=== PATIENT | male | born 1980 | race Caucasian/White ===

== ENCOUNTER 2018-11-18 18:03 | Emergency (ER) | payer MEDICAID, SELFPAY ==
[2018-11-18 18:04] VITALS: BP 166/64; PULSE 96; RESP 18; TEMP 37.2; O2SAT 97; BMI 41.0
--- NOTE | 2018-11-18 18:05 | NURSING ---
NO OLD EKGS
--- NOTE | 2018-11-18 18:20 | EKG12_ITS ---
Test Reason : CP Blood Pressure : / mmHG Vent. Rate : 092 BPM Atrial Rate : 092 BPM P-R Int : 134 ms QRS Dur : 088 ms QT Int : 348 ms P-R-T Axes : 051 035 043 degrees QTc Int : 430 ms Sinus rhythm with occasional Premature ventricular complexes Nonspecific T wave abnormality Abnormal ECG Confirmed by XAVI REYES, NEMO ([id number]), assignment desk editor JARAD BOYLE ([id number]) on 11/23/2018 10:41:50 AM Referred By: LIBBY Confirmed By:STIVEN HURLEY MD
[2018-11-18 18:34] LABS: Absolute Lymphocyte Count 2.66 X10^3/ul (0.83-4.51); Absolute Neutrophil Count 8.2 X10^3/uL (2.0-7.7); Basophil# 0.02 X10^3/uL; Basophil% 0.2 % (0-1); Eosinophil# 0.11 X10^3/uL; Eosinophils% 0.9 % (0-5); Hematocrit 48.8 % (40-54); Hemoglobin 17.3 g/dl (13.0-16.5); Lymphocyte # 2.66 X10^3/ul (4.0); Lymphocyte % 22.7 % (19-41); Mean Corp Hgb Conc 35.5 g/gl (32-36); Mean Corpuscular Volume 90.4 fL (80-94); Mean Platelet Vol. 9.8 fl (6.2-12.0); Monocyte# 0.73 X10^3/uL; Monocyte% 6.2 % (0-10); Neutrophil # 8.16 X10^3/uL (2.7-7.7); Neutrophil % 69.8 % (47-70); POSITIVE COUNT NO; POSITIVE DIFFERENTIAL NO; POSITIVE MORPHOLOGY NO; Platelet Count 231 K/mm3 (150-450); RBC Distribution Width CV 12.2 % (11.6-14.6); RBC Distribution Width SD 40.2 fl (35.1-43.9); White Blood Count 11.7 K/mm3 (4.4-11.0)
[2018-11-18] MEDS: Smz/Tmp Ds Tablet 1 TABLET PO (18:39)
[2018-11-18] MEDS: Mag Hydrox/Al Hydrox/Simeth 30 ML UDC PO (18:39)
[2018-11-18] MEDS: Cephalexin 250 MG Capsule 500 MG PO (18:39)
[2018-11-18 18:58] LABS: ALB/GLOB Ratio 1.2 RATIO (0.9-2.4); AST(SGOT) 16 U/L (15-37); Alanine Aminotransfer ALT/SGPT 33 U/L (16-61); Albumin, Serum 4.1 g/dL (3.2-5.0); Alkaline Phosphatase 101 U/L (45-117); Anion Gap 4 (5-15); BUN 14 mg/dL (7-18); BUN/Creat Ratio 12.4 RATIO (10-20); Calcium,Total 9.3 mg/dL (8.5-10.1); Chloride 102 mmol/L (98-107); Creatinine, Serum 1.13 mg/dL (0.70-1.30); EST Glomerular Filtration Rate 77 mL/min (>60); Est Glom Filt Rate - Afr Amer 94 mL/min (>60); Estimated Creatinine Clearance 104.06 ml/min; Globulin 3.5 g/dL (2.2-4.2); Glucose 158 mg/dL (74-106); Lipase 268 U/L (73-393); Potassium 3.6 mmol/L (3.5-5.1); Protein, Total 7.6 g/dL (6.4-8.2); Sodium Level 135 mmol/L (136-145)
[2018-11-18] MEDS: DiphenhydrAMINE 50 MG/ML Syringe 25 MG IV (19:02)
[2018-11-18 19:04] VITALS: BP 139/87; PULSE 82; RESP 18; O2SAT 98
--- NOTE | 2018-11-18 19:48 | ED.DCSUM_ITS ---
History of Present Illness Chief Complaint: Chest Pain Informant: Patient, Significant Other Onset: Yesterday Context: Sudden Onset Timing: Continuous Quality: Burning sensation Location: Subxiphoid Current Severity: Mild Maximum Severity: Moderate Worsened by: Nothing Relieved by: Nothing Associated Symptoms: Redness warmth right popliteal fossa secondary to insect bite Narrative: Patient is a 37-year-old male who presents with indigestion/burning sensation subxiphoid area. He denies vomiting. He denies black or maroon stool. He reports compliance with his medicine for GERD. He does smoke and have history of hypertension. He has no known coronary disease. The pain is been constant since onset yesterday evening 1999. No radiation, diaphoresis or vomiting. Did report nausea. Prior similar symptoms: No Recent Illness/Hospitalization: No - Past Medical History (1) History of hypertension Status: Acute (2) History of gastroesophageal reflux (GERD) Status: Acute Past Medical History - Allergies and Home Meds Allergies/Adverse Reactions: Allergies No Known Allergies Allergy (Verified 11/18/18 18:06) Primary Care Physician: Pavan Stoddard MD [Primary Care Provider] - Prior records reviewed: Yes Lives: Spouse/ Significant Other Smoking Status: Current every day smoker Alcohol: Occasional Drugs: None Review of Systems General: Denies: Chills, Fever, Malaise, Sweats Eyes: Denies: Visual changes - bilaterally, Blurred Vision - bilaterally, Diplopia Cardiovascular: Reports: Chest pain Respiratory: Denies: Dyspnea, Cough, Dyspnea on exertion Gastrointestinal: Reports: Abdominal pain, Nausea. Denies: Vomiting, Diarrhea, Constipation, Melena, Hematochezia, -, - Genitourinary: Denies: Dysuria, Hematuria, Frequency Musculoskeletal: Denies: Myalgias, Arthralgias, Neck pain, Back pain, Extremity Pain Skin: Reports: Rash, Wounds Neurological: Denies: Headache, Parasthesia, Numbness Psych: Denies: Depression, Anxiety Hematologic: Denies: Easy bruising, Easy bleeding Allergy: Denies: Uticaria, Swelling of the mouth Physical Exam Vital Signs/Narrative: Vital Signs Temp Pulse Resp BP Pulse Ox 11/18/18 19:04 82 18 139/87 H 98 11/18/18 18:04 98.9 F 96 18 166/64 H 97 Inital Vital Signs reviewed: Yes General: Well nourished, Well developed, No Acute Distress Eyes: Perrl, EOMI. Negative for: Pale conjunctiva, Scleral icterus, - ENT: Moist mucous membranes, No rhinorrhea Neck: Supple, Nontender, No lymphadenopathy, No JVD Cardiovascular: Regular rate, Regular rhythm, No murmurs, Normal S1, Normal S2 Respiratory: No distress, CTA bilaterally, Chest nontender Abdomen: Soft, Nontender, Nondistended, Normal bowel sounds, No masses Back: Nontender, Normal Inspection Extremities: Nontender, No edema, - - There is no asymmetry, swelling, discoloration, leg vein distention, palpable cords or tenderness along the distribution of the deep venous system.. Negative for: Calf Tenderness Skin: Normal color, Rash - Puncture wound/bite with surrounding erythema, warmth and induration. There is no popliteal lymphadenopathy nor is there any lymphangitis. Neurological: Alert, Oriented x3, Cranial nerves II-XII grossly intact, Normal Strength, Normal Sensation Psychological: Normal affect, Normal Mood Diagnostic/Tx/Re-eval - Rhythm Strip Rhythm Strip: Sinus Rhythm Rate: 86 - EKG Initial EKG Interpretation: Sinus Rhythm - Ventricular rate is 92. ID interval 234 ms. Cures duration 88 ms. QT interval 348 ms. [place] is normal. Computer is reading no ossific changes, which is artifact. There is one premature ventricular beat noted. - Medical Decision Making Nursing protocol initiated since he reported chest pain.. Patient's wound consistent with cellulitis and concern for streptococcal infection since onset abruptly. He reported allergy to penicillin; however, he report no reaction to amoxicillin. He was treated with cephalexin and Bactrim. I was informed he developed hives. He was treated with Benadryl and Pepcid. His hives have reso lved. He had no other symptoms. Patient was informed that his cardiac work-up was negative. In light of 22 hours of pain with normal troponin normal EKG and heart score of 1 patient is appropriate for discharge to home. More importantly patient's history and physical consistent with GI etiology not cardiac. ED Disposition - Plan for ED Patient: Disposition: Home or Assisted Living Diagnosis: Cellulitis of right lower extremity without foot, Abdominal pain due to GERD, Urticaria, acute Instructions: Cellulitis, GERD (Adult), Hives Prescriptions: Clindamycin HCl [Cleocin] 300 mg PO Q6H #28 cap Prescription Printed Referrals: Pavan Stoddard MD [Primary Care Provider] - 2 Days for wound check
[2018-11-18 20:07] VITALS: BP 136/79; PULSE 78; RESP 17; O2SAT 97
== END 2018-11-18 20:08 | disposition home or self-care (01) ==
PROVIDERS: Emergency Provider Emergency Medicine; Family Provider Family Medicine; PCP Family Medicine
DX: L03.115 Cellulitis of right lower limb (principal); K21.9 Gastro-esophageal reflux disease without esophagitis; L50.9 Urticaria, unspecified; I49.3 Ventricular premature depolarization; F17.200 Nicotine dependence, unspecified, uncomplicated; I10 Essential (primary) hypertension
CPT/HCPCS: 80053; 83690; 85025; 93005; 99285; A4216; J3490

== ENCOUNTER 2019-01-21 11:43 | Emergency (ER) | payer MEDICAID, SELFPAY ==
[2019-01-21 11:44] VITALS: BP 162/96; PULSE 114; RESP 18; TEMP 36.4; O2SAT 96; BMI 40.1
--- NOTE | 2019-01-21 12:17 | ED.VISSUMM ---
- ER Visit Summary Date of Service: 01/21/19 Chief Complaint: Abdominal pain History of Present Illness: The patient is a 38 M who presents with upper abdominal pain that has been constant for the past 2 months. Patient states the pain in his gradually gotten worse. Patient states the pain is over the epigastric and upper abdomen. Patient was seen here 1 to 2 months ago and was diagnosed with indigestion but he thinks it is something worse than that. Patient states he has an appoint with his primary care physician later today but does not feel like he can make it until that appointment. Patient admits to some nausea and vomiting. Patient denies any hematemesis or coffee-ground emesis. Patient states he has some intermittent diarrhea that is loose. Patient denies any melena or hematochezia. Patient states today he had an episode of dizziness where he felt lightheaded and felt like he might pass out. Patient states his pain improves with taking Protonix. Patient denies any urinary complaints. Patient states his pain does radiate into his back. Physical Examination: Vital signs are stable. Patient is afebrile. Patient is in no acute distress. Oral mucosa is pink and moist. Neck is supple. Trachea is midline. There is no JVD noted. Heart was regular rate and rhythm. Lungs are clear and equal bilaterally. Abdomen is soft. Bowel sounds are normal. There is upper abdominal tenderness. There is no rebound or guarding noted. Cranial nerves II through XII are intact. There are no focal motor or sensory deficits noted. Test Results: CBC and comprehensive metabolic profile were within normal limits. Lipase was normal. Urinalysis does not show any evidence of urinary tract infection. Emergency Department Course and Treatment: Patient was given IV fluids, morphine, and Zofran. Patient felt better on reevaluation. Patient was instructed to follow-up with his primary care physician in 5 to 7 days. Patient understood and was agreeable with the plan. All questions were answered. Disposition: Discharge home Impression: Abdominal pain This note was generated with [employer] dictation software. It may contain incorrect words, spelling, and punctuation that were not noted in review of the chart prior to signing ED Disposition - Plan for ED Patient: Disposition: Home or Assisted Living Diagnosis: Abdominal pain Instructions: ABDOMINAL PAIN, Unkown Cause, (Male) Referrals: Pavan Stoddard MD [Primary Care Provider] - 5-7 Days
[2019-01-21 12:43] LABS: Absolute Lymphocyte Count 1.66 X10^3/uL (0.83-4.51); Absolute Neutrophil Count 5.7 X10^3/uL (2.0-7.7); Basophil# 0.05 X10^3/uL; Basophil% 0.6 % (0-1); Eosinophil# 0.13 X10^3/uL; Eosinophils% 1.6 % (0-5); Hematocrit 48.2 % (40-54); Hemoglobin 16.9 g/dL (13.0-16.5); Lymphocyte # 1.66 X10^3/ul (4.0); Lymphocyte % 20.6 % (19-41); Mean Corp Hgb Conc 35.1 g/dL (32-36); Mean Corpuscular Hgb 30.8 pg (27.0-32.0); Mean Platelet Vol. 9.4 fl (6.2-12.0); Monocyte# 0.52 X10^3/uL; Monocyte% 6.4 % (0-10); NRBC Flagged by Analyzer 0 % (0-5); Neutrophil # 5.68 X10^3/uL (2.7-7.7); Neutrophil % 70.4 % (47-70); Platelet Count 187 K/mm3 (150-450); RBC Distribution Width CV 11.5 % (11.6-14.6); RBC Distribution Width SD 36.8 fl (35.1-43.9); Red Blood Count 5.48 M/mm3 (4.6-6.2); White Blood Count 8.1 K/mm3 (4.4-11.0)
[2019-01-21] MEDS: 0.9% Normal Saline 1,000 ML 1000 ML IV (12:52)
[2019-01-21] MEDS: Morphine 4 MG/ML Syringe IV (12:53)
[2019-01-21] MEDS: Ondansetron 4 MG/2 ML Vial IV (12:53)
[2019-01-21 13:00] LABS: AST(SGOT) 13 U/L (15-37); Alanine Aminotransfer ALT/SGPT 36 U/L (16-61); Albumin, Serum 3.8 g/dL (3.2-5.0); Alkaline Phosphatase 105 U/L (45-117); Anion Gap 5 (5-15); BUN 9 mg/dL (7-18); Calcium,Total 9.1 mg/dL (8.5-10.1); Chloride 104 mmol/L (98-107); EST Glomerular Filtration Rate 89 mL/min (>60); Est Glom Filt Rate - Afr Amer 108 mL/min (>60); Estimated Creatinine Clearance 116.45 ml/min; Globulin 3.7 g/dL (2.2-4.2); Glucose 160 mg/dL (74-106); Lipase 223 U/L (73-393); Potassium 3.8 mmol/L (3.5-5.1); Protein, Total 7.5 g/dL (6.4-8.2); Sodium Level 137 mmol/L (136-145)
[2019-01-21 14:00] LABS: Red Blood Cells-Urine 0 SEEN /hpf (0-5)
[2019-01-21 14:04] LABS: Color, Urine Yellow (Yellow); Glucose, Dipstick 1000 mg/dl (Normal); Ketone-Dipstick 5 mg/dl (Negative); Leukocyte Esterase-Dipstick 100 /ul (Negative); Nitrite-Dipstick Negative (Negative); Occult Blood-Urine Negative /ul (Negative); Protein-Dipstick 30 mg/dl (Negative); Urine Bilirubin Dipstick Negative (Negative); Urine Clarity Sl. Cloudy (Clear); Urine Urobilinogen 1 mg/dl (Normal)
[2019-01-21 14:09] LABS: Squamous Epithelial Cells - UA 0-5 SEEN /hpf (0-5); White Blood Cells 10-25 SEEN /hpf (0-5)
[2019-01-21 14:10] LABS: Bacteria 1+ /hpf (None Seen); Mucous, Urine 1+ /hpf (<or=2+)
[2019-01-21 15:39] VITALS: BP 151/78; PULSE 81; RESP 14; O2SAT 94
[2019-01-21 16:22] VITALS: BP 136/96; PULSE 83; RESP 16; O2SAT 98
== END 2019-01-21 16:23 | disposition home or self-care (01) ==
PROVIDERS: Emergency Provider Emergency Medicine; Family Provider Family Medicine; PCP Family Medicine
DX: R10.9 Unspecified abdominal pain (principal); R42 Dizziness and giddiness; R19.7 Diarrhea, unspecified; R11.2 Nausea with vomiting, unspecified; M54.9 Dorsalgia, unspecified; I10 Essential (primary) hypertension; F17.210 Nicotine dependence, cigarettes, uncomplicated
CPT/HCPCS: 80053; 81001; 83690; 85025; 96361; 96374; 96375; 99283; J7030; A4216; J2405

== ENCOUNTER 2020-07-09 21:38 | Emergency (ER) | payer MEDICAID, SELFPAY ==
[2020-07-09 21:40] VITALS: BP 171/102; PULSE 114; RESP 18; TEMP 36.8; O2SAT 96; BMI 42.2
--- NOTE | 2020-07-09 22:06 | ED.VIS.GEN ---
History of Present Illness Chief Complaint: Abd Pain Informant: Patient Narrative: Patient states he had some intermittent cramping in his lower abdomen for a couple of days. He states he had just eaten some pizza when he went upstairs to fold close and started having sweating and nauseous and crampy abdominal pain. He states he got diaphoretic and felt like he was going to vomit. Patient states that most of the symptoms have resolved. He is not had fever, chills. No urinary complaints. He states he had 3 bowel movements today that were normal. - Past Medical History (1) History of gastroesophageal reflux (GERD) Status: Chronic (2) History of hypertension Status: Chronic Past Medical History - Allergies and Home Meds Allergies/Adverse Reactions: Allergies No Known Allergies Allergy (Verified 07/09/20 21:43) Primary Care Physician: Pavan Stoddard MD [Primary Care Provider] - Prior records reviewed: Yes Past Medical History: - - Reviewed in problem list Lives: Spouse/ Significant Other Smoking Status: Current every day smoker Alcohol: None Review of Systems General: Reports: Sweats. Denies: Chills, Fever Eyes: Denies: Visual changes - bilaterally, Diplopia ENT: Denies: Rhinorrhea, Sore throat Cardiovascular: Denies: Chest pain, Palpitations Respiratory: Denies: Dyspnea, Cough, Dyspnea on exertion Gastrointestinal: Reports: Abdominal pain, Nausea. Denies: Vomiting, Diarrhea, Constipation Genitourinary: Denies: Dysuria, Hematuria Musculoskeletal: Denies: Myalgias, Arthralgias Skin: Denies: Rash, Abscess Neurological: Denies: Headache, Weakness Psych: Denies: Depression, Anxiety Physical Exam Vital Signs/Narrative: Vital Signs Temp Pulse Resp BP Pulse Ox 07/09/20 21:40 98.2 F 114 H 18 171/102 H 96 Inital Vital Signs reviewed: Yes General: Well nourished, No Acute Distress Head: Normocephalic, Atraumatic Eyes: Perrl, EOMI. Negative for: Scleral icterus ENT: Moist mucous membranes, No rhinorrhea Cardiovascular: Regular rate, Regular rhythm Respiratory: No distress, CTA bilaterally Abdomen: Soft, Tender - Mild suprapubic tenderness. Abdomen is nonperitoneal. No right lower quadrant tenderness. Skin: Normal color, No rash Neurological: Alert, Oriented x3 Psychological: Normal affect, Normal Mood Diagnostic/Tx/Re-eval - Medical Decision Making 39-year-old male presenting with abdominal pain and nausea. He states he ate pizza prior to his symptoms. He states he also took an early dose of Metformin. His abdominal exam is benign. His vital signs are stable he is afebrile. His lab work is all within normal limits. His urinalysis is negative for infection or blood. I do not suspect a kidney stone. Results were discussed with patient and I do not believe he needs a CAT scan of his abdomen pelvis at this time. He is amenable to that. I will give him some Zofran for home. Patient stable for discharge at this time. Impression: 1. Abdominal pain ED Disposition - Plan for ED Patient: Disposition: Home or Assisted Living Instructions: Abdominal Pain Prescriptions: Ondansetron [Zofran Odt] 4 mg PO Q8H PRN PRN #20 tab PRN Reason: Nausea Prescription Printed Referrals: Pavan Stoddard MD [Primary Care Provider] -
[2020-07-09] MEDS: Ondansetron 4 MG/2 ML Vial IV (22:16)
[2020-07-09] MEDS: Morphine 4 MG/ML Syringe IV (22:16)
[2020-07-09 22:17] LABS: Absolute Lymphocyte Count 2.55 X10^3/uL (0.83-4.51); Absolute Neutrophil Count 4.4 X10^3/uL (2.0-7.7); Basophil# 0.06 X10^3/uL; Basophil% 0.8 % (0-1); Eosinophil# 0.22 X10^3/uL; Eosinophils% 2.8 % (0-5); Hematocrit 46.6 % (40-54); Hemoglobin 16.1 g/dL (13.0-16.5); Lymphocyte # 2.55 X10^3/ul (4.0); Lymphocyte % 32.5 % (19-41); Mean Corp Hgb Conc 34.5 g/dL (32-36); Mean Corpuscular Hgb 30.9 pg (27.0-32.0); Mean Corpuscular Volume 89.4 fL (80-94); Mean Platelet Vol. 9.4 fl (6.2-12.0); Monocyte# 0.59 X10^3/uL; Monocyte% 7.5 % (0-10); NRBC Flagged by Analyzer 0 % (0-5); Neutrophil # 4.41 X10^3/uL (2.7-7.7); Neutrophil % 56.1 % (47-70); Platelet Count 241 K/mm3 (150-450); RBC Distribution Width CV 11.6 % (11.6-14.6); RBC Distribution Width SD 37.5 fl (35.1-43.9); Red Blood Count 5.21 M/mm3 (4.6-6.2); White Blood Count 7.9 K/mm3 (4.4-11.0)
[2020-07-09 22:30] LABS: ALB/GLOB Ratio 1.1 RATIO (0.9-2.4); AST(SGOT) 17 U/L (15-37); Alanine Aminotransfer ALT/SGPT 55 U/L (16-61); Albumin, Serum 3.9 g/dL (3.2-5.0); Alkaline Phosphatase 99 U/L (45-117); Anion Gap 6 (5-15); BUN 10 mg/dL (7-18); Calcium,Total 9.3 mg/dL (8.5-10.1); Chloride 103 mmol/L (98-107); EST Glomerular Filtration Rate 88 mL/min (>60); Est Glom Filt Rate - Afr Amer 107 mL/min (>60); Estimated Creatinine Clearance 112.08 ml/min; Globulin 3.6 g/dL (2.2-4.2); Glucose 101 mg/dL (74-106); Lipase 234 U/L (73-393); Potassium 3.6 mmol/L (3.5-5.1); Protein, Total 7.5 g/dL (6.4-8.2); Sodium Level 137 mmol/L (136-145)
[2020-07-09 22:32] LABS: Red Blood Cells-Urine 0 SEEN /hpf (0-5); Squamous Epithelial Cells - UA 0 SEEN /hpf (0-5); White Blood Cells 0 SEEN /hpf (0-5)
[2020-07-09 22:43] LABS: Color, Urine Yellow (Yellow); Glucose, Dipstick 100 mg/dl (Normal); Ketone-Dipstick 5 mg/dl (Negative); Leukocyte Esterase-Dipstick 25 /ul (Negative); Nitrite-Dipstick Negative (Negative); Occult Blood-Urine Negative /ul (Negative); Protein-Dipstick 30 mg/dl (Negative); Specific Gravity, Urine 1.025 (1.002-1.030); Urine Bilirubin Dipstick Negative (Negative); Urine Clarity Clear (Clear); Urine Urobilinogen 1 mg/dl (Normal)
[2020-07-09 22:48] LABS: Calcium Oxalate Crystals Ur 1+ /hpf (<or=2+)
[2020-07-09 22:49] LABS: Bacteria RARE /hpf (None Seen); Mucous, Urine 1+ /hpf (<or=2+)
[2020-07-09 23:10] VITALS: BP 165/101; PULSE 94; RESP 18; O2SAT 96
== END 2020-07-09 23:10 | disposition home or self-care (01) ==
PROVIDERS: Emergency Provider Student in an Organized Health Care Education/Training Program; PCP Family Medicine
DX: R10.9 Unspecified abdominal pain (principal); I10 Essential (primary) hypertension; K21.9 Gastro-esophageal reflux disease without esophagitis; F17.200 Nicotine dependence, unspecified, uncomplicated
CPT/HCPCS: 80053; 81001; 83690; 85025; 96374; 96375; 99283; A4216; J2405

== ENCOUNTER 2024-12-03 23:47 | Emergency (ER) | payer OTHER, SELFPAY ==
[2024-12-03 23:49] VITALS: BP 197/119; PULSE 113; RESP 18; TEMP 37.4; O2SAT 97; BMI 40.6
[2024-12-04 00:07] VITALS: BP 190/104; PULSE 106; RESP 14; O2SAT 96
[2024-12-04 00:15] LABS: Hematocrit 47.7 % (40-54); Hemoglobin 17.2 g/dL (13.0-16.5); Immature Granulocytes Count 0.030 X10^3/uL (0.0-0.0); Mean Corp Hgb Conc 36.1 g/dL (32-36); Mean Corpuscular Volume 87.2 fL (80-94); Mean Platelet Vol. 9.0 fl (6.2-12.0); NRBC Flagged by Analyzer 0 % (0-5); Platelet Count 244 K/mm3 (150-450); RBC Distribution Width CV 11.8 % (11.6-14.6); RBC Distribution Width SD 37.9 fl (35.1-43.9); Red Blood Count 5.47 M/mm3 (4.6-6.2); White Blood Count 9.2 K/mm3 (4.4-11.0)
[2024-12-04 00:41] LABS: Anion Gap 14 (5-15); BUN 10 mg/dL (4-19); BUN/Creat Ratio 11.7 RATIO (10-20); Calcium,Total 9.6 mg/dL (7.6-11.0); Carbon Dioxide 23.6 mmol/L (21.0-32.0); Chloride 99 mmol/L (98-108); Estimated Creatinine Clearance 164.44 ml/min (50-250); Glucose 203 mg/dL (70-99); Potassium 4.0 mmol/L (3.3-5.1); Troponin T High Sensitivity < 6 ng/L (<=22)
[2024-12-04 02:00] VITALS: BP 178/97; PULSE 86; RESP 16; O2SAT 97
[2024-12-04 02:55] LABS: Troponin T High Sens 2 HR 7 ng/L (<=22)
[2024-12-04 04:00] VITALS: BP 149/88; PULSE 78; RESP 18; O2SAT 97
[2024-12-04 04:07] VITALS: BP 149/88; PULSE 86; RESP 18; TEMP 36.9; O2SAT 98
== END 2024-12-04 04:10 | disposition home or self-care (01) ==
PROVIDERS: Emergency Provider Emergency Medicine; PCP Nurse Practitioner Family; Visit Provider Emergency Medicine
DX: R06.02 Shortness of breath (principal); E11.65 Type 2 diabetes mellitus with hyperglycemia; F17.210 Nicotine dependence, cigarettes, uncomplicated; I10 Essential (primary) hypertension; Z79.899 Other long term (current) drug therapy; Z79.84 Long term (current) use of oral hypoglycemic drugs; K21.9 Gastro-esophageal reflux disease without esophagitis; R61 Generalized hyperhidrosis; R07.89 Other chest pain
CPT/HCPCS: 71275; 80048; 82962; 84484; 85025; 93005; 99285; Q9967; A4216

== ENCOUNTER 2024-12-27 14:49 | Emergency (ER) | payer OTHER, SELFPAY ==
[2024-12-27 14:49] VITALS: BP 177/95; PULSE 96; RESP 18; TEMP 36.6; O2SAT 98; BMI 39.8
--- NOTE | 2024-12-27 15:10 | EDS_ITS ---
HPI History of Present Illness Chief Complaint: Hypertension Informant: patient Narrative Narrative: Presents with current symptoms not feeling well started yesterday. Today nausea dry heaving. No abdominal pain no chest pains. Lightheaded symptoms. History of hypertension diabetes. Blood pressure checked at home today 177/100. He is on amlodipine 10 mg and losartan 25 mg. He has been compliant. Not checked his sugars a couple days it was in the 200s 2 days ago. No urinary symptoms. No polyuria or polydipsia. No headache no abdominal pain. [place] similar symptoms December 03 when blood pressure was 190/100 while in the ER he states blood pressure went down to 140s over 90s. There is no intervention at that time. He follow- up with his PCP pressures was 150s down to 130s when he left the office no adjustments of medications. Decreased p.o. intake. Denies cough. Prior similar symptoms: Yes PFSH PFSH Medical History Neuropathy Hypertension Diabetes Home Medications ?Medication ?Instructions ?Recorded ?Last Taken ?Type amlodipine 10 mg tablet 10 mg PO DAILY 11/18/18 Unkn own History escitalopram oxalate 20 mg tablet 20 mg PO DAILY 07/09 Unknown History glimepiride 2 mg tablet 6 mg PO DAILY 07/09/20 Unkno wn History losartan 25 mg tablet 25 mg PO DAILY 07/09/20 Unkn own History metformin 1,000 mg tablet 1,000 mg PO DAILY 07/09/20 U nknown History gabapentin 300 mg capsule 600 mg PO DAILY 12/27/24 Unk nown History ondansetron 4 mg disintegrating 4 mg PO Q8H PRN PRN Na usea #10 tabs 12/27/24 Unknown Rx tablet pantoprazole 40 mg tablet,delayed 40 mg PO DAILY 12/27 Unknown History release simvastatin 10 mg tablet 10 mg PO QHS 12/27/24 Unknow n History Allergy/AdvReac Type Severity Reaction Status Date / Time latex Allergy rash Verified 12/27/24 14:52 Social History household members: spouse Smoking Status: Light Smoker (<10/day) ROS ROS ED Constitutional Constitutional ED: Denies chills, fever(s) or sweats ENT ENT ED: Denies sore throat Cardiovascular Cardiovascular: Denies chest pain, leg edema, palpitations or racing heartbeat Respiratory/Chest Respiratory/Chest: Denies cough, dyspnea or dyspnea on exertion Gastrointestinal Gastrointestinal: Reports nausea; Denies abdominal pain, diarrhea or vomiting Genitourinary Genitourinary ED: Denies dysuria, hematuria or urinary frequency Musculoskeletal Musculoskeletal: Denies back pain, extremity pain or neck pain Integumentary Denies rash or wounds Neurologic Neurologic: Denies headache(s), paresthesias or weakness EXAM Physical Exam Const Vital Signs: 12/27/24 14:49 12/27/24 14:58 12/27/24 15:30 Temperature 98 F Temperature Source Oral Pulse Rate 96 67 Respiratory Rate 18 Respiratory Pattern Normal Blood Pressure 177/95 H 151/86 H Blood Pressure Mean 122 107 Pulse Ox 98 99 Oxygen Delivery Method Room Air Room Air 12/27/24 16:00 12/27/24 16:59 Temperature 98.4 F Temperature Source Pulse Rate 63 69 Respiratory Rate 16 Respiratory Pattern Blood Pressure 159/86 H 155/83 H Blood Pressure Mean 110 107 Pulse Ox 96 97 Oxygen Delivery Method Positive well nourished and well developed General Appearance ED: well developed and NAD HEENT HEENT Narrative: Mild dry mucosal membranes. normocephalic and atraumatic Eyes General Eye ED: Yes normal appearance of both eyes Neck full ROM Chest Wall Chest: Negative for tenderness Resp normal respiratory effort and normal air movement Resp Narrative: Negative Jimenes's McBurney's tenderness. Effort and Inspection: symmetric chest movement; Negative for respiratory distress Cardio regular rate, regular rhythm and no murmurs Peripheral Pulses: pulses 2+ throughout GI normal to inspection, nondistended, normoactive bowel sounds and non-tender Palpation: Negative for guarding or rebound tenderness present Extremity normal to inspection General Extremety ED: Negative for edema or tenderness General Extremity: Negative for edema Neuro oriented x3 and no sensory deficits noted Sensorium / Orientation: awake and alert Skin no rashes or lesions noted and no wounds MDM MDM MDM Narrative Medical decision making narrative: Interventions / MDM: Differential diagnosis: Diabetes, nausea, elevated blood pressure with history of hypertension Diagnosis considered but do not suspect: N/A My EKG interpretation: Sinus rate of 67, no ST changes. QTc 420. Imaging independently reviewed and interpreted by myself: N/A External documents reviewed: N/A Test considered but not ordered:N/A ED course: Blood pressure 177/95 in the room 173/92. Asymptomatic. Recurrence of not feeling well with nausea dry heaving. Discussed likely symptoms elevated blood pressure from his dry heaving and not feeling well. Mild dry mucosal membranes. He is nauseated. Will establish IV with fluids with antiemetics will check basic labs and EKG. 1545: EKG normal. Blood pressure 155/87 currently. 1625: Labs stable glucose 198 normal gap. Clinically is feeling better. Blood pressure 159/86. Discussed with patient blood pressure elevated due to situational event of not feeling well. No chest pains no abdominal pains no urinary symptoms. He will keep track of his blood pressure in the mornings when he wakes up then before bedtime to get more consistent numbers at home. Prescription for Zofran to his pharmacy he will follow-up with his PCP. All questions were answered. Re-evaluation: stable Disposition discussed with patient/family/significant other: Patient Case discussed with consulting clinician: N/A This note was generated with [employer] dictation software. It may contain incorrect words, spelling, and punctuation that were not noted in checking the note before signing. Lab Data Attestation: I reviewed the patient's lab results. Labs: Laboratory Results - last 24 hr 12/27/24 12/27/24 15:30 15:32 WBC 6.9 RBC 5.44 Hgb 16.8 H Hct 47.4 MCV 87.1 MCH 30.9 MCHC 35.4 RDW Std Deviation 36.7 RDW Coeff of [place] 11.6 Plt Count 222 MPV 9.1 Immature Gran % (Auto) 0.600 Neut % (Auto) 65.9 Lymph % (Auto) 25.6 [place] % (Auto) 5.6 Eos % (Auto) 1.7 Baso % (Auto) 0.6 Absolute Neuts (auto) 4.6 Absolute Lymphs (auto) 1.78 Nucleated RBC % 0 Sodium 137 Potassium 4.0 Chloride 98 Carbon Dioxide 24.8 Anion Gap 14 BUN 9 Creatinine 0.80 Estim Creat Clear Calc 171.26 Est GFR (MDRD) Non-Af 112 BUN/Creatinine Ratio 10.8 Glucose 198 H Calcium 9.5 POC Glucose 186 H Discharge Plan Triage Chief Complaint: Hypertension ED Provider: Fredy Nolen Dx/Rx/DC Orders Clinical Impression: History of hypertension, Diabetes, Nausea Instructions: ED Hypertension, Established Prescriptions: New ondansetron 4 mg tablet,disintegrating 4 mg PO Q8H PRN PRN (Reason: Nausea) Qty: 10 0RF No Action amlodipine 10 MG tablet 10 mg PO DAILY glimepiride 2 MG tablet 6 mg PO DAILY metformin 1,000 MG tablet 1,000 mg PO DAILY losartan 25 MG tablet 25 mg PO DAILY escitalopram oxalate 20 MG tablet 20 mg PO DAILY gabapentin 300 mg capsule 600 mg PO DAILY simvastatin 10 mg tablet 10 mg PO QHS pantoprazole 40 mg tablet,delayed release (DR/EC) 40 mg PO DAILY Stand Alone Forms: ED Work / School Excuse Primary Care Provider: Savanna Vivas Referrals: Savanna Vivas, RN [facility] [Primary Care Provider] - 1-2 Weeks Activity Restrictions/Additional Instructions: EKG normal. Your blood glucose in the lab 198 normal gap. Without treatment blood pressure down 159/86. As discussed likely elevated from reactive from you not feeling well having nausea. Keep a log of your blood pressure when you wake up in the morning then before bedtime. Continue your home medications. Follow- up with your primary care team. Print Language: Croatian Disposition Disposition: Home, Self Care Discharge Date/Time: 12/27/24 16:59
--- NOTE | 2024-12-27 15:10 | EKG12_ITS ---
Test Reason : HTN Blood Pressure : */* mmHG Vent. Rate : 67 BPM Atrial Rate : 67 BPM P-R Int : 146 ms QRS Dur : 86 ms QT Int : 398 ms P-R-T Axes : 39 23 32 degrees QTcB Int : 420 ms Normal sinus rhythm Normal ECG Confirmed by ADY REYES, ANNETTE ([id number]), supervising film or videotape editor MARGARITO ROJO ([id number]) on 12/28/2024 1:01:18 PM Referred By: Confirmed By: ANNETTE GARSIA MD
[2024-12-27] MEDS: 0.9% Normal Saline (1000mL) 1,000 ML 1000 ML IV (15:22)
[2024-12-27 15:30] VITALS: BP 151/86; PULSE 67; O2SAT 99
[2024-12-27 15:40] LABS: Hematocrit 47.4 % (40-54); Hemoglobin 16.8 g/dL (13.0-16.5); Immature Granulocytes Count 0.040 X10^3/uL (0.0-0.0); Mean Corp Hgb Conc 35.4 g/dL (32-36); Mean Corpuscular Volume 87.1 fL (80-94); Mean Platelet Vol. 9.1 fl (6.2-12.0); NRBC Flagged by Analyzer 0 % (0-5); Platelet Count 222 K/mm3 (150-450); RBC Distribution Width CV 11.6 % (11.6-14.6); RBC Distribution Width SD 36.7 fl (35.1-43.9); Red Blood Count 5.44 M/mm3 (4.6-6.2); White Blood Count 6.9 K/mm3 (4.4-11.0)
[2024-12-27 15:55] LABS: Anion Gap 14 (5-15); BUN 9 mg/dL (4-19); BUN/Creat Ratio 10.8 RATIO (10-20); Calcium,Total 9.5 mg/dL (7.6-11.0); Carbon Dioxide 24.8 mmol/L (21.0-32.0); Chloride 98 mmol/L (98-108); Estimated Creatinine Clearance 171.26 ml/min (50-250); Glucose 198 mg/dL (70-99); Potassium 4.0 mmol/L (3.3-5.1)
[2024-12-27 16:00] VITALS: BP 159/86; PULSE 63; O2SAT 96
[2024-12-27 16:59] VITALS: BP 155/83; PULSE 69; RESP 16; TEMP 36.9; O2SAT 97
== END 2024-12-27 16:59 | disposition home or self-care (01) ==
PROVIDERS: Emergency Provider Emergency Medicine; PCP Nurse Practitioner Family; Visit Provider Emergency Medicine
DX: I10 Essential (primary) hypertension (principal); E11.40 Type 2 diabetes mellitus with diabetic neuropathy, unspecified; F17.200 Nicotine dependence, unspecified, uncomplicated; Z79.84 Long term (current) use of oral hypoglycemic drugs; Z79.899 Other long term (current) drug therapy
CPT/HCPCS: 80048; 82962; 85025; 93005; 96361; 96374; 99283; A4216; J2405

== ENCOUNTER 2025-06-01 16:25 | Emergency (ER) | payer OTHER, SELFPAY ==
[2025-06-01 16:27] VITALS: BP 165/87; PULSE 88; RESP 16; TEMP 36.6; O2SAT 97; BMI 38.5
[2025-06-01 17:16] VITALS: BP 165/87; PULSE 82; RESP 17; TEMP 37; O2SAT 97
--- NOTE | 2025-06-01 17:35 | EDS_ITS ---
HPI History of Present Illness Chief Complaint: Wound Informant: patient Narrative Narrative: Patient is a 44-year-old male with a history of DM presenting with erythema and swelling surrounding a recent IV site. Patient is accompanied by his . - Reports erythema and swelling at the site of a recent IV placement for a scope yesterday. - Noticed pain at the wrist last night, which progressed to a sensation of hand soreness. - This morning, observed swelling and erythema over the entire R hand dorsum, prompting a visit to urgent care, where he was advised to seek further evaluation in ED. - Denies fever or feeling unwell. - Last HbA1c was 6.4%. - No known allergies to antibiotics; has tolerated amoxicillin in the past. [facility] Medical History Neuropathy Hypertension Diabetes Home Medications ?Medication ?Instructions ?Recorded ?Last Taken ?Type amlodipine 10 mg tablet 10 mg PO DAILY 11/18/18 Unkn own History escitalopram oxalate 20 mg tablet 20 mg PO DAILY 07/09 Unknown History glimepiride 2 mg tablet 6 mg PO DAILY 07/09/20 Unkno wn History losartan 25 mg tablet 25 mg PO DAILY 07/09/20 Unkn own History metformin 1,000 mg tablet 1,000 mg PO DAILY 07/09/20 U nknown History gabapentin 300 mg capsule 600 mg PO DAILY 12/27/24 Unk nown History ondansetron 4 mg disintegrating 4 mg PO Q8H PRN PRN Na usea #10 tabs 12/27/24 Unknown Rx tablet pantoprazole 40 mg tablet,delayed 40 mg PO DAILY 12/27 Unknown History release simvastatin 10 mg tablet 10 mg PO QHS 12/27/24 Unknow n History cephalexin 500 mg capsule 500 mg PO Q6 #40 CAPSULES Unknown Rx Allergy/AdvReac Type Severity Reaction Status Date / Time lisinopril Allergy Severe Other Verified 06/01/25 16:27 latex Allergy rash Verified 06/01/25 16:27 bupropion (From Wellbutrin) AdvReac Intermediate Nausea Verified 06/01/25 16:27 Social History household members: spouse Smoking Status: Light Smoker (<10/day) ROS ROS ED Constitutional Constitutional ED: Denies body ache(s), chills, fatigue, fever(s), malaise, sweats or weakness Cardiovascular Cardiovascular: Denies chest pain, lightheadedness or syncope Respiratory/Chest Respiratory/Chest: Denies cough or dyspnea Gastrointestinal Gastrointestinal: Denies abdominal pain Musculoskeletal Musculoskeletal: Reports extremity pain; Denies neck pain Integumentary Reports rash; Denies Abrasions or wounds Neurologic Neurologic: Denies paresthesias or weakness EXAM Physical Exam Const Vital Signs: 06/01/25 16:27 06/01/25 17:16 Temperature 97.8 F 98.6 F Temperature Source Temporal Oral Pulse Rate 88 82 Respiratory Rate 16 17 Blood Pressure 165/87 H 165/87 H Blood Pressure Mean 113 113 Pulse Ox 97 97 Oxygen Delivery Method Room Air Positive well nourished and well developed Constitutional Narrative: Well-appearing in no distress General Appearance ED: well developed and NAD Eyes PERRL and EOMs intact bilaterally Neck full ROM and supple Resp normal respiratory effort Cardio regular rate and regular rhythm Rate: Negative for tachycardic Back/Spine normal ROM and normal to inspection Extremity full ROM Extremity Narrative: Mild diffuse swelling, tenderness, and erythema involving the entire dorsum of the right hand, there is a small IV site in the center of this. There is no fluctuance or abscess. There are no palpable cords throughout the entire right upper extremity. Emanating from the most proximal aspect of the erythema at the wrist, there is lymphangitic streaking radiating up the forearm and into the anterior medial right upper arm. There is no epitrochlear lymphadenopathy and there is no tenderness in the axilla or axillary lymphadenopathy. The lymphangitic streaking is nontender and no palpable cords. No SQ emphysema. Full range of motion of all joints. Neuro oriented x3, no focal motor deficits and no sensory deficits noted Sensorium / Orientation: alert Psych mental status grossly normal and thought process normal Skin Skin Narrative: Right hand erythema involving the dorsum of the hand but not the fingers, surrounding IV site. See above. MDM MDM MDM Narrative Medical decision making narrative: Assessment: The patient is a 44-year-old male with PMH of type 2 diabetes mellitus presenting for acute onset of painful swelling and erythema of the right hand and forearm that developed after IV placement yesterday. Exam shows diffuse erythema and tenderness with proximal lymphangitic streaking, without focal cord or induration to suggest superficial or deep venous thrombosis. Laboratory studies reveal a WBC of 10.4 K/?L (high-normal) and lactate 1.6 mmol/L, with other values within normal limits, arguing against systemic infection or sepsis. Given the distribution of redness and presence of lymphangitis, cellulitis of the right upper limb with associated lymphangitis is the most likely diagnosis; DVT and superficial thrombophlebitis are ruled out clinically. Plan: - Administered single dose IV Zosyn in ED and single dose of cephalexin 500mg po. - Removed existing peripheral IV after antibiotic infusion. - Prescribed oral cephalexin for outpatient therapy. - Provided return precautions and discussed signs of worsening infection. - Discharged home; outpatient management appropriate given normal vitals and reassuring labs. Diagnostics: - Labs: WBC 10.4 K/?L (upper limit of normal); lactic acid 1.6 mmol/L; remainder of basic labs normal. Reevaluations: - Patient rechecked after lab results; remains well-appearing, pain improved post-treatment, vital signs stable, no significant changes with regards to erythema to suggest necrotizing fasciitis which I do not suspect is present, pt agreeable to discharge. Portions of this note were generated using voice recognition software ([employer]). I have reviewed the contents and every effort has been made to ensure accuracy; however, inadvertent errors in grammar, spelling, punctuation, or word choice may occur, that were not noted before signing the document and should not alter the intended clinical meaning. Discharge Plan Triage Chief Complaint: Wound ED Provider: Agapito Frye Dx/Rx/DC Orders Clinical Impression: Cellulitis of hand, right, Acute lymphangitis of right upper extremity, Type 2 diabetes mellitus without complications Instructions: ED Cellulitis Prescriptions: New cephalexin 500 mg capsule 500 mg PO Q6 Qty: 40 0RF No Action amlodipine 10 MG tablet 10 mg PO DAILY glimepiride 2 MG tablet 6 mg PO DAILY metformin 1,000 MG tablet 1,000 mg PO DAILY losartan 25 MG tablet 25 mg PO DAILY escitalopram oxalate 20 MG tablet 20 mg PO DAILY gabapentin 300 mg capsule 600 mg PO DAILY simvastatin 10 mg tablet 10 mg PO QHS pantoprazole 40 mg tablet,delayed release (DR/EC) 40 mg PO DAILY ondansetron 4 mg tablet,disintegrating 4 mg PO Q8H PRN PRN (Reason: Nausea) Qty: 10 0RF Primary Care Provider: Pavan Stoddard Referrals: Pavan Stoddard MD [Primary Care Provider, Family Practice] - 3-5 Days Print Language: Thai Disposition Disposition: Home, Self Care
[2025-06-01] MEDS: Piperacil/Tazobactam 3.375 GM in 0.9% Normal Saline (50mL MB+) 50 ML IV (17:49)
[2025-06-01 18:00] VITALS: BP 132/88; PULSE 81; RESP 17; TEMP 36.7; O2SAT 98
--- OUTSIDE RECORDS SUMMARY | 2025-06-01 18:04 | XMS RPT_ITS | CCD ---
Author Organization [facility] CliniSynj Care Team Providers Care Organizational Psychologist Name Role Phone Derek Stoddard MD Primary Care Provider Derek Stoddard MD Primary Care Provider Podlogar COOK LARDER.VENEER TAPING MACHINE OPERATORCandida Unavailable [place] COOK LARDER.VENEER TAPING MACHINE OPERATORDagoberto Unavailable [place] COOK LARDER.VENEER TAPING MACHINE OPERATORDagoberto Unavailable [place] COOK LARDER.VENEER TAPING MACHINE OPERATORDagoberto Unavailable Dr. Kerwin Strauss MD Emergency Provider Sangeetha UNDERGROUND REPAIRER-CDagoberto Primary Care Provider Dr. Kerwin Strauss MD Attending Provider [phone] Fredy Nolen DO Emergency Provider Munira Hester Attending Unavailable Pavan Stoddard Referring Unavailable Pavan Stoddard Primary Care Unavailable Dagoberto Quiles Primary Care Unavailable Kerwin Strauss Attending Unavailable Dagoberto Quiles Primary Care Unavailable Fredy Nolen Attending Unavailable DAGOBERTO QUILES Referring Unavailable DEREK STODDARD Primary Care Unavailab DAGOBERTO Esquivel Attending Unavailable DEREK STODDARD Primary Care Unavailab le KNDAGOBERTO LAFLEUR Referring Unavailable DEREK STODDARD Primary Care Unavailab le KNDAGOBERTO LAFLEUR Referring Unavailable DEREK STODDARD B Primary Care Unavailab le KNDAGOBERTO LAFLEUR Attending Unavailable DEREK STODDARD Primary Care Unavailab le KNDAGOBERTO LAFLEUR Referring Unavailable DEREK STODDARD Primary Care Unavailab le KNDAGOBERTO LAFLEUR Referring Unavailable DEREK STODDARD Primary Care Unavailab le DAGOBERTO QUILES Attending Unavailable DEREK STODDARD Primary Care Unavailab DAGOBERTO Esquivel Attending Unavailable DEREK STODDARD Referring DEREK Lepe Primary Care Unavailab le Allergies Allergy Classification Reported Allergen(s) Allergy Type Date of Onset Reaction(s) Facility (20 sources) buPROPion; Translations: [BUPROPION] Drug Allergy 0 GI Upset [facility] Work Phone: (20 sources) Latex; Translations: [LATEX] Drug Allergy 7 Rash [facility] Work Phone: (20 sources) Lisinopril; Translations: [LISINOPRIL] Drug Allergy 0 Cough [facility] Work Phone: (9 sources) Penicillins; Translations: [PENICILLINS] Drug Allergy 6 Unknown [facility] (20 sources) FLUoxetine; Translations: [FLUOXETINE] Drug Allergy 2 Mental Status Change [facility] Work Phone: (20 sources) Penicillins Drug Allergy 6 Unknown [facility] (16 sources) Penicillins Drug Allergy 6 Unknown [facility] (1 source) Latex Drug allergy (disorder) 5 [facility] Repository Medications Current Medications Medication Drug Class(es) Dates Sig (Normalized) Sig (Original) amLODIPine 10 mg oral tablet (20 sources) Dihydropyridine Calcium Channel Chito Start: 11-18-2018 End: 05-30-2025 take 1 tablet by mouth once daily amLODIPine (NORVASC) 10 mg tablet Indications: Essential hypertension Take 1 tablet by mouth once daily. 90 tablet 1 12/01/2024 05/30/2025 Active Comment on above: Take 1 tablet by dagoberto th once daily. Blood Pressure Kit-Extra Large kit (20 sources) Start: 02-20-2022 Blood Pressure Kit-Extra Large kit 1 Each once daily. 1 Each 02/20/2022 Active Start: 02-20-2022 Blood Pressure Kit-Extra Large kit 1 Each once daily. 1 Each 0 02/20/2022 Active Comment on above: 1 Each once daily. busPIRone hydrochloride 5 mg oral tablet (7 sources) Start: 12-10-19 take 1 tablet by mouth three times daily as needed busPIRone (BUSPAR) 5 mg tablet Indications: CARMEN (generalized anxiety disorder) Take 1 tablet by mouth three times a day as needed. 90 tablet 12/09/2024 Active cefdinir 300 mg oral capsule (3 sources) Cephalosporin Antibacterial Start: 11-05-19 End: 11-15-19 take 1 capsule by mouth twice daily cefdinir (OMNICEF) 300 mg capsule Indications: Left ear pain Take 1 capsule by mouth two times a day for 10 days. 20 capsule 0 11/05/2023 11/15/2023 Active enteric contrast (will be provided with radiology test) (1 source) Start: 01-01-20 End: 01-02-20 enteric contrast (will be provided with radiology test) For CT ABD/PEL W IVCON Routine order Administer, As Directed One Time Only, via Oral, Rectal, both Oral and Rectal, Enteric Tube, Stoma or Indwelling Catheter, Enteric Contrast as designated per enteric contrast guidelines 1 each 12/31/2024 01/01/2025 Active escitalopram 20 mg oral tablet (20 sources) Serotonin Reuptake Inhibitor Start: 07-09-19 End: 05-30-20 take 1 tablet by mouth once daily escitalopram oxalate (LEXAPRO) 20 mg tablet Indications: Depression with anxiety Take 1 tablet by mouth once daily. 90 tablet 1 12/01/2024 05/30/2025 Active Comment on above: Take 1 tablet by dagoberto th once daily. gabapentin 300 mg oral capsule (20 sources) Anti-epileptic Agent Start: 06-04-19 End: 03-01-20 take 2 capsules by mouth once daily at bedtime gabapentin (NEURONTIN) 300 mg capsule Indications: Numbness and tingling of both feet Take 2 capsules by mouth daily at bedtime for 90 days. 60 capsule 2 12/01/2024 03/01/2025 Active Start: 05-03-2024 End: 08-01-2024 take 1 capsule by mouth twice daily gabapentin (NEURONTIN) 300 mg capsule Indications: Numbness and tingling of both feet Take 1 capsule by mouth two times a day for 90 days. 60 capsule 06/04/2024 06/04/2024 Discontinued Start: 11-18-2022 End: 02-05-2024 take 1 capsule by mouth twice daily gabapentin (NEURONTIN) 300 mg capsule Indications: Numbness and tingling of both feet Take 1 capsule by mouth two times a day for 90 days. 60 capsule 11/07/2023 Active Start: 02-20-2022 End: 10-02-2022 take 1 capsule by mouth three times daily gabapentin (NEURONTIN) 300 mg capsule Indications: Numbness and tingling of both feet Take 1 capsule by mouth three times daily for 30 days. 90 capsule 0 09/02/2022 Active Comment on above: Take 1 capsule by mo ut three times daily for 30 days. Take 1 capsule by mo ut twice daily for 90 days. glimepiride 4 mg oral tablet (20 sources) Sulfonylurea Start: End: take 1 tablet by mouth once daily glimepiride (AMARYL) 2 mg tablet Take 1 tablet by mouth once daily. Take with 4 mg tablet to equal 6 mg daily. 90 tablet 1 12/01/2024 05/30/2025 Active Start: 06-18-2024 End: 12-01-2024 take 1 tablet by mouth once daily at breakfast glimepiride (AMARYL) 4 mg tablet Take 1 tablet by mouth daily with breakfast. Take with with 2 mg tablet daily to equal 6 mg daily. 90 tablet 1 12/01/2024 Active Start: 06-14-2024 End: 12-11-2024 take 2 tablets by mouth once daily at breakfast glimepride 3 mg tablet Indications: Type 2 diabetes mellitus without complication, without long-term current use of insulin (HCC) Take 2 tablets by mouth daily with breakfast. 180 tablet 1 06/14/2024 06/18/2024 Discontinued Start: 06-11-2024 End: 06-14-2024 take 1 tablet by mouth once daily at breakfast glimepiride (AMARYL) 4 mg tablet Indications: Type 2 diabetes mellitus without complication, without long-term current use of insulin (HCC) Take 1 tablet by mouth daily with breakfast. 90 tablet 1 06/11/2024 06/14/2024 Discontinued Start: 11-07-2023 End: 09-26-2024 take 2 tablets by mouth once daily at breakfast glimepiride (AMARYL) 1 mg tablet Indications: Type 2 diabetes mellitus without complication, without long-term current use of insulin (HCC) Take 2 tablets by mouth daily with breakfast. 180 tablet 1 03/30/2024 06/11/2024 Discontinued Start: 01-29-2022 End: 11-07-2023 take 3 tablets by mouth once daily at breakfast glimepiride (AMARYL) 1 mg tablet Indications: Type 2 diabetes mellitus without complication, without long-term current use of insulin (HCC) Take 3 tablets by mouth daily with breakfast. 270 tablet 1 01/02/2023 11/07/2023 Discontinued Start: 10-30-2021 End: 04-28-2022 take 1 tablet by mouth once daily at breakfast glimepiride (AMARYL) 4 mg tablet Indications: Type 2 diabetes mellitus without complication, without long-term current use of insulin (HCC) Take 1 tablet by mouth daily with breakfast. 90 tablet 1 10/30/2021 01/29/2022 Discontinued Start: 07-06-2021 End: 01-02-2022 take 0.5 tablet by mouth once daily at breakfast glimepiride (AMARYL) 4 mg tablet Indications: Type 2 diabetes mellitus without complication, without long-term current use of insulin (HCC) Take 0.5 tablets by mouth daily with breakfast. 45 tablet 1 07/06/2021 10/30/2021 Discontinued Start: 07-09-2020 take 3 tablets by mo uth once daily Glimepiride 2 MG tablet Active 6 mg PO DAILY July 09, 2020 1:00am Start: 07-09-2020 End: 01-31-2021 take 1 tablet by mouth once daily at breakfast glimepiride (AMARYL) 2 mg tablet Indications: Type 2 diabetes mellitus without complication, without long-term current use of insulin (HCC) Take 1 tablet by mouth daily with breakfast. 90 tablet 1 09/25/2020 01/31/2021 Discontinued Comment on above: Take 0.5 tablets by mouth daily with breakfast. Take 1 tablet by dagoberto daily with breakfast. Take 3 tablets by mo uth daily with breakfast. iv contrast (will be provided with radiology test) (1 source) Start: 01-01-20 End: 01-02-20 iv contrast (will be provided with radiology test) CT ABD/PEL -Inject, intravenously, once for 1 dose.No IV access, insert saline lock prior to the beginning of sedation, infusion, injection of imaging exam. Discontinue saline lock post exam. If Pt. has a central line or IVAD, may access for administration according to line specific nursing protocol. Once exam is complete flush line and de-access according to line specific nursing protocol in theCT contrast administration guidelines link. 1 each 12/31/2024 01/01/2025 Active losartan potassium 25 mg oral tablet (20 sources) Angiotensin 2 Receptor Chito Start: 07-09-19 End: 05-01-20 take 1 tablet by mouth once daily losartan (COZAAR) 25 mg tablet Indications: Essential hypertension Take 1 tablet by mouth once daily. 90 tablet 1 11/02/2024 05/01/2025 Active Comment on above: Take 1 tablet by dagoberto th once daily. meloxicam 15 mg oral tablet (1 source) Nonsteroidal Anti-inflammatory Drug Start: 07-04-19 End: 10-03-19 take 1 tablet by mouth once daily at mealtime meloxicam (MOBIC) 15 mg tablet Take 1 tablet by mouth once daily. With food. 30 tablet 2 07/04/2021 10/02/2021 Active Comment on above: Take 1 tablet by dagoberto th once daily. With food. 24 hr metFORMIN hydrochloride 500 mg extended release oral tablet (20 sources) Biguanide Start: 09-01-19 End: 04-03-20 take 2 tablets by mouth once daily at dinner metFORMIN ER (GLUCOPHAGE XR) 500 mg 24 hr tablet Indications: Type 2 diabetes mellitus without complication, without long-term current use of insulin (HCC) Take 2 tablets by mouth daily with dinner. 180 tablet 1 10/05/2024 04/03/2025 Active Start: 01-29-2022 End: 04-14-2023 take 2 tablets by mouth once daily at dinner metFORMIN ER (GLUCOPHAGE XR) 500 mg 24 hr tablet Indications: Type 2 diabetes mellitus without complication, without long-term current use of insulin (HCC) Take 2 tablets by mouth daily with dinner. 180 tablet 1 10/16/2022 04/14/2023 Active Start: 09-25-2020 End: 01-29-2022 take 2 tablets by mouth twice daily metFORMIN ER (GLUCOPHAGE XR) 500 mg 24 hr tablet Indications: Type 2 diabetes mellitus without complication, without long-term current use of insulin (HCC) Take 2 tablets by mouth twice daily. 360 tablet 1 07/04/2021 01/29/2022 Discontinued Start: 07-09-2020 take 1 tablet by dagoberto th once daily Metformin 1,000 MG tablet Active 1000 mg PO DAILY July 09, 2020 1:00am Comment on above: Take 2 tablets by mo uth twice daily. Take 2 tablets by mo uth daily with dinner. ondansetron 4 mg disintegrating oral tablet (9 sources) Serotonin-3 Receptor Antagonist Start: 021 End: take 1 tablet by mouth every eight hours as needed for nausea ondansetron orally disintegrating (ZOFRAN ODT) 4 mg disintegrating tablet Indications: Nausea , Type 2 diabetes mellitus without complication, without long-term current use of insulin ([facility]) Take 1 tablet by mouth every 8 hours as needed for nausea/vomiting. 30 tablet 2 12/31/2024 Active pantoprazole 40 mg delayed release oral tablet (20 sources) Proton Pump Inhibitor Start: 023 End: take 1 tablet by mouth once daily before breakfast pantoprazole DR (PROTONIX) 40 mg tablet Indications: Gastroesophageal reflux disease, unspecified whether esophagitis present Take 1 tablet by mouth daily before breakfast. Take on empty stomach, 1/2 hr before meal. 90 tablet 1 12/01/2024 05/30/2025 Active Start: 04-17-2022 End: 03-04-2023 take 1 tablet by mouth once daily before breakfast pantoprazole DR (PROTONIX) 40 mg tablet Take 1 tablet by mouth daily before breakfast. Take on empty stomach, 1/2 hr before meal. 90 tablet 1 09/05/2022 Active Start: 09-25-2020 End: 03-23-2022 take 1 tablet by mouth once daily before breakfast pantoprazole DR (PROTONIX) 40 mg tablet Take 1 tablet by mouth daily before breakfast. Take on empty stomach, 1/2 hr before meal. 90 tablet 1 09/24/2021 Active Start: 11-18-2018 End: 12-27-2024 take 1 tablet by mouth once daily Pantoprazole Sodium 40 MG tablet Discontinued 40 mg PO DAILY November 18, 2018 12:00am December 27, 2024 2:57pm Comment on above: Take 1 tablet by dagoberto th daily before breakfast. Take on empty stomach, 1/2 hr before meal. simvastatin 10 mg oral tablet (20 sources) HMG-CoA Reductase Inhibitor Start: 4 End: take 1 tablet by mouth once daily at bedtime simvastatin (ZOCOR) 10 mg tablet Indications: Hyperlipidemia, mixed Take 1 tablet by mouth daily at bedtime. For cholesterols. 90 tablet 1 12/01/2024 Active Completed/Discontinued Medications Medication Drug Class(es) Dates Sig (Normalized) Sig (Original) atorvastatin 20 mg oral tablet (20 sources) HMG-CoA Reductase Inhibitor Start: 09-01-2023 End: 02-28-2024 take 1 tablet by mouth once daily at bedtime for hyperlipidemia atorvastatin (LIPITOR) 20 mg tablet Take 1 tablet by mouth daily at bedtime. For cholesterol. 90 tablet 1 09/01/2023 11/07/2023 Discontinued Start: 07-04-2021 End: 04-14-2023 take 1 tablet by mouth once daily at bedtime for hyperlipidemia atorvastatin (LIPITOR) 20 mg tablet Take 1 tablet by mouth daily at bedtime. For cholesterol. 90 tablet 1 10/16/2022 04/14/2023 Active Comment on above: Take 1 tablet by dagoberto th daily at bedtime. For cholesterol. celecoxib 200 mg oral capsule (20 sources) Nonsteroidal Anti-inflammatory Drug Start: 2 End: 3 take 1 capsule by mouth once daily celecoxib (CELEBREX) 200 mg capsule Take 1 capsule by mouth once daily. 30 capsule 2 10/16/2022 11/13/2022 Discontinued (Other) Start: 10-30-2021 take 1 capsule by mo [facility] once daily celecoxib (CELEBREX) 200 mg capsule Take 1 capsule by mouth once daily. 30 capsule 2 10/30/2021 Active Comment on above: Take 1 capsule by mo ut once daily. cholecalciferol 1.25 mg oral capsule (14 sources) Vitamin D Start: 2 End: 3 take 1 capsule by mouth every week cholecalciferol, Vitamin D3, (VITAMIN D3) 1,250 mcg (50,000 unit) cap capsule Indications: Vitamin D deficiency Take 1 capsule by mouth one time a week. 12 capsule 0 07/06/2021 10/16/2022 Discontinued Start: 09-27-2020 End: 01-30-2021 take 1 capsule by mouth every week cholecalciferol, Vitamin D3, (VITAMIN D3) 1,250 mcg (50,000 unit) cap capsule Indications: Vitamin D deficiency Take 1 capsule by mouth one time a week. 12 capsule 09/27/2020 01/30/2021 Discontinued (Course of therapy completed) Comment on above: Take 1 capsule by mo [facility] one time a week. DULoxetine 30 mg delayed release oral capsule (20 sources) Serotonin and Norepinephrine Reuptake Inhibitor Start: 10-18-2022 End: 11-18-2022 DULoxetine (CYMBALTA) 30 mg capsule Indications: Depression with anxiety Take 1 capsule every other day for 3 weeks then every 3rd day for 3 weeks, then stop 20 capsule 0 10/18/2022 11/18/2022 Discontinued Start: 10-30-2021 End: 03-01-2023 take 1 capsule by mouth once daily DULoxetine (CYMBALTA) 30 mg capsule Indications: Depression with anxiety Take 1 capsule by mouth once daily. 90 capsule 0 09/02/2022 09/05/2022 Discontinued Comment on above: Take 1 capsule by [facility] once daily. Take 1 capsule every other day for 3 weeks then every 3rd day for 3 weeks, then stop erythromycin 0.005 mg/mg ophthalmic ointment (1 source) Macrolide, Macrolide Antimicrobial Start: 09-10-19 End: 01-31-20 erythromycin ophthalmic ointment Indications: Hordeolum externum of right upper eyelid Use 1 application in the right eye three times daily. 3.5 g 09/10/2019 01/30/2021 Discontinued hydrocortisone acetate 20 mg/ml / lidocaine hydrochloride 20 mg/ml rectal cream (4 sources) Antiarrhythmic, Corticosteroid, Amide Local Anesthetic Start: 09-25-19 End: 10-17-19 23 lidocaine/hydrocort isone ac (LIDOCAINE HCL-HYDROCORTISON AC) 2 %-2 % (7 gram) kit Indications: Internal hemorrhoids by RECTAL route twice daily for 7 days. 1 Kit 0 09/24/2022 10/16/2022 Discontinued Comment on above: by RECTAL route twic e daily for 7 days. naproxen 500 mg oral tablet (1 source) Nonsteroidal Anti-inflammatory Drug Start: 12-08-19 End: 07-04-19 take 1 tablet by mouth twice daily as needed naproxen (NAPROSYN) 500 mg tablet Indications: Chronic neck pain , Chronic bilateral low back pain with bilateral sciatica Take 1 tablet by mouth twice daily as needed. Take with food. 60 tablet 1 12/08/2019 07/04/2021 Discontinued semaglutide 3 mg oral tablet (20 sources) Start: 07-15-19 End: 12-10-19 take 1 tablet by mouth once daily before breakfast, then take 4 tablets by mouth once semaglutide (RYBELSUS) 3 mg tablet Indications: Type 2 diabetes mellitus with peripheral neuropathy (HCC) Take 1 tablet by mouth daily before breakfast. Take 30 minutes before the first food, beverage, or other oral medications of the day with no more than 4 ounces of plain water 30 tablet 5 08/02/2024 12/09/2024 Discontinued Start: 10-16-2022 End: 07-15-2024 take 1 tablet by mouth once daily before breakfast, then take 4 tablets by mouth once semaglutide (RYBELSUS) 7 mg tablet Indications: Type 2 diabetes mellitus with peripheral neuropathy (HCC) Take 1 tablet (7 mg) by mouth daily before breakfast. Take 30 minutes before the first food, beverage, or other oral medications of the day with no more than 4 ounces of plain water 90 tablet 1 06/08/2024 06/15/2024 Discontinued Start: 08-06-2022 End: 10-15-2022 take 1 tablet by mouth once daily before breakfast semaglutide (RYBELSUS) 3 mg tablet Indications: Type 2 diabetes mellitus without complication, without long-term current use of insulin (HCC) Take 1 tablet by mouth daily before breakfast. 30 tablet 0 09/02/2022 10/15/2022 Discontinued Comment on above: Take 1 tablet by dagoberto th daily before breakfast. Take 1 tablet (7 mg) by mouth daily before breakfast. SITagliptin 100 mg oral tablet (10 sources) Dipeptidyl Peptidase 4 Inhibitor Start: 2 End: 3 take 1 tablet by mouth once daily SITagliptin (JANUVIA) 100 mg tablet Indications: Type 2 diabetes mellitus without complication, without long-term current use of insulin (HCC) Take 1 tablet by mouth once daily. 90 tablet 1 01/29/2022 08/06/2022 Discontinued Comment on above: Take 1 tablet by dagoberto once daily. traZODone hydrochloride 50 mg oral tablet (2 sources) Serotonin Reuptake Inhibitor Start: 1 End: 5 take 1 tablet by mouth at bedtime Trazodone 50 MG tablet Discontinued 50 mg PO AT BEDTIME July 09, 2020 1:00am December 27, 2024 2:56pm Problems Active Problems Problem Classification Problem Date Documented Da te Episodic/Chronic Abdominal pain (3 sources) Left lower quadrant pain; Translations: [Left lower quadrant pain] Episodic Anxiety disorders (20 sources) Mixed anxiety and depressive disorder; Translations: [Other specified anxiety disorders] Onset: 9 Resolved: 1 02-01-2014 Chronic Coma; stupor; and brain damage (1 source) Daytime somnolence; Translations: [Somnolence] Episodic Diabetes mellitus with complications (20 sources) Type 2 diabetes mellitus; Translations: [Type 2 diabetes mellitus with diabetic polyneuropathy] Onset: 2 Chronic Diabetes mellitus without complication (20 sources) Diabetes mellitus; Translations: [Type 2 diabetes mellitus without complications] Onset: 5 08-10-2019 Chronic Disorders of lipid metabolism (7 sources) Mixed hyperlipidemia; Translations: [Mixed hyperlipidemia] Onset: 5 Chronic Esophageal disorders (20 sources) Gastroesophageal reflux disease; Translations: [Gastro-esophageal reflux disease without esophagitis] Onset: 6 01-17-2006 Chronic Essential hypertension (20 sources) Hypertensive disorder; Translations: [Essential (primary) hypertension] Onset: 5 09-23-2014 Chronic Gastrointestinal hemorrhage (1 source) Rectal hemorrhage; Translations: [Hemorrhage of anus and rectum] Episodic Headache; including migraine (20 sources) Migraine; Translations: [Migraine, unspecified, not intractable, without status migrainosus] Onset: 5 09-23-2014 Chronic Hemorrhoids (1 source) Internal hemorrhoids; Translations: [Other hemorrhoids] Episodic Immunizations and screening for infectious disease (1 source) Encounter for immunization; Translations: [Other specified vaccinations against streptococcus pneumoniae [pneumococcus]] Episodic Nonspecific chest pain (3 sources) Chest pain; Translations: [Chest pain, unspecified] 01-29-2021 Episodic Nutritional deficiencies (1 source) Vitamin D deficiency; Translations: [Vitamin D deficiency, unspecified] Chronic Other circulatory disease (2 sources) H/O: hypertension; Translations: [Personal history of other diseases of the circulatory system] 07-09-2020 Episodic Other connective tissue disease (1 source) Bilateral chronic pain of feet; Translations: [Pain in right foot] Episodic Other ear and sense organ disorders (1 source) Otalgia, left ear; Translations: [Otalgia, unspecified] 11-05-2023 Episodic Other gastrointestinal disorders (2 sources) History of gastroesophageal reflux disease; Translations: [Personal history of other diseases of the digestive system] 07-09-2020 Episodic Other lower respiratory disease (3 sources) Snoring; Translations: [Snoring] 08-05-2024 Episodic Other lower respiratory disease (1 source) Shortness of breath; Translations: [Shortness of breath] Onset: Episodic Other nervous system disorders (12 sources) Paresthesia of foot ; Translations: [Anesthesia of skin] Episodic Other nervous system disorders (1 source) Cold feet; Translations: [Unspecified disturbances of skin sensation] Episodic Other nutritional; endocrine; and metabolic disorders (20 sources) Morbid obesity; Translations: [Morbid (severe) obesity due to excess calories] Onset: 6 08-20-2017 Chronic Other nutritional; endocrine; and metabolic disorders (20 sources) Obesity caused by energy imbalance; Translations: [Morbid (severe) obesity due to excess calories] Onset: 6 08-20-2017 Chronic Other nutritional; endocrine; and metabolic disorders (3 sources) Obese class II; Translations: [Obesity, Class II, BMI 35-39.9] 06-04-2024 Chronic Other skin disorders (1 source) Multiple skin tags; Translations: [Other hypertrophic disorders of the skin] Episodic Other skin disorders (1 source) Hidradenitis suppurativa; Translations: [Hidradenitis suppurativa] 11-07-2023 Episodic Other skin disorders (1 source) Ingrowing toenail; Translations: [Ingrowing nail] 06-04-2024 Episodic Other skin disorders (2 sources) Excessive sweating; Translations: [Generalized hyperhidrosis] 12-04-2024 Episodic Other upper respiratory infections (1 source) Sore throat symptom; Translations: [Acute pharyngitis, unspecified] 01-21-2023 Episodic Residual codes; unclassified (2 sources) Obstructive sleep apnea syndrome; Translations: [Obstructive sleep apnea (adult) (pediatric)] 08-26-2024 Chronic Residual codes; unclassified (1 source) Obstructive sleep apnea (adult) (pediatric); Translations: [JOLANTA (obstructive sleep apnea)] Onset: Chronic Residual codes; unclassified (1 source) Past history of procedure; Translations: [Other specified postprocedural states] Episodic Residual codes; unclassified (2 sources) Family history of Parkinson's disease; Translations: [Family history of epilepsy and other diseases of the nervous system] 12-09-2024 Episodic Skin and subcutaneous tissue infections (2 sources) Cellulitis of leg, excluding foot; Translations: [Cellulitis of right lower limb] 11-19-2018 Episodic Substance-related disorders (20 sources) Tobacco user; Translations: [Nicotine dependence, unspecified, uncomplicated] Onset: 01-17-2006 Chronic Unclassified (1 source) Obesity, Class II, BMI 35-39.9; Translations: [Obesity, Class II, BMI 35-39.9] Onset: Past or Other Problems Problem Classification Problem Date Documented Date Episodic/Chronic Allergic reactions (20 sources) Hand eczema; Translations: [Dermatitis, unspecified] Onset: 09-19-2012 Resolved: 09-23-2014 09-23-2014 Episodic Anal and rectal conditions (20 sources) Perianal abscess; Translations: [Anal abscess] Onset: 04-22-2012 Resolved: 07-16-2012 07-16-2012 Episodic Contraceptive and procreative management (20 sources) Patient encounter status; Translations: [Encounter for other general counseling and advice on contraception] Onset: 07-10-2018 07-10-2018 Episodic Malaise and fatigue (6 sources) Fatigue; Translations: [Other fatigue] Onset: 08-17-2024 01-21-2023 Episodic Nausea and vomiting (10 sources) Nausea; Translations: [Nausea] Onset: 12-31-2024 Episodic Open wounds of extremities (20 sources) Laceration of finger of right hand; Translations: [Laceration without foreign body of unspecified finger without damage to nail, initial encounter] Onset: 10-31-2016 10-31-2016 Episodic Other circulatory disease (20 sources) Elevated blood-pressure reading without diagnosis of hypertension; Translations: [Elevated blood-pressure reading, without diagnosis of hypertension] Onset: 12-17-2005 Resolved: 07-16-2012 07-16-2012 Episodic Other congenital anomalies (20 sources) Porokeratosis; Translations: [Other specified congenital malformations of skin] Onset: 03-31-2012 Resolved: 09-23-2014 09-23-2014 Chronic Other lower respiratory disease (1 source) Snoring; Translations: [Snoring] Onset: 08-17-2024 Episodic Other nervous system disorders (20 sources) Plantar nerve lesion; Translations: [Lesion of plantar nerve, unspecified lower limb] Onset: 11-21-2011 Resolved: 07-16-2012 07-16-2012 Chronic Other nervous system disorders (1 source) Anesthesia of skin; Translations: [Numbness and tingling of both feet] Onset: 06-04-2024 Episodic Other nervous system disorders (1 source) Paresthesia of skin; Translations: [Numbness and tingling of both feet] Onset: 06-04-2024 Episodic Other screening for suspected conditions (not mental disorders or infectious disease) (20 sources) Blood chemistry abnormal; Translations: [Other specified abnormal findings of blood chemistry] Onset: 01-17-2006 Resolved: 09-23-2014 09-23-2014 Episodic Other skin disorders (20 sources) Asteatosis cutis; Translations: [Xerosis cutis] Onset: 09-19-2012 09-19-2012 Episodic Other skin disorders (20 sources) Acquired plantar keratoderma; Translations: [Acquired keratosis [keratoderma] palmaris et plantaris] Onset: 09-19-2012 Resolved: 09-23-2014 09-23-2014 Episodic Other skin disorders (1 source) Ingrowing nail; Translations: [Ingrown toenail] Onset: 06-04-2024 Episodic Residual codes; unclassified (1 source) Family history of epilepsy and other diseases of the nervous system; Translations: [Family history of Parkinson's disease] Onset: 12-09-2024 Episodic Spondylosis; intervertebral disc disorders; other back problems (20 sources) Low back pain; Translations: [Lumbago] Onset: 07-16-2012 07-16-2012 Episodic Viral infection (20 sources) Condyloma acuminatum of the anogenital region; Translations: [Anogenital (venereal) warts] Onset: 05-10-2011 Resolved: 07-16-2012 07-16-2012 Episodic Results Test Name Value Interpretation Reference Range Facility [facility] 04-12-2025 CNPN Telephone (FAMWS) MCKINLEY MCGEE ([id number]) 1980 M Date Time Provider Department 04/12/25 DEREK STODDARD [facility] During your visit today, we recorded the following information about you: Kourtney Rachel, ALEXANDER 04/12/2025 1:41 PM Signed Patient calls and states that [email or web address] had faxed over CPAP supplies order to Dagoberto Quiles's office. Patient is asking if this was received? Patient states that [email or web address] is faxing over orders again today. Please review and advise, ALEXANDER Topete Sherrie, RN 04/12/2025 2:27 PM Signed Pt updated that fax was received. Allergies As of Date: 04/12/2025 Noted Allergy Reaction LATEX 10/31/2016 2 - Rash LISINOPRIL 11/16/2019 3 - Cough PENICILLINS 12/17/2005 16 - Unknown Comments: childhood- unknown reaction -Has taken amoxil PROZAC (FLUOXETINE) 10/30/2021 1 - Mental Status Change WELLBUTRIN (BUPROPION) 05/17/2020 8 - GI Upset Date Reviewed: 01/14/2025 Reviewed by: Ariana Nesbitt, RT(R) - Fully Assessed Reason for Visit: Forms [913] Prescriptions as of 04/12/2025 - metFORMIN ER (GLUCOPHAGE XR) 500 mg 24 hr tablet Take 2 tablets by mouth daily with dinner. - gabapentin (NEURONTIN) 300 mg capsule Take 2 capsules by mouth daily at bedtime for 90 days. - ondansetron orally disintegrating (ZOFRAN ODT) 4 mg disintegrating tablet Take 1 tablet by mouth every 8 hours as needed for nausea/vomiting. - busPIRone (BUSPAR) 5 mg tablet Take 1 tablet by mouth three times a day as needed. - pantoprazole DR (PROTONIX) 40 mg tablet Take 1 tablet by mouth daily before breakfast. Take on empty stomach, 1/2 hr before meal. - escitalopram oxalate (LEXAPRO) 20 mg tablet Take 1 tablet by mouth once daily. - glimepiride (AMARYL) 2 mg tablet Take 1 tablet by mouth once daily. Take with 4 mg tablet to equal 6 mg daily. - simvastatin (ZOCOR) 10 mg tablet Take 1 tablet by mouth daily at bedtime. For cholesterols. - amLODIPine (NORVASC) 10 mg tablet Take 1 tablet by mouth once daily. - glimepiride (AMARYL) 4 mg tablet Take 1 tablet by mouth daily with breakfast. Take with with 2 mg tablet daily to equal 6 mg daily. - losartan (COZAAR) 25 mg tablet Take 1 tablet by mouth once daily. - Blood Pressure Kit-Extra Large kit 1 Each once daily. - blood sugar diagnostic (BLOOD GLUCOSE TEST) test strip Test blood sugar(s) 1 times daily. Dx: Type 2 DM - Uncontrolled E11.65 Insulin: No - Lancets lancets Test blood sugar(s) 1 times daily. 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] 11/21/2011 07/16/2012 Porokeratosis [Q82.8] 03/31/2012 09/23/2014 Perianal abscess [K61.0] 04/22/2012 07/16/2012 Lumbago [M54.50] 07/16/2012 Hand eczema [L30.9] 09/19/2012 09/23/2014 Eczematous dermatitis [L30.9] 09/19/2012 02/01/2014 Irritant contact dermatitis [L24.9] 09/19/2012 02/01/2014 Xerosis cutis [L85.3] 09/19/2012 Keratoderma of foot, acquired [L85.1] 09/19/2012 09/23/2014 Depression with anxiety [F41.8] 02/01/2014 HTN (hypertension) [I10] 09/23/2014 Migraine [G43.909] 09/23/2014 Laceration of finger of right hand [S61.219A] 10/31/2016 Screening and evaluation for vasectomy [Z30.09] 07/10/2018 Hypertension [I10] Type 2 diabetes mellitus with peripheral neurop* PTSD (post-traumatic stress disorder) [F43.10] Encounter Status:Closed by ROSSY ELY on 04/12/25 [facility] 03-31-2025 [facility] Telephone (GSTNOR) MCKINLEY MCGEE ([id number]) 1980 M Date Time Provider Department 03/31/25 LAURIE FORD During your visit today, we recorded the following information about you: Dorita Ruffin 03/31/2025 8:15 AM Signed Called patient and left message to call back to reschedule the 03/31/25 Laurie Ford appointment due to provider is sick. Allergies As of Date: 03/31/2025 Noted Allergy Reaction LATEX 10/31/2016 2 - Rash LISINOPRIL 11/16/2019 3 - Cough PENICILLINS 12/17/2005 16 - Unknown Comments: childhood- unknown reaction -Has taken amoxil PROZAC (FLUOXETINE) 10/30/2021 1 - Mental Status Change WELLBUTRIN (BUPROPION) 05/17/2020 8 - GI Upset Date Reviewed: 01/14/2025 Reviewed by: Ariana Nesbitt, RT(R) - Fully Assessed Reason for Visit: Appointment [186] Prescriptions as of 03/31/2025 - metFORMIN ER (GLUCOPHAGE XR) 500 mg 24 hr tablet Take 2 tablets by mouth daily with dinner. - gabapentin (NEURONTIN) 300 mg capsule Take 2 capsules by mouth daily at bedtime for 90 days. - ondansetron orally disintegrating (ZOFRAN ODT) 4 mg disintegrating tablet Take 1 tablet by mouth every 8 hours as needed for nausea/vomiting. - busPIRone (BUSPAR) 5 mg tablet Take 1 tablet by mouth three times a day as needed. - pantoprazole DR (PROTONIX) 40 mg tablet Take 1 tablet by mouth daily before breakfast. Take on empty stomach, 1/2 hr before meal. - escitalopram oxalate (LEXAPRO) 20 mg tablet Take 1 tablet by mouth once daily. - glimepiride (AMARYL) 2 mg tablet Take 1 tablet by mouth once daily. Take with 4 mg tablet to equal 6 mg daily. - simvastatin (ZOCOR) 10 mg tablet Take 1 tablet by mouth daily at bedtime. For cholesterols. - amLODIPine (NORVASC) 10 mg tablet Take 1 tablet by mouth once daily. - glimepiride (AMARYL) 4 mg tablet Take 1 tablet by mouth daily with breakfast. Take with with 2 mg tablet daily to equal 6 mg daily. - losartan (COZAAR) 25 mg tablet Take 1 tablet by mouth once daily. - Blood Pressure Kit-Extra Large kit 1 Each once daily. - blood sugar diagnostic (BLOOD GLUCOSE TEST) test strip Test blood sugar(s) 1 times daily. Dx: Type 2 DM - Uncontrolled E11.65 Insulin: No - Lancets lancets Test blood sugar(s) 1 times daily. 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] 11/21/2011 07/16/2012 Porokeratosis [Q82.8] 03/31/2012 09/23/2014 Perianal abscess [K61.0] 04/22/2012 07/16/2012 Lumbago [M54.50] 07/16/2012 Hand eczema [L30.9] 09/19/2012 09/23/2014 Eczematous dermatitis [L30.9] 09/19/2012 02/01/2014 Irritant contact dermatitis [L24.9] 09/19/2012 02/01/2014 Xerosis cutis [L85.3] 09/19/2012 Keratoderma of foot, acquired [L85.1] 09/19/2012 09/23/2014 Depression with anxiety [F41.8] 02/01/2014 HTN (hypertension) [I10] 09/23/2014 Migraine [G43.909] 09/23/2014 Laceration of finger of right hand [S61.219A] 10/31/2016 Screening and evaluation for vasectomy [Z30.09] 07/10/2018 Hypertension [I10] Type 2 diabetes mellitus with peripheral neurop* PTSD (post-traumatic stress disorder) [F43.10] Encounter Status:Closed by DORITA RUFFIN on 03/31/25 Normal [facility] CT ABD/PEL W IVCONon -15-[address] ABD/PEL W IVCON * * *Final Report* * * DATE OF EXAM: Jan 14 2025 3:24PM [facility] 0530 - CT ABD/PEL W IVCON / PROCEDURE REASON: Nausea * * * * Physician Interpretation * * * * EXAMINATION: CT ABDOMEN AND PELVIS WITH IV CONTRAST CLINICAL HISTORY: Nausea TECHNIQUE: CT of the abdomen and pelvis was performed using standard technique, scanning from just above the dome of the diaphragm to the symphysis pubis. MQ: CTAP_3 Contrast: IV: 100 ml of Omnipaque 350 Oral: 10 ml of Omni 240 10-25ml diluted with water CT Radiation dose: Integrated Dose-length product (DLP) for this visit = 1205 mGy*cm. CT Dose Reduction Employed: Automated exposure control(AEC) and iterative recon COMPARISON: None. RESULT: Liver: No mass. Diffuse hypoattenuation compatible with steatosis. Biliary: No bile duct dilation. Gallbladder is collapsed. Spleen: No mass. No splenomegaly. Pancreas: No mass or duct dilation. Adrenals: No mass. Kidneys: No mass, calculus or hydronephrosis. GI tract: No dilation or wall thickening. Normal appendix. Lymph nodes: No abdominal or pelvic lymphadenopathy. Mesentery/Peritoneum: No ascites or mass. Retroperitoneum: No mass. Vasculature: The celiac axis and SMA are patent. The portal vein and branches, splenic vein, SMV, and hepatic veins are patent. Mild aortoiliac atherosclerotic disease. Pelvis: No mass, ascites or fluid collection. Bones/Soft Tissues: No significant finding. Lower thorax: Unremarkable. Localizer images: No additional findings. IMPRESSION: No acute abnormality in the abdomen and pelvis. Pocket Setter Lockstitch: [email or web address] Transcribe Date/Time: Jan 14 2025 3:44P Dictated by : CHANNING CASTANON MD This examination was interpreted and the report reviewed and electronically signed by: CHANNING CASTANON MD on Jan 14 2025 3:50PM EST [id number] Normal [facility] CT Abdomen and Pelvis W cont rast Bri 01-14-2025 IMPRESSION: No acute abnormality in the abdomen and pelvis. Pocket Setter Lockstitch: [facility] Transcribe Date/Time: Jan 14 2025 3:44P Dictated by : CHANNING CASTANON MD This examination was interpreted and the report reviewed and electronically signed by: CHANNING CASTANON MD on Jan 14 2025 3:50PM EST DIVISION OF RADIOLOGY * * *Final Report* * * DATE OF EXAM: Jan 14 2025 3:24PM [facility] 0530 - CT ABD/PEL W IVCON / PROCEDURE REASON: Nausea * * * * Physician Interpretation * * * * EXAMINATION: CT ABDOMEN AND PELVIS WITH IV CONTRAST CLINICAL HISTORY: Nausea TECHNIQUE: CT of the abdomen and pelvis was performed using standard technique, scanning from just above the dome of the diaphragm to the symphysis pubis. MQ: CTAP_3 Contrast: IV: 100 ml of Omnipaque 350 Oral: 10 ml of Omni 240 10-25ml diluted with water CT Radiation dose: Integrated Dose-length product (DLP) for this visit = 1205 mGy*cm. CT Dose Reduction Employed: Automated exposure control(AEC) and iterative recon COMPARISON: None. RESULT: Liver: No mass. Diffuse hypoattenuation compatible with steatosis. Biliary: No bile duct dilation. Gallbladder is collapsed. Spleen: No mass. No splenomegaly. Pancreas: No mass or duct dilation. Adrenals: No mass. Kidneys: No mass, calculus or hydronephrosis. GI tract: No dilation or wall thickening. Normal appendix. Lymph nodes: No abdominal or pelvic lymphadenopathy. Mesentery/Peritoneum: No ascites or mass. Retroperitoneum: No mass. Vasculature: The celiac axis and SMA are patent. The portal vein and branches, splenic vein, SMV, and hepatic veins are patent. Mild aortoiliac atherosclerotic disease. Pelvis: No mass, ascites or fluid collection. Bones/Soft Tissues: No significant finding. Lower thorax: Unremarkable. Localizer images: No additional findings. DIVISION OF RADIOLOGY Provider, [facility] - 01/14/2025 * * *Final Report* * * DATE OF EXAM: Jan 14 2025 3:24PM [facility] 0530 - CT ABD/PEL W IVCON / PROCEDURE REASON: Nausea * * * * Physician Interpretation * * * * EXAMINATION: CT ABDOMEN AND PELVIS WITH IV CONTRAST CLINICAL HISTORY: Nausea TECHNIQUE: CT of the abdomen and pelvis was performed using standard technique, scanning from just above the dome of the diaphragm to the symphysis pubis. MQ: CTAP_3 Contrast: IV: 100 ml of Omnipaque 350 Oral: 10 ml of Omni 240 10-25ml diluted with water CT Radiation dose: Integrated Dose-length product (DLP) for this visit = 1205 mGy*cm. CT Dose Reduction Employed: Automated exposure control(AEC) and iterative recon COMPARISON: None. RESULT: Liver: No mass. Diffuse hypoattenuation compatible with steatosis. Biliary: No bile duct dilation. Gallbladder is collapsed. Spleen: No mass. No splenomegaly. Pancreas: No mass or duct dilation. Adrenals: No mass. Kidneys: No mass, calculus or hydronephrosis. GI tract: No dilation or wall thickening. Normal appendix. Lymph nodes: No abdominal or pelvic lymphadenopathy. Mesentery/Peritoneum: No ascites or mass. Retroperitoneum: No mass. Vasculature: The celiac axis and SMA are patent. The portal vein and branches, splenic vein, SMV, and hepatic veins are patent. Mild aortoiliac atherosclerotic disease. Pelvis: No mass, ascites or fluid collection. Bones/Soft Tissues: No significant finding. Lower thorax: Unremarkable. Localizer images: No additional findings. IMPRESSION IMPRESSION: No acute abnormality in the abdomen and pelvis. Pocket Setter Lockstitch: PSCB Transcribe Date/Time: Jan 14 2025 3:44P Dictated by : CHANNING CASTANON MD This examination was interpreted and the report reviewed and electronically signed by: CHANNING CASTANON MD on Jan 14 2025 3:50PM [facility] Radiology Study [facility] (narrative) [facility] CT Abdomen and Pelvis W cont rast IVOrdered By: Ccf Provider on 01-14-2025 [facility] CNPNon 12-31-2024 CNPN Telephone (TUNDEWS) MCKINLEY MCGEE ([id number]) 1980 M Date Time Provider Department 12/31[facility] your visit today, we recorded the following information about you: Sangita Medina 12/31/2024 2:04 PM Signed Patient calling in to schedule appt with Emilie in [place]. I put him down for their soonest appt on February 22. Patient states Lacelina was going to place a CT scan if he was not able to get in right away. Please review and advise. Sangita Medina December 31, 2024 2:04 PM Jaylyn Grossman MA 12/31/2024 3:[address] imaging placed for pt. Pt sent in [employer] message. Will notify him in [employer] message. Jaylyn Grossman MA Allergies As of Date: 12/31/2024 Noted Allergy Reaction LATEX 10/31/2016 2 - Rash LISINOPRIL 11/16/2019 3 - Cough PENICILLINS 12/17/2005 16 - Unknown Comments: childhood- unknown reaction -Has taken amoxil PROZAC (FLUOXETINE) 10/30/2021 1 - Mental Status Change WELLBUTRIN (BUPROPION) 05/17/2020 8 - GI Upset Date Reviewed: 12/09/2024 Reviewed by: Tarik Velasquez MA - Fully Assessed Reason for Visit: Orders [681] Patient Update [1234] Primary Visit Diagnosis:Nausea [R11.0] Order(s):CT ABD/PEL W IVCON [[id number]] Order #: [id number] FUTURE iv contrast (will be provided with radiology test)CT ABD/PEL -Inject, intravenously, once for 1 dose.No IV access, insert saline lock prior to the beginning of sedation, infusion, injection of imaging exam. Discontinue saline lock post exam. If Pt. has a central line or IVAD, may access for administration according to line specific nursing protocol. Once exam is complete flush line and de-access according to line specific nursing protocol in theCT contrast administration guidelines link.Disp: 1 eachRfl: 0 enteric contrast (will be provided with radiology test)For CT ABD/PEL W IVCON Routine order Administer, As Directed One Time Only, via Oral, Rectal, both Oral and Rectal, Enteric Tube, Stoma or Indwelling Catheter, Enteric Contrast as designated per enteric contrast guidelinesDisp: 1 eachRfl: 0 Prescriptions as of 12/31/2024 - ondansetron orally disintegrating (ZOFRAN ODT) 4 mg disintegrating tablet Take 1 tablet by mouth every 8 hours as needed for nausea/vomiting. - iv contrast (will be provided with radiology test) CT ABD/PEL -Inject, intravenously, once for 1 dose.No IV access, insert saline lock prior to the beginning of sedation, infusion, injection of imaging exam. Discontinue saline lock post exam. If Pt. has a central line or IVAD, may access for administration according to line specific nursing protocol. Once exam is complete flush line and de-access according to line specific nursing protocol in theCT contrast administration guidelines link. - enteric contrast (will be provided with radiology test) For CT ABD/PEL W IVCON Routine order Administer, As Directed One Time Only, via Oral, Rectal, both Oral and Rectal, Enteric Tube, Stoma or Indwelling Catheter, Enteric Contrast as designated per enteric contrast guidelines - busPIRone (BUSPAR) 5 mg tablet Take 1 tablet by mouth three times a day as needed. - pantoprazole DR (PROTONIX) 40 mg tablet Take 1 tablet by mouth daily before breakfast. Take on empty stomach, 1/2 hr before meal. - escitalopram oxalate (LEXAPRO) 20 mg tablet Take 1 tablet by mouth once daily. - glimepiride (AMARYL) 2 mg tablet Take 1 tablet by mouth once daily. Take with 4 mg tablet to equal 6 mg daily. - gabapentin (NEURONTIN) 300 mg capsule Take 2 capsules by mouth daily at bedtime for 90 days. - simvastatin (ZOCOR) 10 mg tablet Take 1 tablet by mouth daily at bedtime. For cholesterols. - amLODIPine (NORVASC) 10 mg tablet Take 1 tablet by mouth once daily. - glimepiride (AMARYL) 4 mg tablet Take 1 tablet by mouth daily with breakfast. Take with with 2 mg tablet daily to equal 6 mg daily. - losartan (COZAAR) 25 mg tablet Take 1 tablet by mouth once daily. - metFORMIN ER (GLUCOPHAGE XR) 500 mg 24 hr tablet Take 2 tablets by mouth daily with dinner. - Blood Pressure Kit-Extra Large kit 1 Each once daily. - blood sugar diagnostic (BLOOD GLUCOSE TEST) test strip Test blood sugar(s) 1 times daily. Dx: Type 2 DM - Uncontrolled E11.65 Insulin: No - Lancets lancets Test blood sugar(s) 1 times daily. 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 Normal [facility] 12 Lead EKGon 12-27-2024 12 Lead EKG [facility] [address] [place] [address] 12 Lead EKG 12/27/24 1521 MR#: [id number] Acct: [id number] Name: MCKINLEY MCGEE Rep #: [id number] : 1980 44 From: Talon Gallegos MD Attending Dr: Status: DEP ER Ordering Dr: Fredy Nolen DO Date: 12/27/24 Location: ED Sex: M C Admitted: Test Reason : HTN Blood Pressure : */* mmHG Vent. Rate : 67 BPM Atrial Rate : 67 BPM P-R Int : 146 ms QRS Dur : 86 ms QT Int : 398 ms P-R-T Axes : 39 23 32 degrees QTcB Int : 420 ms Normal sinus rhythm Normal ECG Confirmed by TALON GALLEGOS MD ([id number]), editor index INGRID ROJO ([id number]) on 12/28/2024 1:01:18 PM Referred By: Confirmed By: TALON GALLEGOS MD 12/28/24 1301 Date Talon Gallegos MD CC: UNDERGROUND REPAIRER-C Dagoberto Quiles; Dr. Fredy Nolen DO Signed Normal [facility] Absolute lymphocyte countOrd ered By: Fredy Nolen on 12-27-2024 Lymphocytes Auto (Unsp spec) [#/Vol] 1.78 10*3/uL 0.83-4.51 [facility] Absolute neutrophil countOrd ered By: Fredy Nolen on 12-27-2024 Neutrophils (Bld) [#/Vol] 4.6 10*3/uL 2.0-7.7 [facility] Anion gap in Serum or Plasma Ordered By: Fredy Nolen on 12-27-2024 Anion gap [Moles/Vol] 14 mmol/L 5-15 [facility] Automated lymphocyte count a s percentage of total leukocytesOrdered By: Fredy Nolen on 12-27-2024 Lymphocytes/100 WBC Auto (Unsp spec) 25.6 % 19-41 [facility] BUN/creatinine ratioOrdered By: Fredy Nolen on 12-27-2024 Urea nitrogen/Creatinine [Mass ratio] 10.8 mg/mg 10- [facility] Basic Metabolic Profile (BMP )on 12-27-2024 BUN/CRE 10.8 RATIO Normal - [facility] Comment on above: Performed By: #### L 100.0100, L500.2500 ####[facility] [address] [place], [address] Calcium [Mass/Vol] 9.5 mg/dL Normal 7.6-11.0 [facility] Comment on above: Performed By: #### L 100.0100, L500.2500 ####[facility] [address] [place], [address] Chloride [Moles/Vol] 98 mmol/L Normal 98-108 [facility] Comment on above: Performed By: #### L 100.0100, L500.2500 ####[facility] [address] [place], [address] CO2 [Moles/Vol] 24.8 mmol/L Normal 21.0-32.0 [facility] [facility] Comment on above: Performed By: #### L 100.0100, L500.2500 ####[facility] [address] [place], [address] Creatinine [Mass/Vol] 0.80 mg/dL Normal 0.70-1.20 [facility] Comment on above: Performed By: #### L 100.0100, L500.2500 ####[facility] [address] [place], [address] ECRCL 171.26 ml/min Normal 50-250 [facility] Comment on above: Performed By: #### L 100.0100, L500.2500 ####[facility] [address] [place], [address] GAP 14 Normal 5-15 [facility] Comment on above: Performed By: #### L 100.0100, L500.2500 ####[facility] [address] [place], [address] GFR/1.73 sq M.predicted among non-blacks MDRD (S/P/Bld) [Vol rate/Area] 112 mL/min/{1.73_m2} Normal >60 [facility] Comment on above: Result Comment: mL/m in/1.73m2 CKD-EPI Creatinine Equation (2020) Performed By: #### L 100.0100, L500.2500 ####[facility] [address] [place], [address] Glucose [Mass/Vol] 198 mg/dL High 70-99 [facility] Comment on above: Performed By: #### L 100.0100, L500.2500 ####[facility] [address] [place], [address] Potassium [Moles/Vol] 4.0 mmol/L Normal 3.3-5.1 [facility] Comment on above: Performed By: #### L 100.0100, L500.2500 ####[facility] [address] [place], [address] Sodium [Moles/Vol] 137 mmol/L Normal 133-145 [facility] Comment on above: Performed By: #### L 100.0100, L500.2500 ####[facility] [address] [place], [address] Urea nitrogen [Mass/Vol] 9 mg/dL Normal 4-19 [facility] Comment on above: Performed By: #### L 100.0100, L500.2500 ####[facility] [address] [place], [address] Basophil percentageOrdered B y: Fredy Nolen on 12-27-2024 Basophils/100 WBC (Bld) 0.6 % 0-1 [facility] Bedside Glucoseon 12-27-2024 FINGERSTICK GLU 186 mg/dL High 74-106 [facility] Comment on above: Result Comment: ENEDELIA PEDERSEN OF PATIENT CARE PER NURSING PROTOCOL Performed By: #### L 501.080 ####[facility] [address] [place], [address] CBC W/Diff, Automatedon 12-01 Absolute Lymph 1.78 X10 3/uL Normal 0.83-4.51 [facility] Comment on above: Performed By: #### L 100.0100, L500.2500 #### [facility] [address] [place], [address] Absolute Neut 4.6 X10 3/uL Normal 2.0-7.7 [facility] Comment on above: Performed By: #### L 100.0100, L500.2500 #### [facility] [address] [place], [address] Basophils/100 WBC (Bld) 0.6 % Normal 0-1 [facility] Comment on above: Performed By: #### L 100.0100, L500.2500 #### [facility] [address] [place], [address] Eosinophils/100 WBC (Bld) 1.7 % Normal 0-5 [facility] Comment on above: Performed By: #### L 100.0100, L500.2500 #### [facility] [address] [place], [address] Erythrocyte distribution width (RBC) [Ratio] 11.6 % Normal 11.6-14.6 [facility] Comment on above: Performed By: #### L 100.0100, L500.2500 #### [facility] [address] [place], [address] Hematocrit (Bld) [Volume fraction] 47.4 % Normal 40-54 [facility] Comment on above: Performed By: #### L 100.0100, L500.2500 #### [facility] [address] [place], [address] Hemoglobin (Bld) [Mass/Vol] 16.8 g/dL High 13.0-16.5 [facility] Comment on above: Performed By: #### L 100.0100, L500.2500 #### [facility] [address] [place], [address] IG% 0.600 Normal 0.0-0.9 [facility] Comment on above: Result Comment: IG% - Immature Granulocytes (promyelocytes, myelocytes and metamyelocytes) > 1% indicates that a LEFT SHIFT is Present. Performed By: #### L 100.0100, L500.2500 #### [facility] [address] [place], [address] Lymphocytes/100 WBC (Bld) 25.6 % Normal 19-41 [facility] Comment on above: Performed By: #### L 100.0100, L500.2500 #### [facility] [address] [place], [address] MCH (RBC) [Entitic mass] 30.9 pg Normal 27.0-32.0 [facility] Comment on above: Performed By: #### L 100.0100, L500.2500 #### [facility] [address] [place], [address] MCHC (RBC) [Mass/Vol] 35.4 g/dL Normal 32-36 [facility] Comment on above: Performed By: #### L 100.0100, L500.2500 #### [facility] [address] [place], [address] MCV (RBC) [Entitic vol] 87.1 fL Normal 80-94 [facility] Comment on above: Performed By: #### L 100.0100, L500.2500 #### [facility] [address] [place], [address] Monocytes/100 WBC (Bld) 5.6 % Normal 0-10 [facility] Comment on above: Performed By: #### L 100.0100, L500.2500 #### [facility] [address] [place], [address] Neutrophils/100 WBC (Bld) 65.9 % Normal 47-70 [facility] Comment on above: Performed By: #### L 100.0100, L500.2500 #### [facility] [address] [place], [address] Nucleated RBC (Bld) [#/Vol] 0 10*3/uL Normal 0-5 [facility] Comment on above: Performed By: #### L 100.0100, L500.2500 #### [facility] [address] [place], [address] Platelet mean volume (Bld) [Entitic vol] 9.1 fL Normal 6.2-12.0 [facility] Comment on above: Performed By: #### L 100.0100, L500.2500 #### [facility] [address] [place], [address] Platelets (Bld) [#/Vol] 222 10*3/uL Normal 150-450 [facility] Comment on above: Performed By: #### L 100.0100, L500.2500 #### [facility] [address] [place], [address] RBC (Bld) [#/Vol] 5.44 10*6/uL Normal 4.6-6.2 [facility] Comment on above: Performed By: #### L 100.0100, L500.2500 #### [facility] [address] [place], [address] RDW SD 36.7 fl Normal 35.1-43.9 [facility] Comment on above: Performed By: #### L 100.0100, L500.2500 #### [facility] [address] [place], [address] WBC (Bld) [#/Vol] 6.9 10*3/uL Normal 4.4-11.0 [facility] Comment on above: Performed By: #### L 100.0100, L500.2500 #### [facility] [address] [place], [address] Carbon dioxide, total [Moles /volume] in Central venous bloodOrdered By: Fredy Nolen on 12-27-2024 CO2 [Moles/Vol] 24.8 mmol/L 21.0-32.0 [facility] Chloride assayOrdered By: Jarrod Nolen on 12-27-2024 Chloride [Moles/Vol] 98 mmol/L 98-108 [facility] Emergency Department Summary on 12-27-2024 Emergency Department Summary [facility] Medical Records Department [address] [place] [address] Emergency Department Summary 12/27/24 MR#: [id number] Acct: [id number] Name: MCKINLEY MCGEE Rep #: [id number] : 1980 44 From: Fredy Kovacs PCP: FLO Vuong Status:DEP ER Location: ED HPI History of Present Illness Chief Complaint: Hypertension Informant: patient Narrative Narrative: Presents with current symptoms not feeling well started yesterday. Today nausea dry heaving. No abdominal pain no chest pains. Lightheaded symptoms. History of hypertension diabetes. Blood pressure checked at home today 177/100. He is on amlodipine 10 mg and losartan 25 mg. He has been compliant. Not checked his sugars a couple days it was in the 200s 2 days ago. No urinary symptoms. No polyuria or polydipsia. No headache no abdominal pain. [place] similar symptoms December 03 when blood pressure was 190/100 while in the ER he states blood pressure went down to 140s over 90s. There is no intervention at that time. He follow-up with his PCP pressures was 150s down to 130s when he left the office no adjustments of medications. Decreased p.o. intake. Denies cough. Prior similar symptoms: Yes PFSH PFSH Medical History Neuropathy Hypertension Diabetes Home Medications ???Medication ???Instructions ???Recorded ???Last Taken ???Type amlodipine 10 mg tablet 10 mg PO DAILY 11/18/18 Unknown Hi story escitalopram oxalate 20 mg tablet 20 mg PO DAILY 07/09/20 Unknown H istory glimepiride 2 mg tablet 6 mg PO DAILY 07/09/20 Unknown His tory losartan 25 mg tablet 25 mg PO DAILY 07/09/20 Unknown Hi story metformin 1,000 mg tablet 1,000 mg PO DAILY 07/09/20 Unknown History gabapentin 300 mg capsule 600 mg PO DAILY 12/27/24 Unknown H istory ondansetron 4 mg disintegrating 4 mg PO Q8H PRN PRN Nausea #10 tab s 12/27/24 Unknown Rx tablet pantoprazole 40 mg tablet,delayed 40 mg PO DAILY 12/27/24 Unknown H istory release simvastatin 10 mg tablet 10 mg PO QHS 12/27/24 Unknown Hist ory Allergy/AdvReac Type Severity Reaction Status Date / Time latex Allergy rash Verified 12/27/24 14:52 Social History household members: spouse Smoking Status: Light Smoker (<10/day) ROS ROS ED Constitutional Constitutional ED: Denies chills, fever(s) or sweats ENT ENT ED: Denies sore throat Cardiovascular Cardiovascular: Denies chest pain, leg edema, palpitations or racing heartbeat Respiratory/Chest Respiratory/Chest: Denies cough, dyspnea or dyspnea on exertion Gastrointestinal Gastrointestinal: Reports nausea; Denies abdominal pain, diarrhea or vomiting Genitourinary Genitourinary ED: Denies dysuria, hematuria or urinary frequency Musculoskeletal Musculoskeletal: Denies back pain, extremity pain or neck pain Integumentary Denies rash or wounds Neurologic Neurologic: Denies headache(s), paresthesias or weakness EXAM Physical Exam Const Vital Signs: 12/27/24 14:49 12/27/24 14:58 12/27/24 15:30 Temperature 98 F Temperature Source Oral Pulse Rate 96 67 Respiratory Rate 18 Respiratory Pattern Normal Blood Pressure 177/95 H 151/86 H Blood Pressure Mean 122 107 Pulse Ox 98 99 Oxygen Delivery Method Room Air Room Air 12/27/24 16:00 12/27/24 16:59 Temperature 98.4 F Temperature Source Pulse Rate 63 69 Respiratory Rate 16 Respiratory Pattern Blood Pressure 159/86 H 155/83 H Blood Pressure Mean 110 107 Pulse Ox 96 97 Oxygen Delivery Method Positive well nourished and well developed General Appearance ED: well developed and NAD HEENT HEENT Narrative: Mild dry mucosal membranes. normocephalic and atraumatic Eyes General Eye ED: Yes normal appearance of both eyes Neck full ROM Chest Wall Chest: Negative for tenderness Resp normal respiratory effort and normal air movement Resp Narrative: Negative Jimenes's McBurney's tenderness. Effort and Inspection: symmetric chest movement; Negative for respiratory distress Cardio regular rate, regular rhythm and no murmurs Peripheral Pulses: pulses 2+ throughout GI normal to inspection, nondistended, normoactive bowel sounds and non-tender Palpation: Negative for guarding or rebound tenderness present Extremity normal to inspection General Extremety ED: Negative for edema or tenderness General Extremity: Negative for edema Neuro oriented x3 and no sensory deficits noted Sensorium / Orientation: awake and alert Skin no rashes or lesions noted and no wounds MDM MDM MDM Narrative Medical decision making narrative: Interventions / MDM: Differential diagnosis: Diabetes, nausea, elevated blood pressure with history of hypert (more content not included)... Normal [facility] Eosinophil percentageOrdered By: Fredy Nolen on 12-27-2024 Eosinophils/100 WBC (Bld) 1.7 % 0-5 [facility] Erythrocyte distribution wid th ratioOrdered By: Fredy Nolen on 12-27-2024 Erythrocyte distribution width (RBC) [Ratio] 11.6 % 11.6-14.6 [facility] Erythrocyte distribution wid th standard deviationOrdered By: Fredy Nolen on 12-27-2024 Erythrocyte distribution width (RBC) [Ratio] 36.7 fl 35.1-43.9 [facility] Glomerular filtration rate ( GFR) estimation/1.73 sq m using serum, plasma, or whole bOrdered By: Fredy Nolen on 12-27-2024 GFR/1.73 sq M.predicted among non-blacks MDRD (S/P/Bld) [Vol rate/Area] 112 mL/min/{1.73_m2} >60 [facility] Comment on above: mL/min/1.73m2 CKD-EP I Creatinine Equation (2020) [facility] de[facility]dered By: Fredy Nolen on 12-27-2024 Glucose [Mass/Vol] 186 mg/dL High 74-106 [facility] Comment on above: MANAGEMENT OF PATIEN T CARE PER NURSING PROTOCOL Hematocrit Auto (Bld) [Volum e fraction]Ordered By: Fredy Nolen on 12-27-2024 Hematocrit (Bld) [Volume fraction] 47.4 % 40-54 [facility] Hemoglobin measurementOrdere d By: Fredy Nolen on 12-27-2024 Hemoglobin (Bld) [Mass/Vol] 16.8 g/dL High 13.0-16.5 [facility] Immature granulocytes/100 WB C Auto (Bld)Ordered By: Fredy Nolen on 12-27-2024 Immature granulocytes/100 WBC (Bld) 0.600 % 0.0-0.9 [facility] Comment on above: IG% - Immature Granu locytes (promyelocytes, myelocytes and metamyelocytes) > 1% indicates that a LEFT SHIFT is Present. MCV (mean corpuscular volume ) determinationOrdered By: Fredy Nolen on 12-27-2024 MCV (RBC) [Entitic vol] 87.1 fL 80-94 [facility] Mean corpuscular hemoglobin (MCH) determinationOrdered By: Fredy Nolen on 12-27-2024 MCH (RBC) [Entitic mass] 30.9 pg 27.0-32.0 [facility] Mean corpuscular hemoglobin concentration (MCHC) determinationOrdered By: Fredy Nolen on 12-27-2024 MCHC (RBC) [Mass/Vol] 35.4 g/dL 32-36 [facility] Mean platelet volume determi nationOrdered By: Fredy Nolen on 12-27-2024 Platelet mean volume (Bld) [Entitic vol] 9.1 fL 6.2-12.0 [facility] Monocyte percentageOrdered B y: Fredy Nolen on 12-27-2024 Monocytes/100 WBC (Bld) 5.6 % 0-10 [facility] Neutrophil percentageOrdered By: Fredy Nolen on 12-27-2024 Neutrophils/100 WBC (Bld) 65.9 % 47-70 [facility] Nucleated red blood cell per centageOrdered By: Fredy Nolen on 12-27-2024 Nucleated RBC/100 WBC (Bld) [Ratio] 0 % 0-5 [facility] Platelet countOrdered By: Jarrod Nolen on 12-27-2024 Platelets (Bld) [#/Vol] 222 10*3/uL 150-450 [facility] Potassium measurement (mass/ volume)Ordered By: Fredy Nolen on 12-27-2024 Potassium (Unsp spec) [Mass/Vol] 4.0 mmol/L 3.3-5.1 [facility] RBC Auto (Bld) [#/Vol]Ordere d By: Fredy Nolen on 12-27-2024 RBC (Bld) [#/Vol] 5.44 10*6/uL 4.6-6.2 [facility] Serum creatinine measurement (mass/volume)Ordered By: Fredy Nolen on 12-27-2024 Creatinine [Mass/Vol] 0.80 mg/dL 0.70-1.20 [facility] Serum glucose measurement (m ass/volume)Ordered By: Fredy Nolen on 12-27-2024 Glucose [Mass/Vol] 198 mg/dL High 70-99 [facility] Serum or plasma calcium cyndi urement (mass/volume)Ordered By: Fredy Nolen on 12-27-2024 Calcium [Mass/Vol] 9.5 mg/dL 7.6-11.0 [facility] Serum or plasma urea nitroge n measurement (mass/volume)Ordered By: Fredy Nolen on 12-27-2024 Urea nitrogen [Mass/Vol] 9 mg/dL 4-19 [facility] Sodium levelOrdered By: Fredy Nolen on 12-27-2024 Sodium [Moles/Vol] 137 mmol/L 133-145 [facility] White blood cell (WBC) count Ordered By: Fredy Nolen on 12-27-2024 WBC (Bld) [#/Vol] 6.9 10*3/uL 4.4-11.0 [facility] CBC W Auto Differential pane l (Bld)on 12-09-2024 Basophils (Bld) [#/Vol] 0.05 10*3/uL [facility] Basophils/100 WBC (Bld) 0.6 % [facility] Differential cell count method Nom (Bld) Auto [facility] Eosinophils (Bld) [#/Vol] 0.16 10*3/uL [facility] Eosinophils/100 WBC (Bld) 1.9 % [facility] Erythrocyte distribution width (RBC) [Ratio] 11.6 % 11.5 - 15.0 % [facility] Hematocrit (Bld) [Volume fraction] 47.3 % 39.0 - 51.0 % [facility] Hemoglobin (Bld) [Mass/Vol] 16.6 g/dL 13.0 - 17.0 g/dL [facility] Immature granulocytes (Bld) [#/Vol] 0.03 10*3/uL [facility] Immature granulocytes/100 WBC (Bld) 0.4 % [facility] Lymphocytes (Bld) [#/Vol] 2.4 10*3/uL [facility] Lymphocytes/100 WBC (Bld) 28.5 % [facility] MCH (RBC) [Entitic mass] 30.9 pg 26. 0 - 34.0 pg [facility] MCHC (RBC) [Mass/Vol] 35.1 g/dL 30.5 - 36.0 g/dL [facility] MCV (RBC) [Entitic vol] 87.9 fL 80.0 - 100.0 fL [facility] Monocytes (Bld) [#/Vol] 0.45 10*3/uL [facility] Monocytes/100 WBC (Bld) 5.3 % [facility] Neutrophils (Bld) [#/Vol] 5.34 10*3/uL [facility] Neutrophils/100 WBC (Bld) 63.3 % [facility] Nucleated RBC (Bld) [#/Vol] [facility] Nucleated RBC/100 WBC (Bld) [Ratio] 0 % /100 WBC [facility] Platelet mean volume (Bld) [Entitic vol] 9.5 fL 9.0 - 12.7 fL [facility] Platelets (Bld) [#/Vol] 249 10*3/uL [facility] RBC (Bld) [#/Vol] 5.38 10*6/uL 4.20 - 6.0 0 m/uL [facility] WBC (Bld) [#/Vol] 8.43 10*3/uL [facility] Basophils (Bld) [#/Vol] 0.05 10*3/uL Normal <0.11 [facility] Comment on above: Order Comment: Speci men Type: BLOOD SPECIMENOrdering Facility: [facility] Address: [address] [place] [address] Performed By: #### 5 7021-8 ####[facility] LABCLIA [id number] [place] [address] [place] Basophils/100 WBC (Bld) 0.6 % Normal C [facility] Comment on above: Order Comment: Speci men Type: BLOOD SPECIMENOrdering Facility: [facility] Address: [address] [place] [address] Performed By: #### 5 7021-8 ####[facility] LABCLIA [id number] [place] [address] [place] Differential cell count method Nom (Bld) Auto Normal [facility] Comment on above: Order Comment: Speci men Type: BLOOD SPECIMENOrdering Facility: [facility] Address: [address] [place] [address] Performed By: #### 5 7021-8 ####[facility] LABCLIA [id number] [place] [address] [place] Eosinophils (Bld) [#/Vol] 0.16 10*3/uL Normal <0.46 [facility] Comment on above: Order Comment: Speci men Type: BLOOD SPECIMENOrdering Facility: [facility] Address: [address] [place] [address] Performed By: #### 5 7021-8 ####[facility] LABCLIA [id number] [address], [place] [address] [place] Eosinophils/100 WBC (Bld) 1.9 % Normal [facility] Comment on above: Order Comment: Speci men Type: BLOOD SPECIMENOrdering Facility: [facility] Address: [address] [place] [address] Performed By: #### 5 7021-8 ####[facility] LABCLIA [id number] [address], [place] [address] [place] Erythrocyte distribution width (RBC) [Ratio] 11.6 % Normal 11.5-15.0 [facility] Comment on above: Order Comment: Speci men Type: BLOOD SPECIMENOrdering Facility: [facility] Address: [address] [place] [address] Performed By: #### 5 7021-8 ####[facility] LABCLIA [id number] [address], [place] [address] [place] Hematocrit (Bld) [Volume fraction] 47.3 % Normal 39.0-51.0 [facility] Comment on above: Order Comment: Speci men Type: BLOOD SPECIMENOrdering Facility: [facility] Address: [address] [place] [address] Performed By: #### 5 7021-8 ####[facility] LABCLIA [id number] [address], [place] [address] [place] Hemoglobin (Bld) [Mass/Vol] 16.6 g/dL Normal 13.0-17.0 [facility] Comment on above: Order Comment: Speci men Type: BLOOD SPECIMENOrdering Facility: [facility] Address: [address] [place] [address] Performed By: #### 5 7021-8 ####[facility] LABCLIA [id number] [address], [place] [address] [place] Immature granulocytes (Bld) [#/Vol] 0.03 10*3/uL Normal <0.10 [facility] Comment on above: Order Comment: Speci men Type: BLOOD SPECIMENOrdering Facility: [facility] Address: [address] [place] [address] Performed By: #### 5 7021-8 ####[facility] LABCLIA [id number] [facility] [place] [address] [place] Immature granulocytes/100 WBC (Bld) 0.4 % Normal [facility] Comment on above: Order Comment: Speci men Type: BLOOD SPECIMENOrdering Facility: [facility] Address: [address] [place] [address] Performed By: #### 5 7021-8 ####[facility] LABCLIA [id number] [place] [address] [place] Lymphocytes (Bld) [#/Vol] 2.40 10*3/uL Normal 1.00-4.00 [facility] Comment on above: Order Comment: Speci men Type: BLOOD SPECIMENOrdering Facility: [facility] Address: [address] [place] [address] Performed By: #### 5 7021-8 ####[facility] LABCLIA [id number] [place] [address] [place] Lymphocytes/100 WBC (Bld) 28.5 % Normal [facility] Comment on above: Order Comment: Speci men Type: BLOOD SPECIMENOrdering Facility: [facility] Address: [address] [place] [address] Performed By: #### 5 7021-8 ####[facility] LABIA [id number] [place] [address] [place] MCH (RBC) [Entitic mass] 30.9 pg Normal 26.0-34.0 [facility] Comment on above: Order Comment: Speci men Type: BLOOD SPECIMENOrdering Facility: [facility] Address: [address] [place] [address] Performed By: #### 5 7021-8 ####[facility] LABCLIA [id number] [place] [address] [place] MCHC (RBC) [Mass/Vol] 35.1 g/dL Normal 30.5-36.0 [facility] Comment on above: Order Comment: Speci men Type: BLOOD SPECIMENOrdering Facility: [facility] Address: [address] [place] [address] Performed By: #### 5 7021-8 ####[facility] LABIA [id number] [place] [address] [place] MCV (RBC) [Entitic vol] 87.9 fL Normal 80.0-100.[address] [facility] Comment on above: Order Comment: Speci men Type: BLOOD SPECIMENOrdering Facility: [facility] Address: [address] [place] [address] Performed By: #### 5 7021-8 ####[facility] LABIA [id number] [place] [address] [place] Monocytes (Bld) [#/Vol] 0.45 10*3/uL Normal <0.87 [facility] Comment on above: Order Comment: Speci men Type: BLOOD SPECIMENOrdering Facility: [facility] Address: [address] [place] [address] Performed By: #### 5 7021-8 ####[facility] LABCLIA [id number] [place] [address] [place] Monocytes/100 WBC (Bld) 5.3 % Normal C [facility] Comment on above: Order Comment: Speci men Type: BLOOD SPECIMENOrdering Facility: [facility] Address: [address] [place] [address] Performed By: #### 5 7021-8 ####[facility] LABCLIA [id number] [place] [address] [place] Neutrophils (Bld) [#/Vol] 5.34 10*3/uL Normal 1.45-7.50 [facility] [facility] Comment on above: Order Comment: Speci men Type: BLOOD SPECIMENOrdering Facility: [facility] Address: [address] [place] [address] Performed By: #### 5 7021-8 ####[facility] LABCLIA [id number] [place] [address] [place] Neutrophils/100 WBC (Bld) 63.3 % Normal [facility] Comment on above: Order Comment: Speci men Type: BLOOD SPECIMENOrdering Facility: [facility] Address: [address] [place] [address] Performed By: #### 5 7021-8 ####[facility] LABCLIA [id number] [place] [address] [place] Nucleated RBC (Bld) [#/Vol] 10*3/uL Normal <0.01 [facility] Comment on above: Order Comment: Speci men Type: BLOOD SPECIMENOrdering Facility: [facility] Address: [address] [place] [address] Performed By: #### 5 7021-8 ####[facility] LABCLIA [id number] [place] [address] [place] Nucleated RBC/100 WBC (Bld) [Ratio] 0.0 /100 WBC Normal [facility] Comment on above: Order Comment: Speci men Type: BLOOD SPECIMENOrdering Facility: [facility] Address: [address] [place] [address] Performed By: #### 5 7021-8 ####[facility] LABCLIA [id number] [place] [address] [place] Platelet mean volume (Bld) [Entitic vol] 9.5 fL Normal 9.0-12.7 [facility] Comment on above: Order Comment: Speci men Type: BLOOD SPECIMENOrdering Facility: [facility] Address: [address] [place] [address] Performed By: #### 5 7021-8 ####[facility] LABIA [id number] [place] [address] [place] Platelets (Bld) [#/Vol] 249 10*3/uL Normal 150-400 [facility] Comment on above: Order Comment: Speci men Type: BLOOD SPECIMENOrdering Facility: [facility] Address: [address] [place] [address] Performed By: #### 5 7021-8 ####[facility] LABIA [id number] [place] [address] [place] [facility] [place] RBC (Bld) [#/Vol] 5.38 10*6/uL Normal 4.20-6.00 [facility] Comment on above: Order Comment: Speci men Type: BLOOD SPECIMENOrdering Facility: [facility] Address: [address] [place] [address] Performed By: #### 5 7021-8 ####[facility] LABIA [id number] [address] [place] WBC (Bld) [#/Vol] 8.43 10*3/uL Normal 3.70-11.00 [facility] Comment on above: Order Comment: Speci men Type: BLOOD SPECIMENOrdering Facility: [facility] Address: [address] [place] [address] Performed By: #### 5 7021-8 ####[facility] [id number] [place] [id number] [facility] CNOVon 12-09-2024 CNOV Office Visit (FAMPWS ) MCKINLEY MCGEE ([id number]) 1980 M Date Time Provider Department 12/09/24 1:20 PM DAGOBERTO QUILES During your visit today, we recorded the following information about you: Pulse Blood pressure Weight 94/minute 134/81 139 kg Ingrid Quiroga 12/09/2024 5:20 PM Signed Chief Complaint Patient presents with: Physical HPI Mckinley Mcgee is a 43 year old male who presents here today for Above Complaints.. DM- states that he stopped taking the Rybelsus about a month ago due to GI upset. DM: Reports overall feeling well. Medication side effects: Intermittent nausea, diarrhea and GI upset. Home sugar checks: 175 and 130 yesterday, has not had anything over 200 recently. Does not routinely check BG. Hypoglycemic spells: No. Watching diet: Yes. Decreased Pop, fatty foods, and carbs. Increased fruits and veggies Unexpected weight loss: No. Polyuria, polydipsia: No. Vision Changes: No. Foot lesions or numbness or pain: Yes. Hx of neuropathy. HTN: Patient is compliant with meds Yes Monitors bp at home: Yes. Denies side effects: No. Chest pain: No. Dyspnea: No. Edema: No. Palpitations: No. Syncope: No. Headache: No. Dizziness: No. GERD: Takes Protonix daily, well controlled. Was recently in the ED for HTN and feeling flushed. Denies any CP, Shortness of Breath, or palpitations since visit. Has had increased anxiety since regarding health. Sleep apnea: Has been unable to obtain C-Pap due to Cost. They require $500+ without payment plan. Past medical history, appointments, medications, allergies reviewed. Previous Medical History PAST MEDICAL HISTORY Diagnosis Date ANXIETY STATE NOS 10/07/2008 Condyloma acuminatum 05/10/2011 DDD (degenerative disc disease), cervical Depression Diabetes mellitus (HCC) ELEV BL PRES W/O HYPERTN 12/17/2005 Erectile dysfunction Esophageal reflux 12/17/2005 HYPERGLYCEMIA 01/17/2006 Hypertension Knee MCL sprain 1990s Right knee Morbid obesity (HCC) OVERWEIGHT 12/17/2005 Perianal abscess 04/22/2012 PTSD (post-traumatic stress disorder) Snoring Tobacco use disorder 12/17/2005 Vitamin D deficiency Previous Surgical History PAST SURGICAL HISTORY Procedure Laterality Date DEBRIDEMENT OPEN WOUND 20 SQ CM/< 04/22/2012 Debridement perianal abscess PAST SURGICAL HISTORY OF 06/02/1990 Right upper arm laceration PAST SURGICAL HISTORY OF 04/10/2012 neuroma right foot TONSILLECTOMY PRIMARY/SECONDARY Tonsillectomy VASECTOMY Family History FAMILY HISTORY Problem Relation Age of Onset Heart Father Hypertension Mother Cancer Mother Patient Allergies ALLERGIES Allergen Reactions Latex Rash Lisinopril Cough Penicillins Unknown childhood- unknown reaction -Has taken amoxil Prozac [Fluoxetine] Mental Status Change Wellbutrin [Bupropi* GI Upset Current Medications Current Outpatient Medications on File Prior to Visit Medication Sig pantoprazole DR (PROTONIX) 40 mg tablet Take 1 tablet by mouth daily before breakfast. Take on empty stomach, 1/2 hr before meal. escitalopram oxalate (LEXAPRO) 20 mg tablet Take 1 tablet by mouth once daily. glimepiride (AMARYL) 2 mg tablet Take 1 tablet by mouth once daily. Take with 4 mg tablet to equal 6 mg daily. gabapentin (NEURONTIN) 300 mg capsule Take 2 capsules by mouth daily at bedtime for 90 days. simvastatin (ZOCOR) 10 mg tablet Take 1 tablet by mouth daily at bedtime. For cholesterols. amLODIPine (NORVASC) 10 mg tablet Take 1 tablet by mouth once daily. glimepiride (AMARYL) 4 mg tablet Take 1 tablet by mouth daily with breakfast. Take with with 2 mg tablet daily to equal 6 mg daily. losartan (COZAAR) 25 mg tablet Take 1 tablet by mouth once daily. metFORMIN ER (GLUCOPHAGE XR) 500 mg 24 hr tablet Take 2 tablets by mouth daily with dinner. semaglutide (RYBELSUS) 3 mg tablet Take 1 tablet by mouth daily before breakfast. Take 30 minutes before the first food, beverage, or other oral medications of the day with no more than 4 ounces of plain water Blood Pressure Kit-Extra Large kit 1 Each once daily. blood sugar diagnostic (BLOOD GLUCOSE TEST) test strip Test blood sugar(s) 1 times daily. Dx: Type 2 DM - Uncontrolled E11.65 Insulin: No Lancets lancets Test blood sugar(s) 1 times daily. Dx: Type 2 DM - Uncontrolled E11.65 Insulin: No No current facility-administered medications on file prior to visit. Social History Social History Tobacco Use Smoking status: Every Day Current packs/day: 0.50 Average packs/day: 0.5 packs/day for 6.0 years (3.0 ttl pk-yrs) Types: Cigarettes Smokeless tobacco: Former Tobacco comments: currently trying to quit - 4 or 5 cigarettes/day Substance Use Topics Alcohol use: Yes Alcohol/week: 6.0 standard drinks of alcohol Types: 6 Cans of Beer (12oz) per week Comment: occasionally (weeke (more content not included)... Normal [facility] Comprehensive metabolic 2000 panelon 12-09-2024 Albumin [Mass/Vol] 4.5 g/dL Normal 3.9-4.9 [facility] Comment on above: Order Comment: Speci men Type: BLOOD SPECIMENOrdering Facility: [facility] Address: [address] [place] [address] Performed By: #### 2 4323-8, LIPNF ####[facility] LABCLIA [id number] [place] [address] [place] ALP [Catalytic activity/Vol] 86 U/L Normal 38-113 [facility] Comment on above: Order Comment: Speci men Type: BLOOD SPECIMENOrdering Facility: [facility] Address: [address] [place] [address] Performed By: #### 2 4323-8, LIPNF ####[facility] LABCLIA [id number] [place] [address] [place] ALT [Catalytic activity/Vol] 25 U/L Normal 10-54 [facility] Comment on above: Order Comment: Speci men Type: BLOOD SPECIMENOrdering Facility: [facility] Address: [address] [place] [address] Performed By: #### 2 4323-8, LIPNF ####[facility] LABCLIA [id number] [place] [address] [place] Anion gap [Moles/Vol] 12 mmol/L Normal 8-15 [facility] Comment on above: Order Comment: Speci men Type: BLOOD SPECIMENOrdering Facility: [facility] Address: [address] [place] [address] Performed By: #### 2 4323-8, LIPNF ####[facility] LABCLIA [id number] [place] [address] [place] AST [Catalytic activity/Vol] 13 U/L Low 14-40 [facility] Comment on above: Order Comment: Speci men Type: BLOOD SPECIMENOrdering Facility: [facility] Address: [address] [place] [address] Performed By: #### 2 4323-8, LIPNF ####[facility] LABCLIA [id number] [place] [address] [place] Bilirubin [Mass/Vol] 0.3 mg/dL Normal 0.2-1.3 [facility] Comment on above: Order Comment: Speci men Type: BLOOD SPECIMENOrdering Facility: [facility] Address: [address] [place] [address] Performed By: #### 2 4323-8, LIPNF ####[facility] LABCLIA [id number] [place] [address] [place] Calcium [Mass/Vol] 9.6 mg/dL Normal 8.5-10.2 [facility] Comment on above: Order Comment: Speci men Type: BLOOD SPECIMENOrdering Facility: [facility] Address: [address] [place] [address] Performed By: #### 2 4323-8, LIPNF ####[facility] LABCLIA [id number] [place] [id number] [place] Chloride [Moles/Vol] 96 mmol/L Low 98-107 [facility] Comment on above: Order Comment: Speci men Type: BLOOD SPECIMENOrdering Facility: [facility] Address: [address] [place] [address] Performed By: #### 2 4323-8, LIPNF ####[facility] LABCLIA [id number] [place] [address] [place] CO2 [Moles/Vol] 27 mmol/L Normal 22-30 [facility] Comment on above: Order Comment: Speci men Type: BLOOD SPECIMENOrdering Facility: [facility] Address: [address] [place] [address] Performed By: #### 2 4323-8, LIPNF ####[facility] [id number] [place] [address] [place] Creatinine [Mass/Vol] 0.74 mg/dL Normal 0.73-1.22 [facility] Comment on above: Order Comment: Speci men Type: BLOOD SPECIMENOrdering Facility: [facility] Address: [address] [place] [address] Performed By: #### 2 4323-8, LIPNF ####[facility] [id number] [place] [address] [place] Creatinine and Glomerular filtration rate.predicted panel (S/P/Bld) 115 mL/min/1.73m??? Normal >=60 [facility] Comment on above: Order Comment: Speci men Type: BLOOD SPECIMENOrdering Facility: [facility] Address: [address] [place] [address] Result Comment: Ema mated Glomerular Filtration Rate (eGFR) is calculated using the 2020 CKD-EPI creatinine equation. This equation utilizes serum creatinine, sex, and age as parameters. The creatinine assay has traceable calibration to isotope dilution-mass spectrometry. Refer to KDIGO guidelines for clinical interpretation. In patients with unstable renal function, e.g. those with acute kidney injury, the eGFR may not accurately reflect actual GFR. Performed By: #### 2 4323-8, LIPNF ####[facility] LABIA [id number] [place] [id number] [place] Glucose [Mass/Vol] 160 mg/dL High 74-99 [facility] Comment on above: Order Comment: Speci men Type: BLOOD SPECIMENOrdering Facility: [facility] Address: [address] [place] [address] Result Comment: The [place] Diabetes Association (ADA) provides guidance for cutoff values for fasting glucose and random glucose. The ADA defines fasting as no caloric intake for at least 8 hours. Fasting plasma glucose results between 100 to 125 mg/dL indicate increased risk for diabetes (prediabetes). Fasting plasma glucose results greater than or equal to 126 mg/dL meet the criteria for diagnosis of diabetes. In the absence of unequivocal hyperglycemia, results should be confirmed by repeat testing. In a patient with classic symptoms of hyperglycemia or hyperglycemic crisis, random plasma glucose results greater than or equal to 200 mg/dL meet the criteria for diagnosis of diabetes. Reference: Standards of Medical Care in Diabetes 2016, [place] Diabetes Association. Diabetes Care. 2016.39(Suppl 1). Performed By: #### 2 4323-8, LIPNF ####[facility] LABCLIA [id number] [place] [address] [place] Potassium [Moles/Vol] 4.6 mmol/L Normal 3.7-5.1 [facility] Comment on above: Order Comment: Speci men Type: BLOOD SPECIMENOrdering Facility: [facility] Address: [address] [place] [address] Performed By: #### 2 4323-8, LIPNF ####[facility] LABCLIA [id number] [place] [id number] [place] Protein [Mass/Vol] 7.4 g/dL Normal 6.3-8.0 [facility] Comment on above: Order Comment: Speci men Type: BLOOD SPECIMENOrdering Facility: [facility] Address: [address] [place] [address] Performed By: #### 2 4323-8, LIPNF ####[facility] LABCLIA [id number] [place] [id number] [place] Sodium [Moles/Vol] 135 mmol/L Low 136-144 [facility] Comment on above: Order Comment: Speci men Type: BLOOD SPECIMENOrdering Facility: [facility] Address: [address] [place] [address] Performed By: #### 2 4323-8, LIPNF ####[facility] LABCLIA [id number] [place] [address] [place] Urea nitrogen [Mass/Vol] 9 mg/dL Normal 9-24 [facility] Comment on above: Order Comment: Gauravi men Type: BLOOD SPECIMENOrdering Facility: [facility] Address: [address] [place] [address] Performed By: #### 2 4323-8, LIPNF ####[facility] LABCLIA [id number] [place] [address] [place] HbA1c (Bld)on 12-09-2024 Average glucose Estimated from glycated hemoglobin (Bld) [Mass/Vol] 148 mg/dL Normal [facility] Comment on above: Order Comment: Inder men Type: BLOOD SPECIMENOrdering Facility: [facility] Address: [address] [place] [address] Result Comment: eAG: (Estimated average glucose) is a calculated value from HgbA1c and is new accounts banking representative of the average blood glucose level in the last 2-3 month period. Performed By: #### 5 5454-3 ####[facility] LABCLIA [id number] [place] [address] [place] HbA1c (Bld) [Mass fraction] 6.8 % High 4.3-5.6 [facility] Comment on above: Order Comment: Inder men Type: BLOOD SPECIMENOrdering Facility: [facility] Address: [address] [place] [address] Result Comment: [place] Diabetes Association guidelines indicate that patients with HgbA1c in the range 5.7-6.4% are at increased risk for development of diabetes, and intervention by lifestyle modification may be beneficial. HgbA1c greater or equal to 6.5% is considered diagnostic of diabetes. Performed By: #### 5 5454-3 ####[facility] LABCLIA [id number] [address] [place] [address] [facility] LIPID PANEL, NONFASTINGon Cholesterol [Mass/Vol] 165 mg/dL Normal <200 [facility] Comment on above: Order Comment: Speci men Type: BLOOD SPECIMENOrdering Facility: [facility] Address: [address] [place] [address] Result Comment: <200 mg/dL, Desirable 200-239 mg/dL, Borderline high >239 mg/dL, High Performed By: #### 2 4323-8, LIPNF ####[facility] LABCLIA [id number] [address], [address] STATES OF [facility] HDL CHOLESTEROL, NF 28 mg/dL Low >39 [facility] Comment on above: Order Comment: Speci men Type: BLOOD SPECIMENOrdering Facility: [facility] Address: [address] [place] [address] Result Comment: 40-5 9 mg/dL, Acceptable >59 mg/dL, High: Negative risk factor for coronary heart disease <40 mg/dL, Low: Positive risk factor for coronary heart disease Performed By: #### 2 4323-8, LIPNF ####[facility] LABCLIA [id number] [address], [address] LDL CHOLESTEROL CALCULATED, NF 86 mg/dL Normal <100 [facility] Comment on above: Order Comment: Speci men Type: BLOOD SPECIMENOrdering Facility: [facility] Address: [address] [place] [address] Result Comment: <100 mg/dL, Optimal 100-129 mg/dL, Near optimal/above optimal 130-159 mg/dL, Borderline high 160-189 mg/dL, High >189 mg/dL, Very high Secondary prevention optimal LDL Cholesterol levels are recommended to be <70 mg/dL LDL cholesterol is calculated using the White-NIH equation. Performed By: #### 2 4323-8, LIPNF ####[facility] LABCLIA [id number] [address], [facility] [place] LDL/HDL RATIO, NF 3.07 mg/dL High <2.54 [facility] Comment on above: Order Comment: Speci men Type: BLOOD SPECIMENOrdering Facility: [facility] Address: [address] [place] [address] Result Comment: Christa shipley: 1. National Cholesterol Education Program ATP III Guideline At-A-Glance Quick Desk Reference: National Heart, Lung, and Blood Nerinx. National Institutes of Health. 2001: NIH Publication No. 01-3305. 2. An International Atherosclerosis Society position paper: global recommendations for the management of dyslipidemia: executive summary, Atherosclerosis. 2014: 232(2):410-413. Performed By: #### 2 4323-8, LIPNF ####[facility] LABCLIA [id number] [address] [place] NON HDL CHOL, NF 137 mg/dL High <130 [facility] Comment on above: Order Comment: Gauravi men Type: BLOOD SPECIMENOrdering Facility: [facility] Address: [address] [place] [address] Result Comment: <130 mg/dL, Optimal 130-159 mg/dL, Near optimal/above optimal 160-189 mg/dL, Borderline high 190-219 mg/dL, High >219 mg/dL, Very high Secondary prevention optimal non HDL Cholesterol levels are recommended to be <100 mg/dL Performed By: #### 2 4323-8, LIPNF ####[facility] LABCLIA [id number] [place] [address] [place] T CHOL/HDL RATIO NF 5.89 mg/dL High <5.10 [facility] Comment on above: Order Comment: Speci men Type: BLOOD SPECIMENOrdering Facility: [facility] Address: [address] [place] [address] Performed By: #### 2 4323-8, LIPNF ####[facility] LABCLIA [id number] [place] [id number] [place] TRIGLYCERIDES, NF 306 mg/dL High <150 [facility] Comment on above: Order Comment: Speci men Type: BLOOD SPECIMENOrdering Facility: [facility] Address: [address] [place] [address] Result Comment: <150 mg/dL, Normal 150-199 mg/dL, Borderline high 200-499 mg/dL, High >499 mg/dL, Very high Performed By: #### 2 4323-8, LIPNF ####[facility] LABCLIA [id number] [place] [address] [place] VLDL CHOLESTEROL, NF 49 mg/dL High <30 [facility] Comment on above: Order Comment: Speci men Type: BLOOD SPECIMENOrdering Facility: [facility] Address: [address] [place] [address] Performed By: #### 2 4323-8, LIPNF ####[facility] LABCLIA [id number] [place] [address] [place] Basic Metabolic Profile (BMP )on 12-04-2024 BUN/CRE 11.7 RATIO Normal 10-20 [facility] Comment on above: Performed By: #### L 500.2500, L100.0100, L501.4021 #### [facility] [address] [place], [address] Calcium [Mass/Vol] 9.6 mg/dL Normal 7.6-11.0 [facility] Comment on above: Performed By: #### L 500.2500, L100.0100, L501.4021 #### [facility] [address] [place], [address] Chloride [Moles/Vol] 99 mmol/L Normal 98-108 [facility] Comment on above: Performed By: #### L 500.2500, L100.0100, L501.4021 #### [facility] [address] [place], [address] CO2 [Moles/Vol] 23.6 mmol/L Normal 21.0-32.0 [facility] Comment on above: Performed By: #### L 500.2500, L100.0100, L501.4021 #### [facility] [address] [place] [place], [address] Creatinine [Mass/Vol] 0.85 mg/dL Normal 0.70-1.20 [facility] Comment on above: Performed By: #### L 500.2500, L100.0100, L501.4021 #### [facility] [address] [place], [address] ECRCL 164.44 ml/min Normal 50-250 [facility] Comment on above: Performed By: #### L 500.2500, L100.0100, L501.4021 #### [facility] [address] [place], [address] GAP 14 Normal 5-15 [facility] Comment on above: Performed By: #### L 500.2500, L100.0100, L501.4021 #### [facility] [address] [place], [address] GFR/1.73 sq M.predicted among non-blacks MDRD (S/P/Bld) [Vol rate/Area] 110 mL/min/{1.73_m2} Normal >60 [facility] Comment on above: Result Comment: mL/m in/1.73m2 CKD-EPI Creatinine Equation (2020) Performed By: #### L 500.2500, L100.0100, L501.4021 #### [facility] [address] [place], [address] Glucose [Mass/Vol] 203 mg/dL High 70-99 [facility] Comment on above: Performed By: #### L 500.2500, L100.0100, L501.4021 #### [facility] [address] [place] [place], [address] Potassium [Moles/Vol] 4.0 mmol/L Normal 3.3-5.1 [facility] Comment on above: Performed By: #### L 500.2500, L100.0100, L501.4021 #### [facility] [address] [place], [address] Sodium [Moles/Vol] 137 mmol/L Normal 133-145 [facility] Comment on above: Performed By: #### L 500.2500, L100.0100, L501.4021 #### [facility] [address] [place], [address] Urea nitrogen [Mass/Vol] 10 mg/dL Normal 4-19 [facility] Comment on above: Performed By: #### L 500.2500, L100.0100, L501.4021 #### [facility] [address] [place], [address] Bedside Glucoseon 12-04-2024 FINGERSTICK GLU 205 mg/dL High 74-106 [facility] Comment on above: Result Comment: ENEDELIA PEDERSEN OF PATIENT CARE PER NURSING PROTOCOL Performed By: #### L 501.080 #### [facility] [address] [place], [address] CBC W/Diff, Automatedon 07-0 Absolute Lymph 2.92 X10 3/uL Normal 0.83-4.51 [facility] Comment on above: Performed By: #### L 500.2500, L100.0100, L501.4021 #### [facility] [address] [place], [address] Absolute Neut 5.5 X10 3/uL Normal 2.0-7.7 [facility] Comment on above: Performed By: #### L 500.2500, L100.0100, L501.4021 #### [facility] [address] [place], [address] Basophils/100 WBC (Bld) 0.5 % Normal 0-1 [facility] Comment on above: Performed By: #### L 500.2500, L100.0100, L501.4021 #### [facility] [address] [place], [address] Eosinophils/100 WBC (Bld) 2.4 % Normal 0-5 [facility] Comment on above: Performed By: #### L 500.2500, L100.0100, L501.4021 #### [facility] [address] [place], [address] Erythrocyte distribution width (RBC) [Ratio] 11.8 % Normal 11.6-14.6 [facility] Comment on above: Performed By: #### L 500.2500, L100.0100, L501.4021 #### [facility] [address] [place], [address] Hematocrit (Bld) [Volume fraction] 47.7 % Normal 40-54 [facility] Comment on above: Performed By: #### L 500.2500, L100.0100, L501.4021 #### [facility] [address] [place], [address] Hemoglobin (Bld) [Mass/Vol] 17.2 g/dL High 13.0-16.5 [facility] Comment on above: Performed By: #### L 500.2500, L100.0100, L501.4021 #### [facility] [address] [place], [address] IG% 0.300 Normal 0.0-0.9 [facility] Comment on above: Result Comment: IG% - Immature Granulocytes (promyelocytes, myelocytes and metamyelocytes) > 1% indicates that a LEFT SHIFT is Present. Performed By: #### L 500.2500, L100.0100, L501.4021 #### [facility] [address] [place], [address] Lymphocytes/100 WBC (Bld) 31.8 % Normal 19-41 [facility] Comment on above: Performed By: #### L 500.2500, L100.0100, L501.4021 #### [facility] [address] [place], [address] MCH (RBC) [Entitic mass] 31.4 pg Normal 27.0-32.0 [facility] Comment on above: Performed By: #### L 500.2500, L100.0100, L501.4021 #### [facility] [address] [place], [address] MCHC (RBC) [Mass/Vol] 36.1 g/dL High 32-36 [facility] Comment on above: Performed By: #### L 500.2500, L100.0100, L501.4021 #### [facility] [address] [place], [address] MCV (RBC) [Entitic vol] 87.2 fL Normal 80-94 [facility] Comment on above: Performed By: #### L 500.2500, L100.0100, L501.4021 #### [facility] [address] [place], [address] Monocytes/100 WBC (Bld) 5.0 % Normal 0-10 [facility] Comment on above: Performed By: #### L 500.2500, L100.0100, L501.4021 #### [facility] [address] [place], [address] Neutrophils/100 WBC (Bld) 60.0 % Normal 47-70 [facility] Comment on above: Performed By: #### L 500.2500, L100.0100, L501.4021 #### [facility] [address] [place], [address] Nucleated RBC (Bld) [#/Vol] 0 10*3/uL Normal 0-5 [facility] Comment on above: Performed By: #### L 500.2500, L100.0100, L501.4021 #### [facility] [address] [place], [address] Platelet mean volume (Bld) [Entitic vol] 9.0 fL Normal 6.2-12.0 [facility] Comment on above: Performed By: #### L 500.2500, L100.0100, L501.4021 #### [facility] [address] [place], [address] Platelets (Bld) [#/Vol] 244 10*3/uL Normal 150-450 [facility] Comment on above: Performed By: #### L 500.2500, L100.0100, L501.4021 #### [facility] [address] [place], [address] RBC (Bld) [#/Vol] 5.47 10*6/uL Normal 4.6-6.2 [facility] Comment on above: Performed By: #### L 500.2500, L100.0100, L501.4021 #### [facility] [address] [place], [address] RDW SD 37.9 fl Normal 35.1-43.9 [facility] Comment on above: Performed By: #### L 500.2500, L100.0100, L501.4021 #### [facility] [address] [place], [address] WBC (Bld) [#/Vol] 9.2 10*3/uL Normal 4.4-11.0 [facility] Comment on above: Performed By: #### L 500.2500, L100.0100, L501.4021 #### [facility] [address] 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 One or more dose reduction techniques were used (e.g., Automated exposure control, adjustment of the mA and/or kV according to patient size, use of iterative reconstruction technique). RADIATION DOSE SUMMARY: CTDlvol: 32 mGy DLP: 984 mGycm COMPARISON: No FINDINGS: Unremarkable base of neck and axilla. Thoracic spine degeneration. Normal esophagus. Normal heart size. No aortic dissection. No central pulmonary embolism. Limited peripheral pulmonary arterial assessment for technical reasons. No acute chest wall findings. Diffuse hepatic steatosis. No acute upper abdominal findings. Central airways are patent. Mild bronchial wall thickening. Bilateral scattered areas of tree-in-bud densities consistent with bronchiolitis. No consolidation, effusion, or pneumothorax. CT/CTA Chest W/WO Contrast IMPRESSION: Bilateral bronchiolitis. No embolism, dissection, or pneumonia. Reading Location: [place] [address] CC: UNDERGROUND REPAIRER-C Dagoberto Quiles; Dr. 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 Onset/Context/Timing Onset: Today Context: Sudden Onset Timing: Intermittent Quality: Flushed, bearhug sensation and diaphoresis Current Severity: Mild Maximum Severity: Severe Worsened by: Nothing Relieved by: nothing Associated Symptoms Associated Symptoms: No other symptoms Narrative Narrative: Patient is a 43-year-old male with type 2 diabetes, hypertension, diabetic neuropathy last A1c was 7. He presents because he became diaphoretic and felt a tight bearhug like sensation with discomfort near the left posterior lower ribs. He had 2 episodes of diaphoresis per . He may have been slightly short of breath. He has had a couple other episodes the past week. He denies history of PE or DVT. He has no risk factors for either. He denies leg pain, swelling or discoloration. He denies abdominal pain, nausea, vomiting or diarrhea. He states he feels full and does not eat much and he states that he feels the food is not moving through. He denies history of gastroparesis. He denies any change in the color, consistency or caliber of his stool. He denies urologic symptoms. He has no history of renal or ureteral calculus. Patient's blood pressure is elevated. He states he normally takes his evening blood pressure meds at 1:00 in the morning. His evening medicine is amlodipine. He takes losartan in the day. He has been compliant with his medication. Prior similar symptoms: No Recent Illness/Hospitalizati on: No [facility] Medical History Neuropathy Hypertension Diabetes Home Medications ???Medication ???Instructions ???Recorded ???Last Taken ???Type Pantoprazole Sodium 40 mg PO DAILY 11/18/18 Unknown Hi story amlodipine 10 mg tablet 10 mg PO DAILY 11/18/18 Unknown Hi story escitalopram oxalate 20 mg tablet 20 mg PO DAILY 07/09/20 Unknown H istory glimepiride 2 mg tablet 2 mg PO DAILY 07/09/20 Unknown His tory losartan 25 mg tablet 25 mg PO DAILY 07/09/20 Unknown Hi story metformin 1,000 mg tablet 1,000 mg PO DAILY 07/09/20 Unknown History ondansetron 4 mg disintegrating 4 mg PO Q8H PRN PRN Nausea #20 tab s 07/09/20 Unknown Rx tablet trazodone 50 mg tablet 50 mg PO QHS 07/09/20 Unknown Hist ory Allergy/AdvReac Type Severity Reaction Status Date / Time latex Allergy rash Verified 12/03/24 23:48 Social History (Updated 12/04/24 @ 02:[address] Kerwin Strauss MD) household members: spouse Smoking Status: Current every day smoker tobacco type: cigarettes ROS ROS ED Constitutional Constitutional ED: Reports sweats; Denies chills, fever(s), subjective or weight loss Eyes Eyes: Denies blurry vision, change in vision or diplopia ENT ENT ED: Denies ear pain, rhinorrhea or sore throat Cardiovascular Cardiovascular: Denies chest pain, orthopnea, palpitations, paroxysmal nocturnal dyspnea or racing heartbeat Respiratory/Chest Respiratory/Chest: Reports dyspnea; Denies cough, dyspnea on exertion, orthopnea or paroxysmal nocturnal dyspnea Gastrointestinal Gastrointestinal: Denies abdominal pain, constipation, diarrhea, melena, nausea or vomiting Genitourinary Genitourinary ED: Denies dysuria or hematuria Musculoskeletal Musculoskeletal: Reports back pain; Denies arthralgias, myalgias or neck pain Integumentary Denies rash Neurologic Neurologic: Denies headache(s) or paresthesias Endocrine Endocrinology: Denies cold intolerance or heat intolerance Hematologic/Lymphatic Hematologic/Lymphatic : Reports systems reviewed and no addt'l complaints, except as documented EXAM Physical Exam Const Vital Signs: 12/03/24 23:49 12/03/24 23:51 12/04/24 00:07 Temperature 99.3 F H Temperature Source Oral Pulse Rate 113 H 106 H Respiratory Rate 18 14 Respiratory Effort Normal Respiratory Pattern Normal Blood Pressure 197/119 H 190/104 H Blood Pressure Mean 145 132 Pulse Ox 97 96 Oxygen Delivery Method Room Air Room Air 12/04/24 02:00 Temperature Temperature Source Pulse Rate 86 Respiratory Rate 16 Respiratory Effort Respiratory Pattern Blood Pressure 178/97 H Blood Pressure Mean 124 Pulse Ox 97 Oxygen Delivery Method Room Air Positive well nourished and well developed Constitutional Narrative: BMI is 40.6. Blood pressure is elevate (more content not included)... Normal [facility] L499.0042on 12-04-2024 Trop T High Sen 7 ng/L Normal <=22 [facility] Comment on above: Performed By: #### L 499.0042 #### [facility] [address] [place], [address] L499.0043on 12-04-2024 Trop T High Sen Normal <=22 [facility] Comment on above: Result Comment: TRUNG ENT DISCHARGED Performed By: #### L 499.0043 #### [facility] [address] [place], [address] L501.4021on 12-04-2024 Trop T High Sen < 6 Normal <=22 [facility] Comment on above: Performed By: #### L 500.2500, L100.0100, L501.4021 #### [facility] [address] [place], [address] Troponin T.cardiac [Mass/vol ume] in Serum or Plasma by High sensitivity methodOrdered By: Kerwin Strauss on 12-04-2024 Troponin T.cardiac High sensitivity method [Mass/Vol] 7 ng/L <22 [facility] 12 Lead EKGon 12-03-2024 12 Lead EKG [facility] [address] [place] [address] 12 Lead EKG 12/04/24 0001 MR#: [id number] Acct: [id number] Name: MCKINLEY MCGEE Rep #: [id number] : 1980 43 From: Talon Gallegos MD Attending Dr: Status: DEP ER Ordering Dr: Kerwin Strauss MD Date: 12/03/24 Location: ED Sex: M C Admitted: Test Reason : DYSRHYTHMIA Blood Pressure : */* mmHG Vent. Rate : 103 BPM Atrial Rate : 103 BPM P-R Int : 142 ms QRS Dur : 86 ms QT Int : 334 ms P-R-T Axes : 48 21 26 degrees QTcB Int : 437 ms Sinus tachycardia Nonspecific T wave abnormality Abnormal ECG Confirmed by ADY REYES, TALON ([id number]), editor index INGRID ROJO ([id number]) on 12/06/2024 10:35:02 AM Referred By: NATALEE Confirmed By: TALON GALLEGOS MD 12/06/24 1035 Date Talon Gallegos MD CC: UNDERGROUND REPAIRER-C Dagoberto Quiles; Dr. Kerwin Strauss MD Signed Normal [facility] Absolute lymphocyte countOrd ered By: Kerwin Strauss on 12-03-2024 Lymphocytes Auto (Unsp spec) [#/Vol] 2.92 10*3/uL 0.83-4.51 [facility] Absolute neutrophil countOrd ered By: Kerwin Strauss on 12-03-2024 Neutrophils (Bld) [#/Vol] 5.5 10*3/uL 2.0-7.7 [facility] Anion gap in Serum or Plasma Ordered By: Kerwin Strauss on 12-03-2024 Anion gap [Moles/Vol] 14 mmol/L 5-15 [facility] Automated lymphocyte count a s percentage of total leukocytesOrdered By: Kerwin Strauss on 12-03-2024 Lymphocytes/100 WBC Auto (Unsp spec) 31.8 % 19-41 [facility] BUN/creatinine ratioOrdered By: Kerwin Strauss on 12-03-2024 Urea nitrogen/Creatinine [Mass ratio] 11.7 mg/mg 10-20 [facility] Basophil percentageOrdered B y: Kerwin Strauss on 12-03-2024 Basophils/100 WBC (Bld) 0.5 % 0-1 [facility] Carbon dioxide, total [Moles /volume] in Central venous bloodOrdered By: Kerwin Strauss on 12-03-2024 CO2 [Moles/Vol] 23.6 mmol/L 21.0-32.0 [facility] Chloride assayOrdered By: Yinka Strauss on 12-03-2024 Chloride [Moles/Vol] 99 mmol/L 98-108 [facility] Eosinophil percentageOrdered By: Kerwin Strauss on 12-03-2024 Eosinophils/100 WBC (Bld) 2.4 % 0-5 [facility] Erythrocyte distribution wid th ratioOrdered By: Kerwinanahi Strauss on 12-03-2024 Erythrocyte distribution width (RBC) [Ratio] 11.8 % 11.6-14.6 [facility] Erythrocyte distribution wid th standard deviationOrdered By: Kerwinanahi Strauss on 12-03-2024 Erythrocyte distribution width (RBC) [Ratio] 37.9 fl 35.1-43.9 [facility] Glomerular filtration rate ( GFR) estimation/1.73 sq m using serum, plasma, or whole bOrdered By: Kerwinanahi Strauss on 12-03-2024 GFR/1.73 sq M.predicted among non-blacks MDRD (S/P/Bld) [Vol rate/Area] 110 mL/min/{1.73_m2} >60 [facility] Comment on above: mL/min/1.73m2 CKD-EP I Creatinine Equation (2020) [facility] deOrdered By: Kerwin Strauss on 12-03-2024 Glucose [Mass/Vol] 205 mg/dL High 74-106 [facility] Comment on above: MANAGEMENT OF PATIEN T CARE PER NURSING PROTOCOL Hematocrit Auto (Bld) [Volum e fraction]Ordered By: Kerwin Strauss on 12-03-2024 Hematocrit (Bld) [Volume fraction] 47.7 % 40-54 [facility] Hemoglobin measurementOrdere d By: Kerwin Strauss on 12-03-2024 Hemoglobin (Bld) [Mass/Vol] 17.2 g/dL High 13.0-16.5 [facility] Immature granulocytes/100 WB C Auto (Bld)Ordered By: Kerwinanahi Strauss on 12-03-2024 Immature granulocytes/100 WBC (Bld) 0.300 % 0.0-0.9 [facility] Comment on above: IG% - Immature Granu locytes (promyelocytes, myelocytes and metamyelocytes) > 1% indicates that a LEFT SHIFT is Present. MCV (mean corpuscular volume ) determinationOrdered By: Kerwin Strauss on 12-03-2024 MCV (RBC) [Entitic vol] 87.2 fL 80-94 [facility] Mean corpuscular hemoglobin (MCH) determinationOrdered By: Kerwinanahi Strauss 12-03-2024 MCH (RBC) [Entitic mass] 31.4 pg 27.0-32.0 [facility] Mean corpuscular hemoglobin concentration (MCHC) determinationOrdered By: Kerwin Strauss on 12-03-2024 MCHC (RBC) [Mass/Vol] 36.1 g/dL High 32-36 [facility] Mean platelet volume determi nationOrdered By: Kerwin Strauss on 12-03-2024 Platelet mean volume (Bld) [Entitic vol] 9.0 fL 6.2-12.0 [facility] Monocyte percentageOrdered B y: Kerwin Strauss on 12-03-2024 Monocytes/100 WBC (Bld) 5.0 % 0-10 [facility] Neutrophil percentageOrdered By: Kerwinanahi Strauss on 12-03-2024 Neutrophils/100 WBC (Bld) 60.0 % 47-70 [facility] Nucleated red blood cell per centageOrdered By: Kerwin Strauss on 12-03-2024 Nucleated RBC/100 WBC (Bld) [Ratio] 0 % 0-5 [facility] Platelet countOrdered By: Yinka Strauss on 12-03-2024 Platelets (Bld) [#/Vol] 244 10*3/uL 150-450 [facility] Potassium measurement (mass/ volume)Ordered By: Kerwin Strauss on 12-03-2024 Potassium (Unsp spec) [Mass/Vol] 4.0 mmol/L 3.3-5.1 [facility] RBC Auto (Bld) [#/Vol]Ordere d By: Kerwin Strauss on 12-03-2024 RBC (Bld) [#/Vol] 5.47 10*6/uL 4.6-6.2 [facility] Serum creatinine measurement (mass/volume)Ordered By: Kerwin Strauss on 12-03-2024 Creatinine [Mass/Vol] 0.85 mg/dL 0.70-1.20 [facility] Serum glucose measurement (m ass/volume)Ordered By: Kerwin Strauss on 12-03-2024 Glucose [Mass/Vol] 203 mg/dL High 70-99 [facility] Serum or plasma calcium cyndi urement (mass/volume)Ordered By: Kerwin Strauss on 12-03-2024 Calcium [Mass/Vol] 9.6 mg/dL 7.6-11.0 [facility] Serum or plasma urea nitroge n measurement (mass/volume)Ordered By: Kerwin Strauss on 12-03-2024 Urea nitrogen [Mass/Vol] 10 mg/dL 4-19 [facility] Sodium levelOrdered By: Kerwin Strauss on 12-03-2024 Sodium [Moles/Vol] 137 mmol/L 133-145 [facility] Troponin T.cardiac [Mass/vol ume] in Serum or Plasma by High sensitivity methodOrdered By: Kerwin Strauss on 12-03-2024 Troponin T.cardiac High sensitivity method [Mass/Vol] < 6 ng/L <22 [facility] White blood cell (WBC) count Ordered By: Kerwin Strauss on 12-03-2024 WBC (Bld) [#/Vol] 9.2 10*3/uL 4.4-11.0 [facility] ([id number]) 1980 M Date Time Provider Department 09/20/24 DEREK STODDARD [facility] During your visit today, we recorded the following information about you: Yuly Vallejo RN 09/20/2024 12:10 PM Signed Ninos[facility]- [facility] Sleep lab looking for office visits notes prior to the home sleep study done 08/18/24. Advised ov prior to 08/18/24 was 06/04/24. Advised Ninoska, patient has appt with provider on 09/21/24 to discuss sleep apnea with patient. Ninoska asking provider to document signs and symptoms to support home sleep test that was done. Please fax those ov notes to attn: Ninoska [facility] sleep lab, at fax # [phone]. Ninoska reports since patient has [employer], patient qualifies for auto pap. Please phone Ninoska with any questions: [phone] option 1. aDgoberto Quiles APRN.CHAY 09/21/2024 3:14 PM Signed OV complete. Please fax to [facility]. Tarik Velasquez MA 09/21/2024 4:15 PM Signed Faxed to below Tarik Velasquez MA Allergies As of Date: 09/20/2024 Noted Allergy Reaction LATEX 10/31/2016 2 - Rash LISINOPRIL 11/16/2019 3 - Cough PENICILLINS 12/17/2005 16 - Unknown Comments: childhood- unknown reaction -Has taken amoxil PROZAC (FLUOXETINE) 10/30/2021 1 - Mental Status Change WELLBUTRIN (BUPROPION) 05/17/2020 8 - GI Upset Date Reviewed: 06/04/2024 Reviewed by: Tarik Velasquez MA - Fully Assessed Reason for Visit: Office visit notes for [facility] sleep lab [Other] Prescriptions as of 09/21/2024 - semaglutide (RYBELSUS) 3 mg tablet Take 1 tablet by mouth daily before breakfast. Take 30 minutes before the first food, beverage, or other oral medications of the day with no more than 4 ounces of plain water - glimepiride (AMARYL) 2 mg tablet Take 1 tablet by mouth once daily. Take with 4 mg tablet to equal 6 mg daily. - glimepiride (AMARYL) 4 mg tablet Take 1 tablet by mouth daily with breakfast. Take with with 2 mg tablet daily to equal 6 mg daily. - gabapentin (NEURONTIN) 300 mg capsule Take 2 capsules by mouth daily at bedtime for 90 days. - simvastatin (ZOCOR) 10 mg tablet Take 1 tablet by mouth daily at bedtime. For cholesterols. - metFORMIN ER (GLUCOPHAGE XR) 500 mg 24 hr tablet Take 2 tablets by mouth daily with dinner. - amLODIPine (NORVASC) 10 mg tablet Take 1 tablet by mouth once daily. - escitalopram oxalate (LEXAPRO) 20 mg tablet Take 1 tablet by mouth once daily. - losartan (COZAAR) 25 mg tablet Take 1 tablet by mouth once daily. - pantoprazole DR (PROTONIX) 40 mg tablet Take 1 tablet by mouth daily before breakfast. Take on empty stomach, 1/2 hr before meal. - Blood Pressure Kit-Extra Large kit 1 Each once daily. - blood sugar diagnostic (BLOOD GLUCOSE TEST) test strip Test blood sugar(s) 1 times daily. Dx: Type 2 DM - Uncontrolled E11.65 Insulin: No - Lancets lancets Test blood sugar(s) 1 times daily. 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] 11/21/2011 07/16/2012 Porokeratosis [Q82.8] 03/31/2012 09/23/2014 Perianal abscess [K61.0] 04/22/2012 07/16/2012 Lumbago [M54.50] 07/16/2012 Hand eczema [L30.9] 09/19/2012 09/23/2014 Eczematous dermatitis [L30.9] 09/19/2012 02/01/2014 Irritant contact dermatitis [L24.9] 09/19/2012 02/01/2014 Xerosis cutis [L85.3] 09/19/2012 Keratoderma of foot, acquired [L85.1] 09/19/2012 09/23/2014 Depression with anxiety [F41.8] 02/01/2014 HTN (hypertension) [I10] 09/23/2014 Migraine [G43.909] 09/23/2014 Laceration of finger of right hand [S61.219A] 10/31/2016 Screening and evaluation for vasectomy [Z30.09] 07/10/2018 Hypertension [I10] Type 2 diabetes mellitus with peripheral neurop* PTSD (post-traumatic stress disorder) [F43.10] Encounter Status:Closed by WORKMAN TARIK OROZCO on 09/21/24 [facility] 09-17-2024 CNPN Telephone (KYLE) MCKINLEY MCGEE ([id number]) 1980 M Date Time Provider Department 09/17/24 DAGOBERTO QUILES During your visit today, we recorded the following information about you: Farzana Bae RN 09/17/2024 12:10 PM Signed patient is calling in stating that [facility] sleep lab is needing the referral and prior auth for his sleep study titration sent to them so patient can get the titration study completed. Please sent information. Tarik Velasquez MA 09/17/2024 2:34 PM Signed Left message for patient to return call to office. See phone encounter 09/16/24 Per phone encounter 09/16/24 pt was told he will need a face to face or virtual visit so office notes and titration order can be faxed to [facility]. It appears pt scheduled on 09/30/24, if pt would like seen sooner there are several openings that can be offered. DION Mullen Stephanie, RN 09/17/2024 2:46 PM Signed Patient calls back and schedules virtual visit with provider on 09/21/2024. Kourtney Rachel RN Allergies As of Date: 09/17/2024 Noted Allergy Reaction LATEX 10/31/2016 2 - Rash LISINOPRIL 11/16/2019 3 - Cough PENICILLINS 12/17/2005 16 - Unknown Comments: childhood- unknown reaction -Has taken amoxil PROZAC (FLUOXETINE) 10/30/2021 1 - Mental Status Change WELLBUTRIN (BUPROPION) 05/17/2020 8 - GI Upset Date Reviewed: 06/04/2024 Reviewed by: Tarik Velasquez MA - Fully Assessed Reason for Visit: Referral Request [124] Prescriptions as of 09/17/2024 - semaglutide (RYBELSUS) 3 mg tablet Take 1 tablet by mouth daily before breakfast. Take 30 minutes before the first food, beverage, or other oral medications of the day with no more than 4 ounces of plain water - glimepiride (AMARYL) 2 mg tablet Take 1 tablet by mouth once daily. Take with 4 mg tablet to equal 6 mg daily. - glimepiride (AMARYL) 4 mg tablet Take 1 tablet by mouth daily with breakfast. Take with with 2 mg tablet daily to equal 6 mg daily. - gabapentin (NEURONTIN) 300 mg capsule Take 2 capsules by mouth daily at bedtime for 90 days. - simvastatin (ZOCOR) 10 mg tablet Take 1 tablet by mouth daily at bedtime. For cholesterols. - metFORMIN ER (GLUCOPHAGE XR) 500 mg 24 hr tablet Take 2 tablets by mouth daily with dinner. - amLODIPine (NORVASC) 10 mg tablet Take 1 tablet by mouth once daily. - escitalopram oxalate (LEXAPRO) 20 mg tablet Take 1 tablet by mouth once daily. - losartan (COZAAR) 25 mg tablet Take 1 tablet by mouth once daily. - pantoprazole DR (PROTONIX) 40 mg tablet Take 1 tablet by mouth daily before breakfast. Take on empty stomach, 1/2 hr before meal. - Blood Pressure Kit-Extra Large kit 1 Each once daily. - blood sugar diagnostic (BLOOD GLUCOSE TEST) test strip Test blood sugar(s) 1 times daily. Dx: Type 2 DM - Uncontrolled E11.65 Insulin: No - Lancets lancets Test blood sugar(s) 1 times daily. 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] 11/21/2011 07/16/2012 Porokeratosis [Q82.8] 03/31/2012 09/23/2014 Perianal abscess [K61.0] 04/22/2012 07/16/2012 Lumbago [M54.50] 07/16/2012 Hand eczema [L30.9] 09/19/2012 09/23/2014 Eczematous dermatitis [L30.9] 09/19/2012 02/01/2014 Irritant contact dermatitis [L24.9] 09/19/2012 02/01/2014 Xerosis cutis [L85.3] 09/19/2012 Keratoderma of foot, acquired [L85.1] 09/19/2012 09/23/2014 Depression with anxiety [F41.8] 02/01/2014 HTN (hypertension) [I10] 09/23/2014 Migraine [G43.909] 09/23/2014 Laceration of finger of right hand [S61.219A] 10/31/2016 Screening and evaluation for vasectomy [Z30.09] 07/10/2018 Hypertension [I10] Type 2 diabetes mellitus with peripheral neurop* PTSD (post-traumatic stress disorder) [F43.10] Encounter Status:Closed by KOURTNEY RACHEL [facility] MCKINLEY MCGEE ([id number]) 1980 M Date Time Provider Department 09/17/24 DEREK STODDARD [facility] During your visit today, we recorded the following information about you: Yuly Vallejo, RN 09/17/2024 8:49 AM Signed [facility] reports every time they try to run rybelsus it says PA needed. It says Max quantity is 60 tabs in 365 days. Today it says 2 tabs. Advised per 06/16/24 encounter rybelsus was approved by [facility] from 06/15/24 to 06/15/25. Esther from [facility] says she ran it several times and it says needs prior auth. Esther say insurance is [employer], ID# [id number] Sandy Bernstein LPN 09/17/2024 9:56 AM Signed Called [facility] and PA is needed for the rybelsus 3mg daily. This was previously approved for 7 mg daily. Need to know why the dose is decreasing? Normally dosing is starting out a 3mg daily the increased to 7mg daily. In review it appears 7mg daily is causing side effects of stomach issues per my chart message from 07/13/24. [facility] PA to be completed for rybelsus 3mg daily. Joanna Granados MA 09/17/2024 11:49 AM Signed Completed [facility] PA form and faxed DION Conteh Janice, LPN 09/20/2024 9:55 AM Signed Fax rec'd this was approved from 09/17/24 to 03/19/25. Pt notified via my chart. Rossy Ely RN 09/21/2024 8:27 AM Signed Sabre at [facility] calling and states pt's insurance is requesting a new Prior Auth be submitted for pt's Rybelsus due to pt was started on a starter dose and is now working backward with dosing. States new PA needed. The recent PA from 09/17 is not able to be used per Sabre. Please call her with any updates or questions: [phone]. Prior authorization requested for the following medication: Medication: Rybelsus Provider: (as ordered) Insurance Company Name: [employer] Pharmacy Name: [facility] Telephone number: [phone]. ALEXANDER Chu Janice, LPN 09/21/2024 9:08 AM Signed Called [facility] and they note they (their pharmacy benefits) will do and over ride and contact the [facility] pharmacy. The reference number for this call is [id number]. Allergies As of Date: 09/17/2024 Noted Allergy Reaction LATEX 10/31/2016 2 - Rash LISINOPRIL 11/16/2019 3 - Cough PENICILLINS 12/17/2005 16 - Unknown Comments: childhood- unknown reaction -Has taken amoxil PROZAC (FLUOXETINE) 10/30/2021 1 - Mental Status Change WELLBUTRIN (BUPROPION) 05/17/2020 8 - GI Upset Date Reviewed: 06/04/2024 Reviewed by: Tarik Velasquez MA - Fully Assessed Reason for Visit: Teresa PSICER [Other] Prescriptions as of 09/21/2024 - semaglutide (RYBELSUS) 3 mg tablet Take 1 tablet by mouth daily before breakfast. Take 30 minutes before the first food, beverage, or other oral medications of the day with no more than 4 ounces of plain water - glimepiride (AMARYL) 2 mg tablet Take 1 tablet by mouth once daily. Take with 4 mg tablet to equal 6 mg daily. - glimepiride (AMARYL) 4 mg tablet Take 1 tablet by mouth daily with breakfast. Take with with 2 mg tablet daily to equal 6 mg daily. - gabapentin (NEURONTIN) 300 mg capsule Take 2 capsules by mouth daily at bedtime for 90 days. - simvastatin (ZOCOR) 10 mg tablet Take 1 tablet by mouth daily at bedtime. For cholesterols. - metFORMIN ER (GLUCOPHAGE XR) 500 mg 24 hr tablet Take 2 tablets by mouth daily with dinner. - amLODIPine (NORVASC) 10 mg tablet Take 1 tablet by mouth once daily. - escitalopram oxalate (LEXAPRO) 20 mg tablet Take 1 tablet by mouth once daily. - losartan (COZAAR) 25 mg tablet Take 1 tablet by mouth once daily. - pantoprazole DR (PROTONIX) 40 mg tablet Take 1 tablet by mouth daily before breakfast. Take on empty stomach, 1/2 hr before meal. - Blood Pressure Kit-Extra Large kit 1 Each once daily. - blood sugar diagnostic (BLOOD GLUCOSE TEST) test strip Test blood sugar(s) 1 times daily. Dx: Type 2 DM - Uncontrolled E11.65 Insulin: No - Lancets lancets Test blood sugar(s) 1 times daily. 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 Normal [facility] 09-16-2024 [facility] MCKINLEY MCGEE ([id number]) 1980 M Date Time Provider Department 09/16/24 DAGOBERTO QUILES [facility] During your visit today, we recorded the following information about you: Ingrid Brown, RN 09/16/2024 10:31 AM Evelyn Galicia [facility] called over asking for OV notes dated prior to 08/18/24 for home sleep apnea test, stating that Pt needed the screening and why. The most recent OV notes were from 06/04/24, and I didn't see mention of the sleep apnea test. I didn't know if this visit could be addended to include this and fax over to [facility] sleep lab at fax # [phone]. Grayson states that they are supposed to do the titration, and no DME will authorize this without OV notes. aDgoberto Quiles APRN.[employer] T[employer] MACHINE OPERATOR 09/16/2024 11:26 AM Signed Please schedule patient for VV or OV to discuss HSAT so that Pap titration can be scheduled and approved. Tarik Velasquez MA 09/16/2024 2:36 PM Signed Left message for patient to return call to office DION Mullen Amanda, RN 09/16/2024 2:56 PM Signed Pt called and is notified of providers message and instructions. Pt voices understanding and states he will go on MyChart and schedule an appointment.. Ingrid Brown RN Allergies As of Date: 09/16/2024 Noted Allergy Reaction LATEX 10/31/2016 2 - Rash LISINOPRIL 11/16/2019 3 - Cough PENICILLINS 12/17/2005 16 - Unknown Comments: childhood- unknown reaction -Has taken amoxil PROZAC (FLUOXETINE) 10/30/2021 1 - Mental Status Change WELLBUTRIN (BUPROPION) 05/17/2020 8 - GI Upset Date Reviewed: 06/04/2024 Reviewed by: Tarik Velasquez MA - Fully Assessed Reason for Visit: Results [95] Prescriptions as of 09/16/2024 - semaglutide (RYBELSUS) 3 mg tablet Take 1 tablet by mouth daily before breakfast. Take 30 minutes before the first food, beverage, or other oral medications of the day with no more than 4 ounces of plain water - glimepiride (AMARYL) 2 mg tablet Take 1 tablet by mouth once daily. Take with 4 mg tablet to equal 6 mg daily. - glimepiride (AMARYL) 4 mg tablet Take 1 tablet by mouth daily with breakfast. Take with with 2 mg tablet daily to equal 6 mg daily. - gabapentin (NEURONTIN) 300 mg capsule Take 2 capsules by mouth daily at bedtime for 90 days. - simvastatin (ZOCOR) 10 mg tablet Take 1 tablet by mouth daily at bedtime. For cholesterols. - metFORMIN ER (GLUCOPHAGE XR) 500 mg 24 hr tablet Take 2 tablets by mouth daily with dinner. - amLODIPine (NORVASC) 10 mg tablet Take 1 tablet by mouth once daily. - escitalopram oxalate (LEXAPRO) 20 mg tablet Take 1 tablet by mouth once daily. - losartan (COZAAR) 25 mg tablet Take 1 tablet by mouth once daily. - pantoprazole DR (PROTONIX) 40 mg tablet Take 1 tablet by mouth daily before breakfast. Take on empty stomach, 1/2 hr before meal. - Blood Pressure Kit-Extra Large kit 1 Each once daily. - blood sugar diagnostic (BLOOD GLUCOSE TEST) test strip Test blood sugar(s) 1 times daily. Dx: Type 2 DM - Uncontrolled E11.65 Insulin: No - Lancets lancets Test blood sugar(s) 1 times daily. 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] 11/21/2011 07/16/2012 Porokeratosis [Q82.8] 03/31/2012 09/23/2014 Perianal abscess [K61.0] 04/22/2012 07/16/2012 Lumbago [M54.50] 07/16/2012 Hand eczema [L30.9] 09/19/2012 09/23/2014 Eczematous dermatitis [L30.9] 09/19/2012 02/01/2014 Irritant contact dermatitis [L24.9] 09/19/2012 02/01/2014 Xerosis cutis [L85.3] 09/19/2012 Keratoderma of foot, acquired [L85.1] 09/19/2012 09/23/2014 Depression with anxiety [F41.8] 02/01/2014 HTN (hypertension) [I10] 09/23/2014 Migraine [G43.909] 09/23/2014 Laceration of finger of right hand [S61.219A] 10/31/2016 Screening and evaluation for vasectomy [Z30.09] 07/10/2018 Hypertension [I10] Type 2 diabetes mellitus with peripheral neurop* PTSD (post-traumatic stress disorder) [F43.10] Encounter Status:Closed by INGRID BROWN on 09/16/24 Normal [facility] POLYSOMNOGRAM (PSG)/HOME SLE EP APNEA TEST (HSAT)on 08-18-2024 POLYSOMNOGRAM (PSG)/HOME SLEEP APNEA TEST (HSAT) [facility] at [address], [address], [place] [address] ; Home Sleep Apnea Test (HSAT) Study Report Name: MCKINLEY MCGEE Date of Study: 08/18/2024 [facility]#: [id number] Age: 43 (: 1980) ESS: 04/25 Neck Circ. (cm): 45.7 Height (cm): 190.50 Weight (kg): 142.0 BMI: 39.12 Referring Provider: DAGOBERTO QUILES Mailcode: N/A Sleep history: The patient is a 43 year old male with a history of snoring, witnessed apneas, waking up choking, multiple awakenings from sleep, and waking up with dry mouth/sore throat. The patient is here for assessment of obstructive sleep apnea. The patient endorses being a habitual supine and side sleeper. Pertinent medical history: Anxiety, Diabetes, Hypertension, Obesity, PTSD Medications: Norvasc, Lexapro, Gabapentin, Amaryl, Losartan, Metformin ER, Protonix, Rybelsus, Zocor Sleep procedure: PSG unattended Type III, minimum of 4 parameters (13006) Procedure: This study was performed using a Type III ambulatory PSG device and was unattended. The patient was instructed on proper use of the device by a registered sleep lab technician. The monitored parameters included heart rate, oxygen saturation, continuous airflow with thermistor and nasal pressure transducer, snoring via nasal pressure transducer, chest and abdominal effort, and body position. YUE definition: Respiratory event index (YUE), calculated as respiratory events x 60 / TRT (total recording time in minutes). Note: the apnea hypopnea index has been replaced by the respiratory event index for home sleep apnea test. Since the home sleep apnea test does not measure sleep, the YUE is most accurate index of respiratory events. The YUE is a surrogate of the AHI per the AASM Manual for Scoring of Sleep and Associated Events version 3. Apnea definition: The peak signal excursions drop by >90% of pre-event baseline using an oronasal thermal sensor (diagnostic study), PAP device flow (titration study) or an alternative apnea sensor (diagnostic study). The duration of the >90% drop in signal excursion is >=10 seconds. Hypopnea definition: The peak signal excursions drop by >= 30% of pre-event baseline using nasal pressure (diagnostic study), PAP device flow (titration study) or an alternative hypopnea sensor (diagnostic study). The duration of the >= 30% drop in signal excursion is >=10 seconds. There is a greater than or equal to 3% oxygen desaturation from pre-event baseline. RESPIRATORY DATA: The study started at 23:18:13 and ended at 06:28:53 and the total recording time was 430 minutes. By convention, sleep is assumed for the whole recording. Snoring was noted. There was a total of 507 respiratory events. Of these events, the total number of apneas was 270 (256 obstructive, 12 mixed, and 2 central (0.4%)) and 237 hypopneas. The central apnea index (DAVID) was 0.3. The respiratory event index (YUE) was 70.7 events per hour of study time. The mean oxygen saturation during the study was 93.0%, with a minimum oxygen saturation of 80.0%. The patient spent 64.1 minutes at oxygen saturation measured less than 90% (16.3% of recording time) and 45.7 minutes at oxygen saturation measured at or less than 88% (10.6% of recording time). Time YUE/AHI Supine 338.5 min 68.8 Off-Supine 92.0 min 77.6 Total 430.5 min 70.7 ECG DATA: The average heart rate was 73 bpm with a range of 59 bpm to 120 bpm. ICSD DIAGNOSIS: Obstructive Sleep Apnea Syndrome [G47.33] Tachycardia IMPRESSION/RECOMMENDA TIONS: 1. This study confirms a diagnosis of severe obstructive sleep apnea with O2 desaturations to 80%. 2. The results of this study may represent an underestimation of the degree of obstructive sleep apnea, especially hypopneas, because of the known limitations of HSAT, such as inability to record arousals because EEG is not recorded. 3. Untreated sleep apnea is associated with a variety of consequences including but not limited to hypertension, heart disease, stroke, obesity and daytime sleepiness that can affect normal daytime functioning. 4. PAP therapy is the usual first line therapy. Other treatment options for JOLANTA may include weight loss, positional therapy, oral appliance, upper airway surgery, upper airway stimulation, treatment of allergies and avoidance of alcohol and sedating medications (such as opioids, benzodiazepines, and muscle relaxers) that can cause respiratory depression. I recommend an in lab PAP titration INTERPRETING PHYSICIAN: MG Erinn DO, LEONIE BARRYM I attest that I have performed epoch by epoch review of the entire raw data and find this study to be technically adequate. Report Digitally Signed By: Namrata Plasencia (08/25/2024 1:29:15 PM) [facility]CKINLEY [facility] ([id number]) 1980 M Date Time Provider Department 06/16/24 DEREK STODDARD [facility] During your visit today, we recorded the following information about you: Sandy Bernstein LPN 06/16/2024 3:07 PM Signed PA approval rec'd from [facility] for [facility]. Approved from 06/15/24 to 06/15/25. This info was sent to the pharmacy and pt notified via my chart. Allergies As of Date: 06/16/2024 Noted Allergy Reaction LATEX 10/31/2016 2 - Rash LISINOPRIL 11/16/2019 3 - Cough PENICILLINS 12/17/2005 16 - Unknown Comments: childhood- unknown reaction -Has taken amoxil PROZAC (FLUOXETINE) 10/30/2021 1 - Mental Status Change WELLBUTRIN (BUPROPION) 05/17/2020 8 - GI Upset Date Reviewed: 06/04/2024 Reviewed by: Tarik Velasquez MA - Fully Assessed Reason for Visit: Insurance Authorization [[id number]] Prescriptions as of 06/16/2024 - semaglutide (RYBELSUS) 7 mg tablet Take 1 tablet (7 mg) by mouth daily before breakfast. Take 30 minutes before the first food, beverage, or other oral medications of the day with no more than 4 ounces of plain water - glimepride 3 mg tablet Take 2 tablets by mouth daily with breakfast. - gabapentin (NEURONTIN) 300 mg capsule Take 2 capsules by mouth daily at bedtime for 90 days. - simvastatin (ZOCOR) 10 mg tablet Take 1 tablet by mouth daily at bedtime. For cholesterols. - metFORMIN ER (GLUCOPHAGE XR) 500 mg 24 hr tablet Take 2 tablets by mouth daily with dinner. - amLODIPine (NORVASC) 10 mg tablet Take 1 tablet by mouth once daily. - escitalopram oxalate (LEXAPRO) 20 mg tablet Take 1 tablet by mouth once daily. - losartan (COZAAR) 25 mg tablet Take 1 tablet by mouth once daily. - pantoprazole DR (PROTONIX) 40 mg tablet Take 1 tablet by mouth daily before breakfast. Take on empty stomach, 1/2 hr before meal. - Blood Pressure Kit-Extra Large kit 1 Each once daily. - blood sugar diagnostic (BLOOD GLUCOSE TEST) test strip Test blood sugar(s) 1 times daily. Dx: Type 2 DM - Uncontrolled E11.65 Insulin: No - Lancets lancets Test blood sugar(s) 1 times daily. Dx: Type 2 DM - Uncontrolled E11.65 Insulin: No Problem List As Of Date 06/16/2024 Noted Resolved ESOPHAGEAL REFLUX [K21.9] 12/17/2005 TOBACCO USE DISORDER [F17.200] 12/17/2005 Elevated blood pressure reading without diagnos*12/17/2005 07/16/2012 Morbid (severe) obesity due to excess calories *12/17/2005 HYPERGLYCEMIA [R79.89] 01/17/2006 09/23/2014 Anxiety state, unspecified [F41.1] 10/07/2008 05/10/2011 Condyloma acuminatum [A63.0] 05/10/2011 07/16/2012 Lesion of plantar nerve [G57.60] 11/21/2011 07/16/2012 Porokeratosis [Q82.8] 03/31/2012 09/23/2014 Perianal abscess [K61.0] 04/22/2012 07/16/2012 Lumbago [M54.50] 07/16/2012 Hand eczema [L30.9] 09/19/2012 09/23/2014 Eczematous dermatitis [L30.9] 09/19/2012 02/01/2014 Irritant contact dermatitis [L24.9] 09/19/2012 02/01/2014 Xerosis cutis [L85.3] 09/19/2012 Keratoderma of foot, acquired [L85.1] 09/19/2012 09/23/2014 Depression with anxiety [F41.8] 02/01/2014 HTN (hypertension) [I10] 09/23/2014 Migraine [G43.909] 09/23/2014 Laceration of finger of right hand [S61.219A] 10/31/2016 Screening and evaluation for vasectomy [Z30.09] 07/10/2018 Hypertension [I10] Type 2 diabetes mellitus with peripheral neurop* PTSD (post-traumatic stress disorder) [F43.10] Encounter Status:Closed by SANDY BERNSTEIN on 06/16/24 [facility] 06-15-2024 [facility] MCKINLEY MCGEE ([id number]) 1980 M Date Time Provider Department 06/15[facility] your visit today, we recorded the following information about you: Dagoberto Quiles APRN.[facility] 06/15/2024 1:55 PM Signed Called and left VM for patient. Please let patient know that [facility] does not have rybelsus 7mg available and I have sent a rx to [facility]. I spoke to the pharmacist at [facility] and she is going to try to order it in. Ingrid Brown RN 06/15/2024 3:37 PM Signed Called and left a voicemail for the Patient to call back and ask for a nurse to receive the providers message. ALEXANDER Fatima Beth, GLO 06/15/2024 4:05 PM Signed Patient returned call and went over notes below and he wants rx to go back to [facility] pharmacy, since a PA was being done on it. He said they have it in stock usually. Reset rx to file to [facility]. Allergies As of Date: 06/15/2024 Noted Allergy Reaction LATEX 10/31/2016 2 - Rash LISINOPRIL 11/16/2019 3 - Cough PENICILLINS 12/17/2005 16 - Unknown Comments: childhood- unknown reaction -Has taken amoxil PROZAC (FLUOXETINE) 10/30/2021 1 - Mental Status Change WELLBUTRIN (BUPROPION) 05/17/2020 8 - GI Upset Date Reviewed: 06/04/2024 Reviewed by: Tarik Velasquez MA - Fully Assessed Reason for Visit: Results [95] Visit Diagnosis:Type 2 diabetes mellitus with peripheral neuropathy (HCC) [E11.42] Order(s):semaglutide (RYBELSUS) 7 mg tabletTake 1 tablet (7 mg) by mouth daily before breakfast. Take 30 minutes before the first food, beverage, or other oral medications of the day with no more than 4 ounces of plain waterDisp: 90 tabletRfl: 1 Prescriptions as of 06/15/2024 - semaglutide (RYBELSUS) 7 mg tablet Take 1 tablet (7 mg) by mouth daily before breakfast. Take 30 minutes before the first food, beverage, or other oral medications of the day with no more than 4 ounces of plain water - glimepride 3 mg tablet Take 2 tablets by mouth daily with breakfast. - gabapentin (NEURONTIN) 300 mg capsule Take 2 capsules by mouth daily at bedtime for 90 days. - simvastatin (ZOCOR) 10 mg tablet Take 1 tablet by mouth daily at bedtime. For cholesterols. - metFORMIN ER (GLUCOPHAGE XR) 500 mg 24 hr tablet Take 2 tablets by mouth daily with dinner. - amLODIPine (NORVASC) 10 mg tablet Take 1 tablet by mouth once daily. - escitalopram oxalate (LEXAPRO) 20 mg tablet Take 1 tablet by mouth once daily. - losartan (COZAAR) 25 mg tablet Take 1 tablet by mouth once daily. - pantoprazole DR (PROTONIX) 40 mg tablet Take 1 tablet by mouth daily before breakfast. Take on empty stomach, 1/2 hr before meal. - Blood Pressure Kit-Extra Large kit 1 Each once daily. - blood sugar diagnostic (BLOOD GLUCOSE TEST) test strip Test blood sugar(s) 1 times daily. Dx: Type 2 DM - Uncontrolled E11.65 Insulin: No - Lancets lancets Test blood sugar(s) 1 times daily. Dx: Type 2 DM - Uncontrolled E11.65 Insulin: No Problem List As Of Date 06/15/2024 Noted Resolved ESOPHAGEAL REFLUX [K21.9] 12/17/2005 TOBACCO USE DISORDER [F17.200] 12/17/2005 Elevated blood pressure reading without diagnos*12/17/2005 07/16/2012 Morbid (severe) obesity due to excess calories *12/17/2005 HYPERGLYCEMIA [R79.89] 01/17/2006 09/23/2014 Anxiety state, unspecified [F41.1] 10/07/2008 05/10/2011 Condyloma acuminatum [A63.0] 05/10/2011 07/16/2012 Lesion of plantar nerve [G57.60] 11/21/2011 07/16/2012 Porokeratosis [Q82.8] 03/31/2012 09/23/2014 Perianal abscess [K61.0] 04/22/2012 07/16/2012 Lumbago [M54.50] 07/16/2012 Hand eczema [L30.9] 09/19/2012 09/23/2014 Eczematous dermatitis [L30.9] 09/19/2012 02/01/2014 Irritant contact dermatitis [L24.9] 09/19/2012 02/01/2014 Xerosis cutis [L85.3] 09/19/2012 Keratoderma of foot, acquired [L85.1] 09/19/2012 09/23/2014 Depression with anxiety [F41.8] 02/01/2014 HTN (hypertension) [I10] 09/23/2014 Migraine [G43.909] 09/23/2014 Laceration of finger of right hand [S61.219A] 10/31/2016 Screening and evaluation for vasectomy [Z30.09] 07/10/2018 Hypertension [I10] Type 2 diabetes mellitus with peripheral neurop* PTSD (post-traumatic stress disorder) [F43.10] Prescriptions ordered this encounter Disp Refills Start End RYBELSUS 7 MG TABLET 90 t* 1 06/15/2024 Route: ORAL Sig: Take 1 tablet (7 mg) by mouth daily before breakfast. Take 30 minutes before the first food, beverage, or other oral medications of the day with no more than 4 ounces of plain water Medications Discontinued During This Encounter Prescriptions - semaglutide (RYBELSUS) 7 mg tablet (Discontinued) Take 1 tablet (7 mg) by mouth daily before breakfast. Take 30 minutes before the first food, beverage, or other oral medications of the day with no more than 4 ounces of plain water Encounter Status:Closed by JUSTIN QUILES (more content not included)... Normal [facility] 06-11-2024 [facility] Telephone (FAMPWS) MCKINLEY MCGEE ([id number]) 1980 M Date Time Provider Department 06/11/24 [facility] During your visit today, we recorded the following information about you: Derek Stoddard MD 06/11/2024 11:21 AM Signed Diabetes remains uncontrolled with A1c of 7.7. patient not on rybelsus at last OV, but doesn't say why. Recommend increasing his glimepiride to 4 mg daily from 2 mg daily. Check sugars fasting and before bed and call in 2-3 weeks with updated readings. Recommend OV in 3 months. Cholesterol high still. Patient was not taking statin at last OV, but does not say why. Was he having side effects on simvastatin? Hemoglobin mildly elevated which may be related to smoking. Other labs unremarkable. Tianna Lyman LPN 06/11/2024 11:30 AM Signed Message left for patient to return call and request to speak with a nurse to review provider's message with patient. GLO Astudillo Sherrie, RN 06/14/2024 11:33 AM Signed Patient returned call and given provider's message below. Pt states he has been taking glimepiride 4 mg for some time now. Asking if Dr. Stoddard wants him to increase further? Patient reports he has recently began taking simvastatin. States he wasn't able to take it prior because of not having insurance. Please call patient with reply. ALEXANDER Chu Christopher B, MD 06/14/2024 11:40 AM Signed Strange since he is ordered 1 mg tabs and chart shows he should be taking 2 tablets daily with breakfast. If he has been taking 4 mg, I would increase him to 6 mg daily. Please let me know if he has had low sugars <70 recently. Check sugars fasting and before bed with goal <130 fasting and <150 before bed. Recommend he follow up with me in 3 months. I will try not to give him a hard time about the [place]. Ingrid Brown, ALEXANDER 06/14/2024 3:05 PM Signed Called and left a voicemail for the Patient to call back and ask for a nurse to receive the providers message. ALEXANDER Fatima Julia, LPN 06/22/2024 3:37 PM Signed LEFT MESSAGE FOR PATIENT TO CALL OFFICE. Farzana Conti LPN 07/06/2024 9:01 AM Signed Letter sent to patient. Marguerite Contreras RN 07/15/2024 11:04 AM Signed Pt returned the call and notified of the msg from 06/11/24 where he said he was taking 4 mg of Rybelsus. Pt states he isn't sure why he said that as he was only taking 2 mg. But pt has been taking the 6 mg of Glimiperide for almost 2 weeks and is doing well on it. Allergies As of Date: 06/11/2024 Noted Allergy Reaction LATEX 10/31/2016 2 - Rash LISINOPRIL 11/16/2019 3 - Cough PENICILLINS 12/17/2005 16 - Unknown Comments: childhood- unknown reaction -Has taken amoxil PROZAC (FLUOXETINE) 10/30/2021 1 - Mental Status Change WELLBUTRIN (BUPROPION) 05/17/2020 8 - GI Upset Date Reviewed: 06/04/2024 Reviewed by: Tarik Velasquez MA - Fully Assessed Reason for Visit: Results [95] Visit Diagnosis:Type 2 diabetes mellitus without complication, without long-term current use of insulin (HCC) [E11.9] Prescriptions as of 07/15/2024 - semaglutide (RYBELSUS) 3 mg tablet Take 1 tablet by mouth daily before breakfast. Take 30 minutes before the first food, beverage, or other oral medications of the day with no more than 4 ounces of plain water - glimepiride (AMARYL) 2 mg tablet Take 1 tablet by mouth once daily. Take with 4 mg tablet to equal 6 mg daily. - glimepiride (AMARYL) 4 mg tablet Take 1 tablet by mouth daily with breakfast. Take with with 2 mg tablet daily to equal 6 mg daily. - gabapentin (NEURONTIN) 300 mg capsule Take 2 capsules by mouth daily at bedtime for 90 days. - simvastatin (ZOCOR) 10 mg tablet Take 1 tablet by mouth daily at bedtime. For cholesterols. - metFORMIN ER (GLUCOPHAGE XR) 500 mg 24 hr tablet Take 2 tablets by mouth daily with dinner. - amLODIPine (NORVASC) 10 mg tablet Take 1 tablet by mouth once daily. - escitalopram oxalate (LEXAPRO) 20 mg tablet Take 1 tablet by mouth once daily. - losartan (COZAAR) 25 mg tablet Take 1 tablet by mouth once daily. - pantoprazole DR (PROTONIX) 40 mg tablet Take 1 tablet by mouth daily before breakfast. Take on empty stomach, 1/2 hr before meal. - Blood Pressure Kit-Extra Large kit 1 Each once daily. - blood sugar diagnostic (BLOOD GLUCOSE TEST) test strip Test blood sugar(s) 1 times daily. Dx: Type 2 DM - Uncontrolled E11.65 Insulin: No - Lancets lancets Test blood sugar(s) 1 times daily. Dx: Type 2 DM - Uncontrolled E11.65 Insulin: No Problem List As Of Date 06/11/2024 Noted Resolved ESOPHAGEAL REFLUX [K21.9] 12/17/2005 TOBACCO USE DISORDER [F17.200] 12/17/2005 Elevated blood pressure reading without diagnos*12/17/2005 07/16/2012 Morbid (severe) obesity due to excess calories *12/17/2005 HYPERGLYCEMIA [R79.89] 01/17/2006 09/23/2014 Anxiety state, uns (more content not included)... Normal [facility] CNPNon 06-08-2024 [facility] Telephone (FAMPWS) MCKINLEY MCGEE ([id number]) 1980 M Date Time Provider Department 06/08/24 DEREK STODDARD During your visit today, we recorded the following information about you: Kay Armendariz RN 06/08/2024 10:40 AM Signed Patient calls to report that Rybelsus is not available through [facility] but he could get it from [facility]. He also request gabapentin to be sent to [facility] per usual. Pended as requested. ALEXANDER Fagan Christopher B, MD 06/08/2024 1:39 PM Signed Rx sent as requested. PDMP website checked and validated. All prescriptions have been APPROPRIATELY filled. No suspicious activity was identified. 06/08/2024 by Derek Stoddard MD Looks like he is scheduled with Dagoberto for his physical in November. I have not seen him since 2022. Would recommend scheduling physical with me instead since it has been so long. Farzana Conti LPN 06/08/2024 4:49 PM Signed Telephone call placed to patient. Message left to call office back for providers message. GLO Brewer Stephanie, ALEXANDER 06/08/2024 4:59 PM Signed Patient called and notified of below. Patient requiring a prior authorization on medication. Patient states that he will schedule via my chart. PRIOR AUTHORIZATION Medication for Prior Authorization: semaglutide (Rybelsus) Insurance Company: [employer] Patient insurance ID number: [id number] ALEXANDER Topete Elizabeth, MA 06/09/2024 9:47 AM Signed Form completed and faxed with office note/A1C DION Conteh Elizabeth, MA 06/15/2024 3:47 PM Signed PA approved: Authorized from June 15, 2024 to June 15, 2025 Information received electronically from payer Left message on patient vm Joanna Granados MA Allergies As of Date: 06/08/2024 Noted Allergy Reaction LATEX 10/31/2016 2 - Rash LISINOPRIL 11/16/2019 3 - Cough PENICILLINS 12/17/2005 16 - Unknown Comments: childhood- unknown reaction -Has taken amoxil PROZAC (FLUOXETINE) 10/30/2021 1 - Mental Status Change WELLBUTRIN (BUPROPION) 05/17/2020 8 - GI Upset Date Reviewed: 06/04/2024 Reviewed by: Tarik Velasquez MA - Fully Assessed Reason for Visit: Medication Problem [65] Visit Diagnoses:Numbness and tingling of both feet [R20.0, R20.2] Type 2 diabetes mellitus with peripheral neuropathy (HCC) [E11.42] Order(s):gabapentin (NEURONTIN) 300 mg capsuleTake 2 capsules by mouth daily at bedtime for 90 days.Disp: 60 capsuleRfl: 2 Prescriptions as of 06/15/2024 - semaglutide (RYBELSUS) 7 mg tablet Take 1 tablet (7 mg) by mouth daily before breakfast. Take 30 minutes before the first food, beverage, or other oral medications of the day with no more than 4 ounces of plain water - glimepride 3 mg tablet Take 2 tablets by mouth daily with breakfast. - gabapentin (NEURONTIN) 300 mg capsule Take 2 capsules by mouth daily at bedtime for 90 days. - simvastatin (ZOCOR) 10 mg tablet Take 1 tablet by mouth daily at bedtime. For cholesterols. - metFORMIN ER (GLUCOPHAGE XR) 500 mg 24 hr tablet Take 2 tablets by mouth daily with dinner. - amLODIPine (NORVASC) 10 mg tablet Take 1 tablet by mouth once daily. - escitalopram oxalate (LEXAPRO) 20 mg tablet Take 1 tablet by mouth once daily. - losartan (COZAAR) 25 mg tablet Take 1 tablet by mouth once daily. - pantoprazole DR (PROTONIX) 40 mg tablet Take 1 tablet by mouth daily before breakfast. Take on empty stomach, 1/2 hr before meal. - Blood Pressure Kit-Extra Large kit 1 Each once daily. - blood sugar diagnostic (BLOOD GLUCOSE TEST) test strip Test blood sugar(s) 1 times daily. Dx: Type 2 DM - Uncontrolled E11.65 Insulin: No - Lancets lancets Test blood sugar(s) 1 times daily. Dx: Type 2 DM - Uncontrolled E11.65 Insulin: No Problem List As Of Date 06/08/2024 Noted Resolved ESOPHAGEAL REFLUX [K21.9] 12/17/2005 TOBACCO USE DISORDER [F17.200] 12/17/2005 Elevated blood pressure reading without diagnos*12/17/2005 07/16/2012 Morbid (severe) obesity due to excess calories *12/17/2005 HYPERGLYCEMIA [R79.89] 01/17/2006 09/23/2014 Anxiety state, unspecified [F41.1] 10/07/2008 05/10/2011 Condyloma acuminatum [A63.0] 05/10/2011 07/16/2012 Lesion of plantar nerve [G57.60] 11/21/2011 07/16/2012 Porokeratosis [Q82.8] 03/31/2012 09/23/2014 Perianal abscess [K61.0] 04/22/2012 07/16/2012 Lumbago [M54.50] 07/16/2012 Hand eczema [L30.9] 09/19/2012 09/23/2014 Eczematous dermatitis [L30.9] 09/19/2012 02/01/2014 Irritant contact dermatitis [L24.9] 09/19/2012 02/01/2014 Xerosis cutis [L85.3] 09/19/2012 Keratoderma of foot, acquired [L85.1] 09/19/2012 09/23/2014 Depression with anxiety [F41.8] 02/01/2014 HTN (hypertension) [I10] 09/23/2014 Migraine [G43.909] 09/23/2014 Laceration of finger of right hand [S61.219A] 10/31/2016 Screening and evaluation for vasect (more content not included)... Normal [facility] ALBUMIN/CREATININE RATIO, UR INEon 06-04-2024 Albumin DL <= 20 mg/L (U) [Mass/Vol] 15.5 mg/L Normal [facility] Comment on above: Order Comment: Speci men Type: URINE SPECIMENOrdering Facility: [facility] Address: [address] [place] [address] Performed By: #### U ACR ####[facility] LABCLIA [id number] [place] [address] [place] Albumin/Creatinine (U) [Mass ratio] 16 mg/g Normal <30 [facility] Comment on above: Order Comment: Speci men Type: URINE SPECIMENOrdering Facility: [facility] Address: [address] [place] [address] Result Comment: Adul t Male and Female Nephrotic Criteria: <30 mg/g is considered normal to mildly increased 30-300 mg/g is considered moderately increased >300 mg/g is considered severely increased KDIGO. (2013). KDIGO 2012 Clinical Practice Guideline for the Evaluation and Management of Chronic Kidney Disease. Official Journal of the International Society of Nephrology, 3(1), 1-150. Performed By: #### U ACR ####[facility] LABCLIA [id number] [place] [address] [place] Creatinine (U) [Mass/Vol] 97.6 mg/dL Normal 20.0-300.0 [facility] Comment on above: Order Comment: Speci men Type: URINE SPECIMENOrdering Facility: [facility] Address: [address] [place] [address] Performed By: #### U ACR ####[facility] LABCLIA [id number] [place] [id number] [place] CBC W Auto Differential pane l (Bld)on 06-04-2024 Basophils (Bld) [#/Vol] 0.07 10*3/uL Normal <0.11 [facility] Comment on above: Order Comment: Speci men Type: BLOOD SPECIMENOrdering Facility: [facility] Address: [address] [place] [address] Performed By: #### 5 7021-8 ####[facility] LABCLIA [id number] [place] [address] [place] Basophils/100 WBC (Bld) 0.8 % Normal [facility] Comment on above: Order Comment: Speci men Type: BLOOD SPECIMENOrdering Facility: [facility] Address: [address] [place] [address] Performed By: #### 5 7021-8 ####[facility] LABCLIA [id number] [place] [address] [place] Differential cell count method Nom (Bld) Auto Normal [facility] Comment on above: Order Comment: Speci men Type: BLOOD SPECIMENOrdering Facility: [facility] Address: [address] [place] [address] Performed By: #### 5 7021-8 ####[facility] LABCLIA [id number] [place] [address] [place] Eosinophils (Bld) [#/Vol] 0.23 10*3/uL Normal <0.46 [facility] Comment on above: Order Comment: Speci men Type: BLOOD SPECIMENOrdering Facility: [facility] Address: [address] [place] [address] Performed By: #### 5 7021-8 ####[facility] LABCLIA [id number] [place] [address] [place] Eosinophils/100 WBC (Bld) 2.6 % Normal [facility] Comment on above: Order Comment: Speci men Type: BLOOD SPECIMENOrdering Facility: [facility] Address: [address] [place] [address] Performed By: #### 5 7021-8 ####[facility] LABCLIA [id number] [place] [address] [place] Erythrocyte distribution width (RBC) [Ratio] 11.8 % Normal 11.5-15.0 [facility] Comment on above: Order Comment: Speci men Type: BLOOD SPECIMENOrdering Facility: [facility] Address: [address] [place] [address] Performed By: #### 5 7021-8 ####[facility] LABIA [id number] [place] [address] [place] Hematocrit (Bld) [Volume fraction] 49.8 % Normal 39.0-51.0 [facility] Comment on above: Order Comment: Speci men Type: BLOOD SPECIMENOrdering Facility: [facility] Address: [address] [place] [address] Performed By: #### 5 7021-8 ####[facility] LABIA [id number] [place] [address] [place] Hemoglobin (Bld) [Mass/Vol] 17.5 g/dL High 13.0-17.0 [facility] Comment on above: Order Comment: Speci men Type: BLOOD SPECIMENOrdering Facility: [facility] Address: [address] [place] [address] Performed By: #### 5 7021-8 ####[facility] LABIA [id number] [place] [address] [place] Immature granulocytes (Bld) [#/Vol] 0.04 10*3/uL Normal <0.10 [facility] Comment on above: Order Comment: Speci men Type: BLOOD SPECIMENOrdering Facility: [facility] Address: [address] [place] [address] Performed By: #### 5 7021-8 ####[facility] LABCLIA [id number] [place] [address] [place] Immature granulocytes/100 WBC (Bld) 0.4 % Normal [facility] Comment on above: Order Comment: Speci men Type: BLOOD SPECIMENOrdering Facility: [facility] Address: [address] [place] [address] Performed By: #### 5 7021-8 ####[facility] LABCLIA [id number] [place] [address] [place] Lymphocytes (Bld) [#/Vol] 2.42 10*3/uL Normal 1.00-4.00 [facility] Comment on above: Order Comment: Speci men Type: BLOOD SPECIMENOrdering Facility: [facility] Address: [address] [place] [address] Performed By: #### 5 7021-8 ####[facility] LABCLIA [id number] [place] [address] [place] Lymphocytes/100 WBC (Bld) 27.1 % Normal [facility] Comment on above: Order Comment: Speci men Type: BLOOD SPECIMENOrdering Facility: [facility] Address: [address] [place] [address] Performed By: #### 5 7021-8 ####[facility] LABCLIA [id number] [place] [address] [place] MCH (RBC) [Entitic mass] 31.6 pg Normal 26.0-34.0 [facility] Comment on above: Order Comment: Speci men Type: BLOOD SPECIMENOrdering Facility: [facility] Address: [address] [place] [address] Performed By: #### 5 7021-8 ####[facility] LABCLIA [id number] [place] [address] [place] MCHC (RBC) [Mass/Vol] 35.1 g/dL Normal 30.5-36.0 [facility] Comment on above: Order Comment: Speci men Type: BLOOD SPECIMENOrdering Facility: [facility] Address: [address] [place] [address] Performed By: #### 5 7021-8 ####[facility] LABCLIA [id number] [place] [address] [place] MCV (RBC) [Entitic vol] 89.9 fL Normal 80.0-100.[address] [facility] Comment on above: Order Comment: Speci men Type: BLOOD SPECIMENOrdering Facility: [facility] Address: [address] [place] [address] Performed By: #### 5 7021-8 ####[facility] LABCLIA [id number] [place] [address] [place] Monocytes (Bld) [#/Vol] 0.55 10*3/uL Normal <0.87 [facility] Comment on above: Order Comment: Speci men Type: BLOOD SPECIMENOrdering Facility: [facility] Address: [address] [place] [address] Performed By: #### 5 7021-8 ####[facility] LABIA [id number] [place] [address] [place] Monocytes/100 WBC (Bld) 6.2 % Normal C [facility] Comment on above: Order Comment: Speci men Type: BLOOD SPECIMENOrdering Facility: [facility] Address: [address] [place] [address] Performed By: #### 5 7021-8 ####[facility] LABCLIA [id number] [place] [address] [place] Neutrophils (Bld) [#/Vol] 5.63 10*3/uL Normal 1.45-7.50 [facility] Comment on above: Order Comment: Speci men Type: BLOOD SPECIMENOrdering Facility: [facility] Address: [address] [place] [address] Performed By: #### 5 7021-8 ####[facility] LABCLIA [id number] [place] [address] [place] Neutrophils/100 WBC (Bld) 62.9 % Normal [facility] Comment on above: Order Comment: Speci men Type: BLOOD SPECIMENOrdering Facility: [facility] Address: [address] [place] [address] Performed By: #### 5 7021-8 ####[facility] LABIA [id number] [place] [address] [place] Nucleated RBC (Bld) [#/Vol] 10*3/uL Normal <0.01 [facility] Comment on above: Order Comment: Speci men Type: BLOOD SPECIMENOrdering Facility: [facility] Address: [address] [place] [address] Performed By: #### 5 7021-8 ####[facility] LABIA [id number] [place] [address] [place] Nucleated RBC/100 WBC (Bld) [Ratio] 0.0 /100 WBC Normal [facility] Comment on above: Order Comment: Speci men Type: BLOOD SPECIMENOrdering Facility: [facility] Address: [address] [place] [address] Performed By: #### 5 7021-8 ####[facility] LABIA [id number] [place] [address] [place] Platelet mean volume (Bld) [Entitic vol] 9.7 fL Normal 9.0-12.7 [facility] Comment on above: Order Comment: Speci men Type: BLOOD SPECIMENOrdering Facility: [facility] Address: [address] [place] [address] Performed By: #### 5 7021-8 ####[facility] LABIA [id number] [place] [address] [place] Platelets (Bld) [#/Vol] 259 10*3/uL Normal 150-400 [facility] Comment on above: Order Comment: Speci men Type: BLOOD SPECIMENOrdering Facility: [facility] Address: [address] [place] [address] Performed By: #### 5 7021-8 ####[facility] LABCLIA [id number] [place] [id number] [place] RBC (Bld) [#/Vol] 5.54 10*6/uL Normal 4.20-6.00 [facility] Comment on above: Order Comment: Speci men Type: BLOOD SPECIMENOrdering Facility: [facility] Address: [address] [place] [address] Performed By: #### 5 7021-8 ####[facility] LABCLIA [id number] [place] [id number] [place] WBC (Bld) [#/Vol] 8.94 10*3/uL Normal 3.70-11.00 [facility] Comment on above: Order Comment: Speci men Type: BLOOD SPECIMENOrdering Facility: [facility] Address: [address] [place] [address] Performed By: #### 5 7021-8 ####[facility] LABCLIA [id number] [address] [place] CNOVon 06-04-2024 CNOV Office Visit (ADOLPH ) MCKINLEY MCGEE ([id number]) 1980 M Date Time Provider Department 06/04/24 1:00 PM DAGOBERTO QUILES During your visit today, we recorded the following information about you: Pulse Blood pressure Weight 96/minute 139/87 142 kg Dagoberto Quiles, 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 Patient presents for follow up. Patient was supposed to follow up in the fall but patient lost his insurance and was not able to come in until after the first of the year. Patient has not been taking rybelsus and simvastatin Past medical history, appointments, medications, allergies reviewed. Previous Medical History PAST MEDICAL HISTORY Diagnosis Date ANXIETY STATE NOS 10/07/2008 Condyloma acuminatum 05/10/2011 DDD (degenerative disc disease), cervical Depression Diabetes mellitus (HCC) ELEV BL PRES W/O HYPERTN 12/17/2005 Erectile dysfunction Esophageal reflux 12/17/2005 HYPERGLYCEMIA 01/17/2006 Hypertension Knee MCL sprain 1990s Right knee Morbid obesity (HCC) OVERWEIGHT 12/17/2005 Perianal abscess 04/22/2012 PTSD (post-traumatic stress disorder) Snoring Tobacco use disorder 12/17/2005 Vitamin D deficiency Previous Surgical History PAST SURGICAL HISTORY Procedure Laterality Date DEBRIDEMENT OPEN WOUND 20 SQ CM/< 04/22/2012 Debridement perianal abscess PAST SURGICAL HISTORY OF 06/02/1990 Right upper arm laceration PAST SURGICAL HISTORY OF 04/10/2012 neuroma right foot TONSILLECTOMY PRIMARY/SECONDARY Tonsillectomy VASECTOMY Family History FAMILY HISTORY Problem Relation Age of Onset Heart Father Hypertension Mother Cancer Mother Patient Allergies ALLERGIES Allergen Reactions Latex Rash Lisinopril Cough Penicillins Unknown childhood- unknown reaction -Has taken amoxil Prozac [Fluoxetine] Mental Status Change Wellbutrin [Bupropi* GI Upset Current Medications Current Outpatient Medications on File Prior to Visit Medication Sig gabapentin (NEURONTIN) 300 mg capsule Take 1 capsule by mouth two times a day for 90 days. metFORMIN ER (GLUCOPHAGE XR) 500 mg 24 hr tablet Take 2 tablets by mouth daily with dinner. amLODIPine (NORVASC) 10 mg tablet Take 1 tablet by mouth once daily. escitalopram oxalate (LEXAPRO) 20 mg tablet Take 1 tablet by mouth once daily. glimepiride (AMARYL) 1 mg tablet Take 2 tablets by mouth daily with breakfast. losartan (COZAAR) 25 mg tablet Take 1 tablet by mouth once daily. pantoprazole DR (PROTONIX) 40 mg tablet Take 1 tablet by mouth daily before breakfast. Take on empty stomach, 1/2 hr before meal. simvastatin (ZOCOR) 10 mg tablet Take 1 tablet by mouth daily at bedtime. For cholesterols. semaglutide (RYBELSUS) 7 mg tablet Take 1 tablet (7 mg) by mouth daily before breakfast. Blood Pressure Kit-Extra Large kit 1 Each once daily. blood sugar diagnostic (BLOOD GLUCOSE TEST) test strip Test blood sugar(s) 1 times daily. Dx: Type 2 DM - Uncontrolled E11.65 Insulin: No Lancets lancets Test blood sugar(s) 1 times daily. Dx: Type 2 DM - Uncontrolled E11.65 Insulin: No No current facility-administered medications on file prior to visit. Social History Social History Tobacco Use Smoking status: Every Day Current packs/day: 0.50 Average packs/day: 0.5 packs/day for 6.0 years (3.0 ttl pk-yrs) Types: Cigarettes Smokeless tobacco: Former Tobacco comments: currently trying to quit - 4 or 5 cigarettes/day Substance Use Topics Alcohol use: Yes Alcohol/week: 6.0 standard drinks of alcohol Types: 6 Cans of Beer (12oz) per week Comment: occasionally (weekends) Drug use: Yes Types: Marijuana Comment: socially - special occasions Review of Symptoms REVIEW OF SYSTEMS SEE HPI EXAM: BP 139/87 Pulse 96 Wt (!) 142 kg (313 lb) BMI (P) 39.12 kg/m? General Appearance: Well appearing, alert, in no acute distress, well-hydrated, well nourished. Lungs: Lungs clear to auscultation. No wheezing, rhonchi, rales.. Heart: RRR without murmur, gallop, or rubs. No ectopy. Peripheral Pulses: Normal. Health Maintenance List Hepatitis B Vaccine(1 of 3 - 19+ 3-dose series) Never done BP Controlled (<130/80) due on 12/18/2018 Urine Albumin:Creatinine Ratio due on 09/25/2021 Dilated Retinal Exam due on 09/13/2023 Diabetic Foot Exam due on 10/17/2023 Influenza Vaccine(1) due on 02/01/2024 Covid-19 Vaccine(2 - 2023- season) due on 02/01/2024 HbA1C due on 05/08/2024 LDL Cholesterol due on 11/06/2024 Annual PCP Team Chronic Disease Visit due on 11/06/2024 DTaP,Tdap,Td Vaccine(2 - Td or Tdap) due on 08/09/2029 Hepatitis C Screening Completed Pneumococcal Vaccine Completed HPV Vaccine Aged Out HIV Screening Discontinued Data reviewed Last 5 Encounter (more content not included)... Normal [facility] metabolic 2000 panelon 06-04-2024 Albumin [Mass/Vol] 4.9 g/dL Normal 3.9-4.9 [facility] Comment on above: Order Comment: Speci men Type: BLOOD SPECIMENOrdering Facility: [facility] Address: [address] [place] [address] Performed By: #### L IPNF, 24732-4 ####[facility] LABCLIA [id number] [place] [address] [place] ALP [Catalytic activity/Vol] 97 U/L Normal 38-113 [facility] Comment on above: Order Comment: Speci men Type: BLOOD SPECIMENOrdering Facility: [facility] Address: [address] [place] [address] Performed By: #### L IPNF, 96193-0 ####[facility] LABCLIA [id number] [place] [address] [place] ALT [Catalytic activity/Vol] 19 U/L Normal 10-54 [facility] Comment on above: Order Comment: Speci men Type: BLOOD SPECIMENOrdering Facility: [facility] Address: [address] [place] [address] Performed By: #### L IPNF, 10160-9 ####[facility] LABCLIA [id number] [place] [address] [place] Anion gap [Moles/Vol] 14 mmol/L Normal 8-15 [facility] Comment on above: Order Comment: Speci men Type: BLOOD SPECIMENOrdering Facility: [facility] Address: [address] [place] [address] Performed By: #### L IPNF, 99501-0 ####[facility] LABCLIA [id number] [place] [address] [place] AST [Catalytic activity/Vol] 15 U/L Normal 14-40 [facility] Comment on above: Order Comment: Speci men Type: BLOOD SPECIMENOrdering Facility: [facility] Address: [address] [place] [address] Performed By: #### L IPNF, 38782-2 ####[facility] LABCLIA [id number] [place] [address] [place] Bilirubin [Mass/Vol] 0.3 mg/dL Normal 0.2-1.3 [facility] Comment on above: Order Comment: Speci men Type: BLOOD SPECIMENOrdering Facility: [facility] Address: [address] [place] [address] Performed By: #### L IPNF, 29626-3 ####[facility] LABCLIA [id number] [place] [address] [place] Calcium [Mass/Vol] 10.1 mg/dL Normal 8.5-10.2 [facility] Comment on above: Order Comment: Speci men Type: BLOOD SPECIMENOrdering Facility: [facility] Address: [address] [place] [address] Performed By: #### L IPNF, 71543-1 ####[facility] LABCLIA [id number] [place] [address] [place] Chloride [Moles/Vol] 95 mmol/L Low 98-107 [facility] Comment on above: Order Comment: Speci men Type: BLOOD SPECIMENOrdering Facility: [facility] Address: [address] [place] [address] Performed By: #### L IPNF, 12456-9 ####[facility] LABCLIA [id number] [place] [address] [place] CO2 [Moles/Vol] 26 mmol/L Normal 22-30 [facility] Comment on above: Order Comment: Speci men Type: BLOOD SPECIMENOrdering Facility: [facility] Address: [address] [place] [address] Performed By: #### L IPNF, 54033-2 ####[facility] LABCLIA [id number] [place] [address] [place] Creatinine [Mass/Vol] 0.68 mg/dL Low 0.73-1.22 [facility] Comment on above: Order Comment: Inder tenorio Type: BLOOD SPECIMENOrdering Facility: [facility] Address: [address] [place] [address] Performed By: #### L POLO, 32984-2 ####[facility] LABIA [id number] [place] [address] [place] Creatinine and Glomerular filtration rate.predicted panel (S/P/Bld) 118 mL/min/1.73m??? Normal >=60 [facility] Comment on above: Order Comment: Inder tenorio Type: BLOOD SPECIMENOrdering Facility: [facility] Address: [address] [place] [address] Result Comment: Ema mated Glomerular Filtration Rate (eGFR) is calculated using the 2020 CKD-EPI creatinine equation. This equation utilizes serum creatinine, sex, and age as parameters. The creatinine assay has traceable calibration to isotope dilution-mass spectrometry. Refer to KDIGO guidelines for clinical interpretation. In patients with unstable renal function, e.g. those with acute kidney injury, the eGFR may not accurately reflect actual GFR. Performed By: #### L POLO, 07923-8 ####[facility] LABIA [id number] [place] [address] [place] Glucose [Mass/Vol] 223 mg/dL High 74-99 [facility] Comment on above: Order Comment: Inder tenorio Type: BLOOD SPECIMENOrdering Facility: [facility] Address: [address] [place] [address] Result Comment: The [place] Diabetes Association (ADA) provides guidance for cutoff values for fasting glucose and random glucose. The ADA defines fasting as no caloric intake for at least 8 hours. Fasting plasma glucose results between 100 to 125 mg/dL indicate increased risk for diabetes (prediabetes). Fasting plasma glucose results greater than or equal to 126 mg/dL meet the criteria for diagnosis of diabetes. In the absence of unequivocal hyperglycemia, results should be confirmed by repeat testing. In a patient with classic symptoms of hyperglycemia or hyperglycemic crisis, random plasma glucose results greater than or equal to 200 mg/dL meet the criteria for diagnosis of diabetes. Reference: Standards of Medical Care in Diabetes 2016, [place] Diabetes Association. Diabetes Care. 2016.39(Suppl 1). Performed By: #### L IPNF, 65967-0 ####[facility] LABCLIA [id number] [place] [address] [place] Potassium [Moles/Vol] 4.3 mmol/L Normal 3.7-5.1 [facility] Comment on above: Order Comment: Speci men Type: BLOOD SPECIMENOrdering Facility: [facility] Address: [address] [place] [address] Performed By: #### L IPNF, 36953-0 ####[facility] LABCLIA [id number] [place] [address] [place] Protein [Mass/Vol] 7.8 g/dL Normal 6.3-8.0 [facility] Comment on above: Order Comment: Speci men Type: BLOOD SPECIMENOrdering Facility: [facility] Address: [address] [place] [address] Performed By: #### L IPNF, 67187-9 ####[facility] LABCLIA [id number] [place] [address] [place] Sodium [Moles/Vol] 135 mmol/L Low 136-144 [facility] Comment on above: Order Comment: Speci men Type: BLOOD SPECIMENOrdering Facility: [facility] Address: [address] [place] [address] Performed By: #### L IPNF, 50930-2 ####[facility] LABCLIA [id number] [place] [address] [place] Urea nitrogen [Mass/Vol] 8 mg/dL Low 9-24 [facility] Comment on above: Order Comment: Speci men Type: BLOOD SPECIMENOrdering Facility: [facility] Address: [address] [place] [address] Performed By: #### L IPNF, 61186-9 ####[facility] LABIA [id number] [place] [address] [place] [facility] [place] HbA1c (Bld)on 06-04-2024 Average glucose Estimated from glycated hemoglobin (Bld) [Mass/Vol] 174 mg/dL Normal [facility] Comment on above: Order Comment: Inder tenorio Type: BLOOD SPECIMENOrdering Facility: [facility] Address: [address] [place] [address] Result Comment: eAG: (Estimated average glucose) is a calculated value from HgbA1c and is new accounts banking representative of the average blood glucose level in the last 2-3 month period. Performed By: #### 5 5454-3 ####[facility] [id number] [address] STATES OF [facility] HbA1c (Bld) [Mass fraction] 7.7 % High 4.3-5.6 [facility] Comment on above: Order Comment: Inder tenorio Type: BLOOD SPECIMENOrdering Facility: [facility] Address: [address] [place] [address] Result Comment: [place] Diabetes Association guidelines indicate that patients with HgbA1c in the range 5.7-6.4% are at increased risk for development of diabetes, and intervention by lifestyle modification may be beneficial. HgbA1c greater or equal to 6.5% is considered diagnostic of diabetes. Performed By: #### 5 5454-3 ####[facility] LABIA [id number] [place] [address] [place] LIPID PANEL, NONFASTINGon Cholesterol [Mass/Vol] 229 mg/dL High <[address] [facility] Comment on above: Order Comment: Inder tenorio Type: BLOOD SPECIMENOrdering Facility: [facility] Address: [address] [place] [address] Result Comment: <200 mg/dL, Desirable 200-239 mg/dL, Borderline high >239 mg/dL, High Performed By: #### L IPNF, 98316-6 ####[facility] LABCLIA [id number] [address] [place] HDL CHOLESTEROL, NF 28 mg/dL Low >39 [facility] Comment on above: Order Comment: Inder coby Type: BLOOD SPECIMENOrdering Facility: [facility] Address: [address] [place] [address] Result Comment: 40-5 9 mg/dL, Acceptable >59 mg/dL, High: Negative risk factor for coronary heart disease <40 mg/dL, Low: Positive risk factor for coronary heart disease Performed By: #### L IPNF, ####[facility] LABCLIA [id number] [address] LDL CHOLESTEROL, NF 127 mg/dL High <100 [facility] Comment on above: Order Comment: Inder tenorio Type: BLOOD SPECIMENOrdering Facility: [facility] Address: [address] [place] [address] Result Comment: <100 mg/dL, Optimal 100-129 mg/dL, Near optimal/above optimal 130-159 mg/dL, Borderline high 160-189 mg/dL, High >189 mg/dL, Very high Secondary prevention optimal LDL Cholesterol levels are recommended to be < 70 mg/dL Performed By: #### L IPNF, 53842-3 ####[facility] LABCLIA [id number] [address] [place] LDL/HDL RATIO, NF 4.54 mg/dL High <2.54 [facility] Comment on above: Order Comment: Gauravradha tenorio Type: BLOOD SPECIMENOrdering Facility: [facility] Address: [address] [place] [address] Result Comment: Christa shipley: 1. National Cholesterol Education Program ATP III Guideline At-A-Glance Quick Desk Reference: National Heart, Lung, and Blood Nerinx. National Institutes of Health. 2001: NIH Publication No. 01-3305. 2. An International Atherosclerosis Society position paper: global recommendations for the management of dyslipidemia: executive summary, Atherosclerosis. 2014: 232(2):410-413. Performed By: #### L IPNF, ####[facility] LABCLIA [id number] [place] [address] [place] NON HDL CHOL, NF 201 mg/dL High <130 [facility] Comment on above: Order Comment: Inder tenorio Type: BLOOD SPECIMENOrdering Facility: [facility] Address: [address] [place] [address] Result Comment: <130 mg/dL, Optimal 130-159 mg/dL, Near optimal/above optimal 160-189 mg/dL, Borderline high 190-219 mg/dL, High >219 mg/dL, Very high Secondary prevention optimal non HDL Cholesterol levels are recommended to be <100 mg/dL Performed By: #### L IPNF, ####[facility] LABCLIA [id number] [address] [place] T CHOL/HDL RATIO NF 8.18 mg/dL High <5.10 [facility] Comment on above: Order Comment: Inder tenorio Type: BLOOD SPECIMENOrdering Facility: [facility] Address: [address] [place] [address] Performed By: #### L IPNF, ####[facility] LABCLIA [id number] [place] [address] [place] TRIGLYCERIDES, NF 369 mg/dL High <150 [facility] Comment on above: Order Comment: Inder tenorio Type: BLOOD SPECIMENOrdering Facility: [facility] Address: [address] [place] [address] Result Comment: <150 mg/dL, Normal 150-199 mg/dL, Borderline high 200-499 mg/dL, High >499 mg/dL, Very high Performed By: #### L IPNF, ####[facility] LABCLIA [id number] [place] [address] [place] VLDL CHOLESTEROL, NF 74 mg/dL High <30 [facility] Comment on above: Order Comment: Speci men Type: BLOOD SPECIMENOrdering Facility: [facility] Address: [address] [place] [id number] Performed By: #### L IP, 24952-6 ####[facility] LABCLIA [id number] [id number] [address] [id number] [facility] Office Visit Reporton 2023 Office Visit Report [facility] [address] 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 [place] Allergies No Known Allergies Allergy (Verified 07/09/20 21:43) Office Procedures [facility] Billing Sheet Testing Pre-Employment Drug Screen: Yes 05/29/24858 Date Munira Banegaser Signature: Date (if applicable) CC: Normal [facility] CBC W Auto Differential pane l (Bld)on 11-07-2023 Basophils (Bld) [#/Vol] 0.06 10*3/uL [facility] Basophils/100 WBC (Bld) 0.7 % [facility] Differential cell count method Nom (Bld) Auto [facility] Eosinophils (Bld) [#/Vol] 0.22 10*3/uL [facility] Eosinophils/100 WBC (Bld) 2.4 % [facility] Erythrocyte distribution width (RBC) [Ratio] 12.1 % 11.5 - 15.0 % [facility] Hematocrit (Bld) [Volume fraction] 51.0 % 39.0 - 51.0 % [facility] Hemoglobin (Bld) [Mass/Vol] 17.4 g/dL High 13.0 - 17.0 g/dL [facility] Immature granulocytes (Bld) [#/Vol] [facility] Immature granulocytes/100 WBC (Bld) 0.2 % [facility] Interpretation and review of laboratory results Abnormal [facility] Lymphocytes (Bld) [#/Vol] 2.87 10*3/uL [facility] Lymphocytes/100 WBC (Bld) 31.6 % [facility] MCH (RBC) [Entitic mass] 30.5 pg 26. 0 - 34.0 pg [facility] MCHC (RBC) [Mass/Vol] 34.1 g/dL 30.5 - 36.0 g/dL [facility] MCV (RBC) [Entitic vol] 89.3 fL 80.0 - 100.0 fL [facility] Monocytes (Bld) [#/Vol] 0.55 10*3/uL [facility] Monocytes/100 WBC (Bld) 6.1 % [facility] Neutrophils (Bld) [#/Vol] 5.36 10*3/uL [facility] Neutrophils/100 WBC (Bld) 59.0 % [facility] Nucleated RBC (Bld) [#/Vol] [facility] Nucleated RBC/100 WBC (Bld) [Ratio] 0.0 % /100 WBC [facility] Platelet mean volume (Bld) [Entitic vol] 9.6 fL 9.0 - 12.7 fL [facility] Platelets (Bld) [#/Vol] 273 10*3/uL [facility] RBC (Bld) [#/Vol] 5.71 10*6/uL 4.20 - 6.0 0 m/uL [facility] WBC (Bld) [#/Vol] 9.08 10*3/uL [facility] Comprehensive metabolic 2000 panelon 11-07-2023 Albumin [Mass/Vol] 4.6 g/dL 3.9 - 4.9 g/dL [facility] ALP [Catalytic activity/Vol] 96 U/L 38 - 113 U/L [facility] ALT [Catalytic activity/Vol] 27 U/L 10 - 54 U/L [facility] Anion gap [Moles/Vol] 13 mmol/L 8 - 15 mmol/L [facility] AST [Catalytic activity/Vol] 17 U/L 14 - 40 U/L [facility] Bilirubin [Mass/Vol] 0.3 mg/dL 0.2 - 1 .3 mg/dL [facility] Calcium [Mass/Vol] 9.5 mg/dL 8.5 - 10. 2 mg/dL [facility] Chloride [Moles/Vol] 98 mmol/L 98 - 10 7 mmol/L [facility] CO2 [Moles/Vol] 27 mmol/L 22 - 30 mmol/L [facility] Creatinine [Mass/Vol] 0.74 mg/dL 0.73 - 1.22 mg/dL [facility] GFR/1.73 sq M.predicted among non-blacks MDRD (S/P/Bld) [Vol rate/Area] 116 mL/min/{1.73_m2} - PINF [facility] Comment on above: Estimated Glomerular Filtration Rate (eGFR) is calculated using the 2020 CKD-EPI creatinine equation. This equation utilizes serum creatinine, sex, and age as parameters. The creatinine assay has traceable calibration to isotope dilution-mass spectrometry. Refer to KDIGO guidelines for clinical interpretation. In patients with unstable renal function, e.g. those with acute kidney injury, the eGFR may not accurately reflect actual GFR. Glucose [Mass/Vol] 159 mg/dL High 74 - 99 mg/dL [facility] Comment on above: The [place] Diabete s Association (ADA) provides guidance for cutoff values for fasting glucose and random glucose. The ADA defines fasting as no caloric intake for at least 8 hours. Fasting plasma glucose results between 100 to 125 mg/dL indicate increased risk for diabetes (prediabetes). Fasting plasma glucose results greater than or equal to 126 mg/dL meet the criteria for diagnosis of diabetes. In the absence of unequivocal hyperglycemia, results should be confirmed by repeat testing. In a patient with classic symptoms of hyperglycemia or hyperglycemic crisis, random plasma glucose results greater than or equal to 200 mg/dL meet the criteria for diagnosis of diabetes. Reference: Standards of Medical Care in Diabetes 2016, [place] Diabetes Association. Diabetes Care. 2016.39(Suppl 1). Potassium [Moles/Vol] 4.5 mmol/L 3.7 - 5.1 mmol/L [facility] Protein [Mass/Vol] 6.8 g/dL 6.3 - 8.0 g/dL [facility] Sodium [Moles/Vol] 138 mmol/L 136 - 144 mmol/L [facility] Urea nitrogen [Mass/Vol] 8 mg/dL Low 9 - 24 mg/d L [facility] HbA1c (Bld)on 11-07-2023 Average glucose Estimated from glycated hemoglobin (Bld) [Mass/Vol] 174 mg/dL [facility] Comment on above: eAG: (Estimated aver age glucose) is a calculated value from HgbA1c and is new accounts banking representative of the average blood glucose level in the last 2-3 month period. HbA1c (Bld) [Mass fraction] 7.7 % High 4.3 - 5.6 % [facility] Comment on above: [place] Diabetes As sociation guidelines indicate that patients with HgbA1c in the range 5.7-6.4% are at increased risk for development of diabetes, and intervention by lifestyle modification may be beneficial. HgbA1c greater or equal to 6.5% is considered diagnostic of diabetes. Interpretation and review of laboratory results Abnormal [facility] LIPID PANEL, NONFASTINGon Cholesterol [Mass/Vol] 232 mg/dL High NINF - 200 mg/dL [facility] Comment on above: <200 mg/dL, Desirabl e 200-239 mg/dL, Borderline high >239 mg/dL, High HDL Cholesterol, Nonfasting 34 mg/dL Low 39 - PINF mg/dL [facility] Comment on above: 40-59 mg/dL, Accepta ble >59 mg/dL, High: Negative risk factor for coronary heart disease <40 mg/dL, Low: Positive risk factor for coronary heart disease LDL Cholesterol, Nonfasting 160 mg/dL High NINF - 100 mg/dL [facility] Comment on above: <100 mg/dL, Optimal 100-129 mg/dL, Near optimal/above optimal 130-159 mg/dL, Borderline high 160-189 mg/dL, High >189 mg/dL, Very high Secondary prevention optimal LDL Cholesterol levels are recommended to be < 70 mg/dL LDL/HDL Ratio, Nonfasting 4.71 mg/dL High NINF - 2.54 mg/dL [facility] Comment on above: Reference: 1. National Cholesterol Education Program ATP III Guideline At-A-Glance Quick Desk Reference: National Heart, Lung, and Blood Nerinx. National Institutes of Health. 2001: NIH Publication No. 01-3305. 2. An International Atherosclerosis Society position paper: global recommendations for the management of dyslipidemia: executive summary, Atherosclerosis. 2014: 232(2):410-413. Non HDL Cholesterol, Nonfasting 198 mg/dL High NINF - 130 mg/dL [facility] Comment on above: <130 mg/dL, Optimal 130-159 mg/dL, Near optimal/above optimal 160-189 mg/dL, Borderline high 190-219 mg/dL, High >219 mg/dL, Very high Secondary prevention optimal non HDL Cholesterol levels are recommended to be <100 mg/dL Total Chol/HDL Ratio, Nonfasting 6.82 mg/dL High NINF - 5.10 mg/dL [facility] Triglycerides, Nonfasting 191 mg/dL High NINF - 150 mg/dL [facility] Comment on above: <150 mg/dL, Normal 150-199 mg/dL, Borderline high 200-499 mg/dL, High >499 mg/dL, Very high VLDL Cholesterol, Nonfasting 38 mg/dL High NINF - 30 mg/dL [facility] No Panel Informationon 11-06 Interpretation and review of laboratory results Abnormal [facility] COVID NAAT, ROUTINEon 2022 SARS-CoV-2 (COVID-19) RNA JEFFRY+probe Ql (Resp) Not detected See comment Nuzhat rendon [facility] CBC W Auto Differential pane l (Bld)on 01-21-2023 Basophils (Bld) [#/Vol] 0.07 10*3/uL <0.11 k/uL [facility] Basophils/100 WBC (Bld) 0.7 % [facility] Differential cell count method Nom (Bld) Auto [facility] Eosinophils (Bld) [#/Vol] 0.20 10*3/uL <0.46 k/uL [facility] Eosinophils/100 WBC (Bld) 2.1 % [facility] Erythrocyte distribution width (RBC) [Ratio] 11.8 % 11.5 - 15.0 % [facility] Hematocrit (Bld) [Volume fraction] 46.8 % 39.0 - 51.0 % [facility] Hemoglobin (Bld) [Mass/Vol] 16.7 g/dL 13.0 - 17.0 g/dL [facility] Immature granulocytes (Bld) [#/Vol] <0.10 k/uL [facility] Immature granulocytes/100 WBC (Bld) 0.2 % [facility] Lymphocytes (Bld) [#/Vol] 2.65 10*3/uL 1.00 - 4.00 k/uL [facility] Lymphocytes/100 WBC (Bld) 27.2 % [facility] MCH (RBC) [Entitic mass] 31.9 pg 26. 0 - 34.0 pg [facility] MCHC (RBC) [Mass/Vol] 35.7 g/dL 30.5 - 36.0 g/dL [facility] MCV (RBC) [Entitic vol] 89.3 fL 80.0 - 100.0 fL [facility] Monocytes (Bld) [#/Vol] 0.57 10*3/uL <0.87 k/uL [facility] Monocytes/100 WBC (Bld) 5.8 % [facility] Neutrophils (Bld) [#/Vol] 6.24 10*3/uL 1.45 - 7.50 k/uL [facility] Neutrophils/100 WBC (Bld) 64.0 % [facility] Nucleated RBC (Bld) [#/Vol] <0.01 k/uL [facility] Nucleated RBC/100 WBC (Bld) [Ratio] 0.0 /100 WBC [facility] Platelet mean volume (Bld) [Entitic vol] 9.7 fL 9.0 - 12.7 fL [facility] Platelets (Bld) [#/Vol] 277 10*3/uL 150 - 400 k/uL [facility] RBC (Bld) [#/Vol] 5.24 10*6/uL 4.20 - 6.0 0 m/uL [facility] WBC (Bld) [#/Vol] 9.75 10*3/uL 3.70 - 11. 00 k/uL [facility] MONOTEST, INFECTIOUS MONOon 01-21-2023 Heterophile Ab LA Ql (S) Negative Negative [facility] ROUTINE FLU A/B + RSVon 01-01 FLUAV RNA JEFFRY+probe Ql (Unsp spec) Not detected Not Detected [facility] FLUBV RNA JEFFRY+probe Ql (Unsp spec) Not detected Not Detected [facility] RSV A RNA JEFFRY+probe Ql (Unsp spec) Not detected Not Detected [facility] STREP A MOLECULAR (POC)on Procedural Control Valid [facility] Strep A (POCT) Negative Negative [facility] ESR Westergren method (Bld) [Velocity]on 11-14-2022 ESR (Bld) [Velocity] 12 mm/h 0 - 15 mm/hr Cl [facility] CBC W Auto Differential pane l (Bld)on 11-13-2022 Basophils (Bld) [#/Vol] 0.08 10*3/uL <0.11 k/uL [facility] Basophils/100 WBC (Bld) 0.7 % [facility] Differential cell count method Nom (Bld) Auto [facility] Eosinophils (Bld) [#/Vol] 0.28 10*3/uL <0.46 k/uL [facility] Eosinophils/100 WBC (Bld) 2.6 % [facility] Erythrocyte distribution width (RBC) [Ratio] 11.8 % 11.5 - 15.0 % [facility] Hematocrit (Bld) [Volume fraction] 45.3 % 39.0 - 51.0 % [facility] Hemoglobin (Bld) [Mass/Vol] 16.5 g/dL 13.0 - 17.0 g/dL [facility] Immature granulocytes (Bld) [#/Vol] 0.04 10*3/uL <0.10 k/uL [facility] Immature granulocytes/100 WBC (Bld) 0.4 % [facility] Lymphocytes (Bld) [#/Vol] 3.50 10*3/uL 1.00 - 4.00 k/uL [facility] Lymphocytes/100 WBC (Bld) 32.1 % [facility] MCH (RBC) [Entitic mass] 32.2 pg 26. 0 - 34.0 pg [facility] MCHC (RBC) [Mass/Vol] 36.4 g/dL High 30.5 - 36.0 g/dL [facility] MCV (RBC) [Entitic vol] 88.3 fL 80.0 - 100.0 fL [facility] Monocytes (Bld) [#/Vol] 0.63 10*3/uL <0.87 k/uL [facility] Monocytes/100 WBC (Bld) 5.8 % [facility] Neutrophils (Bld) [#/Vol] 6.37 10*3/uL 1.45 - 7.50 k/uL [facility] Neutrophils/100 WBC (Bld) 58.4 % [facility] Nucleated RBC (Bld) [#/Vol] <0.01 k/uL [facility] Nucleated RBC/100 WBC (Bld) [Ratio] 0.0 /100 WBC [facility] Platelet mean volume (Bld) [Entitic vol] 9.8 fL 9.0 - 12.7 fL [facility] Platelets (Bld) [#/Vol] 259 10*3/uL 150 - 400 k/uL [facility] RBC (Bld) [#/Vol] 5.13 10*6/uL 4.20 - 6.0 0 m/uL [facility] WBC (Bld) [#/Vol] 10.90 10*3/uL 3.70 - 11 .00 k/uL [facility] UA DIP, URINE (POC)on 2022 BILIRUBIN UA (POCT) Negative Negative [facility] CLARITY UA (POCT) Clear [facility] COLOR UA (POCT) Yellow [facility] GLUCOSE UA (POCT) 250 mg/dL Abnormal Negative mg/dL [facility] HEMOGLOBIN/BLOOD UA (POCT) Negative Negative [facility] KETONE UA (POCT) Negative Negative mg/dL [facility] LEUKOCYTES UA (POCT) Negative Negative [facility] NITRITE UA (POCT) Negative Negative [facility] PH UA (POCT) 6.0 4.5 - 8.0 [facility] Protein Ql (U) Negative Negative mg/dL [facility] SPECIFIC GRAVITY UA (POCT) >=1.030 1.005 - 1.030 [facility] UROBILINOGEN UA (POCT) 0.2 E.U./dL Jillian l E.U./dL [facility] CBC W Auto Differential pane l (Bld)on 08-06-2022 Basophils (Bld) [#/Vol] 0.06 10*3/uL <0.11 k/uL [facility] Basophils/100 WBC (Bld) 0.6 % [facility] Differential cell count method Nom (Bld) Auto [facility] Eosinophils (Bld) [#/Vol] 0.31 10*3/uL <0.46 k/uL [facility] Eosinophils/100 WBC (Bld) 3.2 % [facility] Erythrocyte distribution width (RBC) [Ratio] 12.4 % 11.5 - 15.0 % [facility] Hematocrit (Bld) [Volume fraction] 48.5 % 39.0 - 51.0 % [facility] Hemoglobin (Bld) [Mass/Vol] 16.5 g/dL 13.0 - 17.0 g/dL [facility] Immature granulocytes (Bld) [#/Vol] 0.03 10*3/uL <0.10 k/uL [facility] Immature granulocytes/100 WBC (Bld) 0.3 % [facility] Lymphocytes (Bld) [#/Vol] 2.75 10*3/uL 1.00 - 4.00 k/uL [facility] Lymphocytes/100 WBC (Bld) 28.5 % [facility] MCH (RBC) [Entitic mass] 30.7 pg 26. 0 - 34.0 pg [facility] MCHC (RBC) [Mass/Vol] 34.0 g/dL 30.5 - 36.0 g/dL [facility] MCV (RBC) [Entitic vol] 90.1 fL 80.0 - 100.0 fL [facility] Monocytes (Bld) [#/Vol] 0.57 10*3/uL <0.87 k/uL [facility] Monocytes/100 WBC (Bld) 5.9 % [facility] Neutrophils (Bld) [#/Vol] 5.92 10*3/uL 1.45 - 7.50 k/uL [facility] Neutrophils/100 WBC (Bld) 61.5 % [facility] Nucleated RBC (Bld) [#/Vol] <0.01 k/uL [facility] Nucleated RBC/100 WBC (Bld) [Ratio] 0.0 /100 WBC [facility] Platelet mean volume (Bld) [Entitic vol] 9.8 fL 9.0 - 12.7 fL [facility] Platelets (Bld) [#/Vol] 265 10*3/uL 150 - 400 k/uL [facility] RBC (Bld) [#/Vol] 5.38 10*6/uL 4.20 - 6.0 0 m/uL [facility] WBC (Bld) [#/Vol] 9.64 10*3/uL 3.70 - 11. 00 k/uL [facility] HEMOGLOBIN A1C (POC)on 10-30 HbA1c (Bld) [Mass fraction] 8.0 % Abnormal 4.2 - 5.6 % [facility] XR Chest PA and Lateralon IMPRESSION: No acute radiographic abnormality. Pocket Setter Lockstitch: [id number] Transcribe Date/Time: Jan 29 2021 5:02P Dictated by : MARIAN HORTON MD This examination was interpreted and the report reviewed and electronically signed by: MARIAN HORTON MD on Jan 29 2021 5:02PM [facility] DIVISION OF RADIOLOGY * * *Final Report* * * DATE OF EXAM: Jan 29 2021 4:57PM WOX [id number] - XR CHEST 2V FRONTAL/LAT / PROCEDURE REASON: Chest pain, unspecified type * * * * Physician Interpretation * * * * EXAMINATION: CHEST RADIOGRAPH (2 VIEW FRONTAL & LATERAL) CLINICAL HISTORY: Chest pain, unspecified type MQ: XC2_6 EXAM DATE/TIME: 01/29/2021 4:57 PM COMPARISON: No relevant prior studies available. RESULT: Lines, tubes, and devices: None. Lungs and pleura: No consolidation. No lung mass. No pleural effusion. No pneumothorax. Cardiomediastinal silhouette: Normal cardiomediastinal silhouette. Bones and soft tissues: Degenerative changes throughout the spine DIVISION OF RADIOLOGY Provider, [facility] - 01/29/2021 * * *Final Report* * * DATE OF EXAM: Jan 29 2021 4:57PM WOX 5291 - XR CHEST 2V FRONTAL/LAT / PROCEDURE REASON: Chest pain, unspecified type * * * * Physician Interpretation * * * * EXAMINATION: CHEST RADIOGRAPH (2 VIEW FRONTAL & LATERAL) CLINICAL HISTORY: Chest pain, unspecified type MQ: XC2_6 EXAM DATE/TIME: 01/29/2021 4:57 PM COMPARISON: No relevant prior studies available. RESULT: Lines, tubes, and devices: None. Lungs and pleura: No consolidation. No lung mass. No pleural effusion. No pneumothorax. Cardiomediastinal silhouette: Normal cardiomediastinal silhouette. Bones and soft tissues: Degenerative changes throughout the spine IMPRESSION IMPRESSION: No acute radiographic abnormality. Pocket Setter Lockstitch: PSCB Transcribe Date/Time: Jan 29 2021 5:02P Dictated by : MARIAN HORTON MD This examination was interpreted and the report reviewed and electronically signed by: MARIAN HORTON MD on Jan 29 2021 5:02PM EST [facility] Radiology Study observation (narrative) Nuzhat rendon [facility] XR Chest PA and LateralOrder ed By: [facility] Provider on 01-29-2021 [facility] CNOVon 12-10-2018 CNOV Office Visit (AKURFL ) MCKINLEY MCGEE ([id number]) 1980 M Date Time Provider Department 12/10/18 8:00 AM NAMRATA CASTRO JR AKURFL During your visit today, we recorded the following information about you: Namrata Castro Jr, MD 12/10/2018 2:43 PM Signed Let pt know that vas specimen is negative Referring Provider: DEREK STODDARD) [[id number]] Allergies As of Date: 12/10/2018 Noted Allergy Reaction LATEX 10/31/2016 2 - Rash PENICILLINS 12/17/2005 16 - Unknown Comments: childhood- unknown reaction -Has taken amoxil Date Reviewed: 09/18/2018 Reviewed by: Yamila Robertson - Fully Assessed Reason for Visit: Vasectomy-1 [118] Cmt: semen analysis Primary Visit Diagnosis:Encounter for sterilization [Z30.2] Order(s):SEMEN ANALYSIS B/O [0143472] Order #: [id number] Prescriptions as of 12/10/2018 Sig: METFORMIN 500 MG TABLET Take 1 tablet by mouth twice * CHOLECALCIFEROL (VITAMIN D3) * Take 1 capsule by mouth once * SERTRALINE 100 MG TABLET Take 1 tablet by mouth once d* PANTOPRAZOLE 40 MG TABLET,DEL* Take 1 tablet by mouth daily * AMLODIPINE 10 MG TABLET Take 1 tablet by mouth once d* Problem List As Of Date 12/10/2018 Noted Resolved ESOPHAGEAL REFLUX [K21.9] INVALID FOR* TOBACCO USE DISORDER [F17.200] INVALID FOR* Elevated blood pressure reading without diagnos*INVALID FOR*07/16/2012 Morbid (severe) obesity due to excess calories *INVALID FOR* HYPERGLYCEMIA [R79.89] INVALID FOR*09/23/2014 Anxiety state, unspecified [F41.1] INVALID FOR*05/10/2011 Condyloma acuminatum [A63.0] INVALID FOR*07/16/2012 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 Screening and evaluation for vasectomy [Z30.09] INVALID FOR* Hypertension [I10] Encounter Status:Closed by NAMRATA CASTRO MD on 12/10/18 Normal [facility] PROGRESSon 12-10-2018 PROGRESS HNO ID: [id number] Author: Namrata Castro Jr. Service: ? Author Type: Physician Type: Progress Notes Filed: 12/10/2018 2:43 PM Note Text: Let pt know that vas specimen is negative Normal [facility] CNOVon 08-20-2018 CNOV Office Visit (AKURFL ) MCKINLEY MCGEE ([id number]) 1980 M Date Time Provider Department 08/20/18 3:00 PM NAMRATA CASTRO JR During your visit today, we recorded the following information about you: Weight Height 143.8 kg 1.88 m Namrata Castro Jr, MD 08/20/2018 3:54 PM Signed VASECTOMY PROCEDURE NOTE: Mckinley Mcgee is a 37 year old male who presents with sterilization for vasectomy Pt ID verified with patient: Yes Fire risk assessment done Procedure verified with patient: Yes Procedure confirmed with physician and end user support specialist: Yes Sign In History and Physical Exam reviewed and is unchanged. . Informed Consent Discussed: Yes. Risks, benefits, alternatives and personnel discussed with patient who consents to proceed. Sign in Communication: Completed Time Out: Team Confirms the Correct Patient, Correct Procedure; Vasectomy, Correct Site and Site Marking, Correct Position (if applicable). Fire Safety Check List Reviewed: Yes Affirmation of Time Out: Yes Sign Out: Sign Out Discussion: Completed Physician: Namrata Castro Jr, MD Pre procedure dx: sterilization Post procedure dx: sterilization The benefits, risks, alternatives of the vasectomy procedure and personnel were discussed with the patient. The verbal consent was obtained and the patient agrees to proceed. Procedure: The patient was placed on the procedure table in the supine position and prepped and draped in the usual sterile fashion. 1% lidocaine was used to anesthetize both sides of the scrotum. No scalpel instrument was used to make small incisions. Vas deferens brought out of wound on either side with vas clamp. Section of each vas cut out. Electrocautery use to burn each cut end. Suture used to tie each cut end. Tissue interposition suture placed. Hemostasis achieved. Vas end placed back in the scrotum. Cleanly dressed. Patient was given standard post-procedure instructions. Assessment Sterilization Plan Specimen drop off 3 months Namrata Castro Jr, MD Referring Provider: MARK SANCHEZ) [[id number]] Allergies As of Date: 08/20/2018 Noted Allergy Reaction LATEX 10/31/2016 2 - Rash PENICILLINS 12/17/2005 16 - Unknown Comments: childhood- unknown reaction -Has taken amoxil Date Reviewed: 08/20/2018 Reviewed by: Namrata Castro Jr. - Fully Assessed Reason for Visit: Vasectomy-1 [118] Primary Visit Diagnosis:Encounter for sterilization [Z30.2] Order(s):SURGICAL PATHOLOGY [[id number]] Order #: [id number] Prescriptions as of 08/20/2018 Sig: SERTRALINE 100 MG TABLET Take 1 tablet by mouth once d* AMLODIPINE 5 MG TABLET Take 1 tablet by mouth once d* PANTOPRAZOLE 40 MG TABLET,DEL* Take 1 tablet by mouth daily * Problem List As Of Date 08/20/2018 Noted Resolved ESOPHAGEAL REFLUX [K21.9] INVALID FOR* TOBACCO USE DISORDER [F17.200] INVALID FOR* Elevated blood pressure reading without diagnos*INVALID FOR*07/16/2012 Morbid (severe) obesity due to excess calories *INVALID FOR* HYPERGLYCEMIA [R79.89] INVALID FOR*09/23/2014 Anxiety state, unspecified [F41.1] INVALID FOR*05/10/2011 Condyloma acuminatum [A63.0] INVALID FOR*07/16/2012 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 Screening and evaluation for vasectomy [Z30.09] INVALID FOR* Disposition: Return in about 3 months (around 11/20/2018). Follow-up and Disposition History Recorded Encounter Status:Closed by NAMRATA CASTRO MD on 08/20/18 [facility] Surgical Tissue Examon 08-20 Surgical Tissue Exam Test performed at [place] [address] NAME: MCKINLEY MCGEE REQUESTING: NAMRATA CASTRO JR, M.D. FINAL DIAGNOSIS: A) VAS DEFERENS, LEFT, VASECTOMY - SEGMENT OF VAS DEFERENS WITH COMPLETE TRANSECTION OF LUMEN. B) VAS DEFERENS, RIGHT, VASECTOMY - SEGMENT OF VAS DEFERENS WITH COMPLETE TRANSECTION OF LUMEN. OPERATIVE PROCEDURE: Sterilization CLINICAL INFORMATION: Sterilization GROSS DESCRIPTION: A) Left vas Received in formalin labeled left vas deferens is a cylindrical white soft segment of tissue measuring 1.1 x 0.4 x 0.3 cm. Pin-point lumens are present. The specimen is sectioned and totally submitted in formalin in one cassette. B) Right vas Received in formalin labeled right vas deferens is a cylindrical white soft segment of tissue measuring 0.8 x 0.3 x 0.3 cm. Pin-point lumens are present. The specimen is sectioned and totally submitted in formalin in one cassette. KVB:nasim NDIAYE M.D.,PATHOLOGIST (Electronic signature on file) Signed out: 08/24/2018 13:25 PRINTED: 08/24/2018 Page 1 of 1 Normal [facility] Comment on above: Performed By: #### S URG #### [place] [address] Vital Signs Date Time Vital Sign Value Performing Clinician Faci lity 12-27-2024 16:59-0400 Body temperature 98.4 [degF] Dr. Kerwin Strauss MD Work Phone: [facility] 12-27-2024 16:59-0400 Diastolic blood pressure 83 mm[Hg] Dr. Kerwin Strauss MD Work Phone: [facility] 12-27-2024 16:59-0400 Heart rate 69 /min Dr. Kerwin Strauss MD Work Phone: [facility] 12-27-2024 16:59-0400 Respiratory rate 16 /min Dr. Kerwin Strauss MD Work Phone: [phone])[phone] [place] [address] 12-27-2024 16:59-0400 SaO2% (BldA) [Mass fraction] 97 % Dr. Kerwin Strauss MD Work Phone: [phone])[phone] [place] [address] 12-27-2024 16:59-0400 Systolic blood pressure 155 mm[Hg] Dr. Kerwin Strauss MD Work Phone: [phone])[phone] [place] [address] 12-27-2024 14:49-0400 Body height 185.[address] Kerwin Strauss MD Work Phone: 0(841)[phone] [place] [address] 12-27-2024 14:49-0400 Body mass index (BMI) [Ratio] 39.8 kg/m2 Dr. Kerwin Strauss MD Work Phone: 5(698)072-770404 [place] [address] 12-27-2024 14:49-0400 Body weight 137.[address] Kerwin Strauss MD Work Phone: 7(011)[phone] [place] [address] 12-09-2024 13:22-0400 Diastolic blood pressure 81 mm[Hg] Dagoberto Quiles APRN.VENEER TAPING MACHINE OPERATOR Work Phone: [facility] 12-09-2024 13:22-0400 Systolic blood pressure 134 mm[Hg] Dagoberto Quiles APRN.VENEER TAPING MACHINE OPERATOR Work Phone: [facility] 12-09-2024 13:14-0400 Body mass index (BMI) [Ratio] 39.34 kg/m2 Dagoberto Quiles APRN.VENEER TAPING MACHINE OPERATOR Work Phone: [facility] 12-09-2024 13:14-0400 Body weight 139 kg Dagoberto Quiles APRN.VENEER TAPING MACHINE OPERATOR Work Phone: [facility] 12-09-2024 13:14-0400 Heart rate 94 /min Dagoberto Quiles APRN.VENEER TAPING MACHINE OPERATOR Work Phone: [facility] 12-04-2024 04:07-0400 Body temperature 98.4 [degF] Dr. Kerwin Strauss MD Work Phone: [facility] 12-04-2024 04:07-0400 Diastolic blood pressure 88 mm[Hg] Dr. Kerwin Strauss MD Work Phone: [facility] 12-04-2024 04:07-0400 Heart rate 86 /min Dr. Kerwin Strauss MD Work Phone: [facility] 12-04-2024 04:07-0400 Respiratory rate 18 /min Dr. eKrwin Strauss MD Work Phone: [facility] 12-04-2024 04:07-0400 SaO2% (BldA) [Mass fraction] 98 % Dr. Kerwin Strauss MD Work Phone: [phone])[phone] [place] [address] 12-04-2024 04:07-0400 Systolic blood pressure 149 mm[Hg] Dr. Kerwin Strauss MD Work Phone: 1(647)[phone] [place] [address] 12-03-2024 23:49-0400 Body height 185.[address] Kerwin Strauss MD Work Phone: 7([phone])[phone] [address] 12-03-2024 23:49-0400 Body mass index (BMI) [Ratio] 40.6 kg/m2 Dr. Kerwin Strauss MD Work Phone: [facility] 12-03-2024 23:49-0400 Body weight 139.[address] Kerwin Strauss MD Work Phone: [facility] 06-04-2024 13:10-0500 Diastolic blood pressure 87 mm[Hg] Dagoberto Quiles APRN.VENEER TAPING MACHINE OPERATOR Work Phone: [facility] 06-04-2024 13:10-0500 Systolic blood pressure 139 mm[Hg] Dagoberto Quiles APRN.VENEER TAPING MACHINE OPERATOR Work Phone: [facility] 06-04-2024 12:54-0500 Body mass index (BMI) [Ratio] 40.19 kg/m2 Dagoberto Quiles APRN.VENEER TAPING MACHINE OPERATOR Work Phone: [facility] 06-04-2024 12:54-0500 Body weight 141.98 kg Dagoberto Quiles APRN.VENEER TAPING MACHINE OPERATOR Work Phone: [facility] 06-04-2024 12:54-0500 Heart rate 96 /min Dagoberto Quiles COOK LARDER.VENEER TAPING MACHINE OPERATOR Work Phone: [facility] 11-07-2023 13:46-0400 Body mass index (BMI) [Ratio] 39.29 kg/m2 Dagoberto Quiles COOK LARDER.VENEER TAPING MACHINE OPERATOR Work Phone: [facility] 11-07-2023 13:46-0400 Body weight 138.8 kg Dagoberto Quiles COOK LARDER.VENEER TAPING MACHINE OPERATOR Work Phone: [facility] 11-07-2023 13:46-0400 Diastolic blood pressure 87 mm[Hg] Dagoberto Quiles COOK LARDER.VENEER TAPING MACHINE OPERATOR Work Phone: [facility] 11-07-2023 13:46-0400 Heart rate 82 /min Dagoberto Quiles COOK LARDER.VENEER TAPING MACHINE OPERATOR Work Phone: [facility] 11-07-2023 13:46-0400 Respiratory rate 14 /min Dagoberto Quiles COOK LARDER.VENEER TAPING MACHINE OPERATOR Work Phone: [facility] 11-07-2023 13:46-0400 Systolic blood pressure 146 mm[Hg] Dagoberto Quiles COOK LARDER.VENEER TAPING MACHINE OPERATOR Work Phone: [facility] 11-05-2023 12:16-0400 Body mass index (BMI) [Ratio] 39.11 kg/m2 Candida Hartmanlogar COOK LARDER.VENEER TAPING MACHINE OPERATOR Work Phone: [facility] 11-05-2023 12:16-0400 Body weight 138.17 kg Candida Hartmanlogar COOK LARDER.VENEER TAPING MACHINE OPERATOR Work Phone: [facility] 11-05-2023 12:16-0400 Diastolic blood pressure 84 mm[Hg] Candida Podlogar COOK LARDER.VENEER TAPING MACHINE OPERATOR Work Phone: [facility] 11-05-2023 12:16-0400 Heart rate 86 /min Candida Podlogar COOK LARDER.VENEER TAPING MACHINE OPERATOR Work Phone: [facility] 11-05-2023 12:16-0400 Respiratory rate 18 /min Candida Hartmanlogar COOK LARDER.VENEER TAPING MACHINE OPERATOR Work Phone: [facility] 11-05-2023 12:16-0400 SaO2% (BldA) [Mass fraction] 97 % Candida Britton COOK LARDER.VENEER TAPING MACHINE OPERATOR Work Phone: [facility] 11-05-2023 12:16-0400 Systolic blood pressure 122 mm[Hg] Candida Britton APRN.VENEER TAPING MACHINE OPERATOR Work Phone: [facility] 01-21-2023 14:15-0400 Body temperature 99.1 [degF] Dagoberto Quiles COOK LARDER.VENEER TAPING MACHINE OPERATOR Work Phone: [facility] 01-21-2023 14:15-0400 Body weight 139.71 kg Dagoberto Quiles COOK LARDER.VENEER TAPING MACHINE OPERATOR Work Phone: [facility] 01-21-2023 14:15-0400 Diastolic blood pressure 86 mm[Hg] Dagoberto Quiles COOK LARDER.VENEER TAPING MACHINE OPERATOR Work Phone: [facility] 01-21-2023 14:15-0400 Heart rate 78 /min Dagoberto Quiles COOK LARDER.VENEER TAPING MACHINE OPERATOR Work Phone: [facility] 01-21-2023 14:15-0400 Respiratory rate 18 /min Dagoberto Quiles COOK LARDER.VENEER TAPING MACHINE OPERATOR Work Phone: [facility] 01-21-2023 14:15-0400 Systolic blood pressure 138 mm[Hg] Dagoberto Quiles COOK LARDER.VENEER TAPING MACHINE OPERATOR Work Phone: [facility] 11-13-2022 15:18-0400 Body height 188 cm Derek Stoddard MD Work Phone: [facility] 11-13-2022 15:18-0400 Body weight 139.25 kg Derek Stoddard MD Work Phone: [facility] 11-13-2022 15:18-0400 Diastolic blood pressure 76 mm[Hg] Derek Stoddard MD Work Phone: [facility] 11-13-2022 15:18-0400 Heart rate 80 /min Derek Stoddard MD Work Phone: [facility] [facility] 11-13-2022 15:18-0400 Respiratory rate 16 /min Derek Stoddard MD Work Phone: [facility] 11-13-2022 15:18-0400 Systolic blood pressure 140 mm[Hg] Derek Stoddard MD Work Phone: [facility] 09-24-2022 13:05-0400 Body weight 139.89 kg Candida Podlogar COOK LARDER.VENEER TAPING MACHINE OPERATOR Work Phone: [facility] 09-24-2022 13:05-0400 Diastolic blood pressure 86 mm[Hg] Candida Podlogar COOK LARDER.VENEER TAPING MACHINE OPERATOR Work Phone: [facility] 09-24-2022 13:05-0400 Heart rate 88 /min Candida Podlogar COOK LARDER.VENEER TAPING MACHINE OPERATOR Work Phone: [facility] 09-24-2022 13:05-0400 Respiratory rate 18 /min Candida Podlogar COOK LARDER.VENEER TAPING MACHINE OPERATOR Work Phone: [facility] 09-24-2022 13:05-0400 SaO2% (BldA) [Mass fraction] 98 % Candida Podlogar COOK LARDER.VENEER TAPING MACHINE OPERATOR Work Phone: [facility] 09-24-2022 13:05-0400 Systolic blood pressure 132 mm[Hg] Candida Podlogar COOK LARDER.VENEER TAPING MACHINE OPERATOR Work Phone: [facility] 08-06-2022 14:38-0500 Body weight 143.79 kg Dagoberto Quiles COOK LARDER.VENEER TAPING MACHINE OPERATOR Work Phone: [facility] 08-06-2022 14:38-0500 Diastolic blood pressure 82 mm[Hg] Dagoberto Quiles COOK LARDER.VENEER TAPING MACHINE OPERATOR Work Phone: [facility] 08-06-2022 14:38-0500 Heart rate 103 /min Dagoberto Quiles COOK LARDER.VENEER TAPING MACHINE OPERATOR Work Phone: [facility] 08-06-2022 14:38-0500 Respiratory rate 18 /min Dagoberto Quiles COOK LARDER.VENEER TAPING MACHINE OPERATOR Work Phone: [facility] 08-06-2022 14:38-0500 Systolic blood pressure 140 mm[Hg] Dagoberto Quiles COOK LARDER.VENEER TAPING MACHINE OPERATOR Work Phone: [facility] 02-20-2022 16:45-0400 Body weight 146.42 kg Sharla José Miguel COOK LARDER.VENEER TAPING MACHINE OPERATOR Work Phone: [facility] 02-20-2022 16:45-0400 Diastolic blood pressure 96 mm[Hg] Sharla José Miguel COOK LARDER.VENEER TAPING MACHINE OPERATOR Work Phone: [facility] 02-20-2022 16:45-0400 Heart rate 89 /min Sharla José Miguel COOK LARDER.VENEER TAPING MACHINE OPERATOR Work Phone: [facility] 02-20-2022 16:45-0400 Respiratory rate 16 /min Sharla José Miguel COOK LARDER.VENEER TAPING MACHINE OPERATOR Work Phone: [facility] 02-20-2022 16:45-0400 SaO2% (BldA) [Mass fraction] 98 % Sharla José Miguel COOK LARDER.VENEER TAPING MACHINE OPERATOR Work Phone: [facility] 02-20-2022 16:45-0400 Systolic blood pressure 168 mm[Hg] Sharla José Miguel COOK LARDER.VENEER TAPING MACHINE OPERATOR Work Phone: [facility] 01-29-2022 20:10-0400 Diastolic blood pressure 84 mm[Hg] Derek Stoddard MD Work Phone: [facility] 01-29-2022 20:10-0400 Systolic blood pressure 144 mm[Hg] Derek Stoddard MD Work Phone: [facility] 01-29-2022 19:34-0400 Body weight 146.88 kg Derek Stoddard MD Work Phone: [facility] 01-29-2022 19:34-0400 Heart rate 104 /min Derek Stoddard MD Work Phone: [facility] 01-29-2022 19:34-0400 Respiratory rate 18 /min Derek Stoddard MD Work Phone: [facility] 01-29-2022 19:34-0400 SaO2% (BldA) [Mass fraction] 96 % Derek Stoddard MD Work Phone: [facility] 10-30-2021 17:45-0400 Body weight 147.78 kg Derek Stoddard MD Work Phone: [facility] 10-30-2021 17:45-0400 Diastolic blood pressure 76 mm[Hg] Derek Stoddard MD Work Phone: [facility] 10-30-2021 17:45-0400 Heart rate 86 /min Derek Stoddard MD Work Phone: [facility] 10-30-2021 17:45-0400 Respiratory rate 18 /min Derek Stoddard MD Work Phone: [facility] 10-30-2021 17:45-0400 SaO2% (BldA) [Mass fraction] 96 % Derek Stoddard MD Work Phone: [facility] 10-30-2021 17:45-0400 Systolic blood pressure 136 mm[Hg] Derek Stoddard MD Work Phone: [facility] Encounters Encounter Date Encounter Type Care Provider Facility Start: 01-17-2025 End: 01-17-2025 Follow-up encounter Dagoberto Quiles APRN.VENEER TAPING MACHINE OPERATOR Work Phone: [facility] [place] Comment on above: Results Start: 01-14-2025 ambulatory DAGOBERTO Riley y:[facility] Start: 01-14-2025 End: 01-14-2025 Subsequent hospital visit by physician [facility] (I-Stat) Work Phone: Cat Scan Comment on above: Nausea [R11.0] Start: 12-31-2024 End: 12-31-2024 Telephone encounter Dagoberto Quiles APRN.CNP Work Phone: [facility] [place] Comment on above: Orders; Patient Upda te Start: 12-31-2024 End: 12-31-2024 Telemedicine consultation with patient Dagoberto Quiles APRN.CNP Work Phone: [facility] [place] Start: 12-31-2024 End: 12-31-2024 ambulatory Dagoberto Quiles APRN.VENEER TAPING MACHINE OPERATOR Work Phone: [facility] [place] Comment on above: Nausea (Primary Dx); Type 2 diabetes mellitus without complication, without long-term current use of insulin (HCC) Start: 12-27-2024 End: 12-27-2024 Emergency department patient visit Dr. Kerwin Strauss MD Work Phone: -Emergency Department Work Phone: Start: 12-10-2024 End: 12-13-2024 Follow-up encounter Dagoberto Quiles APRN.VENEER TAPING MACHINE OPERATOR Work Phone: [facility] [place] Start: 12-09-2024 End: 12-09-2024 ambulatory DAGOBERTO QUILES Facility:[facility] Start: 12-09-2024 End: 12-09-2024 Patient encounter procedure Dagoberto Quiles APRN.VENEER TAPING MACHINE OPERATOR Work Phone: [facility] [place] Comment on above: Type 2 diabetes shukri itus with peripheral neuropathy (HCC) (Primary Dx); Essential hypertension; Hyperlipidemia, mixed; Gastroesophageal reflux disease, unspecified whether esophagitis present; Obesity, Class II, BMI 35-39.9; CARMEN (generalized anxiety disorder); Family history of Parkinson's disease Start: 12-09-2024 End: 12-09-2024 ambulatory DAGOBERTO QUILES Facility:[facility] Start: 12-03-2024 End: 12-04-2024 Emergency department patient visit Dr. Kerwin Strauss MD Work Phone: -Emergency Department Work Phone: Start: 12-01-2024 End: 12-01-2024 Refill Derek Stoddard MD Work Phone: [facility] [place] Comment on above: Refill Request Start: 11-30-2024 End: 12-01-2024 Refill Derek Stoddard MD Work Phone: [facility] [place] Comment on above: Refill Request Start: 11-02-2024 End: 11-02-2024 Refill Derek Stoddard MD Work Phone: [facility] [place] Comment on above: Refill Request Start: 10-05-2024 End: 10-05-2024 Refill Derek Stoddard MD Work Phone: [facility] Comment on above: Refill Request Start: 09-21-2024 End: 09-21-2024 Telemedicine consultation with patient Dagoberto Quiles APRN.VENEER TAPING MACHINE OPERATOR Work Phone: [facility] Start: 09-21-2024 End: 09-21-2024 ambulatory Dagoberto Quiles APRN.VENEER TAPING MACHINE OPERATOR Work Phone: [facility] [place] Comment on above: JOLANTA (obstructive sle ep apnea) (Primary Dx); Fatigue, unspecified type; Snoring; Obesity, Class II, BMI 35-39.9 Start: 09-20-2024 End: 09-21-2024 Telephone encounter Derek Stoddard MD Work Phone: [facility] [place] Comment on above: Office visit notes f or [facility] sleep lab Start: 09-17-2024 End: 09-20-2024 Telephone encounter Dagoberto Quiles APRN.VENEER TAPING MACHINE OPERATOR Work Phone: [facility] [place] Comment on above: Referral Request Teresa SPICER Start: 09-16-2024 End: 09-16-2024 Telephone encounter Dagoberto Quiles APRN.VENEER TAPING MACHINE OPERATOR Work Phone: [facility] [place] Comment on above: Results Start: 08-26-2024 End: 08-26-2024 Follow-up encounter Dagoberto Quiles APRN.VENEER TAPING MACHINE OPERATOR Work Phone: [facility] Start: 08-17-2024 End: 08-18-2024 ambulatory DAGOBERTO QUILES Facility:[facility] Start: 08-12-2024 End: 08-20-2024 [facility] Work Phone: Neurology Comment on above: HSAT Check In (Adult ) Start: 08-10-2024 End: 08-11-2024 [facility] Main Work Phone: Neurology Start: 08-05-2024 End: 08-05-2024 ambulatory Dagoberto Quiles APRN.VENEER TAPING MACHINE OPERATOR Work Phone: [facility] Comment on above: At home sleep study Start: 07-29-2024 End: 08-02-2024 ambulatory Dagoberto Quiles APRN.VENEER TAPING MACHINE OPERATOR Work Phone: [facility] [place] Comment on above: Medication rybelsus Start: 07-13-2024 End: 07-15-2024 ambulatory Dagoberto Quiles APRN.VENEER TAPING MACHINE OPERATOR Work Phone: [facility] [place] Comment on above: Rybelsus Start: 06-17-2024 End: 07-01-2024 Refill Derek Stoddard MD Work Phone: [facility] [place] Comment on above: Refill Request Start: 06-16-2024 End: 06-16-2024 Telephone encounter Derek Stoddard MD Work Phone: [facility] [place] Comment on above: Insurance Authorizat ion Start: 06-15-2024 End: 06-15-2024 Orders Only Dagoberto Quiles APRN.VENEER TAPING MACHINE OPERATOR Work Phone: [facility] [place] Comment on above: Type 2 diabetes shukri itus with peripheral neuropathy (HCC) Results Start: 06-11-2024 End: 07-15-2024 Telephone encounter Derek Stoddard MD Work Phone: [facility] [place] Comment on above: Results Start: 06-08-2024 End: 06-09-2024 ambulatory Dagoberto Quiles APRN.VENEER TAPING MACHINE OPERATOR Work Phone: [facility] [place] Comment on above: Prior approval for y medicine rybelsus Start: 06-08-2024 End: 06-15-2024 Telephone encounter Derek Stoddard MD Work Phone: [facility] [place] Comment on above: Medication Problem Start: 06-04-2024 End: 06-04-2024 Patient encounter procedure Dagoberto Quiles APRN.VENEER TAPING MACHINE OPERATOR Work Phone: [facility] [place] Comment on above: Essential hypertensi on (Primary Dx); Type 2 diabetes mellitus with peripheral neuropathy (HCC); Hyperlipidemia, mixed; Gastroesophageal reflux disease, unspecified whether esophagitis present; Type 2 diabetes mellitus without complication, without long-term current use of insulin (HCC); Numbness and tingling of both feet; Ingrown toenail; Obesity, Class II, BMI 35-39.9 Start: 06-04-2024 End: 06-04-2024 ambulatory DAGOBERTO QUILES Facility:[facility] Start: 05-15-2024 End: 05-15-2024 ambulatory [facility] Facility:[facility] Start: 04-30-2024 End: 05-03-2024 Refill Dagoberto Quiles COOK LARDER.VENEER TAPING MACHINE OPERATOR Work Phone: [facility] [place] Comment on above: Refill Request Start: 03-30-2024 End: 03-30-2024 Refill Candida Britton COOK LARDER.VENEER TAPING MACHINE OPERATOR Work Phone: [facility] [place] Comment on above: Refill Request Start: 11-10-2023 Telephone encounter Dagoberto hines APRN.VENEER TAPING MACHINE OPERATOR Work Phone: [facility] Comment on above: Results Start: 11-07-2023 End: 11-07-2023 Patient encounter procedure Dagoberto Quiles APRN.VENEER TAPING MACHINE OPERATOR Work Phone: [facility] Comment on above: Depression with anxi ety (Primary Dx); Essential hypertension; Numbness and tingling of both feet; Type 2 diabetes mellitus without complication, without long-term current use of insulin (HCC); Gastroesophageal reflux disease, unspecified whether esophagitis present; Hyperlipidemia, mixed; Hidradenitis suppurativa; Nausea Start: 11-05-2023 End: 11-05-2023 Patient encounter procedure Candida Britton APRN.VENEER TAPING MACHINE OPERATOR Work Phone: [facility] Comment on above: Left ear pain (Prima ry Dx) Start: 08-30-2023 Refill Derek Stoddard MD Work Phone: [facility] [place] Comment on above: Refill Request Start: 03-19-2023 Refill Dagoberto lovelace COOK LARDER.VENEER TAPING MACHINE OPERATOR Work Phone: [facility] [place] Comment on above: Refill Request Start: 03-12-2023 Telephone encounter Pavan Stoddard MD Work Phone: [facility] Comment on above: Insurance Authorizat ion (Rybelsus ) Start: 02-04-2023 Refill Candida Britton APRN.VENEER TAPING MACHINE OPERATOR Work Phone: [facility] Comment on above: Refill Request Start: 01-23-2023 Telephone encounter Dagoberto hines APRN.VENEER TAPING MACHINE OPERATOR Work Phone: [facility] [place] Comment on above: Results Start: 01-21-2023 End: 01-21-2023 Patient encounter procedure Dagoberto Quiles COOK LARDER.VENEER TAPING MACHINE OPERATOR Work Phone: [facility] [place] Comment on above: Fatigue, unspecified type (Primary Dx); Malaise; Sore throat; Type 2 diabetes mellitus with peripheral neuropathy (HCC) Start: 01-01-2023 Refill Dagoberto lovelace APRN.VENEER TAPING MACHINE OPERATOR Work Phone: [facility] Comment on above: Refill Request Start: 11-18-2022 ambulatory Derek Stoddard MD Work Phone: [facility] Comment on above: Rybelsus Start: 11-17-2022 Refill Derek Stoddard MD Work Phone: [facility] Comment on above: Refill Request Start: 11-15-2022 Telephone encounter Pavan Stoddard MD Work Phone: [facility] [place] Comment on above: Results Start: 11-13-2022 End: 11-13-2022 Patient encounter procedure Derek Stoddard MD Work Phone: [facility] [place] Comment on above: Skin tags, multiple acquired (Primary Dx); S/P cryotherapy of skin lesion; Nausea; LLQ pain Start: 10-14-2022 Refill Dagoberto lovelace APRN.VENEER TAPING MACHINE OPERATOR Work Phone: [facility] Comment on above: Refill Request Start: 09-30-2022 ambulatory Candida Hartmanloggloria RANDOLPH.VENEER TAPING MACHINE OPERATOR Work Phone: [facility] Comment on above: Medication Start: 09-25-2022 Telephone encounter Pavan Stoddard MD Work Phone: [facility] Comment on above: Insurance Authorizat ion (Lidocaine-hydrocortisone ) Start: 09-24-2022 ambulatory Derek Stoddard MD Work Phone: [facility] [place] Comment on above: Rectal Problem Start: 09-24-2022 End: 09-24-2022 Patient encounter procedure Candida Britton COOK LARDER.VENEER TAPING MACHINE OPERATOR Work Phone: [facility] [place] Comment on above: Internal hemorrhoids (Primary Dx); Rectal bleeding Start: 09-04-2022 Orders Only Dagoberto lovelace COOK LARDER.VENEER TAPING MACHINE OPERATOR Work Phone: [facility] [place] Start: 09-04-2022 Refill Candida Podloggloria COOK LARDER.VENEER TAPING MACHINE OPERATOR Work Phone: [facility] Comment on above: Refill Request Medication refill Start: 09-01-2022 Refill Dagoberto lovelace COOK LARDER.VENEER TAPING MACHINE OPERATOR Work Phone: [facility] Comment on above: Refill Request Start: 08-08-2022 Telephone encounter Dagoberto hines APRN.VENEER TAPING MACHINE OPERATOR Work Phone: [facility] Comment on above: Results Start: 08-07-2022 Telephone encounter Pavan Stoddard MD Work Phone: [facility] [place] Comment on above: Insurance Authorizat ion (Rybelsus) Start: 08-06-2022 End: 08-06-2022 Patient encounter procedure Dagoberto Quiles COOK LARDER.VENEER TAPING MACHINE OPERATOR Work Phone: [facility] Comment on above: Hyperlipidemia, mixe d (Primary Dx); Type 2 diabetes mellitus without complication, without long-term current use of insulin (HCC); Medication management; Numbness and tingling of both feet Start: 04-16-2022 Refill Derek Stoddard MD Work Phone: [facility] [place] Comment on above: Refill Request Start: 03-22-2022 ambulatory Cameron nelson Work Phone: Podiatry Comment on above: Neuropathy feet Start: 03-18-2022 Refill Sharla lopez COOK LARDER.VENEER TAPING MACHINE OPERATOR Work Phone: [facility] Comment on above: Refill Request Start: 02-20-2022 End: 02-20-2022 Patient encounter procedure Sharla Valdez JACKIE Work Phone: [facility] Comment on above: Numbness and tinglin g of both feet (Primary Dx); Chronic pain of both feet; Type 2 diabetes mellitus with peripheral neuropathy (HCC); Cold feet; Essential hypertension Start: 01-29-2022 End: 01-29-2022 Patient encounter procedure Derek Stoddard MD Work Phone: [facility] Comment on above: Type 2 diabetes shukri itus without complication, without long- term current use of insulin (HCC) (Primary Dx); Essential hypertension; Depression with anxiety; Need for pneumococcal vaccine Start: 10-30-2021 End: 10-30-2021 Patient encounter procedure Derek Stoddard MD Work Phone: [facility] Comment on above: Type 2 diabetes shukri itus without complication, without long- term current use of insulin (HCC) (Primary Dx); Depression with anxiety; PTSD (post-traumatic stress disorder); Essential hypertension; Chronic neck pain; Vitamin D deficiency Start: 10-30-2021 ambulatory Cameron Jean omar Work Phone: Podiatry Comment on above: Ingrown toenail mary britt Start: 07-30-2021 Telephone encounter Pavan Stoddard MD Work Phone: [facility] Comment on above: sleep study order ne eds changed Start: 01-29-2021 End: 01-29-2021 Subsequent hospital visit by physician Alfonso [facility] [place] Work Phone: Radiology Comment on above: Chest pain, unspecif ied type [R07.9] Procedures Date Procedure Procedure Detail Performing Clinician Start: 01-14-2025 Ct abdomen & pelvis w/contrast material Dagoberto Quiles APRN.CNP Work Phone: Start: 12-27-[address] Kerwin Strauss MD Work Phone: Start: 12-04-2024 CT angiography of ch est with contrast Dr. Kerwin Strauss MD Work Phone: Start: 12-03-[address] Kerwin Strauss MD Work Phone: Start: 01-21-2023 STREP A MOLECULAR (POC) Dagoberto Quiles COOK LARDER.VENEER TAPING MACHINE OPERATOR Work Phone: Start: 01-21-2023 COVID & INFLUENZA A/ B & RSV NAAT, ROUTINE Dagoberto Quiles COOK LARDER.VENEER TAPING MACHINE OPERATOR Work Phone: Start: 01-21-2023 Iadna respiratry pro be & rev trnscr 3-5 targets Dagoberto Quiles COOK LARDER.VENEER TAPING MACHINE OPERATOR Work Phone: Start: 01-21-2023 Sars-cov-2 detection by dna/rna Dagoberto Quiles COOK LARDER.VENEER TAPING MACHINE OPERATOR Work Phone: Start: 11-13-2022 Urnls dip stick/tabl et rgnt auto w/o microscopy Derek Stoddard MD Work Phone: Start: 10-30-2021 Hemoglobin A1c/Hemoglobin.total in Blood Derek Stoddard MD Work Phone: Start: 01-29-2021 Radiologic exam ches t 2 views Derek Stoddard MD Work Phone: Plan of Treatment Date Care Activity Detail Author Start: 08-09-2029 Urine microalbumin profile [facility] Start: 12-31-2025 Annual PCP Team Chronic Disease Visit Annual PCP Team Chronic Disease Visit [facility] Start: 12-09-2025 Annual PCP Team Chronic Disease Visit Annual PCP Team Chronic Disease Visit [facility] Start: 12-09-2025 Diabetic foot examination Diabetic Foot Exam [facility] Start: 12-09-2025 Hepatitis B surface antibody level LDL Cholesterol [facility] Start: 09-21-2025 Annual PCP Team Chronic Disease Visit Annual PCP Team Chronic Disease Visit [facility] Start: 06-14-2025 End: 06-14-2025 Patient encounter procedure 06/14/2025 2:20 PM EST Office Visit [facility] [place] [address] Derek Stoddard MD [address] [place] [address] 6 month follow up [facility] [place] Comment on above: 6 month follow up Start: 06-11-2025 Hemoglobin A1c measurement HbA1C [facility] Start: 06-04-2025 Annual PCP Team Chronic Disease Visit Annual PCP Team Chronic Disease Visit [facility] Start: 06-04-2025 Covid-19 Vaccine () Covid-19 Vaccine () [facility] Comment on above: Postponed from 02/01/2024 (Declined at t his time) Start: 06-04-2025 Hepatitis B screening Urine Albumin:Creatinine Ratio [facility] Start: 06-04-2025 Hepatitis B surface antibody level LDL Cholesterol [facility] Start: 02-22-2025 End: 02-22-2025 Patient encounter procedure 02/22/2025 2:15 PM EDT Office Visit [facility] [address] [place] [id number] Kasandra Craig APRN.VENEER TAPING MACHINE OPERATOR [address] [place] [address] Nausea [R11.0] [facility] Comment on above: Nausea [R11.0] Start: 01-31-2025 Influenza vaccination [facility] Start: 01-14-2025 End: 01-14-2025 Patient encounter procedure Cat Scan Comment on above: CT ABD/PEL WO IVC Start: 12-27-2024 [facility] Start: 12-09-2024 End: 03-10-2025 Comprehensive metabolic 2000 panel - Serum or Plasma [facility] Comment on above: Expected: 12/09/2024, Expires: Start: 12-09-2024 End: 03-10-2025 Hemoglobin A1c in Blood [facility] Work Phone: Comment on above: Expected: 12/09/2024, Expires: Start: 12-09-2024 End: 03-10-2025 LIPID PANEL, NONFASTING [facility] Comment on above: Expected: 12/09/2024, Expires: Start: 12-09-2024 End: 12-09-2024 Patient encounter procedure 12/09/2024 1:20 PM EDT Office Visit Family [facility] [address] [place] [address] Dagoberto Quiles APRN.VENEER TAPING MACHINE OPERATOR [address] [place], [place] [id number] physical [facility] Comment on above: physical Start: 12-04-2024 [facility] Start: 12-03-2024 [facility] Start: 12-02-2024 Hemoglobin A1c measurement HbA1C [facility] Start: 11-29-2024 Influenza [facility] Comment on above: Postponed from 02/01/2024 (Declined at t his time) Start: 11-06-2024 Annual PCP Team Chronic Disease Visit Annual PCP Team Chronic Disease Visit [facility] Start: 11-06-2024 Hepatitis B surface antibody level LDL Cholesterol [facility] Start: 11-04-2024 Annual PCP Team Chronic Disease Visit Annual PCP Team Chronic Disease Visit [facility] Start: 09-30-2024 End: 09-30-2024 Patient encounter procedure 09/30/2024 2:20 PM EDT Office Visit [facility] [address] [place] [id number] Dagoberto Quiles APRN.VENEER TAPING MACHINE OPERATOR [address] [place], [place] [address] Sleep apnea [facility] Comment on above: Sleep apnea Start: 09-23-2024 End: 09-23-2024 Patient encounter procedure 09/23/2024 2:00 PM EDT Office Visit Podiatry [address] [place], [place] [id number] Cameron Brooks [address] [place], [place] [id number] Ingrown toenail [L60.0] would like to discuss removal in [place] Podiatry Comment on above: Ingrown toenail [L60.0] would like to di scuss removal in [place] Start: 09-21-2024 End: 09-21-2024 ambulatory 09/21/2024 2:40 PM EDT [facility] [address] [place], [place] [address] Dagoberto Quiles APRN.VENEER TAPING MACHINE OPERATOR [address] [place] [address] sleep apnea [facility] Comment on above: sleep apnea Start: 08-31-2024 End: 08-31-2024 Patient encounter procedure Podiatry Comment on above: Ingrown toenail [L60.0] would like to di scuss removal in [place] Start: 08-18-2024 End: 08-18-2024 Patient encounter procedure 08/18/2024 2:00 PM EDT Office Visit Neurology [address] [place] [address] To see how bad my snoring is. Neurology Comment on above: To see how bad my snoring is. Start: 08-05-2024 End: 08-05-2024 Patient encounter procedure Podiatry Comment on above: Ingrown toenail [L60.0] Ingrown toenail [L60 .0] would like to discuss removal in OR Start: 07-15-2024 End: 07-15-2024 Patient encounter procedure 07/15/2024 3:15 PM EST Office Visit Podiatry [address] [place] [address] Cameron Brooks [address] [address] Ingrown toenail [L60.0] Podiatry Comment on above: Ingrown toenail [L60.0] Start: 06-28-2024 End: 06-28-2024 Patient encounter procedure 06/28/2024 3:30 PM EST Office Visit Podiatry [address] [place], [place] [address] Cameron Brooks [address] [address] Ingrown toenail [L60.0] Podiatry Comment on above: Ingrown toenail [L60.0] Start: 06-04-2024 End: 09-03-2024 CBC W Auto Differential panel - Blood [facility] Work Phone: Comment on above: Expected: 06/04/2024, Expires: Start: 06-04-2024 End: 09-03-2024 Comprehensive metabolic 2000 panel - Serum or Plasma [facility] Comment on above: Expected: 06/04/2024, Expires: Start: 06-04-2024 End: 09-03-2024 Hemoglobin A1c in Blood [facility] Comment on above: Expected: 06/04/2024, Expires: Start: 06-04-2024 End: 09-03-2024 LIPID PANEL, NONFASTING [facility] Comment on above: Expected: 06/04/2024, Expires: Start: 06-04-2024 End: 09-03-2024 Microalbumin/Creatini ne [Mass Ratio] in Urine [facility] Comment on above: Expected: 06/04/2024, Expires: Start: 06-04-2024 End: 06-04-2024 Patient encounter procedure 06/04/2024 1:00 PM EST Office Visit [address] [address] Dagoberto Quiles APRN.[facility] [address] [place], [place] [id number] 3 month follow up [facility] Comment on above: 3 month follow up Start: 05-08-2024 Hemoglobin A1c measurement HbA1C [facility] Start: 05-07-2024 End: 05-07-2024 Patient encounter procedure 05/07/2024 3:00 PM EST Office Visit [facility] [address] [place] [phone] Dagoberto Quiles APRN.[employer] [address] [place], [place] [id number] 3 month follow up [facility] Comment on above: 3 month follow up Start: 03-12-2024 End: 03-12-2024 Patient encounter procedure 03/12/2024 12:40 PM EDT Office Visit [facility] [address] [facility], [place] [phone] Dagoberto Quiles APRN.[employer] [address] [place], [place] [address] 3 month follow up [facility] Comment on above: 3 month follow up Start: 03-10-2024 Annual PCP Team Chronic Disease Visit Annual PCP Team Chronic Disease Visit [facility] Start: 02-19-2024 End: 02-19-2024 Patient encounter procedure 02/19/2024 5:20 PM EDT Office Visit Family [facility] [address] [place] [address] Dagoberto Quiles APRN.[employer] [address] [place], [place] [id number] 3 month follow up Family [facility] Comment on above: 3 month follow up Start: 02-01-2024 Covid-19 Vaccine ( season) Covid-19 Vaccine ( season) [facility] Start: 02-01-2024 Influenza vaccination [facility] Start: 01-22-2024 ANNUAL PCP TEAM CHRONIC DISEASE VISIT ANNUAL PCP TEAM CHRONIC DISEASE VISIT [facility] Start: 11-14-2023 ANNUAL PCP TEAM CHRONIC DISEASE VISIT ANNUAL PCP TEAM CHRONIC DISEASE VISIT [facility] Start: 11-07-2023 End: 11-07-2023 Patient encounter procedure 11/07/2023 2:00 PM EDT Office Visit [facility] [address] [facility], [place] [address] Dagoberto Quiles, COOK LARDER.[employer] [address] [place], [place] [phone] Diabetic Check [facility] Comment on above: Diabetic Check Start: 10-17-2023 3 comp foot exam completed DIABETIC FOOT EXAM [facility] Start: 10-17-2023 ANNUAL PCP TEAM CHRONIC DISEASE VISIT ANNUAL PCP TEAM CHRONIC DISEASE VISIT [facility] Start: 10-17-2023 Diabetic foot examination Diabetic Foot Exam [facility] Start: 10-17-2023 HEPATITIS B (1 of 3 - 3-dose series) HEPATITIS B (1 of 3 - 3-dose series) [facility] Comment on above: Postponed from 1980 (Declined at t his time) Start: 10-17-2023 Hepatitis B Vaccine (1 of 3 - 19+ 3-dose series) Hepatitis B Vaccine (1 of 3 - 19+ 3-dose series) [facility] Comment on above: Postponed from 12/27/1999 (Declined at t his time) Start: 10-17-2023 Hepatitis B Vaccine (1 of 3 - 3-dose series) Hepatitis B Vaccine (1 of 3 - 3-dose series) [facility] Comment on above: Postponed from 1980 (Declined at t his time) Start: 09-25-2023 ANNUAL PCP TEAM CHRONIC DISEASE VISIT ANNUAL PCP TEAM CHRONIC DISEASE VISIT [facility] Start: 09-13-2023 Glaucoma screening Dilated Retinal Exam [facility] Start: 09-13-2023 Hepatitis C antibody, confirmatory test DILATED RETINAL EXAM [facility] Start: 08-07-2023 ANNUAL PCP TEAM CHRONIC DISEASE VISIT ANNUAL PCP TEAM CHRONIC DISEASE VISIT [facility] Start: 08-07-2023 Hepatitis B surface antibody level LDL CHOLESTEROL [facility] Start: 05-15-2023 Hemoglobin A1c measurement HbA1C [facility] Start: 05-15-2023 Hemoglobin A1c/Hemoglobin.total in Blood HBA1C [facility] Start: 02-20-2023 ANNUAL PCP TEAM CHRONIC DISEASE VISIT ANNUAL PCP TEAM CHRONIC DISEASE VISIT [facility] Start: 02-06-2023 Hemoglobin A1c/Hemoglobin.total in Blood HBA1C [facility] Start: 01-31-2023 Covid-19 Vaccine ( season) Covid-19 Vaccine ( season) [facility] Start: 01-31-2023 Influenza vaccination [facility] Start: 01-29-2023 ANNUAL PCP TEAM CHRONIC DISEASE VISIT ANNUAL PCP TEAM CHRONIC DISEASE VISIT [facility] Start: 01-21-2023 End: 03-23-2023 Borrelia burgdorferi IgG and IgM panel - Serum [facility] Work Phone: Comment on above: Expected: 01/21/2023, Expires: 3 Start: 01-21-2023 End: 03-23-2023 Comprehensive metabolic 2000 panel - Serum or Plasma [facility] Work Phone: Comment on above: Expected: 01/21/2023, Expires: 3 Start: 11-13-2022 End: 01-13-2023 C reactive protein [Mass/volume] in Serum or Plasma [facility] Work Phone: Comment on above: Expected: 11/13/2022, Expires: 3 Start: 10-30-2022 3 comp foot exam completed DIABETIC FOOT EXAM [facility] Start: 10-30-2022 ANNUAL PCP TEAM CHRONIC DISEASE VISIT ANNUAL PCP TEAM CHRONIC DISEASE VISIT [facility] Start: 08-06-2022 End: 10-06-2022 Comprehensive metabolic 2000 panel - Serum or Plasma [facility] Work Phone: Comment on above: Expected: 08/06/2022, Expires: 3 Start: 08-06-2022 End: 10-06-2022 Hemoglobin A1c in Blood [facility] Work Phone: Comment on above: Expected: 08/06/2022, Expires: 3 Start: 08-06-2022 End: 10-06-2022 LIPID PANEL, NONFASTING [facility] Work Phone: Comment on above: Expected: 08/06/2022, Expires: 3 Start: 07-04-2022 3 comp foot exam completed DIABETIC FOOT EXAM [facility] Start: 07-04-2022 ANNUAL PCP TEAM CHRONIC DISEASE VISIT ANNUAL PCP TEAM CHRONIC DISEASE VISIT [facility] Start: 01-31-2022 Influenza vaccination INFLUENZA (#1) [facility] Start: 01-30-2022 Hemoglobin A1c/Hemoglobin.total in Blood HBA1C [facility] Start: 01-29-2022 End: 03-31-2022 ALBUMIN/CREAT RATIO RND UR ALBUMIN/CREAT RATIO RND UR Lab Routine Type 2 diabetes mellitus without complication, without long-term current use of insulin (HCC) Expected: 01/29/2022, Expires: 03/31/2022 [facility] Work Phone: Comment on above: Expected: 01/29/2022, Expires: 2 Start: 01-29-2022 End: 03-31-2022 CBC panel - Blood by Automated count CBC Lab Routine Type 2 diabetes mellitus without complication, without long-term current use of insulin (HCC) Expected: 01/29/2022, Expires: 03/31/2022 [facility] Work Phone: Comment on above: Expected: 01/29/2022, Expires: 2 Start: 01-29-2022 End: 03-31-2022 Comprehensive metabolic 2000 panel - Serum or Plasma COMP METABOLIC PANEL Lab Routine Type 2 diabetes mellitus without complication, without long-term current use of insulin (HCC) Expected: 01/29/2022, Expires: 03/31/2022 [facility] Work Phone: Comment on above: Expected: 01/29/2022, Expires: 2 Start: 01-29-2022 End: 03-31-2022 Hemoglobin A1c in Blood HGB A1C Lab Routine Type 2 diabetes mellitus without complication, without long-term current use of insulin (HCC) Expected: 01/29/2022, Expires: 03/31/2022 [facility] Work Phone: Comment on above: Expected: 01/29/2022, Expires: 2 Start: 01-29-2022 Hepatitis B surface antibody level LDL CHOLESTEROL [facility] Start: 01-29-2022 End: 03-31-2022 LIPID PANEL, NONFASTING LIPID PANEL, NONFASTING Lab Routine Type 2 diabetes mellitus without complication, without long-term current use of insulin (HCC) Expected: 01/29/2022, Expires: 03/31/2022 [facility] Work Phone: Comment on above: Expected: 01/29/2022, Expires: 2 Start: 01-01-2022 Hemoglobin A1c/Hemoglobin.total in Blood HBA1C [facility] Start: 10-30-2021 End: 12-30-2021 ALBUMIN/CREAT RATIO RND UR ALBUMIN/CREAT RATIO RND UR Lab Routine Type 2 diabetes mellitus without complication, without long-term current use of insulin (HCC) Expected: 10/30/2021, Expires: 12/30/2021 [facility] Work Phone: Comment on above: Expected: 10/30/2021, Expires: 2 Start: 10-30-2021 End: 12-30-2021 VITAMIN D 25 HYDROXY VITAMIN D 25 HYDROXY Lab Routine Vitamin D deficiency Expected: 10/30/2021, Expires: 12/30/2021 [facility] Work Phone: Comment on above: Expected: 10/30/2021, Expires: 2 Start: 09-25-2021 Hepatitis B screening URINE ALBUMIN:CREATININE RATIO [facility] Start: 03-30-2021 COVID-19 VACCINE (2 - Booster for Yolanda series) COVID-19 VACCINE (2 - Booster for Yolanda series) [facility] Start: 08-09-2020 PNEUMOCOCCAL (2 - PCV) PNEUMOCOCCAL (2 - PCV) [facility] Start: 12-18-2018 BP CONTROLLED (<130/80) BP CONTROLLED (<130/80) [facility] Start: 12-27-2007 HPV Vaccine (1 - 3-dose SCDM series) HPV Vaccine (1 - 3-dose SCDM series) [facility] Start: 12-27-1999 HEPATITIS B (1 of 3 - Risk 3-dose series) HEPATITIS B (1 of 3 - Risk 3-dose series) [facility] Start: 12-27-1999 Hepatitis B Vaccine (1 of 3 - 19+ 3-dose series) Hepatitis B Vaccine (1 of 3 - 19+ 3-dose series) [facility] Start: 1990 Hepatitis C antibody, confirmatory test DILATED RETINAL EXAM [facility] Start: 1980 HEPATITIS B (1 of 3 - 3-dose series) HEPATITIS B (1 of 3 - 3-dose series) [facility] End: 01-30-2026 CT Abdomen and Pelvis W contrast IV CT ABD/PEL W IVCON Radiology STAT Nausea 1 Occurrences starting 12/31/2024 until 01/30/2026 [facility] Work Phone: Comment on above: 1 Occurrences starting 12/31/2024 until 01/30/2026 End: 01-22-2024 EMG(NEURO/NI) EMG(NEURO/NI) EMG Routine Type 2 diabetes mellitus with peripheral neuropathy (HCC) 1 Occurrences starting 01/21/2023 until 01/22/2024 [facility] Work Phone: Comment on above: 1 Occurrences starting 01/21/2023 until 01/22/2024 HB A1C B/O HB A1C B/O Lab R outine Type 2 diabetes mellitus without complication, without long-term current use of insulin (HCC) Ordered: 10/30/2021 [facility] Work Phone: Comment on above: Ordered: 10/30/2021 End: 08-05-2025 HOME SLEEP APNEA TEST (HSAT) HOME SLEEP APNEA TEST (HSAT) Procedures Routine Fatigue, unspecified type Snoring 1 Occurrences starting 08/05/2024 until 08/05/2025 [facility] Work Phone: Comment on above: 1 Occurrences starting 08/05/2024 until 08/05/2025 End: 09-25-2025 PAP TITRATION PSG (CPAP, BIPAP, ASV) PAP TITRATION PSG (CPAP, BIPAP, ASV) Procedures Routine JOLANTA (obstructive sleep apnea) 1 Occurrences starting 08/26/2024 until 09/25/2025 [facility] Work Phone: Comment on above: 1 Occurrences starting 08/26/2024 until 09/25/2025 Patient Education [facility] Work Phone: End: 07-30-2022 Polysomnogram POLYSOMNOGRAM (PSG) Procedures Routine Daytime somnolence 1 Occurrences starting 07/30/2021 until 07/30/2022 [facility] Work Phone: Comment on above: 1 Occurrences starting 07/30/2021 until 07/30/2022 End: 02-20-2023 PVR LEG [facility]GEL[facility] V[facility] Lab Routine Numbness and tingling of both feet Chronic pain of both feet Type 2 diabetes mellitus with peripheral neuropathy (HCC) Cold feet 1 Occurrences starting 02/20/2022 until 02/20/2023 [facility] Work Phone: Comment on above: 1 Occurrences starting 02/20/2022 until 02/20/2023 End: 08-07-2023 PVR LEG ANGELA [facility] V[facility] Lab Routine Type 2 diabetes mellitus without complication, without long-term current use of insulin (HCC) 1 Occurrences starting 08/06/2022 until 08/07/2023 [facility] Work Phone: Comment on above: 1 Occurrences starting 08/06/2022 until 08/07/2023 Removal skn tags replenishment specialist fibrq tags any area upw/15 REMOVAL OF SKIN TAGS 1-15 Procedures Routine Skin tags, multiple acquired S/P cryotherapy of skin lesion Ordered: 11/13/2022 [facility] Work Phone: Comment on above: Ordered: 11/13/2022 Troponin T.cardiac [Mass/volume] in Serum or Plasma by High sensitivity method [facility] Immunizations Immunization Date Immunization Notes Care Provider Marge [facility] 03-19-2023 influenza virus vaccine, unspecified formulation [facility] Work Phone: [facility] 01-29-2022 pneumococcal Conjuga te, unspecified formulation Derek Stoddard MD Work Phone: [facility] Work Phone: 01-29-2022 pneumococcal (PCV20) vaccine, 20 valent (PREVNAR 20) Derek Stoddard MD Work Phone: [facility] 07-04-2021 influenza, injectabl e, quadrivalent, contains preservative Derek Stoddard MD Work Phone: [facility] 07-04-2021 influenza virus vaccine, unspecified formulation Derek Stoddard MD Work Phone: [facility] 02-02-2021 COVID-19 vaccine (YOLANDA) Derek Stoddard MD Work Phone: [facility] 02-16-2020 influenza, injectabl e, quadrivalent, contains preservative Derek Stoddard MD Work Phone: [facility] 08-10-2019 pneumococcal polysaccharide vaccine, 23 valent Derek Stoddard MD Work Phone: [facility] 08-10-2019 tetanus toxoid, redu jeison diphtheria toxoid, and acellular pertussis vaccine, adsorbed Derek Stoddard MD Work Phone: [facility] 05-27-2019 influenza, injectabl e, quadrivalent, contains preservative Derek Stoddard MD Work Phone: [facility] 02-19-2018 influenza, injectabl e, quadrivalent, contains preservative Derek Stoddard MD Work Phone: [facility] 02-25-2012 influenza virus vaccine, unspecified formulation Derek Stoddard MD Work Phone: [facility] 05-10-2011 influenza virus vaccine, unspecified formulation Derek Stoddard MD Work Phone: [facility] Work Phone: 03-21-2009 influenza virus vaccine, unspecified formulation Derek Stoddard MD Work Phone: [facility] Work Phone: 11-08-2005 tetanus and diphther ia toxoids, not adsorbed, for adult use Derek Stoddard MD Work Phone: [facility] Work Phone: Payers Date Payer Category Payer Unknown [id number] 2024 Self-pay 2023 Private Health Insurance [id number] 2022 Unknown [id number] 2018 Medicaid [employer] [id number] 2018-Present [phone] [address] [place] [address] Medicaid [id number] 2018 Medicaid [id number] Unknown [id number] Unknown [id number] Unknown [id number] Unknown [id number] Unknown [id number] Social History Date Type Detail Facility Start: 01-29-2022 End: 12-04-2024 Tobacco smoking status MTIS Smokes tobacco daily [facility] Work Phone: History of tobacco use Cigarette Smoker [facility] Work Phone: Start: 07-04-2021 End: 11-05-2023 Alcohol intake Current drinker of alcohol (finding) [facility] Start: 07-04-2021 End: 11-07-2023 Alcohol intake [facility] Start: 02-14-2020 End: 01-29-2022 History SDOH Alcohol Frequency 3 [facility] Start: 02-14-2020 End: 01-29-2022 History SDOH Social Connections Phone 5 [facility] Start: 02-14-2020 End: 01-29-2022 History SDOH Social Connections Get Together 2 [facility] Start: 02-14-2020 End: 01-29-2022 History SDOH Social Connections Adventism 1 [facility] Start: 02-14-2020 History SDOH Social Connections Living 8 [facility] Start: 02-14-2020 History SDOH Physical Activity MPS 4 [facility] Start: 02-14-2020 Education 21 [facility] Start: 07-13-2020 End: 01-29-2022 Tobacco Comment currently trying to quit - 4 or 5 cigarettes/day [facility] Start: 1980 Sex Assigned At Male [facility] Start: 06-11-2021 End: 02-20-2022 Exposure to SARS-CoV-2 (event) Not sure [facility] Start: 07-13-2020 End: 01-29-2022 Tobacco use and exposure Former smokeless tobacco user [facility] Start: 01-29-2022 History SDOH Social Connections Get Together 98 [facility] Start: 01-29-2022 End: 11-07-2023 Social connection and isolation panel [facility] Start: 05-03-2012 How often do you get together with friends or relatives? Patient refused [facility] Do you belong to any clubs or organizations such as tenriism groups, unions, fraternal or athletic groups, or school groups? No [facility] Are you now , , , , never or living with a partner? [facility] How hard is it for y ou to pay for the very basics like food, housing, medical care, and heating Very hard [facility] Do you feel stress - tense, restless, nervous, or anxious, or unable to sleep at night because your mind is troubled all the time - these days [OSQ] Very much [facility] (I/We) worried dav er (my/our) food would run out before (I/we) got money to buy more. DK or Refused [facility] In the past 12 month s, was there a time when you were not able to pay the mortgage or rent on time? Yes [facility] Start: 02-22-2021 Gender identity Identifies as male gender (finding) [facility] Start: 02-22-2021 Sexual orientation Heterosexual (finding) [facility] Are you now , , , , never or living with a partner? Living with partner [facility] How often to you hav e a drink containing alcohol? 2-4 times a month [facility] How many standard dr inks containing alcohol do you have on a typical day? 5 or 6 [facility] How often do you hav e 6 or more drinks on 1 occasion? Monthly [facility] Do you feel stress - tense, restless, nervous, or anxious, or unable to sleep at night because your mind is troubled all the time - these days [OSQ] To some extent [facility] (I/We) worried wheyogesh er (my/our) food would run out before (I/we) got money to buy more. Never true [facility] How often do you hav e 6 or more drinks on 1 occasion? Less than monthly [facility] Do you feel stress - tense, restless, nervous, or anxious, or unable to sleep at night because your mind is troubled all the time - these days [OSQ] Rather much [facility] The food that (I/we) bought just didn't last, and (I/we) didn't have money to get more. Sometimes true [facility] Start: 11-18-2018 Alcohol Alcohol [facility] Start: 07-09-2020 Lives Lives [facility] Start: 07-09-2020 Tobacco Use Tobacco Use [facility] Start: 12-27-2024 Tobacco smoking status NHIS Current Light tobacco smoker [facility] Medical Equipment Procedure Code Equipment Code Equipment Origin al Text Equipment Identifier Dates Test blood sugar (s) 1 times daily. Dx: Type 2 DM - Uncontrolled E11.65 Insulin: No [id number], [id number] Start: 08-13-2019 Comment on above: Test blood sugar(s) 1 times daily. Dx: Type 2 DM - Uncontrolled E11.65 Insulin: No Functional Status Date Assessment Result Facility 09-18-2024 Total score [AUDIT-C] 5 09/19/19 25 4:09 PM EDT User, Luis [facility] 09-18-2024 Within the last year , have you been humiliated or emotionally abused in other ways by your partner or ex-partner? No 09/18/2024 4:09 PM EDT User, [email or web address] No [facility] 09-18-2024 Within the last year , have you been afraid of your partner or ex-partner? No 09/18/2024 4:09 PM EDT User, [email or web address] 09-18-2024 Within the last year , have you been raped or forced to have any kind of sexual activity by your partner or ex-partner? No 09/18/2024 4:09 PM EDT [email or web address] Within the last year , have you been kicked, hit, slapped, or otherwise physically hurt by your partner or ex-partner? No 09/18/2024 4:09 PM EDT User, [email or web address] No [facility] 09-18-2024 How often to you hav e a drink containing alcohol? 2-4 times a month 09/18/2024 4:09 PM EDT User, [email or web address] 2-4 times a month [facility] 09-18-[address] inks containing alcohol do you have on a typical day? 5 or 6 09/18/2024 4:09 PM EDT User, [email or web address] 5 or 6 [facility] 09-18-2024 How often do you hav e 6 or more drinks on 1 occasion? Less than monthly 09/18/2024 4:09 PM EDT User, [email or web address] Less than monthly [facility] 09-23-2014 Are you deaf, or do you have serious difficulty hearing No 09/23/2014 9:40 AM EDT Yoon Parker LPN No [facility] 09-23-2014 Are you blind, or do you have serious difficulty seeing, even when wearing glasses No 09/23/2014 9:40 AM [email or web address] Yoon Parker LPN No [facility] 09-23-2014 Do you have serious difficulty walking or climbing stairs No 09/23/2014 9:40 AM EDT Yoon Parker LPN No [facility] 09-23-2014 Do you have difficul ty dressing or bathing No 09/23/2014 9:40 AM Yoon Ovalle LPN No [facility] 09-23-2014 Because of a physica l, mental, or emotional condition, do you have difficulty doing errands alone such as visiting a physician's office or shopping No 09/23/2014 9:40 AM Yoon Ovalle LPN No [facility] Mental Status Date Assessment Result Facility 12-03-2024 Cognitive function Level Of Cons ciousness Awake;Alert;Appropriate;Fol lows Commands [facility] Work Phone: 09-23-2014 Because of a physica l, mental, or emotional condition, do you have serious difficulty concentrating, remembering, or making decisions No 09/23/2014 9:40 AM EDT Yoon Parker LPN No [facility] Clinical Notes 09-19-2012 to 01-17-2025 Telephone Encounter - Jaylyn Grossman MA - 01/17/2025 11:18 AM EDTTelephone Encounter - Jaylyn Grossman MA - 01/17/2025 11:18 AM EDTTelephone Encounter - Tarik Velasquez MA - 01/17/2025 10:47 AM EDT Note Date & Type Note Facility 01-17-2025 Telephone encounter Note [facility] [place] message with results viewed by pt on 01/17/25 at 10:50 am. Jaylyn Grossman MA [facility] 01-17-2025 Miscellaneous Notes Mychart message with results viewed by pt on 01/17/25 at 10:50 am. Jaylyn Grossman MA Pt active on [employer]- message sent. Will leave encounter open until pt views Tarik Velasquez MA Please let patient know his CT is negative. documented in this encounter [facility] 01-17-2025 Telephone encounter Note Pt active on [employer]- message sent. Will leave encounter open until pt views Tarik Velasquez MA [facility] 01-17-2025 Telephone encounter Note Please let patient know his CT is negative. [facility] 01-14-2025 History of Presen t illness Narrative Radiology Service Progress Note DATE OF SERVICE: January 14, 2025 TIME: 3:58 PM PATIENT IDENTITY VERIFICATION COMPLETED USING TWO (2) STANDARD IDENTIFIERS: Name and Date of confirmed by patient verbally. FALL SCREENING: Has the patient had 2 falls in the last year or 1 fall with injury or currently using an Ambulatory Assistive Device (Walker, Cane, Wheelchair, Crutches, etc.)? No PATIENT GENDER DATA: Assigned male at PATIENT RELEVANT IMPLANT DATA REVIEWED: Yes PATIENT PRESENTS WITH AN IMPLANTABLE OR ATTACHED HAND PRINTED CIRCUIT BOARD ASSEMBLER: No ALLERGIES: Reviewed and unchanged CONTRAST ALLERGY: NO. EXAM: CT -CONTRAST INDUCED NEPHROPATHY RISK FACTORS: Not applicable CREATININE: Creatinine Date Value Ref Range Status 12/09/2024 0.74 0.73 - 1.22 mg/dL Final 06/04/2024 0.68 (L) 0.73 - 1.22 mg/dL Final 11/07/2023 0.74 0.73 - 1.22 mg/dL Final Estimated Glomerular Filtration Rate Date Value Ref Range Status 12/09/2024 115 >=60 mL/min/1.73m Final Comment: Estimated Glomerular Filtration Rate (eGFR) is calculated using the 2020 CKD-EPI creatinine equation. This equation utilizes serum creatinine, sex, and age as parameters. The creatinine assay has traceable calibration to isotope dilution-mass spectrometry. Refer to KDIGO guidelines for clinical interpretation. In patients with unstable renal function, e.g. those with acute kidney injury, the eGFR may not accurately reflect actual GFR. eGFR- Date Value Ref Range Status 07/04/2021 >60 Final P.O.C.T. RESULTS: POC done: Yes, See Lab Tab January 14, 2025 TREATMENT: N/A PERIPHERAL IV DATA: Ambulatory: A peripheral IV was started in the Left antecubital site with a Angio cath: 22 gauge. RADIOLOGY DEPARTMENT: CT; Exam(s) Completed: Abdomen/Pelvis SIGNATURE: RT Roderick(R) PATIENT NAME: Mckinley Mcgee DATE: January 14, 2025 TIME: 3:58 PM documented in this encounter [facility] 01-14-2025 Note HNO ID: [id number] Author: ARIANA NESBITT RT(R) Service: ? Author Type: Marketing Senior Recruiter Type: Progress Notes Filed: 01/14/2025 15:58 Note Text: Radiology Service Progress Note DATE OF SERVICE: January 14, 2025 TIME: 3:58 PM PATIENT IDENTITY VERIFICATION COMPLETED USING TWO (2) STANDARD IDENTIFIERS: Name and Date of confirmed by patient verbally. FALL SCREENING: Has the patient had 2 falls in the last year or 1 fall with injury or currently using an Ambulatory Assistive Device (Walker, Cane, Wheelchair, Crutches, etc.)? No PATIENT GENDER DATA: Assigned male at PATIENT RELEVANT IMPLANT DATA REVIEWED: Yes PATIENT PRESENTS WITH AN IMPLANTABLE OR ATTACHED HAND PRINTED CIRCUIT BOARD ASSEMBLER: No ALLERGIES: Reviewed and unchanged CONTRAST ALLERGY: NO. EXAM: CT -CONTRAST INDUCED NEPHROPATHY RISK FACTORS: Not applicable CREATININE: Creatinine Date Value Ref Range Status 12/09/2024 0.74 0.73 - 1.22 mg/dL Final 06/04/2024 0.68 (L) 0.73 - 1.22 mg/dL Final 11/07/2023 0.74 0.73 - 1.22 mg/dL Final Estimated Glomerular Filtration Rate Date Value Ref Range Status 12/09/2024 115 >=60 mL/min/1.73m? Final Comment: Estimated Glomerular Filtration Rate (eGFR) is calculated using the 2020 CKD-EPI creatinine equation. This equation utilizes serum creatinine, sex, and age as parameters. The creatinine assay has traceable calibration to isotope dilution-mass spectrometry. Refer to KDIGO guidelines for clinical interpretation. In patients with unstable renal function, e.g. those with acute kidney injury, the eGFR may not accurately reflect actual GFR. eGFR- Date Value Ref Range Status 07/04/2021 >60 Final P.O.C.T. RESULTS: POC done: Yes, See Lab Tab January 14, 2025 TREATMENT: N/A PERIPHERAL IV DATA: Ambulatory: A peripheral IV was started in the Left antecubital site with a Angio cath: 22 gauge. RADIOLOGY DEPARTMENT: CT; Exam(s) Completed: Abdomen/Pelvis SIGNATURE: ЕЛЕНА Vaughn) PATIENT NAME: Mckinley Mcgee DATE: January 14, 2025 TIME: 3:58 PM [facility] 12-31-[address] imaging placed for pt. Pt sent in mychart message. Will notify him in mychart message. Jaylyn Grossman MA [facility] 12-31-[address] imaging placed for pt. Pt sent in mychart message. Will notify him in mychart message. Jaylyn Grossman MA Patient calling in to schedule appt with Gastro in [place]. I put him down for their soonest appt on February 22. Patient states Sangeetha was going to place a CT scan if he was not able to get in right away. Please review and advise. Sangita Medina December 31, 2024 2:04 PM documented in this encounter [facility] 12-31-2024 Telephone encounter Note Patient calling in to schedule appt with Gastro in [place]. I put him down for their soonest appt on February 22. Patient states Sangeetha was going to place a CT scan if he was not able to get in right away. Please review and advise. Sangita Medina December 31, 2024 2:04 PM [facility] 12-31-2024 Note HNO ID: [id number] Author: DAGOBERTO QUILES APRN.VENEER TAPING MACHINE OPERATOR Service: ? Author Type: Nurse Practitioner Type: Progress Notes Filed: 12/31/2024 13:57 Note Text: I have communicated my name and active licensure. The patient's identity and physical location were verified at the time of this visit. Either the patient or their legal new accounts banking representative has been informed of the risks and benefits of -- and alternatives to -- treatment through a remote evaluation and consents to proceed with the evaluation remotely. Yaz Mcgee is a 44 year old male. Patient presents to discuss recent ER visit. Patient reports he initially went due to feeling awful with daily nausea, abdominal pain. Patient is diabetic and concerned he may have gastroparesis. Objective There were no vitals taken for this visit. GENERAL: alert and appropriate, in no distress, well-hydrated, well nourished, and happy, smiling, interactive ASSESSMENT/PLAN: 1. Nausea - ICD9: 787.02, ICD10: R11.0 (primary diagnosis - ONDANSETRON 4 MG DISINTEGRATING TABLET - CONSULT TO GASTROENTEROLOGY 2. Type 2 diabetes mellitus without complication, without long-term current use of insulin (HCC) - ICD9: 250.00, ICD10: E11.9 - Controlled - Continue current medications - Counseled on healthy diet and regular exercise - Discussed need for and benefit of weight loss. No weight on file for this encounter. - ONDANSETRON 4 MG DISINTEGRATING TABLET - CONSULT TO GASTROENTEROLOGY Dagoberto Quiles APRN.VENEER TAPING MACHINE OPERATOR Visit was conducted via [employer] Patient Location: Patient Home or Place of Residence [facility] 12-31-2024 History of Presen t illness Narrative I have communicated my name and active licensure. The patient's identity and physical location were verified at the time of this visit. Either the patient or their legal new accounts banking representative has been informed of the risks and benefits of -- and alternatives to -- treatment through a remote evaluation and consents to proceed with the evaluation remotely. Yaz Mcgee is a 44 year old male. Patient presents to discuss recent ER visit. Patient reports he initially went due to feeling awful with daily nausea, abdominal pain. Patient is diabetic and concerned he may have gastroparesis. Objective There were no vitals taken for this visit. GENERAL: alert and appropriate, in no distress, well-hydrated, well nourished, and happy, smiling, interactive ASSESSMENT/PLAN: 1. Nausea - ICD9: 787.02, ICD10: R11.0 (primary diagnosis - ONDANSETRON 4 MG DISINTEGRATING TABLET - CONSULT TO GASTROENTEROLOGY 2. Type 2 diabetes mellitus without complication, without long-term current use of insulin (HCC) - ICD9: 250.00, ICD10: E11.9 - Controlled - Continue current medications - Counseled on healthy diet and regular exercise - Discussed need for and benefit of weight loss. No weight on file for this encounter. - ONDANSETRON 4 MG DISINTEGRATING TABLET - CONSULT TO GASTROENTEROLOGY Dagoberto Quiles APRN.VENEER TAPING MACHINE OPERATOR Visit was conducted via [employer] Patient Location: Patient Home or Place of Residence documented in this encounter [facility] 12-27-2024 Hospital Discharg e instructions Additional Instructions EKG normal. Your blood glucose in the lab 198 normal gap. Without treatment blood pressure down 159/86. As discussed likely elevated from reactive from you not feeling well having nausea. Keep a log of your blood pressure when you wake up in the morning then before bedtime. Continue your home medications. Follow-up with your primary care team. [facility] Work Phone: 12-13-2024 Telephone encounter Note Pt active on [employer]- message sent. Will leave encounter open until pt reads message Tarik Velasquez MA [facility] 12-13-2024 Miscellaneous Notes Pt active on [employer]- message sent. Will leave encounter open until pt reads message Tarik Velasquez MA Please let patient know his labs show improving hgba1c down to 6.8 from 7.7. Also his cholesterol has improved significantly. His triglycerides are still elevated however they are improved as well. Patient should continue current medications and lifestyle modifications. documented in this encounter [facility] 12-10-2024 Telephone encounter Note Please let patient know his labs show improving hgba1c down to 6.8 from 7.7. Also his cholesterol has improved significantly. His triglycerides are still elevated however they are improved as well. Patient should continue current medications and lifestyle modifications. [facility] 12-09-2024 Note HNO ID: [id number] Author: ?, ?, ? Service: ? Author Type: ? Type: Progress Notes Filed: 12/09/2024 17:20 Note Text: Chief Complaint Patient presents with: Physical HPI Mckinley Mcgee is a 43 year old male who presents here today for Above Complaints.. DM- states that he stopped taking the Rybelsus about a month ago due to GI upset. DM: Reports overall feeling well. Medication side effects: Intermittent nausea, diarrhea and GI upset. Home sugar checks: 175 and 130 yesterday, has not had anything over 200 recently. Does not routinely check BG. Hypoglycemic spells: No. Watching diet: Yes. Decreased Pop, fatty foods, and carbs. Increased fruits and veggies Unexpected weight loss: No. Polyuria, polydipsia: No. Vision Changes: No. Foot lesions or numbness or pain: Yes. Hx of neuropathy. HTN: Patient is compliant with meds Yes Monitors bp at home: Yes. Denies side effects: No. Chest pain: No. Dyspnea: No. Edema: No. Palpitations: No. Syncope: No. Headache: No. Dizziness: No. GERD: Takes Protonix daily, well controlled. Was recently in the ED for HTN and feeling flushed. Denies any CP, Shortness of Breath, or palpitations since visit. Has had increased anxiety since regarding health. Sleep apnea: Has been unable to obtain C-Pap due to Cost. They require $500+ without payment plan. Past medical history, appointments, medications, allergies reviewed. Previous Medical History PAST MEDICAL HISTORY Diagnosis Date ANXIETY STATE NOS 10/07/2008 Condyloma acuminatum 05/10/2011 DDD (degenerative disc disease), cervical Depression Diabetes mellitus (HCC) ELEV BL PRES W/O HYPERTN 12/17/2005 Erectile dysfunction Esophageal reflux 12/17/2005 HYPERGLYCEMIA 01/17/2006 Hypertension Knee MCL sprain 1990s Right knee Morbid obesity (HCC) OVERWEIGHT 12/17/2005 Perianal abscess 04/22/2012 PTSD (post-traumatic stress disorder) Snoring Tobacco use disorder 12/17/2005 Vitamin D deficiency Previous Surgical History PAST SURGICAL HISTORY Procedure Laterality Date DEBRIDEMENT OPEN WOUND 20 SQ CM/< 04/22/2012 Debridement perianal abscess PAST SURGICAL HISTORY OF 06/02/1990 Right upper arm laceration PAST SURGICAL HISTORY OF 04/10/2012 neuroma right foot TONSILLECTOMY PRIMARY/SECONDARY Tonsillectomy VASECTOMY Family History FAMILY HISTORY Problem Relation Age of Onset Heart Father Hypertension Mother Cancer Mother Patient Allergies ALLERGIES Allergen Reactions Latex Rash Lisinopril Cough Penicillins Unknown childhood- unknown reaction -Has taken amoxil Prozac [Fluoxetine] Mental Status Change Wellbutrin [Bupropi* GI Upset Current Medications Current Outpatient Medications on File Prior to Visit Medication Sig pantoprazole DR (PROTONIX) 40 mg tablet Take 1 tablet by mouth daily before breakfast. Take on empty stomach, 1/2 hr before meal. escitalopram oxalate (LEXAPRO) 20 mg tablet Take 1 tablet by mouth once daily. glimepiride (AMARYL) 2 mg tablet Take 1 tablet by mouth once daily. Take with 4 mg tablet to equal 6 mg daily. gabapentin (NEURONTIN) 300 mg capsule Take 2 capsules by mouth daily at bedtime for 90 days. simvastatin (ZOCOR) 10 mg tablet Take 1 tablet by mouth daily at bedtime. For cholesterols. amLODIPine (NORVASC) 10 mg tablet Take 1 tablet by mouth once daily. glimepiride (AMARYL) 4 mg tablet Take 1 tablet by mouth daily with breakfast. Take with with 2 mg tablet daily to equal 6 mg daily. losartan (COZAAR) 25 mg tablet Take 1 tablet by mouth once daily. metFORMIN ER (GLUCOPHAGE XR) 500 mg 24 hr tablet Take 2 tablets by mouth daily with dinner. semaglutide (RYBELSUS) 3 mg tablet Take 1 tablet by mouth daily before breakfast. Take 30 minutes before the first food, beverage, or other oral medications of the day with no more than 4 ounces of plain water Blood Pressure Kit-Extra Large kit 1 Each once daily. blood sugar diagnostic (BLOOD GLUCOSE TEST) test strip Test blood sugar(s) 1 times daily. Dx: Type 2 DM - Uncontrolled E11.65 Insulin: No Lancets lancets Test blood sugar(s) 1 times daily. Dx: Type 2 DM - Uncontrolled E11.65 Insulin: No No current facility-administered medications on file prior to visit. Social History Social History Tobacco Use Smoking status: Every Day Current packs/day: 0.50 Average packs/day: 0.5 packs/day for 6.0 years (3.0 ttl pk-yrs) Types: Cigarettes Smokeless tobacco: Former Tobacco comments: currently trying to quit - 4 or 5 cigarettes/day Substance Use Topics Alcohol use: Yes Alcohol/week: 6.0 standard drinks of alcohol Types: 6 Cans of Beer (12oz) per week Comment: occasionally (weekends) Drug use: Yes Types: Marijuana Comment: socially - special occasions Review of Symptoms REVIEW OF SYSTEMS SEE HPI EXAM: BP 134/81 Pulse 94 Wt (!) 139 kg (306 lb 7 oz) BMI (P) 38.30 kg/m? General Appearance: Well appearing, alert, in n (more content not included)... [facility] 12-09-2024 History of Presen t illness Narrative Images from the original note were not included. Chief Complaint Patient presents with: Physical HPI Mckinley Mcgee is a 43 year old male who presents here today for Above Complaints.. DM- states that he stopped taking the Rybelsus about a month ago due to GI upset. DM: Reports overall feeling well. Medication side effects: Intermittent nausea, diarrhea and GI upset. Home sugar checks: 175 and 130 yesterday, has not had anything over 200 recently. Does not routinely check BG. Hypoglycemic spells: No. Watching diet: Yes. Decreased Pop, fatty foods, and carbs. Increased fruits and veggies Unexpected weight loss: No. Polyuria, polydipsia: No. Vision Changes: No. Foot lesions or numbness or pain: Yes. Hx of neuropathy. HTN: Patient is compliant with meds Yes Monitors bp at home: Yes. Denies side effects: No. Chest pain: No. Dyspnea: No. Edema: No. Palpitations: No. Syncope: No. Headache: No. Dizziness: No. GERD: Takes Protonix daily, well controlled. Was recently in the ED for HTN and feeling flushed. Denies any CP, Shortness of Breath, or palpitations since visit. Has had increased anxiety since regarding health. Sleep apnea: Has been unable to obtain C-Pap due to Cost. They require $500+ without payment plan. Past medical history, appointments, medications, allergies reviewed. Previous Medical History PAST MEDICAL HISTORY Diagnosis Date ANXIETY STATE NOS 10/07/2008 Condyloma acuminatum 05/10/2011 DDD (degenerative disc disease), cervical Depression Diabetes mellitus (HCC) ELEV BL PRES W/O HYPERTN 12/17/2005 Erectile dysfunction Esophageal reflux 12/17/2005 HYPERGLYCEMIA 01/17/2006 Hypertension Knee MCL sprain 1990s Right knee Morbid obesity (HCC) OVERWEIGHT 12/17/2005 Perianal abscess 04/22/2012 PTSD (post-traumatic stress disorder) Snoring Tobacco use disorder 12/17/2005 Vitamin D deficiency Previous Surgical History PAST SURGICAL HISTORY Procedure Laterality Date DEBRIDEMENT OPEN WOUND 20 SQ CM/< 04/22/2012 Debridement perianal abscess PAST SURGICAL HISTORY OF 06/02/1990 Right upper arm laceration PAST SURGICAL HISTORY OF 04/10/2012 neuroma right foot TONSILLECTOMY PRIMARY/SECONDARY <AGE 12 Tonsillectomy VASECTOMY Family History FAMILY HISTORY Problem Relation Age of Onset Heart Father Hypertension Mother Cancer Mother Patient Allergies ALLERGIES Allergen Reactions Latex Rash Lisinopril Cough Penicillins Unknown childhood- unknown reaction -Has taken amoxil Prozac [Fluoxetine] Mental Status Change Wellbutrin [Bupropi* GI Upset Current Medications Current Outpatient Medications on File Prior to Visit Medication Sig pantoprazole DR (PROTONIX) 40 mg tablet Take 1 tablet by mouth daily before breakfast. Take on empty stomach, 1/2 hr before meal. escitalopram oxalate (LEXAPRO) 20 mg tablet Take 1 tablet by mouth once daily. glimepiride (AMARYL) 2 mg tablet Take 1 tablet by mouth once daily. Take with 4 mg tablet to equal 6 mg daily. gabapentin (NEURONTIN) 300 mg capsule Take 2 capsules by mouth daily at bedtime for 90 days. simvastatin (ZOCOR) 10 mg tablet Take 1 tablet by mouth daily at bedtime. For cholesterols. amLODIPine (NORVASC) 10 mg tablet Take 1 tablet by mouth once daily. glimepiride (AMARYL) 4 mg tablet Take 1 tablet by mouth daily with breakfast. Take with with 2 mg tablet daily to equal 6 mg daily. losartan (COZAAR) 25 mg tablet Take 1 tablet by mouth once daily. metFORMIN ER (GLUCOPHAGE XR) 500 mg 24 hr tablet Take 2 tablets by mouth daily with dinner. semaglutide (RYBELSUS) 3 mg tablet Take 1 tablet by mouth daily before breakfast. Take 30 minutes before the first food, beverage, or other oral medications of the day with no more than 4 ounces of plain water Blood Pressure Kit-Extra Large kit 1 Each once daily. blood sugar diagnostic (BLOOD GLUCOSE TEST) test strip Test blood sugar(s) 1 times daily. Dx: Type 2 DM - Uncontrolled E11.65 Insulin: No Lancets lancets Test blood sugar(s) 1 times daily. Dx: Type 2 DM - Uncontrolled E11.65 Insulin: No No current facility-administered medications on file prior to visit. Social History Social History Tobacco Use Smoking status: Every Day Current packs/day: 0.50 Average packs/day: 0.5 packs/day for 6.0 years (3.0 ttl pk-yrs) Types: Cigarettes Smokeless tobacco: Former Tobacco comments: currently trying to quit - 4 or 5 cigarettes/day Substance Use Topics Alcohol use: Yes Alcohol/week: 6.0 standard drinks of alcohol Types: 6 Cans of Beer (12oz) per week Comment: occasionally (weekends) Drug use: Yes Types: Marijuana Comment: socially - special occasions Review of Symptoms REVIEW OF SYSTEMS SEE HPI EXAM: BP 134/81 Pulse 94 Wt (!) 139 kg (306 lb 7 oz) BMI (P) 38.30 kg/m General Appearance: Well appearing, alert, in no acute distress, well-hydrated, well nourished.. Neck: Supple, no adenopathy; thyroid symmetric, normal size, no bruits. Lungs: Lungs clear to auscultation. No wheezing, rhonchi, rales.. Heart: RRR without murmur, gallop, or rubs. No ectopy. Abdomen: Normal abdominal exam, Abdomen soft, non-tender. Bowel sounds normal. No masses, organomegaly. Diabetic Foot Exam: Feet: Shoes and socks removed, no deformities, ulcers, calluses, and normal distal pulses Skin: warm, dry, no callouses or ulcer, and normal hair growth Vascular Pulses: Normal SEMMES-DENT[facility] MONOFILAMENT TESTING Left Foot Right Foot Dorsal Surface Intact Dorsal Surface Intact Plantar Surface Intact Plantar Surface Diminished 1/3 sites Health Maintenance List Hepatitis B Vaccine(1 of 3 - 19+ 3-dose series) Never done Dilated Retinal Exam due on 09/13/2023 Diabetic Foot Exam due on 10/17/2023 HbA1C due on 12/02/2024 Covid-19 Vaccine(2 - season) due on 06/04/2025 Influenza Vaccine(1) due on 01/31/2025 Urine Albumin:Creatinine Ratio due on 06/04/2025 LDL Cholesterol due on 06/04/2025 Annual PCP Team Chronic Disease Visit due on 09/21/2025 DTaP,Tdap,Td Vaccine(2 - Td or Tdap) due on 08/09/2029 Hepatitis C Screening Completed Pneumococcal Vaccine Completed HIV Screening Discontinued Data reviewed Last 5 Encounter BP Readings: Date: BP: 12/09/2024 134/81 06/04/2024 139/87 11/07/2023 146/87 11/05/2023 122/84 01/21/2023 138/86 CARMEN-7 09/18/2024 12/09/2024 CARMEN-7 All Questions Feeling nervous, anxious, or on edge Several days More than half the days Not being able to stop or control worrying Several days More than half the days Worrying too much about different things Several days More than half the days Trouble relaxing Several days Nearly Everyday Being so restless that it is hard to sit still Several days More than half the days Becoming easily annoyed or irritable Not at all Several days Feeling afraid, as if something awful might happen Not at all Nearly Everyday CARMEN-7 Score 5 15 PHQ-9 More data may exist 12/18/2017 02/14/2020 01/29/2022 09/18/2024 12/09/2024 PHQ-9 Scores Little interest or pleasure in doing things: Not at all Several days Several days Several days Several days Feeling down, depressed, or hopeless: Not at all Not at all Several days Several days Not at all Trouble falling or staying asleep, or sleeping too much - Several days Nearly every day More than half the days More than half the days Feeling tired or having little energy - Several days More than half the days More than half the days More than half the days Poor appetite or overeating - Not at all More than half the days More than half the days Several days Feeling bad about yourself - or that you are a failure or have let yourself or your family down - Several days Several days Not at all Not at all Trouble concentrating on things, such as reading the newspaper or watching television - Not at all Several days Not at all Several days Moving or speaking so slowly that other people could have noticed. Or the opposite - being so fidgety or restless that you have been moving around a lot more than usual - Not at all Not at all Several days Several days Thoughts that you would be better off , or of hurting yourself in some way - Not at all Not at all Not at all Not at all PHQ-9 Score - 4 11 9 8 ASSESSMENT/PLAN: 1. Type 2 diabetes mellitus with peripheral neuropathy (HCC) - ICD9: 250.60, 357.2, ICD10: E11.42 (primary diagnosis) - Control undetermined, due for labs - Continue current medications - Counseled on healthy diet and regular exercise - Discussed need for and benefit of weight loss. BMI 39.34 kg/(m^2) - HEMOGLOBIN A1C - COMPREHENSIVE METABOLIC PANEL 2. Essential hypertension - ICD9: 401.9, ICD10: I10 - Controlled - Continue current medications - Recommend home blood pressure monitoring, to bring results to next visit - Encouraged sodium restriction, DASH or Mediterranean diet - Recommend regular aerobic exercise - Discussed need for and benefit of weight loss. BMI 39.34 kg/(m^2) - COMPLETE BLOOD COUNT AND DIFFERENTIAL 3. Hyperlipidemia, mixed - ICD9: 272.2, ICD10: E78.2 - Control undetermined, due for labs - Continue current medications - Counseled on healthy diet and regular exercise - Discussed need for and benefit of weight loss. BMI 39.34 kg/(m^2) - LIPID PANEL, NONFASTING 4. Gastroesophageal reflux disease, unspecified whether esophagitis present - ICD9: 530.81, ICD10: K21.9 - Continue treatment with Pantoprazole - COMPLETE BLOOD COUNT AND DIFFERENTIAL 5. Obesity, Class II, BMI 35-39.9 - ICD9: 278.00, ICD10: E66.812 Weight decreasing 6. CARMEN (generalized anxiety disorder) - ICD9: 300.02, ICD10: F41.1 - BUSPIRONE 5 MG TABLET Dagoberto Quiles APRN.VENEER TAPING MACHINE OPERATOR documented in this encounter [facility] 12-04-2024 Discharge summary [facility] 12-04-2024 Radiology Diagnostic study note [facility] Imaging Services [address] [place], [place] [address] CTA Chest W/WO Contrast MR#: [id number] Acct: [id number] Name: MCKINLEY MCGEE Rep #: [id number] : 1980 M 43 From: Mariya Nolen MD PCP: CORWIN VuongC Status: REG ER Study:CTA Chest W/WO Contrast Date of Exam: 12/04/24 Exam# [id number] Ordering Dr: Yinka Strauss MD PROCEDURE: CTA CHEST W/WO CONTRAST 12/04/2024 REASON FOR EXAM: EVALUATE FOR AORTIC DISSECTION TECHNIQUE: CTA CHEST W/WO CONTRAST Multiplanar Sagittal and Coronal images were obtained. One or more dose reduction techniques were used (e.g., Automated exposure control, adjustment of the mA and/or kV according to patient size, use of iterative reconstruction technique). RADIATION DOSE SUMMARY: CTDlvol: 32 mGy DLP: 984 mGycm COMPARISON: No FINDINGS: Unremarkable base of neck and axilla. Thoracic spine degeneration. Normal esophagus. Normal heart size. No aortic dissection. No central pulmonary embolism. Limited peripheral pulmonary arterial assessmentfor technical reasons. No acute chest wall findings. Diffuse hepatic steatosis. No acute upper abdominal findings. Central airways are patent. Mild bronchial wall thickening. Bilateral scattered areas of tree-in-bud densities consistent with bronchiolitis. No consolidation, effusion, or pneumothorax. CT/CTA Chest W/WO Contrast IMPRESSION: Bilateral bronchiolitis. No embolism, dissection, or pneumonia. Reading Location: [place] [address] CC: UNDERGROUND REPAIRER-C Dagoberto Quiles; Dr. Kerwin Strauss MD ~ Pocket Setter Lockstitch: Signed [facility] 12-01-2024 Telephone encounter Note The patient has been identified by name and date of : Yes Caregiver verified no other encounters exist for this prescription request: Yes Caregiver confirmed with patient/requestor that no other refills are due, in the near future, with this provider at this time: Yes The last office visit in the department: 06/04/2024 Does the patient have a future office visit with this provider/department: 12/09/2024 Requested Prescriptions Pending Prescriptions Disp Refills glimepiride (AMARYL) 4 mg tablet 90 tablet 1 Sig: Take 1 tablet by mouth daily with breakfast. Take with with 2 mg tablet daily to equal 6 mg daily. Kay Armendariz RN December 01, 2024 10:17 AM [facility] 12-01-2024 Miscellaneous Notes The patient has been identified by name and date of : Yes Caregiver verified no other encounters exist for this prescription request: Yes Caregiver confirmed with patient/requestor that no other refills are due, in the near future, with this provider at this time: Yes The last office visit in the department: 06/04/2024 Does the patient have a future office visit with this provider/department: 12/09/2024 Requested Prescriptions Pending Prescriptions Disp Refills glimepiride (AMARYL) 4 mg tablet 90 tablet 1 Sig: Take 1 tablet by mouth daily with breakfast. Take with with 2 mg tablet daily to equal 6 mg daily. Kay Armendariz RN December 01, 2024 10:17 AM documented in this encounter [facility] 11-30-2024 Telephone encounter Note The patient has been identified by name and date of : Yes Caregiver verified no other encounters exist for this prescription request: Yes Caregiver confirmed with patient/requestor that no other refills are due, in the near future, with this provider at this time: Yes The last office visit in the department: 06/04/2024 Does the patient have a future office visit with this provider/department: Yes 12/09/2024 Requested Prescriptions Pending Prescriptions Disp Refills pantoprazole DR (PROTONIX) 40 mg tablet 90 tablet 1 Sig: Take 1 tablet by mouth daily before breakfast. Take on empty stomach, 1/2 hr before meal. escitalopram oxalate (LEXAPRO) 20 mg tablet 90 tablet 1 Sig: Take 1 tablet by mouth once daily. glimepiride (AMARYL) 2 mg tablet 90 tablet 1 Sig: Take 1 tablet by mouth once daily. Take with 4 mg tablet to equal 6 mg daily. gabapentin (NEURONTIN) 300 mg capsule 60 capsule 2 Sig: Take 2 capsules by mouth daily at bedtime for 90 days. simvastatin (ZOCOR) 10 mg tablet 90 tablet 1 Sig: Take 1 tablet by mouth daily at bedtime. For cholesterols. amLODIPine (NORVASC) 10 mg tablet 90 tablet 1 Sig: Take 1 tablet by mouth once daily. Rossy Ely RN [facility] 11-30-2024 Miscellaneous Notes The patient has been identified by name and date of : Yes Caregiver verified no other encounters exist for this prescription request: Yes Caregiver confirmed with patient/requestor that no other refills are due, in the near future, with this provider at this time: Yes The last office visit in the department: 06/04/2024 Does the patient have a future office visit with this provider/department: Yes 12/09/2024 Requested Prescriptions Pending Prescriptions Disp Refills pantoprazole DR (PROTONIX) 40 mg tablet 90 tablet 1 Sig: Take 1 tablet by mouth daily before breakfast. Take on empty stomach, 1/2 hr before meal. escitalopram oxalate (LEXAPRO) 20 mg tablet 90 tablet 1 Sig: Take 1 tablet by mouth once daily. glimepiride (AMARYL) 2 mg tablet 90 tablet 1 Sig: Take 1 tablet by mouth once daily. Take with 4 mg tablet to equal 6 mg daily. gabapentin (NEURONTIN) 300 mg capsule 60 capsule 2 Sig: Take 2 capsules by mouth daily at bedtime for 90 days. simvastatin (ZOCOR) 10 mg tablet 90 tablet 1 Sig: Take 1 tablet by mouth daily at bedtime. For cholesterols. amLODIPine (NORVASC) 10 mg tablet 90 tablet 1 Sig: Take 1 tablet by mouth once daily. Rossy Ely RN documented in this encounter [facility] 11-02-2024 Telephone encounter Note Prescription Refill Information The patient has been identified by name and date of : Yes Caregiver verified no other encounters exist for this prescription request: Yes Caregiver confirmed with patient/requestor that no other refills are due, in the near future, with this provider at this time: Yes The last office visit in the department: 06-04-24 Does the patient have a future office visit with this provider/department: Yes Requested Prescriptions Pending Prescriptions Disp Refills losartan (COZAAR) 25 mg tablet 90 tablet 1 Sig: Take 1 tablet by mouth once daily. Ama Pan November 02, 2024 9:13 AM [facility] 11-02-2024 Miscellaneous Notes Prescription Refill Information The patient has been identified by name and date of : Yes Caregiver verified no other encounters exist for this prescription request: Yes Caregiver confirmed with patient/requestor that no other refills are due, in the near future, with this provider at this time: Yes The last office visit in the department: 06-04-24 Does the patient have a future office visit with this provider/department: Yes Requested Prescriptions Pending Prescriptions Disp Refills losartan (COZAAR) 25 mg tablet 90 tablet 1 Sig: Take 1 tablet by mouth once daily. Ama Chua [facility] November 02, 2024 9:13 AM documented in this encounter [facility] 10-05-2024 Telephone encounter Note PDMP website checked and validated. All prescriptions have been APPROPRIATELY filled. No suspicious activity was identified. 10/05/2024 by Candida Britton APRN.CNP [facility] 10-05-2024 Miscellaneous Notes PDMP website checked and validated. All prescriptions have been APPROPRIATELY filled. No suspicious activity was identified. 10/05/2024 by Candida Britton APRN.CNP Next appt 12/09. Prescription Refill Information The patient has been identified by name and date of : Yes Caregiver verified no other encounters exist for this prescription request: Yes Caregiver confirmed with patient/requestor that no other refills are due, in the near future, with this provider at this time: Yes The last office visit in the department: 06-04-24 Does the patient have a future office visit with this provider/department: Yes Requested Prescriptions Pending Prescriptions Disp Refills gabapentin (NEURONTIN) 300 mg capsule 60 capsule 2 Sig: Take 2 capsules by mouth daily at bedtime for 90 days. metFORMIN ER (GLUCOPHAGE XR) 500 mg 24 hr tablet 180 tablet 1 Sig: Take 2 tablets by mouth daily with dinner. Ama Pan October 05, 2024 9:07 AM documented in this encounter [facility] 10-05-2024 Telephone encounter Note Next appt 12/09. [facility] 10-05-2024 Telephone encounter Note Prescription Refill Information The patient has been identified by name and date of : Yes Caregiver verified no other encounters exist for this prescription request: Yes Caregiver confirmed with patient/requestor that no other refills are due, in the near future, with this provider at this time: Yes The last office visit in the department: 06-04-24 Does the patient have a future office visit with this provider/department: Yes Requested Prescriptions Pending Prescriptions Disp Refills gabapentin (NEURONTIN) 300 mg capsule 60 capsule 2 Sig: Take 2 capsules by mouth daily at bedtime for 90 days. metFORMIN ER (GLUCOPHAGE XR) 500 mg 24 hr tablet 180 tablet 1 Sig: Take 2 tablets by mouth daily with dinner. Ama Pan October 05, 2024 9:07 AM [facility] 09-21-2024 Telephone encounter Note Faxed to below Tarik Velasquez MA [facility] 09-21-2024 Miscellaneous Notes Faxed to below Tarik Velasquez MA OV complete. Please fax to [facility]. Ninoska- [facility] Sleep lab looking for office visits notes prior to the home sleep study done 08/18/24. Advised ov prior to 08/18/24 was 06/04/24. Advised Ninoska, patient has appt with provider on 09/21/24 to discuss sleep apnea with patient. Ninoska asking provider to document signs and symptoms to support home sleep test that was done. Please fax those ov notes to attn: Ninoska, [facility] sleep lab, at fax # [phone]. Ninoska reports since patient has [employer], patient qualifies for auto pap. Please phone Ninoska with any questions: [phone] option 1. documented in this encounter [facility] 09-21-2024 Telephone encounter Note OV complete. Please fax to [facility]. [facility] 09-21-2024 Note HNO ID: [id number] Author: DAGOBERTO QUILES APRN.CNP Service: ? Author Type: Nurse Practitioner Type: Progress Notes Filed: 09/21/2024 14:49 Note Text: VIRTUAL VISIT PROGRESS NOTE This is a virtual visit using [employer] Zoom Video Visit. It required patient-provider interaction for the medical decision making as documented below. I have communicated my name and active licensure. The patient's identity and physical location were verified at the time of this visit. Either the patient or their legal new accounts banking representative has been informed of the risks and benefits of -- and alternatives to -- treatment through a remote evaluation and consents to proceed with the evaluation remotely. Mckinley Mcgee is a 43 year old male seen for follow up for HSAT. Patient completed HSAT due to concerns for JOLANTA including snoring, daytime fatigue and obesity. HSAT results showed severe sleep apnea with periods of hypoxia. PAP study was recommended due to severity of symptoms. Patient reports continued snoring, daytime fatigue. Patient is on rybelsus and reports 7-8 pound weight loss. IMPRESSION/RECOMMENDATIONS: 1. This study confirms a diagnosis of severe obstructive sleep apnea with O2 desaturations to 80%. 2. The results of this study may represent an underestimation of the degree of obstructive sleep apnea, especially hypopneas, because of the known limitations of HSAT, such as inability to record arousals because EEG is not recorded. 3. Untreated sleep apnea is associated with a variety of consequences including but not limited to hypertension, heart disease, stroke, obesity and daytime sleepiness that can affect normal daytime functioning. 4. PAP therapy is the usual first line therapy. Other treatment options for JOLANTA may include weight loss, positional therapy, oral appliance, upper airway surgery, upper airway stimulation, treatment of allergies and avoidance of alcohol and sedating medications (such as opioids, benzodiazepines, and muscle relaxers) that can cause respiratory depression. I recommend an in lab PAP titration HISTORY REVIEWED (electronic chart updated): PAST MEDICAL HISTORY Diagnosis Date ANXIETY STATE NOS 10/07/2008 Condyloma acuminatum 05/10/2011 DDD (degenerative disc disease), cervical Depression Diabetes mellitus (HCC) ELEV BL PRES W/O HYPERTN 12/17/2005 Erectile dysfunction Esophageal reflux 12/17/2005 HYPERGLYCEMIA 01/17/2006 Hypertension Knee MCL sprain 1990s Right knee Morbid obesity (HCC) OVERWEIGHT 12/17/2005 Perianal abscess 04/22/2012 PTSD (post-traumatic stress disorder) Snoring Tobacco use disorder 12/17/2005 Vitamin D deficiency PAST SURGICAL HISTORY Procedure Laterality Date DEBRIDEMENT OPEN WOUND 20 SQ CM/< 04/22/2012 Debridement perianal abscess PAST SURGICAL HISTORY OF 06/02/1990 Right upper arm laceration PAST SURGICAL HISTORY OF 04/10/2012 neuroma right foot TONSILLECTOMY PRIMARY/SECONDARY Tonsillectomy VASECTOMY FAMILY HISTORY Problem Relation Age of Onset Heart Father Hypertension Mother Cancer Mother Social History Tobacco Use Smoking status: Every Day Current packs/day: 0.50 Average packs/day: 0.5 packs/day for 6.0 years (3.0 ttl pk-yrs) Types: Cigarettes Smokeless tobacco: Former Tobacco comments: currently trying to quit - 4 or 5 cigarettes/day Substance Use Topics Alcohol use: Yes Alcohol/week: 6.0 standard drinks of alcohol Types: 6 Cans of Beer (12oz) per week Comment: occasionally (weekends) Drug use: Yes Types: Marijuana Comment: socially - special occasions Current Outpatient Medications Medication Sig semaglutide (RYBELSUS) 3 mg tablet Take 1 tablet by mouth daily before breakfast. Take 30 minutes before the first food, beverage, or other oral medications of the day with no more than 4 ounces of plain water glimepiride (AMARYL) 2 mg tablet Take 1 tablet by mouth once daily. Take with 4 mg tablet to equal 6 mg daily. glimepiride (AMARYL) 4 mg tablet Take 1 tablet by mouth daily with breakfast. Take with with 2 mg tablet daily to equal 6 mg daily. gabapentin (NEURONTIN) 300 mg capsule Take 2 capsules by mouth daily at bedtime for 90 days. simvastatin (ZOCOR) 10 mg tablet Take 1 tablet by mouth daily at bedtime. For cholesterols. metFORMIN ER (GLUCOPHAGE XR) 500 mg 24 hr tablet Take 2 tablets by mouth daily with dinner. amLODIPine (NORVASC) 10 mg tablet Take 1 tablet by mouth once daily. escitalopram oxalate (LEXAPRO) 20 mg tablet Take 1 tablet by mouth once daily. losartan (COZAAR) 25 mg tablet Take 1 tablet by mouth once daily. pantoprazole DR (PROTONIX) 40 mg tablet Take 1 tablet by mouth daily before breakfast. Take on empty stomach, 1/2 hr before meal. Blood Pressure Kit-Extra Large kit 1 Each once daily. blood sugar diagnostic (BLOOD GLUCOSE TEST) test strip Test blood sugar(s) 1 times daily. Dx: Type 2 DM - Uncontrolled E11.65 Insulin: No Lancets lanc (more content not included)... [facility] 09-21-2024 History of Present illness Narrative VIRTUAL VISIT PROGRESS NOTE This is a virtual visit using [employer] Zoom Video Visit. It required patient-provider interaction for the medical decision making as documented below. I have communicated my name and active licensure. The patient's identity and physical location were verified at the time of this visit. Either the patient or their legal new accounts banking representative has been informed of the risks and benefits of -- and alternatives to -- treatment through a remote evaluation and consents to proceed with the evaluation remotely. Mckinley Mcgee is a 43 year old male seen for follow up for HSAT. Patient completed HSAT due to concerns for JOLANTA including snoring, daytime fatigue and obesity. HSAT results showed severe sleep apnea with periods of hypoxia. PAP study was recommended due to severity of symptoms. Patient reports continued snoring, daytime fatigue. Patient is on rybelsus and reports 7-8 pound weight loss. IMPRESSION/RECOMMENDATIONS: 1. This study confirms a diagnosis of severe obstructive sleep apnea with O2 desaturations to 80%. 2. The results of this study may represent an underestimation of the degree of obstructive sleep apnea, especially hypopneas, because of the known limitations of HSAT, such as inability to record arousals because EEG is not recorded. 3. Untreated sleep apnea is associated with a variety of consequences including but not limited to hypertension, heart disease, stroke, obesity and daytime sleepiness that can affect normal daytime functioning. 4. PAP therapy is the usual first line therapy. Other treatment options for JOLANTA may include weight loss, positional therapy, oral appliance, upper airway surgery, upper airway stimulation, treatment of allergies and avoidance of alcohol and sedating medications (such as opioids, benzodiazepines, and muscle relaxers) that can cause respiratory depression. I recommend an in lab PAP titration HISTORY REVIEWED (electronic chart updated): PAST MEDICAL HISTORY Diagnosis Date ANXIETY STATE NOS 10/07/2008 Condyloma acuminatum 05/10/2011 DDD (degenerative disc disease), cervical Depression Diabetes mellitus (HCC) ELEV BL PRES W/O HYPERTN 12/17/2005 Erectile dysfunction Esophageal reflux 12/17/2005 HYPERGLYCEMIA 01/17/2006 Hypertension Knee MCL sprain 1990s Right knee Morbid obesity (HCC) OVERWEIGHT 12/17/2005 Perianal abscess 04/22/2012 PTSD (post-traumatic stress disorder) Snoring Tobacco use disorder 12/17/2005 Vitamin D deficiency PAST SURGICAL HISTORY Procedure Laterality Date DEBRIDEMENT OPEN WOUND 20 SQ CM/< 04/22/2012 Debridement perianal abscess PAST SURGICAL HISTORY OF 06/02/1990 Right upper arm laceration PAST SURGICAL HISTORY OF 04/10/2012 neuroma right foot TONSILLECTOMY PRIMARY/SECONDARY <AGE 12 Tonsillectomy VASECTOMY FAMILY HISTORY Problem Relation Age of Onset Heart Father Hypertension Mother Cancer Mother Social History Tobacco Use Smoking status: Every Day Current packs/day: 0.50 Average packs/day: 0.5 packs/day for 6.0 years (3.0 ttl pk-yrs) Types: Cigarettes Smokeless tobacco: Former Tobacco comments: currently trying to quit - 4 or 5 cigarettes/day Substance Use Topics Alcohol use: Yes Alcohol/week: 6.0 standard drinks of alcohol Types: 6 Cans of Beer (12oz) per week Comment: occasionally (weekends) Drug use: Yes Types: Marijuana Comment: socially - special occasions Current Outpatient Medications Medication Sig semaglutide (RYBELSUS) 3 mg tablet Take 1 tablet by mouth daily before breakfast. Take 30 minutes before the first food, beverage, or other oral medications of the day with no more than 4 ounces of plain water glimepiride (AMARYL) 2 mg tablet Take 1 tablet by mouth once daily. Take with 4 mg tablet to equal 6 mg daily. glimepiride (AMARYL) 4 mg tablet Take 1 tablet by mouth daily with breakfast. Take with with 2 mg tablet daily to equal 6 mg daily. gabapentin (NEURONTIN) 300 mg capsule Take 2 capsules by mouth daily at bedtime for 90 days. simvastatin (ZOCOR) 10 mg tablet Take 1 tablet by mouth daily at bedtime. For cholesterols. metFORMIN ER (GLUCOPHAGE XR) 500 mg 24 hr tablet Take 2 tablets by mouth daily with dinner. amLODIPine (NORVASC) 10 mg tablet Take 1 tablet by mouth once daily. escitalopram oxalate (LEXAPRO) 20 mg tablet Take 1 tablet by mouth once daily. losartan (COZAAR) 25 mg tablet Take 1 tablet by mouth once daily. pantoprazole DR (PROTONIX) 40 mg tablet Take 1 tablet by mouth daily before breakfast. Take on empty stomach, 1/2 hr before meal. Blood Pressure Kit-Extra Large kit 1 Each once daily. blood sugar diagnostic (BLOOD GLUCOSE TEST) test strip Test blood sugar(s) 1 times daily. Dx: Type 2 DM - Uncontrolled E11.65 Insulin: No Lancets lancets Test blood sugar(s) 1 times daily. Dx: Type 2 DM - Uncontrolled E11.65 Insulin: No No current facility-administered medications for this visit. ALLERGIES Allergen Reactions Latex Rash Lisinopril Cough Penicillins Unknown childhood- unknown reaction -Has taken amoxil Prozac [Fluoxetine] Mental Status Change Wellbutrin [Bupropi* GI Upset REVIEW OF SYSTEMS: SEE HPI PHYSICAL EXAMINATION: VIDEO EXAM: (if completed, performed via video enabled technology) GENERAL: alert and appropriate, in no distress, well-hydrated, well nourished, happy, smiling, interactive, and overweight RESPIRATORY: breathing non-labored CHEST: equal chest rise with normal respiratory effort and no chest wall deformity or tenderness to palpation ASSESSMENT/PLAN: 1. JOLANTA (obstructive sleep apnea) - ICD9: 327.23, ICD10: G47.33 (primary diagnosis) 2. Fatigue, unspecified type - ICD9: 780.79, ICD10: R53.83 3. Snoring - ICD9: 786.09, ICD10: R06.83 4. Obesity, Class II, BMI 35-39.9 - ICD9: 278.00, ICD10: E66.812 HSAT completed and PAP titration recommended. Patient to schedule PAP study with [facility]. I spent a total of 22 minutes on the date of the service which included preparing to see the patient, [id number] patient care, completing clinical documentation, obtaining and/or reviewing separately obtained history, performing a medically appropriate examination, counseling and educating the patient/family/caregiver, ordering medications, tests, or procedures, and communicating results to the patient/family/caregiver Dagoberto Quiles APRN.VENEER TAPING MACHINE OPERATOR documented in this encounter [facility] 09-20-2024 Telephone encounter Note N[place]ka- [facility] Sleep lab looking for office visits notes prior to the home sleep study done 08/18/24. Advised ov prior to 08/18/24 was 06/04/24. Advised Ninoska, patient has appt with provider on 09/21/24 to discuss sleep apnea with patient. Ninoska asking provider to document signs and symptoms to support home sleep test that was done. Please fax those ov notes to attn: N[place]ka, [facility] sleep lab, at fax # [phone]. Ninoska reports since patient has [employer], patient qualifies for auto pap. Please phone Ninoska with any questions: [phone] option 1. [facility] 09-20-2024 Telephone encounter Note Fax rec'd this was approved from 09/17/24 to 03/19/25. Pt notified via my chart. [facility] 09-20-2024 Miscellaneous Notes Fax rec'd this was approved from 09/17/24 to 03/19/25. Pt notified via my chart. Completed [employer] PA form and faxed Joanna Granados MA Called [employer] and PA is needed for the rybelsus 3mg daily. This was previously approved for 7 mg daily. Need to know why the dose is decreasing? Normally dosing is starting out a 3mg daily the increased to 7mg daily. In review it appears 7mg daily is causing side effects of stomach issues per my chart message from 07/13/24. [employer] is faxing PA to be completed for rybelsus 3mg daily. [facility] reports every time they try to run rybelsus it says PA needed. It says Max quantity is 60 tabs in 365 days. Today it says 2 tabs. Advised per 06/16/24 encounter teresa was approved by [facility] from 06/15/24 to 06/15/25. Esther from [facility] says she ran it several times and it says needs prior auth. Esther say insurance is [employer], ID# [id number] documented in this encounter [facility] 09-17-2024 Telephone encounter Note Patient calls back and schedules virtual visit with provider on 09/21/2024. Kourtney Rachel RN [facility] 09-17-2024 Miscellaneous Notes Patient calls back and schedules virtual visit with provider on 09/21/2024. Kourtney Rachel RN Left message for patient to return call to office. See phone encounter 09/16/24 Per phone encounter 09/16/24 pt was told he will need a face to face or virtual visit so office notes and titration order can be faxed to [facility]. It appears pt scheduled on 09/30/24, if pt would like seen sooner there are several openings that can be offered. Tarik Velasquez MA patient is calling in stating that [facility] sleep lab is needing the referral and prior auth for his sleep study titration sent to them so patient can get the titration study completed. Please sent information. documented in this encounter [facility] 09-17-2024 Telephone encounter Note Left message for patient to return call to office. See phone encounter 09/16/24 Per phone encounter 09/16/24 pt was told he will need a face to face or virtual visit so office notes and titration order can be faxed to [facility]. It appears pt scheduled on 09/30/24, if pt would like seen sooner there are several openings that can be offered. Tarik Velasquez MA [facility] 09-17-2024 Telephone encounter Note patient is calling in stating that [facility] sleep lab is needing the referral and prior auth for his sleep study titration sent to them so patient can get the titration study completed. Please sent information. [facility] 09-17-2024 Telephone encounter Note Completed [employer] PA form and faxed Joanna Granados MA [facility] 09-17-2024 Telephone encounter Note Called [employer] and PA is needed for the rybelsus 3mg daily. This was previously approved for 7 mg daily. Need to know why the dose is decreasing? Normally dosing is starting out a 3mg daily the increased to 7mg daily. In review it appears 7mg daily is causing side effects of stomach issues per my chart message from 07/13/24. [employer] is faxing PA to be completed for rybelsus 3mg daily. [facility] 09-17-2024 Telephone encounter Note [facility] reports every time they try to run rybelsus it says PA needed. It says Max quantity is 60 tabs in 365 days. Today it says 2 tabs. Advised per 06/16/24 encounter rybelsus was approved by [facility] from 06/15/24 to 06/15/25. Esther from [facility] says she ran it several times and it says needs prior auth. Esther say insurance is [employer], ID# [id number] [facility] 09-16-2024 Telephone encounter Note Pt called and is notified of providers message and instructions. Pt voices understanding and states he will go on MyChart and schedule an appointment.. Ingrid Brown RN [facility] 09-16-2024 Miscellaneous Notes Pt called and is notified of providers message and instructions. Pt voices understanding and states he will go on MyChart and schedule an appointment.. Ingrid Brown RN Left message for patient to return call to office Tarik Velasquez MA Please schedule patient for VV or OV to discuss HSAT so that Pap titration can be scheduled and approved. Grayson [facility] Sleep Lab called over asking for OV notes dated prior to 08/18/24 for home sleep apnea test, stating that Pt needed the screening and why. The most recent OV notes were from 06/04/24, and I didn't see mention of the sleep apnea test. I didn't know if this visit could be addended to include this and fax over to [facility] sleep lab at fax # [phone]. Grayson states that they are supposed to do the titration, and no DME will authorize this without OV notes. documented in this encounter [facility] 09-16-2024 Telephone encounter Note Left message for patient to return call to office Tarik Velasquez MA [facility] 09-16-2024 Telephone encounter Note Please schedule patient for VV or OV to discuss HSAT so that Pap titration can be scheduled and approved. [facility] 09-16-2024 Telephone encounter Note Grayson [facility] Sleep Lab called over asking for OV notes dated prior to 08/18/24 for home sleep apnea test, stating that Pt needed the screening and why. The most recent OV notes were from 06/04/24, and I didn't see mention of the sleep apnea test. I didn't know if this visit could be addended to include this and fax over to [facility] sleep lab at fax # [phone]. Grayson states that they are supposed to do the titration, and no DME will authorize this without OV notes. [facility] 08-26-2024 Telephone encounter Note Patient calls back and is requesting order to be faxed to [facility] sleep lab. Testing results, order, and face sheet faxed to [facility] sleep lab as requested. Kourtney Rachel RN [facility] 08-26-2024 Miscellaneous Notes Patient calls back and is requesting order to be faxed to [facility] sleep lab. Testing results, order, and face sheet faxed to [facility] sleep lab as requested. Kourtney Rachel RN Spoke with patient and he declined to schedule due to his work schedule. And then stated he wanted to check with insurance I advised we could run the estimate and provide him with that information and he still declined to schedule. documented in this encounter [facility] 08-26-2024 Telephone encounter Note Spoke with patient and he declined to schedule due to his work schedule. And then stated he wanted to check with insurance I advised we could run the estimate and provide him with that information and he still declined to schedule. [facility] 08-20-2024 Note HNO ID: [id number] Author: ?, ?, ? Service: ? Author Type: ? Type: Progress Notes Filed: 08/20/2024 09:57 Note Text: Sleep Study Check-In Documentation Date: August 20, 2024 Name: Mckinley Mcgee Comments: HST was returned in working order with all sleep questionnaires Zurdo Warner [facility] 08-20-2024 History of Present illness Narrative Sleep Study Check-In Documentation Date: August 20, 2024 Name: Mckinley Mcgee Comments: HST was returned in working order with all sleep questionnaires Zurdo Warner Nomad# [id number] , date shipped out 08/17/24 Tracking mailout: [id number] Tracking return: [id number] SENT VIA FED EX August 12, 2024 Standing PSG Orders signed in the last 90 days None Future PSG Orders signed in the last 90 days Ordered Auth. provider HOME SLEEP APNEA TEST (HSAT) [[id number]] 08/05/24 Dagoberto Quiles APRN.VENEER TAPING MACHINE OPERATOR Assoc. diagnoses: Fatigue, unspecified type [R53.83], Snoring [R06.83] Q: Indications: A: Obstructive sleep apnea Q: STOP-BANG conditions - Select All That Apply: A: GENDER = male A2: BMI > 35 kg/m2 A3: high blood PRESSURE Q: Current use of supplemental oxygen during sleep period?: A: No All Prior Sleep Studies (past 365 days) 08/05/2024 13:37 Sleep Studies HOME SLEEP APNEA TEST (HSAT) HOME SLEEP APNEA TEST (HSAT) Order Status: Ordered, Future Expires: 08/05/25 BMI Readings from Last 2 Encounters: 06/04/24 : (P) 39.12 kg/m 11/07/23 : (P) 38.25 kg/m PAST MEDICAL HISTORY Diagnosis Date ANXIETY STATE NOS 10/07/2008 Condyloma acuminatum 05/10/2011 DDD (degenerative disc disease), cervical Depression Diabetes mellitus (HCC) ELEV BL PRES W/O HYPERTN 12/17/2005 Erectile dysfunction Esophageal reflux 12/17/2005 HYPERGLYCEMIA 01/17/2006 Hypertension Knee MCL sprain 1990s Right knee Morbid obesity (HCC) OVERWEIGHT 12/17/2005 Perianal abscess 04/22/2012 PTSD (post-traumatic stress disorder) Snoring Tobacco use disorder 12/17/2005 Vitamin D deficiency The medical record was reviewed to determine if the proposed sleep study conforms to the AASM Practice Parameters for the Indications for Polysomnography and Related Procedures, or if the sleep study is indicated for other reasons. Indications for study: JOLANTA suspected without comorbid medical or sleep disorders Sleep study to be performed: Home Sleep Apnea Test (HSAT) Special instructions: None-follow laboratory protocol Mireya Mcgee Sleep Medicine Staff Note: I have read the above protocol, edited as needed, and agree to the plan. Faiza Stover DO 10:49 AM, 08/12/2024 August 12, 2024 An order has been received for Home Sleep Apnea Test (HSAT) from Dagoberto Parra , agusto Cox. [facility] Staff. Visit prep complete. Comments :No The sleep study is scheduled for 08/18/2024. Insurance: Payor: [employer] / Plan: [employer] PPO / Product Type: PPO / Payer/Plan Subscr Sex Relation Sub. Ins. ID Effective Group Num 1. [employer] - AU* GEOVANNA MCGEE 10/19/1986 Female Spouse [id number]* 06/02/24 [id number] [address] Cherelle Pope documented in this encounter [facility] 08-17-2024 Note HNO ID: [id number] Author: ?, ?, ? Service: ? Author Type: ? Type: Progress Notes Filed: 08/20/2024 09:57 Note Text: Nomad# [id number] , date shipped out 08/17/24 Tracking mailout: [id number] Tracking return: [id number] SENT VIA FED EX [facility] 08-12-2024 Note HNO ID: [id number] Author: FAIZA OWUSU, DO Service: ? Author Type: ? Type: Progress Notes Filed: 08/20/2024 09:57 Note Text: August 12, 2024 Standing PSG Orders signed in the last 90 days None Future PSG Orders signed in the last 90 days Ordered Auth. provider HOME SLEEP APNEA TEST (HSAT) [[id number]] 08/05/24 Dagoberto Quiles, COOK LARDER.VENEER TAPING MACHINE OPERATOR Assoc. diagnoses: Fatigue, unspecified type [R53.83], Snoring [R06.83] Q: Indications: A: Obstructive sleep apnea Q: STOP-BANG conditions - Select All That Apply: A: GENDER = male A2: BMI > 35 kg/m2 A3: high blood PRESSURE Q: Current use of supplemental oxygen during sleep period?: A: No All Prior Sleep Studies (past 365 days) 08/05/2024 13:37 Sleep Studies HOME SLEEP APNEA TEST (HSAT) HOME SLEEP APNEA TEST (HSAT) Order Status: Ordered, Future Expires: 08/05/25 BMI Readings from Last 2 Encounters: 06/04/24 : (P) 39.12 kg/m? 11/07/23 : (P) 38.25 kg/m? PAST MEDICAL HISTORY Diagnosis Date ANXIETY STATE NOS 10/07/2008 Condyloma acuminatum 05/10/2011 DDD (degenerative disc disease), cervical Depression Diabetes mellitus (HCC) ELEV BL PRES W/O HYPERTN 12/17/2005 Erectile dysfunction Esophageal reflux 12/17/2005 HYPERGLYCEMIA 01/17/2006 Hypertension Knee MCL sprain 1990s Right knee Morbid obesity (HCC) OVERWEIGHT 12/17/2005 Perianal abscess 04/22/2012 PTSD (post-traumatic stress disorder) Snoring Tobacco use disorder 12/17/2005 Vitamin D deficiency The medical record was reviewed to determine if the proposed sleep study conforms to the AASM Practice Parameters for the Indications for Polysomnography and Related Procedures, or if the sleep study is indicated for other reasons. Indications for study: JOLANTA suspected without comorbid medical or sleep disorders Sleep study to be performed: Home Sleep Apnea Test (HSAT) Special instructions: None-follow laboratory protocol Mireya Ramirez Tech Sleep Medicine Staff Note: I have read the above protocol, edited as needed, and agree to the plan. Faiza Stover DO 10:49 AM, 08/12/2024 [facility] 08-12-2024 Note HNO ID: [id number] Author: ?, ?, ? Service: ? Author Type: ? Type: Progress Notes Filed: 08/20/2024 09:57 Note Text: August 12, 2024 An order has been received for Home Sleep Apnea Test (HSAT) from Dagoberto Parra a B. [facility] Staff. Visit prep complete. Comments :No The sleep study is scheduled for 08/18/2024. Insurance: Payor: [employer] / Plan: [employer] PPO / Product Type: PPO / Payer/Plan Subscr Sex Relation Sub. Ins. ID Effective Group Num 1. [employer] - AU* GEOVANNA MCGEE 10/19/1986 Female Spouse [id number]* 06/02/24 [id number] Cherelle [facility] 08-11-2024 Note HNO ID: [id number] Author: JENNIFER MURPHY DO Service: ? Author Type: Physician Type: Progress Notes Filed: 08/11/2024 10:18 Note Text: August 11, 2024 Standing PSG Orders signed in the last 90 days None Future PSG Orders signed in the last 90 days Ordered Auth. provider HOME SLEEP APNEA TEST (HSAT) [[id number]] 08/05/24 Dagoberto Quiles APRN.VENEER TAPING MACHINE OPERATOR Assoc. diagnoses: Fatigue, unspecified type [R53.83], Snoring [R06.83] Q: Indications: A: Obstructive sleep apnea Q: STOP-BANG conditions - Select All That Apply: A: GENDER = male A2: BMI > 35 kg/m2 A3: high blood PRESSURE Q: Current use of supplemental oxygen during sleep period?: A: No All Prior Sleep Studies (past 365 days) 08/05/2024 13:37 Sleep Studies HOME SLEEP APNEA TEST (HSAT) HOME SLEEP APNEA TEST (HSAT) Order Status: Ordered, Future Expires: 08/05/25 BMI Readings from Last 2 Encounters: 06/04/24 : (P) 39.12 kg/m? 11/07/23 : (P) 38.25 kg/m? PAST MEDICAL HISTORY Diagnosis Date ANXIETY STATE NOS 10/07/2008 Condyloma acuminatum 05/10/2011 DDD (degenerative disc disease), cervical Depression Diabetes mellitus (HCC) ELEV BL PRES W/O HYPERTN 12/17/2005 Erectile dysfunction Esophageal reflux 12/17/2005 HYPERGLYCEMIA 01/17/2006 Hypertension Knee MCL sprain 1990s Right knee Morbid obesity (HCC) OVERWEIGHT 12/17/2005 Perianal abscess 04/22/2012 PTSD (post-traumatic stress disorder) Snoring Tobacco use disorder 12/17/2005 Vitamin D deficiency The medical record was reviewed to determine if the proposed sleep study conforms to the AASM Practice Parameters for the Indications for Polysomnography and Related Procedures, or if the sleep study is indicated for other reasons. Indications for study: JOLANTA suspected without comorbid medical or sleep disorders Sleep study to be performed: Home Sleep Apnea Test (HSAT) Special instructions: None-follow laboratory protocol Mireya Ashley Mcgee Sleep Medicine Staff Note: I have read the above protocol, edited as needed, and agree to the plan. Jennifer Frederick DO, JD 10:17 AM, 08/11/2024 [facility] 08-11-2024 History of Present illness Narrative August 11, 2024 Standing PSG Orders signed in the last 90 days None Future PSG Orders signed in the last 90 days Ordered Auth. provider HOME SLEEP APNEA TEST (HSAT) [[id number]] 08/05/24 Dagoberto Quiles APRN.VENEER TAPING MACHINE OPERATOR Assoc. diagnoses: Fatigue, unspecified type [R53.83], Snoring [R06.83] Q: Indications: A: Obstructive sleep apnea Q: STOP-BANG conditions - Select All That Apply: A: GENDER = male A2: BMI > 35 kg/m2 A3: high blood PRESSURE Q: Current use of supplemental oxygen during sleep period?: A: No All Prior Sleep Studies (past 365 days) 08/05/2024 13:37 Sleep Studies HOME SLEEP APNEA TEST (HSAT) HOME SLEEP APNEA TEST (HSAT) Order Status: Ordered, Future Expires: 08/05/25 BMI Readings from Last 2 Encounters: 06/04/24 : (P) 39.12 kg/m 11/07/23 : (P) 38.25 kg/m PAST MEDICAL HISTORY Diagnosis Date ANXIETY STATE NOS 10/07/2008 Condyloma acuminatum 05/10/2011 DDD (degenerative disc disease), cervical Depression Diabetes mellitus (HCC) ELEV BL PRES W/O HYPERTN 12/17/2005 Erectile dysfunction Esophageal reflux 12/17/2005 HYPERGLYCEMIA 01/17/2006 Hypertension Knee MCL sprain 1990s Right knee Morbid obesity (HCC) OVERWEIGHT 12/17/2005 Perianal abscess 04/22/2012 PTSD (post-traumatic stress disorder) Snoring Tobacco use disorder 12/17/2005 Vitamin D deficiency The medical record was reviewed to determine if the proposed sleep study conforms to the AASM Practice Parameters for the Indications for Polysomnography and Related Procedures, or if the sleep study is indicated for other reasons. Indications for study: JOLANTA suspected without comorbid medical or sleep disorders Sleep study to be performed: Home Sleep Apnea Test (HSAT) Special instructions: None-follow laboratory protocol Mireya Ramirez Tech Sleep Medicine Staff Note: I have read the above protocol, edited as needed, and agree to the plan. Jennifer Frederick DO, SHEREE 10:17 AM, 08/11/2024 August 10, 2024 An order has been received for Home Sleep Apnea Test (HSAT) from Dagoberto Parra a B. [facility] Staff. Visit prep complete. Comments :No The sleep study is scheduled for 08/18. Insurance: Payor: [employer] / Plan: [employer] PPO / Product Type: PPO / Payer/Plan Subscr Sex Relation Sub. Ins. ID Effective Group Num 1. [employer] - AU* GEOVANNA MCGEE 10/19/1986 Female Spouse [id number]* 06/02/24 [id number] Juan C Jimenez documented in this encounter [facility] 08-10-2024 Note HNO ID: [id number] Author: ?, ?, ? Service: ? Author Type: ? Type: Progress Notes Filed: 08/11/2024 10:18 Note Text: August 10, 2024 An order has been received for Home Sleep Apnea Test (HSAT) from Dagoberto Parra , agusto Cox. [facility] Staff. Visit prep complete. Comments :No The sleep study is scheduled for 08/18. Insurance: Payor: [employer] / Plan: [employer] PPO / Product Type: PPO / Payer/Plan Subscr Sex Relation Sub. Ins. ID Effective Group Num 1. [employer] - AU* GEOVANNA MCGEE 10/19/1986 Female Spouse [id number]* 06/02/24 [id number] Juan C Jimenez [facility] 08-05-2024 Telephone encounter Note Please see patients message requesting sleep study. Thank you. MEHUL Gasca [facility] 08-05-2024 Miscellaneous Notes Please see patients message requesting sleep study. Thank you. MEHUL Gasca documented in this encounter [facility] 07-31-2024 Telephone encounter Note This was sent to [employer], Could you send to [facility] please. Farzana Conti LPN [facility] 07-31-2024 Miscellaneous Notes This was sent to [employer], Could you send to [facility] please. Farzana Conti LPN documented in this encounter [facility] 07-15-2024 Telephone encounter Note Pt returned the call and notified of the msg from 06/11/24 where he said he was taking 4 mg of Rybelsus. Pt states he isn't sure why he said that as he was only taking 2 mg. But pt has been taking the 6 mg of Glimiperide for almost 2 weeks and is doing well on it. [facility] 07-15-2024 Miscellaneous Notes Pt returned the call and notified of the msg from 06/11/24 where he said he was taking 4 mg of Rybelsus. Pt states he isn't sure why he said that as he was only taking 2 mg. But pt has been taking the 6 mg of Glimiperide for almost 2 weeks and is doing well on it. Letter sent to patient. LEFT MESSAGE FOR PATIENT TO CALL OFFICE. Called and left a voicemail for the Patient to call back and ask for a nurse to receive the providers message. Ingrid Brown RN Strange since he is ordered 1 mg tabs and chart shows he should be taking 2 tablets daily with breakfast. If he has been taking 4 mg, I would increase him to 6 mg daily. Please let me know if he has had low sugars <70 recently. Check sugars fasting and before bed with goal <130 fasting and <150 before bed. Recommend he follow up with me in 3 months. I will try not to give him a hard time about the [place]. Patient returned call and given provider's message below. Pt states he has been taking glimepiride 4 mg for some time now. Asking if Dr. Stoddard wants him to increase further? Patient reports he has recently began taking simvastatin. States he wasn't able to take it prior because of not having insurance. Please call patient with reply. Rossy Ely RN Message left for patient to return call and request to speak with a nurse to review provider's message with patient. Tianna Lyman LPN Diabetes remains uncontrolled with A1c of 7.7. patient not on rybelsus at last OV, but doesn't say why. Recommend increasing his glimepiride to 4 mg daily from 2 mg daily. Check sugars fasting and before bed and call in 2-3 weeks with updated readings. Recommend OV in 3 months. Cholesterol high still. Patient was not taking statin at last OV, but does not say why. Was he having side effects on simvastatin? Hemoglobin mildly elevated which may be related to smoking. Other labs unremarkable. documented in this encounter [facility] 07-15-2024 Telephone encounter Note Pt had called in and will call [facility] and have them transfer the Rybelsus to them. He is going to do the pre-packaging and move all his scripts to [facility] pharmacy. [facility] 07-15-2024 Miscellaneous Notes Pt had called in and will call [facility] and have them transfer the Rybelsus to them. He is going to do the pre-packaging and move all his scripts to [facility] pharmacy. documented in this encounter [facility] 07-06-2024 Telephone encounter Note Letter sent to patient. [facility] 07-01-2024 Telephone encounter Note Letter mailed to pt to contact us regarding his questions and dosage of Glimiperide. Will await contact from pt. [facility] 07-01-2024 Miscellaneous Notes Letter mailed to pt to contact us regarding his questions and dosage of Glimiperide. Will await contact from pt. Left a message for pt to call the office and ask to speak to a nurse. Juliet Chua LPN Called and left a voicemail for the patient to call back and ask for a nurse to receive the providers message. Attempted to call as well but unable to leave msg on her phone as her voicemail is full. Call placed to patient with no answer. Voicemail left for patient to return call and ask to speak to a triage nurse to receive provider message. Kay Armendariz RN Phone note fro 06/14/2024 says to increase to 6 mg since patient reported he had been on 4 mg for some time and his A1c had increased. Is he restarting the Rybelsus? Candida Britton APRN.CHAY Spoke with pt and he was notified prescriptions were sent to the pharmacy. Pt had a question: Pt reports he was on Glimepiride 2 mg for a long time and then was bumped up to 6 mg. Would like to know why. Conrad advise pt. Juliet Chua LPN Call placed to patient with no answer. Voicemail left for patient to return call and ask to speak to a triage nurse to receive provider message. Kay Armendariz RN Please let patient know 3 mg tablets were not available so his prescription will be for a 2 mg and 4 mg tablet- he should take one each daily with breakfast. Candida Britton APRN.VENEER TAPING MACHINE OPERATOR [facility] calls to let provider know they do not have a 3 mg glimepiride pill. They are able to get 1, 2, or 4 mg. Pended request for review. Kay Armendariz RN documented in this encounter [facility] 06-29-2024 Telephone encounter Note Left a message for pt to call the office and ask to speak to a nurse. Juliet Chua LPN [facility] 06-25-2024 Telephone encounter Note Called and left a voicemail for the patient to call back and ask for a nurse to receive the providers message. Attempted to call as well but unable to leave msg on her phone as her voicemail is full. [facility] 06-23-2024 Telephone encounter Note Call placed to patient with no answer. Voicemail left for patient to return call and ask to speak to a triage nurse to receive provider message. Kay Armendariz RN [facility] 06-22-2024 Telephone encounter Note LEFT MESSAGE FOR PATIENT TO CALL OFFICE. [facility] 06-21-2024 Telephone encounter Note Phone note fro 06/14/2024 says to increase to 6 mg since patient reported he had been on 4 mg for some time and his A1c had increased. Is he restarting the Rybelsus? Candida Britton APRN.CHAY [facility] 06-21-2024 Telephone encounter Note Spoke with pt and he was notified prescriptions were sent to the pharmacy. Pt had a question: Pt reports he was on Glimepiride 2 mg for a long time and then was bumped up to 6 mg. Would like to know why. Conrad advise pt. Juliet Chua LPN [facility] 06-18-2024 Telephone encounter Note Call placed to patient with no answer. Voicemail left for patient to return call and ask to speak to a triage nurse to receive provider message. Kay Armendariz RN [facility] 06-18-2024 Telephone encounter Note Please let patient know 3 mg tablets were not available so his prescription will be for a 2 mg and 4 mg tablet- he should take one each daily with breakfast. Candida Britton APRN.CHAY [facility] 06-17-2024 Telephone encounter Note [facility] calls to let provider know they do not have a 3 mg glimepiride pill. They are able to get 1, 2, or 4 mg. Pended request for review. Kay Armendariz, RN [facility] 06-16-2024 Telephone encounter Note PA approval rec'd from [facility]. Approved from 06/15/24 to 06/15/25. This info was sent to the pharmacy and pt notified via my chart. [facility] 06-16-2024 Miscellaneous Notes PA approval rec'd from [facility]. Approved from 06/15/24 to 06/15/25. This info was sent to the pharmacy and pt notified via my chart. documented in this encounter [facility] 06-15-2024 Telephone encounter Note Patient returned call and went over notes below and he wants rx to go back to [facility] pharmacy, since a PA was being done on it. He said they have it in stock usually. Reset rx to file to [facility]. [facility] 06-15-2024 Miscellaneous Notes Patient returned call and went over notes below and he wants rx to go back to [facility] pharmacy, since a PA was being done on it. He said they have it in stock usually. Reset rx to file to [facility]. Called and left a voicemail for the Patient to call back and ask for a nurse to receive the providers message. Ingrid Brown RN Called and left VM for patient. Please let patient know that [facility] does not have rybelsus 7mg available and I have sent a rx to [facility]. I spoke to the pharmacist at [facility] and she is going to try to order it in. documented in this encounter [facility] 06-15-2024 Telephone encounter Note PA approved: Authorized from June 15, 2024 to June 15, 2025 Information received electronically from payer Left message on patient vm Joanna Granados MA [facility] 06-15-2024 Miscellaneous Notes PA approved: Authorized from June 15, 2024 to June 15, 2025 Information received electronically from payer Left message on patient vm Joanna Granados MA Form completed and faxed with office note/A1C Joanna Granados MA Patient called and notified of below. Patient requiring a prior authorization on medication. Patient states that he will schedule via my chart. PRIOR AUTHORIZATION Medication for Prior Authorization: semaglutide (Rybelsus) Insurance Company: [employer] Patient insurance ID number: [id number] Kourtney Rachel RN Telephone call placed to patient. Message left to call office back for providers message. Farzana Conti LPN Rx sent as requested. PDMP website checked and validated. All prescriptions have been APPROPRIATELY filled. No suspicious activity was identified. 06/08/2024 by Derek Stoddard MD Looks like he is scheduled with [facility] for his physical in November. I have not seen him since 2022. Would recommend scheduling physical with me instead since it has been so long. Patient calls to report that Rybelsus is not available through [facility] but he could get it from [facility]. He also request gabapentin to be sent to [facility] per usual. Pended as requested. Kay Armendariz RN documented in this encounter [facility] 06-15-2024 Telephone encounter Note Called and left a voicemail for the Patient to call back and ask for a nurse to receive the providers message. Ingrid Brown RN [facility] 06-15-2024 Telephone encounter Note Called and left VM for patient. Please let patient know that [facility] does not have rybelsus 7mg available and I have sent a rx to [facility]. I spoke to the pharmacist at [facility] and she is going to try to order it in. [facility] 06-14-2024 Telephone encounter Note Called and left a voicemail for the Patient to call back and ask for a nurse to receive the providers message. Ingrid Brown, RN [facility] 06-14-2024 Telephone encounter Note Strange since he is ordered 1 mg tabs and chart shows he should be taking 2 tablets daily with breakfast. If he has been taking 4 mg, I would increase him to 6 mg daily. Please let me know if he has had low sugars <70 recently. Check sugars fasting and before bed with goal <130 fasting and <150 before bed. Recommend he follow up with me in 3 months. I will try not to give him a hard time about the [place]. [facility] 06-14-2024 Telephone encounter Note Patient returned call and given provider's message below. Pt states he has been taking glimepiride 4 mg for some time now. Asking if Dr. Stoddard wants him to increase further? Patient reports he has recently began taking simvastatin. States he wasn't able to take it prior because of not having insurance. Please call patient with reply. Rossy Ely RN [facility] 06-11-2024 Telephone encounter Note Message left for patient to return call and request to speak with a nurse to review provider's message with patient. Tianna Lyman LPN [facility] 06-11-2024 Telephone encounter Note Diabetes remains uncontrolled with A1c of 7.7. patient not on rybelsus at last OV, but doesn't say why. Recommend increasing his glimepiride to 4 mg daily from 2 mg daily. Check sugars fasting and before bed and call in 2-3 weeks with updated readings. Recommend OV in 3 months. Cholesterol high still. Patient was not taking statin at last OV, but does not say why. Was he having side effects on simvastatin? Hemoglobin mildly elevated which may be related to smoking. Other labs unremarkable. [facility] 06-09-2024 Telephone encounter Note Form completed and faxed with office note/A1C Joanna Granados MA [facility] 06-08-2024 Telephone encounter Note Patient called and notified of below. Patient requiring a prior authorization on medication. Patient states that he will schedule via my chart. PRIOR AUTHORIZATION Medication for Prior Authorization: semaglutide (Rybelsus) Insurance Company: [employer] Patient insurance ID number: [id number] Kourtney Rachel RN [facility] 06-08-2024 Telephone encounter Note Telephone call placed to patient. Message left to call office back for providers message. Farzana Conti LPN [facility] 06-08-2024 Telephone encounter Note Rx sent as requested. PDMP website checked and validated. All prescriptions have been APPROPRIATELY filled. No suspicious activity was identified. 06/08/2024 by Derek Stoddard MD Looks like he is scheduled with Dag[facility]to for his physical in November. I have not seen him since 2022. Would recommend scheduling physical with me instead since it has been so long. [facility] 06-08-2024 Telephone encounter Note Patient calls to report that Rybelsus is not available through [facility] but he could get it from [facility]. He also request gabapentin to be sent to [facility] per usual. Pended as requested. Kay Armendariz RN [facility] 06-04-2024 Note HNO ID: [id number] Author: DAGOBERTO QUILES APRN.VENEER TAPING MACHINE OPERATOR Service: ? Author Type: Nurse Practitioner Type: Progress Notes Filed: 06/04/2024 13:43 Note Text: Chief Complaint Patient presents with: Follow Up HPI Mckinley Mcgee is a 43 year old male who presents here today for Above Complaints.. Patient presents for follow up. Patient was supposed to follow up in the fall but patient lost his insurance and was not able to come in until after the first of the year. Patient has not been taking rybelsus and simvastatin Past medical history, appointments, medications, allergies reviewed. Previous Medical History PAST MEDICAL HISTORY Diagnosis Date ANXIETY STATE NOS 10/07/2008 Condyloma acuminatum 05/10/2011 DDD (degenerative disc disease), cervical Depression Diabetes mellitus (HCC) ELEV BL PRES W/O HYPERTN 12/17/2005 Erectile dysfunction Esophageal reflux 12/17/2005 HYPERGLYCEMIA 01/17/2006 Hypertension Knee MCL sprain Right knee Morbid obesity (HCC) OVERWEIGHT 12/17/2005 Perianal abscess 04/22/2012 PTSD (post-traumatic stress disorder) Snoring Tobacco use disorder 12/17/2005 Vitamin D deficiency Previous Surgical History PAST SURGICAL HISTORY Procedure Laterality Date DEBRIDEMENT OPEN WOUND 20 SQ CM/< 04/22/2012 Debridement perianal abscess PAST SURGICAL HISTORY OF 06/02/1990 Right upper arm laceration PAST SURGICAL HISTORY OF 04/10/2012 neuroma right foot TONSILLECTOMY PRIMARY/SECONDARY Tonsillectomy VASECTOMY Family History FAMILY HISTORY Problem Relation Age of Onset Heart Father Hypertension Mother Cancer Mother Patient Allergies ALLERGIES Allergen Reactions Latex Rash Lisinopril Cough Penicillins Unknown childhood- unknown reaction -Has taken amoxil Prozac [Fluoxetine] Mental Status Change Wellbutrin [Bupropi* GI Upset Current Medications Current Outpatient Medications on File Prior to Visit Medication Sig gabapentin (NEURONTIN) 300 mg capsule Take 1 capsule by mouth two times a day for 90 days. metFORMIN ER (GLUCOPHAGE XR) 500 mg 24 hr tablet Take 2 tablets by mouth daily with dinner. amLODIPine (NORVASC) 10 mg tablet Take 1 tablet by mouth once daily. escitalopram oxalate (LEXAPRO) 20 mg tablet Take 1 tablet by mouth once daily. glimepiride (AMARYL) 1 mg tablet Take 2 tablets by mouth daily with breakfast. losartan (COZAAR) 25 mg tablet Take 1 tablet by mouth once daily. pantoprazole DR (PROTONIX) 40 mg tablet Take 1 tablet by mouth daily before breakfast. Take on empty stomach, 1/2 hr before meal. simvastatin (ZOCOR) 10 mg tablet Take 1 tablet by mouth daily at bedtime. For cholesterols. semaglutide (RYBELSUS) 7 mg tablet Take 1 tablet (7 mg) by mouth daily before breakfast. Blood Pressure Kit-Extra Large kit 1 Each once daily. blood sugar diagnostic (BLOOD GLUCOSE TEST) test strip Test blood sugar(s) 1 times daily. Dx: Type 2 DM - Uncontrolled E11.65 Insulin: No Lancets lancets Test blood sugar(s) 1 times daily. Dx: Type 2 DM - Uncontrolled E11.65 Insulin: No No current facility-administered medications on file prior to visit. Social History Social History Tobacco Use Smoking status: Every Day Current packs/day: 0.50 Average packs/day: 0.5 packs/day for 6.0 years (3.0 ttl pk-yrs) Types: Cigarettes Smokeless tobacco: Former Tobacco comments: currently trying to quit - 4 or 5 cigarettes/day Substance Use Topics Alcohol use: Yes Alcohol/week: 6.0 standard drinks of alcohol Types: 6 Cans of Beer (12oz) per week Comment: occasionally (weekends) Drug use: Yes Types: Marijuana Comment: socially - special occasions Review of Symptoms REVIEW OF SYSTEMS SEE HPI EXAM: BP 139/87 Pulse 96 Wt (!) 142 kg (313 lb) BMI (P) 39.12 kg/m? General Appearance: Well appearing, alert, in no acute distress, well-hydrated, well nourished. Lungs: Lungs clear to auscultation. No wheezing, rhonchi, rales.. Heart: RRR without murmur, gallop, or rubs. No ectopy. Peripheral Pulses: Normal. Health Maintenance List Hepatitis B Vaccine(1 of 3 - 19+ 3-dose series) Never done BP Controlled (<130/80) due on 12/18/2018 Urine Albumin:Creatinine Ratio due on 09/25/2021 Dilated Retinal Exam due on 09/13/2023 Diabetic Foot Exam due on 10/17/2023 Influenza Vaccine(1) due on 02/01/2024 Covid-19 Vaccine(2 - season) due on 02/01/2024 HbA1C due on 05/08/2024 LDL Cholesterol due on 11/06/2024 Annual PCP Team Chronic Disease Visit due on 11/06/2024 DTaP,Tdap,Td Vaccine(2 - Td or Tdap) due on 08/09/2029 Hepatitis C Screening Completed Pneumococcal Vaccine Completed HPV Vaccine Aged Out HIV Screening Discontinued Data reviewed Last 5 Encounter BP Readings: Date: BP: 06/04/2024 139/87 11/07/2023 146/87 11/05/2023 122/84 01/21/2023 138/86 11/13/2022 140/76 ASSESSMENT/PLAN: 1. Essential hypertension - ICD9: 401.9, ICD10: I10 (primary diagnosis) - Controlled - (more content not included)... [facility] 06-04-2024 History of Present illness Narrative Chief Complaint Patient presents with: Follow Up HPI Mckinley Mcgee is a 43 year old male who presents here today for Above Complaints.. Patient presents for follow up. Patient was supposed to follow up in the fall but patient lost his insurance and was not able to come in until after the first of the year. Patient has not been taking rybelsus and simvastatin Past medical history, appointments, medications, allergies reviewed. Previous Medical History PAST MEDICAL HISTORY Diagnosis Date ANXIETY STATE NOS 10/07/2008 Condyloma acuminatum 05/10/2011 DDD (degenerative disc disease), cervical Depression Diabetes mellitus (HCC) ELEV BL PRES W/O HYPERTN 12/17/2005 Erectile dysfunction Esophageal reflux 12/17/2005 HYPERGLYCEMIA 01/17/2006 Hypertension Knee MCL sprain 1990s Right knee Morbid obesity (HCC) OVERWEIGHT 12/17/2005 Perianal abscess 04/22/2012 PTSD (post-traumatic stress disorder) Snoring Tobacco use disorder 12/17/2005 Vitamin D deficiency Previous Surgical History PAST SURGICAL HISTORY Procedure Laterality Date DEBRIDEMENT OPEN WOUND 20 SQ CM/< 04/22/2012 Debridement perianal abscess PAST SURGICAL HISTORY OF 06/02/1990 Right upper arm laceration PAST SURGICAL HISTORY OF 04/10/2012 neuroma right foot TONSILLECTOMY PRIMARY/SECONDARY <AGE 12 Tonsillectomy VASECTOMY Family History FAMILY HISTORY Problem Relation Age of Onset Heart Father Hypertension Mother Cancer Mother Patient Allergies ALLERGIES Allergen Reactions Latex Rash Lisinopril Cough Penicillins Unknown childhood- unknown reaction -Has taken amoxil Prozac [Fluoxetine] Mental Status Change Wellbutrin [Bupropi* GI Upset Current Medications Current Outpatient Medications on File Prior to Visit Medication Sig gabapentin (NEURONTIN) 300 mg capsule Take 1 capsule by mouth two times a day for 90 days. metFORMIN ER (GLUCOPHAGE XR) 500 mg 24 hr tablet Take 2 tablets by mouth daily with dinner. amLODIPine (NORVASC) 10 mg tablet Take 1 tablet by mouth once daily. escitalopram oxalate (LEXAPRO) 20 mg tablet Take 1 tablet by mouth once daily. glimepiride (AMARYL) 1 mg tablet Take 2 tablets by mouth daily with breakfast. losartan (COZAAR) 25 mg tablet Take 1 tablet by mouth once daily. pantoprazole DR (PROTONIX) 40 mg tablet Take 1 tablet by mouth daily before breakfast. Take on empty stomach, 1/2 hr before meal. simvastatin (ZOCOR) 10 mg tablet Take 1 tablet by mouth daily at bedtime. For cholesterols. semaglutide (RYBELSUS) 7 mg tablet Take 1 tablet (7 mg) by mouth daily before breakfast. Blood Pressure Kit-Extra Large kit 1 Each once daily. blood sugar diagnostic (BLOOD GLUCOSE TEST) test strip Test blood sugar(s) 1 times daily. Dx: Type 2 DM - Uncontrolled E11.65 Insulin: No Lancets lancets Test blood sugar(s) 1 times daily. Dx: Type 2 DM - Uncontrolled E11.65 Insulin: No No current facility-administered medications on file prior to visit. Social History Social History Tobacco Use Smoking status: Every Day Current packs/day: 0.50 Average packs/day: 0.5 packs/day for 6.0 years (3.0 ttl pk-yrs) Types: Cigarettes Smokeless tobacco: Former Tobacco comments: currently trying to quit - 4 or 5 cigarettes/day Substance Use Topics Alcohol use: Yes Alcohol/week: 6.0 standard drinks of alcohol Types: 6 Cans of Beer (12oz) per week Comment: occasionally (weekends) Drug use: Yes Types: Marijuana Comment: socially - special occasions Review of Symptoms REVIEW OF SYSTEMS SEE HPI EXAM: BP 139/87 Pulse 96 Wt (!) 142 kg (313 lb) BMI (P) 39.12 kg/m General Appearance: Well appearing, alert, in no acute distress, well-hydrated, well nourished. Lungs: Lungs clear to auscultation. No wheezing, rhonchi, rales.. Heart: RRR without murmur, gallop, or rubs. No ectopy. Peripheral Pulses: Normal. Health Maintenance List Hepatitis B Vaccine(1 of 3 - 19+ 3-dose series) Never done BP Controlled (<130/80) due on 12/18/2018 Urine Albumin:Creatinine Ratio due on 09/25/2021 Dilated Retinal Exam due on 09/13/2023 Diabetic Foot Exam due on 10/17/2023 Influenza Vaccine(1) due on 02/01/2024 Covid-19 Vaccine(2 - season) due on 02/01/2024 HbA1C due on 05/08/2024 LDL Cholesterol due on 11/06/2024 Annual PCP Team Chronic Disease Visit due on 11/06/2024 DTaP,Tdap,Td Vaccine(2 - Td or Tdap) due on 08/09/2029 Hepatitis C Screening Completed Pneumococcal Vaccine Completed HPV Vaccine Aged Out HIV Screening Discontinued Data reviewed Last 5 Encounter BP Readings: Date: BP: 06/04/2024 139/87 11/07/2023 146/87 11/05/2023 122/84 01/21/2023 138/86 11/13/2022 140/76 ASSESSMENT/PLAN: 1. Essential hypertension - ICD9: 401.9, ICD10: I10 (primary diagnosis) - Controlled - Continue current medications - Recommend home blood pressure monitoring, to bring results to next visit - Encouraged sodium restriction, DASH or Mediterranean diet - Recommend regular aerobic exercise - COMPREHENSIVE METABOLIC PANEL 2. Type 2 diabetes mellitus with peripheral neuropathy (HCC) - ICD9: 250.60, 357.2, ICD10: E11.42 - Control undetermined, due for labs - Continue current medications - Counseled on healthy diet and regular exercise - Discussed need for and benefit of weight loss. BMI 40.19 kg/(m^2) - COMPREHENSIVE METABOLIC PANEL - HEMOGLOBIN A1C - ALBUMIN/CREATININE RATIO, URINE - RYBELSUS 7 MG TABLET 3. Hyperlipidemia, mixed - ICD9: 272.2, ICD10: E78.2 - Control undetermined, due for labs - Continue current medications - Counseled on healthy diet and regular exercise - Discussed need for and benefit of weight loss. BMI 40.19 kg/(m^2) - LIPID PANEL, NONFASTING - SIMVASTATIN 10 MG TABLET 4. Gastroesophageal reflux disease, unspecified whether esophagitis present - ICD9: 530.81, ICD10: K21.9 - Continue treatment with Protonix QD - COMPLETE BLOOD COUNT AND DIFFERENTIAL 5. Numbness and tingling of both feet - ICD9: 782.0, ICD10: R20.0, R20.2 - GABAPENTIN 300 MG CAPSULE 7. Ingrown toenail - ICD9: 703.0, ICD10: L60.0 - CONSULT TO PODIATRY 8. Obesity, Class II, BMI 35-39.9 - ICD9: 278.00, ICD10: E66.812 Weight increasing Dagoberto Quiles APRN.VENEER TAPING MACHINE OPERATOR documented in this encounter [facility] 05-03-2024 Telephone encounter Note Prescription Refill Information The patient has been identified by name and date of : Yes Caregiver verified no other encounters exist for this prescription request: Yes Caregiver confirmed with patient/requestor that no other refills are due, in the near future, with this provider at this time: Yes The last office visit in the department: 11/07/2023 Does the patient have a future office visit with this provider/department: Yes Requested Prescriptions Pending Prescriptions Disp Refills gabapentin (NEURONTIN) 300 mg capsule 60 capsule 0 Sig: Take 1 capsule by mouth two times a day for 90 days. Refused Prescriptions Disp Refills metFORMIN ER (GLUCOPHAGE XR) 500 mg 24 hr tablet 180 tablet 1 Sig: Take 2 tablets by mouth daily with dinner. amLODIPine (NORVASC) 10 mg tablet 90 tablet 1 Sig: Take 1 tablet by mouth once daily. escitalopram oxalate (LEXAPRO) 20 mg tablet 90 tablet 1 Sig: Take 1 tablet by mouth once daily. glimepiride (AMARYL) 1 mg tablet 180 tablet 1 Sig: Take 2 tablets by mouth daily with breakfast. losartan (COZAAR) 25 mg tablet 90 tablet 1 Sig: Take 1 tablet by mouth once daily. pantoprazole (PROTONIX) 40 mg tablet 90 tablet 1 Sig: Take 1 tablet by mouth daily before breakfast. Take on empty stomach, 1/2 hr before meal. Sabrina Anders LPN May 03, 2024 9:46 AM [facility] 05-03-2024 Miscellaneous Notes Prescription Refill Information The patient has been identified by name and date of : Yes Caregiver verified no other encounters exist for this prescription request: Yes Caregiver confirmed with patient/requestor that no other refills are due, in the near future, with this provider at this time: Yes The last office visit in the department: 11/07/2023 Does the patient have a future office visit with this provider/department: Yes Requested Prescriptions Pending Prescriptions Disp Refills gabapentin (NEURONTIN) 300 mg capsule 60 capsule 0 Sig: Take 1 capsule by mouth two times a day for 90 days. Refused Prescriptions Disp Refills metFORMIN ER (GLUCOPHAGE XR) 500 mg 24 hr tablet 180 tablet 1 Sig: Take 2 tablets by mouth daily with dinner. amLODIPine (NORVASC) 10 mg tablet 90 tablet 1 Sig: Take 1 tablet by mouth once daily. escitalopram oxalate (LEXAPRO) 20 mg tablet 90 tablet 1 Sig: Take 1 tablet by mouth once daily. glimepiride (AMARYL) 1 mg tablet 180 tablet 1 Sig: Take 2 tablets by mouth daily with breakfast. losartan (COZAAR) 25 mg tablet 90 tablet 1 Sig: Take 1 tablet by mouth once daily. pantoprazole DR (PROTONIX) 40 mg tablet 90 tablet 1 Sig: Take 1 tablet by mouth daily before breakfast. Take on empty stomach, 1/2 hr before meal. Sabrina Anders LPN May 03, 2024 9:46 AM documented in this encounter [facility] 03-30-2024 Telephone encounter Note Prescription Refill Information The patient has been identified by name and date of : Yes Caregiver verified no other encounters exist for this prescription request: Yes Caregiver confirmed with patient/requestor that no other refills are due, in the near future, with this provider at this time: No The last office visit in the department: 11/07/23 Does the patient have a future office visit with this provider/department: Yes Requested Prescriptions Pending Prescriptions Disp Refills metFORMIN ER (GLUCOPHAGE XR) 500 mg 24 hr tablet 180 tablet 1 Sig: Take 2 tablets by mouth daily with dinner. Maryana Luevano MA March 30, 2024 3:53 PM [facility] 03-30-2024 Miscellaneous Notes Prescription Refill Information The patient has been identified by name and date of : Yes Caregiver verified no other encounters exist for this prescription request: Yes Caregiver confirmed with patient/requestor that no other refills are due, in the near future, with this provider at this time: No The last office visit in the department: 11/07/23 Does the patient have a future office visit with this provider/department: Yes Requested Prescriptions Pending Prescriptions Disp Refills metFORMIN ER (GLUCOPHAGE XR) 500 mg 24 hr tablet 180 tablet 1 Sig: Take 2 tablets by mouth daily with dinner. Maryana Luevano MA March 30, 2024 3:53 PM documented in this encounter [facility] 03-30-2024 Telephone encounter Note Prescription Refill Information The patient has been identified by name and date of : Yes Caregiver verified no other encounters exist for this prescription request: Yes Caregiver confirmed with patient/requestor that no other refills are due, in the near future, with this provider at this time: No The last office visit in the department: 11/07/23 Does the patient have a future office visit with this provider/department: Yes Requested Prescriptions Pending Prescriptions Disp Refills amLODIPine (NORVASC) 10 mg tablet 90 tablet 1 Sig: Take 1 tablet by mouth once daily. escitalopram oxalate (LEXAPRO) 20 mg tablet 90 tablet 1 Sig: Take 1 tablet by mouth once daily. glimepiride (AMARYL) 1 mg tablet 180 tablet 1 Sig: Take 2 tablets by mouth daily with breakfast. losartan (COZAAR) 25 mg tablet 90 tablet 1 Sig: Take 1 tablet by mouth once daily. pantoprazole DR (PROTONIX) 40 mg tablet 90 tablet 1 Sig: Take 1 tablet by mouth daily before breakfast. Take on empty stomach, 1/2 hr before meal. Maryana Luevano MA March 30, 2024 3:52 PM [facility] 03-30-2024 Miscellaneous Notes Prescription Refill Information The patient has been identified by name and date of : Yes Caregiver verified no other encounters exist for this prescription request: Yes Caregiver confirmed with patient/requestor that no other refills are due, in the near future, with this provider at this time: No The last office visit in the department: 11/07/23 Does the patient have a future office visit with this provider/department: Yes Requested Prescriptions Pending Prescriptions Disp Refills amLODIPine (NORVASC) 10 mg tablet 90 tablet 1 Sig: Take 1 tablet by mouth once daily. escitalopram oxalate (LEXAPRO) 20 mg tablet 90 tablet 1 Sig: Take 1 tablet by mouth once daily. glimepiride (AMARYL) 1 mg tablet 180 tablet 1 Sig: Take 2 tablets by mouth daily with breakfast. losartan (COZAAR) 25 mg tablet 90 tablet 1 Sig: Take 1 tablet by mouth once daily. pantoprazole DR (PROTONIX) 40 mg tablet 90 tablet 1 Sig: Take 1 tablet by mouth daily before breakfast. Take on empty stomach, 1/2 hr before meal. Maryana Luevano MA March 30, 2024 3:52 PM documented in this encounter [facility] 11-11-2023 Note Addended by: DAGOBERTO QUILES on: 11/11/2023 02:26 PM Modules accepted: Orders [facility] 11-11-2023 Miscellaneous Notes Addended by: DAGOBERTO QUILES on: 11/11/2023 02:26 PM Modules accepted: Orders TC to patient who is informed of below and is agreeable to restarting simvastatin. Patient asking for medication to be resent to [facility] in [place] as he no longer uses [facility]. Please advise. Thank you. MEHUL Gasca Left message for patient to return call to office Tarik Velasquez MA Please let patient know his hgba1c has increased from 7.0 to 7.7. this was expected and should improve now that he is back on all his medication. His cholesterol increased significantly and I would like him to restart his statin medication. I have sent in a prescription for this. documented in this encounter [facility] 11-11-2023 Telephone encounter Note TC to patient who is informed of below and is agreeable to restarting simvastatin. Patient asking for medication to be resent to [facility] in [place] as he no longer uses [facility]. Please advise. Thank you. MEHUL Gasca [facility] 11-10-2023 Telephone encounter Note Left message for patient to return call to office Tarik Velasquez MA [facility] 11-10-2023 Telephone encounter Note Please let patient know his hgba1c has increased from 7.0 to 7.7. this was expected and should improve now that he is back on all his medication. His cholesterol increased significantly and I would like him to restart his statin medication. I have sent in a prescription for this. [facility] 11-07-2023 History of Present illness Narrative Chief Complaint Patient presents with: Follow Up HPI Mckinley Mcgee is a 42 year old male who presents here today for Above Complaints.. Patient presents for follow up. Patient has not been taking all his medications due to not having insurance. Patient would like to restart medications. Requesting referral to derm for HS. Past medical history, appointments, medications, allergies reviewed. Previous Medical History PAST MEDICAL HISTORY Diagnosis Date ANXIETY STATE NOS 10/07/2008 Condyloma acuminatum 05/10/2011 DDD (degenerative disc disease), cervical Depression Diabetes mellitus (HCC) ELEV BL PRES W/O HYPERTN 12/17/2005 Erectile dysfunction Esophageal reflux 12/17/2005 HYPERGLYCEMIA 01/17/2006 Hypertension Knee MCL sprain 1990s Right knee Morbid obesity (HCC) OVERWEIGHT 12/17/2005 Perianal abscess 04/22/2012 PTSD (post-traumatic stress disorder) Snoring Tobacco use disorder 12/17/2005 Vitamin D deficiency Previous Surgical History PAST SURGICAL HISTORY Procedure Laterality Date DEBRIDEMENT OPEN WOUND 20 SQ CM/< 04/22/2012 Debridement perianal abscess PAST SURGICAL HISTORY OF 06/02/1990 Right upper arm laceration PAST SURGICAL HISTORY OF 04/10/2012 neuroma right foot TONSILLECTOMY PRIMARY/SECONDARY <AGE 12 Tonsillectomy VASECTOMY Family History FAMILY HISTORY Problem Relation Age of Onset Heart Father Hypertension Mother Cancer Mother Patient Allergies ALLERGIES Allergen Reactions Latex Rash Lisinopril Cough Penicillins Unknown childhood- unknown reaction -Has taken amoxil Prozac [Fluoxetine] Mental Status Change Wellbutrin [Bupropi* GI Upset Current Medications Current Outpatient Medications on File Prior to Visit Medication Sig cefdinir (OMNICEF) 300 mg capsule Take 1 capsule by mouth two times a day for 10 days. metFORMIN ER (GLUCOPHAGE XR) 500 mg 24 hr tablet Take 2 tablets by mouth daily with dinner. Blood Pressure Kit-Extra Large kit 1 Each once daily. blood sugar diagnostic (BLOOD GLUCOSE TEST) test strip Test blood sugar(s) 1 times daily. Dx: Type 2 DM - Uncontrolled E11.65 Insulin: No Lancets lancets Test blood sugar(s) 1 times daily. Dx: Type 2 DM - Uncontrolled E11.65 Insulin: No atorvastatin (LIPITOR) 20 mg tablet Take 1 tablet by mouth daily at bedtime. For cholesterol. (Patient not taking: Reported on 11/07/2023) amLODIPine (NORVASC) 10 mg tablet Take 1 tablet by mouth once daily. escitalopram oxalate (LEXAPRO) 20 mg tablet Take 1 tablet by mouth once daily. pantoprazole DR (PROTONIX) 40 mg tablet Take 1 tablet by mouth daily before breakfast. Take on empty stomach, 1/2 hr before meal. gabapentin (NEURONTIN) 300 mg capsule Take 1 capsule by mouth twice daily for 90 days. losartan (COZAAR) 25 mg tablet Take 1 tablet by mouth once daily. glimepiride (AMARYL) 1 mg tablet Take 3 tablets by mouth daily with breakfast. semaglutide (RYBELSUS) 7 mg tablet Take 1 tablet (7 mg) by mouth daily before breakfast. No current facility-administered medications on file prior to visit. Social History Social History Tobacco Use Smoking status: Every Day Packs/day: 0.50 Years: 6.00 Additional pack years: 0.00 Total pack years: 3.00 Types: Cigarettes Smokeless tobacco: Former Tobacco comments: currently trying to quit - 4 or 5 cigarettes/day Substance Use Topics Alcohol use: Yes Alcohol/week: 6.0 standard drinks of alcohol Types: 6 Cans of Beer (12oz) per week Comment: occasionally (weekends) Drug use: Yes Types: Marijuana Comment: socially - special occasions Review of Symptoms REVIEW OF SYSTEMS SEE HPI EXAM: BP 146/87 Pulse 82 Resp 14 Wt (!) 138.8 kg (306 lb) BMI (P) 38.25 kg/m General Appearance: Well appearing, alert, in no acute distress, well-hydrated, well nourished.. Lungs: Lungs clear to auscultation. No wheezing, rhonchi, rales.. Heart: RRR without murmur, gallop, or rubs. No ectopy. Peripheral Pulses: Normal. Health Maintenance List Hepatitis B Vaccine(1 of 3 - 19+ 3-dose series) Never done BP Controlled (<130/80) due on 12/18/2018 Urine Albumin:Creatinine Ratio due on 09/25/2021 Covid-19 Vaccine( season) due on 01/31/2023 HbA1C due on 05/15/2023 LDL Cholesterol due on 08/07/2023 Dilated Retinal Exam due on 09/13/2023 Diabetic Foot Exam due on 10/17/2023 Annual PCP Team Chronic Disease Visit due on 11/04/2024 DTaP,Tdap,Td Vaccine(2 - Td or Tdap) due on 08/09/2029 Influenza Vaccine Completed Hepatitis C Screening Completed Pneumococcal Vaccine Completed HPV Vaccine Aged Out HIV Screening Discontinued ASSESSMENT/PLAN: 1. Depression with anxiety - ICD9: 300.4, ICD10: F41.8 (primary diagnosis) - ESCITALOPRAM 20 MG TABLET 2. Essential hypertension - ICD9: 401.9, ICD10: I10 - Uncontrolled - Continue current medications - Recommend home blood pressure monitoring, to bring results to next visit - Encouraged sodium restriction, DASH or Mediterranean diet - Recommend regular aerobic exercise - Discussed need for and benefit of weight loss. BMI 39.29 kg/(m^2) - AMLODIPINE 10 MG TABLET - LOSARTAN 25 MG TABLET - COMPREHENSIVE METABOLIC PANEL 3. Numbness and tingling of both feet - ICD9: 782.0, ICD10: R20.0, R20.2 - GABAPENTIN 300 MG CAPSULE 4. Type 2 diabetes mellitus without complication, without long-term current use of insulin (HCC) - ICD9: 250.00, ICD10: E11.9 - Control undetermined, due for labs - Continue current medications - Counseled on healthy diet and regular exercise - Discussed need for and benefit of weight loss. BMI 39.29 kg/(m^2) - GLIMEPIRIDE 1 MG TABLET - RYBELSUS 7 MG TABLET - HEMOGLOBIN A1C 5. Gastroesophageal reflux disease, unspecified whether esophagitis present - ICD9: 530.81, ICD10: K21.9 - Discussed lifestyle modifications including losing weight, limiting caffeine, no meals three hours before sleep, and head of bed elevation - Continue treatment with Protonix 40mg QD - PANTOPRAZOLE 40 MG TABLET,DELAYED RELEASE - COMPLETE BLOOD COUNT AND DIFFERENTIAL - CONSULT TO GENERAL SURGERY 6. Hyperlipidemia, mixed - ICD9: 272.2, ICD10: E78.2 - Control undetermined, due for labs - Continue current medications - Counseled on healthy diet and regular exercise - Discussed need for and benefit of weight loss. BMI 39.29 kg/(m^2) - LIPID PANEL, NONFASTING 7. Hidradenitis suppurativa - ICD9: 705.83, ICD10: L73.2 - CONSULT TO DERMATOLOGY 8. Nausea - ICD9: 787.02, ICD10: R11.0 - CONSULT TO GENERAL SURGERY Dagoberto Quiles APRN.[employer] MACHINE OPERATOR documented in this encounter [facility] 11-05-2023 History of Present illness Narrative 11/05/2023 Patient presents with: Ear Problem: Left ear pain x1 week, was stung couple days ago which made this worse. Ear has discharge in the AM. SUBJECTIVE: This is a 42 year old that is here today for Above Complaints. Left ear with pain and pressure the last week. Jaw hurts some on that side when he chews. Has some crusting to ear in the morning. Some clear drainage this AM. Has not used anything OTC for symptoms. Did et stung to outside of ear the other day but had pain prior to that. Admits to some headaches and rhinorrhea. Denies fevers, chills, nasal congestion, sore throat, sinus pain/pressure, or cough PAST MEDICAL HISTORY Diagnosis Date ANXIETY STATE NOS 10/07/2008 Condyloma acuminatum 05/10/2011 DDD (degenerative disc disease), cervical Depression Diabetes mellitus (HCC) ELEV BL PRES W/O HYPERTN 12/17/2005 Erectile dysfunction Esophageal reflux 12/17/2005 HYPERGLYCEMIA 01/17/2006 Hypertension Knee MCL sprain 1990s Right knee Morbid obesity (HCC) OVERWEIGHT 12/17/2005 Perianal abscess 04/22/2012 PTSD (post-traumatic stress disorder) Snoring Tobacco use disorder 12/17/2005 Vitamin D deficiency ALLERGIES Latex, Lisinopril, Penicillins, Prozac [Fluoxetine], and Wellbutrin [Bupropion] MEDICATIONS Current Outpatient Medications Medication Sig atorvastatin (LIPITOR) 20 mg tablet Take 1 tablet by mouth daily at bedtime. For cholesterol. metFORMIN ER (GLUCOPHAGE XR) 500 mg 24 hr tablet Take 2 tablets by mouth daily with dinner. amLODIPine (NORVASC) 10 mg tablet Take 1 tablet by mouth once daily. escitalopram oxalate (LEXAPRO) 20 mg tablet Take 1 tablet by mouth once daily. pantoprazole DR (PROTONIX) 40 mg tablet Take 1 tablet by mouth daily before breakfast. Take on empty stomach, 1/2 hr before meal. gabapentin (NEURONTIN) 300 mg capsule Take 1 capsule by mouth twice daily for 90 days. losartan (COZAAR) 25 mg tablet Take 1 tablet by mouth once daily. glimepiride (AMARYL) 1 mg tablet Take 3 tablets by mouth daily with breakfast. semaglutide (RYBELSUS) 7 mg tablet Take 1 tablet (7 mg) by mouth daily before breakfast. Blood Pressure Kit-Extra Large kit 1 Each once daily. blood sugar diagnostic (BLOOD GLUCOSE TEST) test strip Test blood sugar(s) 1 times daily. Dx: Type 2 DM - Uncontrolled E11.65 Insulin: No Lancets lancets Test blood sugar(s) 1 times daily. Dx: Type 2 DM - Uncontrolled E11.65 Insulin: No No current facility-administered medications for this visit. Medications and allergies reviewed by this provider. SOCIAL HISTORY Social History Tobacco Use Smoking status: Every Day Packs/day: 0.50 Years: 6.00 Additional pack years: 0.00 Total pack years: 3.00 Types: Cigarettes Smokeless tobacco: Former Tobacco comments: currently trying to quit - 4 or 5 cigarettes/day Substance Use Topics Alcohol use: Yes Alcohol/week: 6.0 standard drinks of alcohol Types: 6 Cans of Beer (12oz) per week Comment: occasionally (weekends) Drug use: Yes Types: Marijuana Comment: socially - special occasions REVIEW OF SYSTEMS All other reviewed and negative other than HPI. OBJECTIVE: BP 122/84 Pulse 86 Resp 18 Wt (!) 138.2 kg (304 lb 9.6 oz) SpO2 97% BMI (P) 38.07 kg/m . Vital signs reviewed by this provider. APPEARANCE Well appearing, alert, in no acute distress, well-hydrated, well nourished. EYES conjunctiva and sclera normal. EARS Right ear and TM WNL. Left TM opaque. Ear canal clear and outer ear without swelling or erythema. TTP to touch THROAT normal, no erythema and tonsillar hypertrophy, 1+. Teeth and mucosa appear normal NECK Supple, no adenopathy HEART RRR with normal S1 and S2, no murmurs, no gallops, no JVD appreciated LUNG clear to auscultation. No wheezes, rhonchi or rales SKIN Skin color, texture, turgor normal, no suspicious rashes or lesions to exposed skin Hepatitis B Vaccine(1 of 3 - 19+ 3-dose series) Never done BP Controlled (<130/80) due on 12/18/2018 Urine Albumin:Creatinine Ratio due on 09/25/2021 Covid-19 Vaccine(2 - 2022- season) due on 01/31/2023 HbA1C due on 05/15/2023 LDL Cholesterol due on 08/07/2023 Dilated Retinal Exam due on 09/13/2023 Diabetic Foot Exam due on 10/17/2023 Annual PCP Team Chronic Disease Visit due on 03/10/2024 DTaP,Tdap,Td Vaccine(2 - Td or Tdap) due on 08/09/2029 Influenza Vaccine Completed Hepatitis C Screening Completed Pneumococcal Vaccine Completed HPV Vaccine Aged Out HIV Screening Discontinued ASSESSMENT/PLAN: 1. Left ear pain - ICD9: 388.70, ICD10: H92.02 - will treat as otitis media - no red flag symptoms or exam findings - red flag symptoms discussed, verbalizes understanding - m ay also try OTC Flonase nasal spray, rinse mouth after use - CEFDINIR 300 MG CAPSULE - follow-up if symptoms fail to improve to ER with red flag syptoms Candida Britton APRN.CNP Prescription instructions reviewed with patient as applicable. Patient advised if symptoms do not improve or if symptoms worsen sooner, to contact their primary care physician. Potential red flag symptoms discussed with the patient. Reviewed appropriate action plan to take if red flag symptoms occur. Patient agreeable to treatment plan. Medical Decision Making: Problems: Low: Acute, uncomplicated illness or injury Risk: Moderate: Drug management Medical Decision Making Level: 3 - Low documented in this encounter [facility] 09-01-2023 Miscellaneous Notes Patient has been identified by name and date of : Yes Patient phones for refill(s): Requested Prescriptions Pending Prescriptions Disp Refills atorvastatin (LIPITOR) 20 mg tablet 90 tablet 1 Sig: Take 1 tablet by mouth daily at bedtime. For cholesterol. metFORMIN ER (GLUCOPHAGE XR) 500 mg 24 hr tablet 180 tablet 1 Sig: Take 2 tablets by mouth daily with dinner. Date of last office visit in primary care: 03/10/2023 Date of next office visit in primary care: 09/08/2023 Please advise. Thank you. Gonzales Steele LPN. documented in this encounter [facility] 03-20-2023 Miscellaneous Notes Patient has been identified by name and date of : Yes, Provider Dr. Stoddard Date 03/20/23 Time 9:23 am Patient phones for refill(s): Requested Prescriptions Pending Prescriptions Disp Refills pantoprazole DR (PROTONIX) 40 mg tablet 90 tablet 1 Sig: Take 1 tablet by mouth daily before breakfast. Take on empty stomach, 1/2 hr before meal. Date of last office visit in primary care: 03/10/2023 Date of next office visit in primary care: 04/17/2023 Last 2 Encounter Wt Readings: Date: Wt: 01/21/2023 139.7 kg (308 lb) 11/13/2022 139.3 kg (307 lb) Previous labs/tests for medication: Not applicable Thank you. Juliet Chua LPN. documented in this encounter [facility] 03-20-2023 Miscellaneous Notes Pt requesting Amaryl and our records show pt should have refills at the pharmacy. Patient has been identified by name and date of : Yes, Provider Dr. Stoddard Date 03/20/23 Time 9:21 am Patient phones for refill(s): Requested Prescriptions Pending Prescriptions Disp Refills amLODIPine (NORVASC) 10 mg tablet 90 tablet 1 Sig: Take 1 tablet by mouth once daily. Refused Prescriptions Disp Refills glimepiride (AMARYL) 1 mg tablet 270 tablet 1 Sig: Take 3 tablets by mouth daily with breakfast. Date of last office visit in primary care: 03/10/2023 Date of next office visit in primary care: 03/19/2023 Last 2 Encounter Wt Readings: Date: Wt: 01/21/2023 139.7 kg (308 lb) 11/13/2022 139.3 kg (307 lb) Previous labs/tests for medication: Blood Pressure: BUN (mg/dL) Date Value 01/21/2023 10 07/04/2021 11 Sodium (mmol/L) Date Value 01/21/2023 138 07/04/2021 135 Last 1 Encounter BP Readings: Date: BP: 01/21/2023 138/86 . Thank you. Juliet Chua LPN.' documented in this encounter [facility] 03-13-2023 Miscellaneous Notes Approved 03/12/23-03/12/24. Faxed approval to pharmacy and patient was notified Joanna Granados Ma Received PA request from [facility] due to patient getting new insurance [place]. Form completed and faxed with office notes/labs Joanna Granados Ma documented in this encounter [facility] 02-05-2023 Miscellaneous Notes Patient phones requesting refills as follows: Requested Prescriptions Pending Prescriptions Disp Refills losartan (COZAAR) 25 mg tablet 90 tablet 1 Sig: Take 1 tablet by mouth once daily. EULALIA 01/21/2023 NOV 02/17/2023 Please review and advise. Farzana Conti LPN documented in this encounter [facility] 01-23-2023 Miscellaneous Notes Left message for patient to return call to office Tarik Velasquez Cma Please let patient know his labs are normal, lyme and mono are negative. documented in this encounter [facility] 01-21-2023 History of Present illness Narrative Chief Complaint Patient presents with: Neck Pain feet swelling HPI Mckinley Mcgee is a 42 year old male who presents here today for Above Complaints.. Patient presents with sore throat, fatigue, malaise, neck pain, headache, and stiffness. Also reports diarrhea and nausea. Patient reports feels similar to when he had covid. Denies fevers, chills, SOB, cough, chest pain. Past medical history, appointments, medications, allergies reviewed. Previous Medical History PAST MEDICAL HISTORY Diagnosis Date ANXIETY STATE NOS 10/07/2008 Condyloma acuminatum 05/10/2011 DDD (degenerative disc disease), cervical Depression Diabetes mellitus (HCC) ELEV BL PRES W/O HYPERTN 12/17/2005 Erectile dysfunction Esophageal reflux 12/17/2005 HYPERGLYCEMIA 01/17/2006 Hypertension Knee MCL sprain 1990s Right knee Morbid obesity (HCC) OVERWEIGHT 12/17/2005 Perianal abscess 04/22/2012 PTSD (post-traumatic stress disorder) Snoring Tobacco use disorder 12/17/2005 Vitamin D deficiency Previous Surgical History PAST SURGICAL HISTORY Procedure Laterality Date DEBRIDEMENT OPEN WOUND 20 SQ CM/< 04/22/2012 Debridement perianal abscess PAST SURGICAL HISTORY OF 06/02/1990 Right upper arm laceration PAST SURGICAL HISTORY OF 04/10/2012 neuroma right foot TONSILLECTOMY PRIMARY/SECONDARY <AGE 12 Tonsillectomy VASECTOMY Family History FAMILY HISTORY Problem Relation Age of Onset Heart Father Hypertension Mother Cancer Mother Patient Allergies ALLERGIES Allergen Reactions Latex Rash Lisinopril Cough Penicillins Unknown childhood- unknown reaction -Has taken amoxil Prozac [Fluoxetine] Mental Status Change Wellbutrin [Bupropi* GI Upset Current Medications Current Outpatient Medications on File Prior to Visit Medication Sig gabapentin (NEURONTIN) 300 mg capsule Take 1 capsule by mouth twice daily for 90 days. glimepiride (AMARYL) 1 mg tablet Take 3 tablets by mouth daily with breakfast. escitalopram oxalate (LEXAPRO) 20 mg tablet Take 1 tablet by mouth once daily. losartan (COZAAR) 25 mg tablet Take 1 tablet by mouth once daily. semaglutide (RYBELSUS) 7 mg tablet Take 1 tablet (7 mg) by mouth daily before breakfast. amLODIPine (NORVASC) 10 mg tablet Take 1 tablet by mouth once daily. atorvastatin (LIPITOR) 20 mg tablet Take 1 tablet by mouth daily at bedtime. For cholesterol. metFORMIN ER (GLUCOPHAGE XR) 500 mg 24 hr tablet Take 2 tablets by mouth daily with dinner. pantoprazole DR (PROTONIX) 40 mg tablet Take 1 tablet by mouth daily before breakfast. Take on empty stomach, 1/2 hr before meal. Blood Pressure Kit-Extra Large kit 1 Each once daily. blood sugar diagnostic (BLOOD GLUCOSE TEST) test strip Test blood sugar(s) 1 times daily. Dx: Type 2 DM - Uncontrolled E11.65 Insulin: No Lancets lancets Test blood sugar(s) 1 times daily. Dx: Type 2 DM - Uncontrolled E11.65 Insulin: No No current facility-administered medications on file prior to visit. Social History Social History Tobacco Use Smoking status: Every Day Packs/day: 0.50 Years: 6.00 Additional pack years: 0.00 Total pack years: 3.00 Types: Cigarettes Smokeless tobacco: Former Tobacco comments: currently trying to quit - 4 or 5 cigarettes/day Substance Use Topics Alcohol use: Yes Alcohol/week: 15.0 standard drinks of alcohol Types: 6 Cans of Beer (12oz) per week Comment: occasionally (weekends) Drug use: Yes Types: Marijuana Comment: socially - special occasions Review of Symptoms REVIEW OF SYSTEMS SEE HPI EXAM: BP 138/86 Pulse 78 Temp 37.3 C (99.1 F) Resp 18 Wt (!) 139.7 kg (308 lb) BMI 39.54 kg/m General Appearance: Well appearing, alert, in no acute distress, well-hydrated, well nourished.. Head: Normocephalic, no masses, lesions, tenderness or abnormalities. Ears: External ears normal, canals clear. Nose/Sinuses: Nares normal, septum midline, mucosa normal, no drainage or sinus tenderness. Oropharynx: Lips, mucosa, and tongue normal, teeth and gums normal, oropharynx normal. Neck: Supple, no adenopathy; thyroid symmetric, normal size, no bruits. Lungs: Lungs clear to auscultation. No wheezing, rhonchi, rales.. Heart: RRR without murmur, gallop, or rubs. No ectopy. Health Maintenance List BP CONTROLLED (<130/80) due on 12/18/2018 COVID-19 VACCINE(2 - Booster for Yolanda series) due on 03/30/2021 URINE ALBUMIN:CREATININE RATIO due on 09/25/2021 HEPATITIS B(1 of 3 - 3-dose series) due on 10/17/2023 INFLUENZA(1) due on 01/31/2023 HBA1C due on 05/15/2023 LDL CHOLESTEROL due on 08/07/2023 DILATED RETINAL EXAM due on 09/13/2023 DIABETIC FOOT EXAM due on 10/17/2023 ANNUAL PCP TEAM CHRONIC DISEASE VISIT due on 11/14/2023 DTAP,TDAP,TD(2 - Td or Tdap) due on 08/09/2029 HEPATITIS C SCREENING Completed PNEUMOCOCCAL Completed HPV VACCINE Aged Out HIV SCREENING Discontinued ASSESSMENT/PLAN: 1. Fatigue, unspecified type - ICD9: 780.79, ICD10: R53.83 (primary diagnosis) - COVID & INFLUENZA A/B & RSV NAAT, ROUTINE - STREP A MOLECULAR (POC) - CBC + DIFF - COMP METABOLIC PANEL - LYME AB EARLY <=30 DAY SYMPTOMS - LYME AB LATE >30 DAYS SYMPTOMS - MONOTEST, INFECTIOUS MONO - COVID NAAT, ROUTINE - ROUTINE FLU A/B + RSV 2. Malaise - ICD9: 780.79, ICD10: R53.81 - COVID & INFLUENZA A/B & RSV NAAT, ROUTINE - STREP A MOLECULAR (POC) - CBC + DIFF - COMP METABOLIC PANEL - LYME AB EARLY <=30 DAY SYMPTOMS - LYME AB LATE >30 DAYS SYMPTOMS - MONOTEST, INFECTIOUS MONO - COVID NAAT, ROUTINE - ROUTINE FLU A/B + RSV 3. Sore throat - ICD9: 462, ICD10: J02.9 - suspect viral - Discussed supportive care treatment with fluids, rest and analgesia. - Contagious dz precautions discussed- including considered contagious until on antibiotics for 24 hours - COVID & INFLUENZA A/B & RSV NAAT, ROUTINE - STREP A MOLECULAR (POC) - CBC + DIFF - COMP METABOLIC PANEL - LYME AB EARLY <=30 DAY SYMPTOMS - LYME AB LATE >30 DAYS SYMPTOMS - MONOTEST, INFECTIOUS MONO - COVID NAAT, ROUTINE - ROUTINE FLU A/B + RSV 4. Type 2 diabetes mellitus with peripheral neuropathy (HCC) - ICD9: 250.60, 357.2, ICD10: E11.42 - Controlled - Continue current medications - EMG(NEURO/NI) Dagoberto Quiles APRN.[employer]ENEER TAPING MACHINE OPERATOR documented in this encounter [facility] 01-02-2023 Miscellaneous Notes Left a message that prescription was sent to the pharmacy. Juliet Chua LPN PDMP website checked and validated. All prescriptions have been APPROPRIATELY filled. No suspicious activity was identified. 01/02/2023 by Derek Stoddard MD Patient phones requesting refills as follows: Requested Prescriptions Pending Prescriptions Disp Refills gabapentin (NEURONTIN) 300 mg capsule 60 capsule 0 Sig: Take 1 capsule by mouth twice daily for 90 days. EULALIA-11/13/22 Labs-11/13/22 NOV-02/17/23 Please review and advise. Marguerite Ricks LPN documented in this encounter [facility] 01-02-2023 Miscellaneous Notes Patient phones requesting refills as follows: Requested Prescriptions Pending Prescriptions Disp Refills glimepiride (AMARYL) 1 mg tablet 270 tablet 1 Sig: Take 3 tablets by mouth daily with breakfast. EULALIA-11/13/22 Labs-11/13/22 NOV-02/17/23 Please review and advise. Marguerite Ricks LPN documented in this encounter [facility] 11-18-2022 Miscellaneous Notes Looks like it was approved earlier today and then denied. May have been denied because it was sent earlier. Will refill. Patient had requested 90 day of Rybelsus instead of 30, request was denied but no reason listed. Please advise. documented in this encounter [facility] 11-18-2022 Miscellaneous Notes PDMP website checked and validated. All prescriptions have been APPROPRIATELY filled. No suspicious activity was identified. 11/18/2022 by Candida Britton APRN.CHAY Spoke with patient regarding gabapentin. Patient reports taking 300 mg BID due to TID making him woosey. Requesting 90 day supply. Sig and quantity updated. Of note, patient also asking for 90 day supply of the Rybelsus. Cat Hill MA Is patient taking this every day or as needed. Has not had filled since August. Candida Britton APRN.CHAY Patient phones requesting refills as follows: Requested Prescriptions Pending Prescriptions Disp Refills gabapentin (NEURONTIN) 300 mg capsule 90 capsule 0 Sig: Take 1 capsule by mouth three times daily for 30 days. EULALIA 11/13/2022 NOV 02/17/2023 Please review and advise. Farzana Conti LPN documented in this encounter [facility] 11-18-2022 Miscellaneous Notes Patient read [facility] note on 11/15/2022 at 3:58pm. Closing encounter. Farzana Conti LPN Message left for patient to return call to receive provider's message. ----- Message from Derek Stoddard MD sent at 11/14/2022 4:21 PM EDT ----- DM improving with A1c down to 7. Continue current regimen. Keep up the good work. Other labs negative for infection or inflammation. Call if abdominal pain persists or is worsening. GO BROWNS documented in this encounter [facility] 11-18-2022 Miscellaneous Notes Patient phones requesting refills as follows: Requested Prescriptions Pending Prescriptions Disp Refills escitalopram oxalate (LEXAPRO) 20 mg tablet 90 tablet 0 Sig: Take 1 tablet by mouth once daily. semaglutide (RYBELSUS) 7 mg tablet 30 tablet 3 Sig: Take 1 tablet (7 mg) by mouth daily before breakfast. EULALIA 11/13/2022 NOV 02/17/2023 Please review and advise. Farzana Conti LPN documented in this encounter [facility] 11-13-2022 Procedure note Procedure(s): CRYOTHERAPY SKIN LESION Pre-Procedure Diagnose(s): Skin tags, multiple acquired Post-Procedure Diagnose(s): Skin tags, multiple acquired After the risks and options of alternative treatments were reviewed, the lesion(s) located on Neck and right axilla were treated with cryosurgery. A total of 4 lesion(s) were treated after cleansing with alcohol without complications. Bandages applied afterward. Derek Stoddard MD documented in this encounter [facility] 11-13-2022 Instructions Derek Stoddard MD - 11/13/2022 3:37 PM EDT SKIN CARE AFTER CRYOSURGERY The SKIN'S response to cryosurgery (freezing) can be mild to more severe, depending on the depth of the freeze and the location of the area treated. You may have only mild redness and swelling with a little discomfort of significant discoloration and blistering with considerable discomfort. A burning sensation in the skin may last from several minutes to several hours after the procedure. Follow these instructions when caring for an area treated by cryosurgery: MINOR RESPONSE: 1. The area may sing or burn for a short time after treatment. 2. The treated area will be red in color at first then turn brown and flakey as it heals and the upper layer of skin sloughs off. 3. Gently cleanse the area with anti-bacterial soap and water. Pat dry and apply a thin film of antibiotic ointment. Do this at least once a day to prevent infection. MAJOR RESPONSE: 1. Follow instructions as stated for minor response. 2. The area may sting and burn for several hours after treatment. 3. To relieve throbbing and pain, elevate the treatment area. 4. If instructed by your physician, you may take ifus-aiz-[id number] pain medications as needed for discomfort. 5. A blister will form in the area of freezing. It may be filled with clear fluid or blood. This response is not unusual. 6. Do not break the blister unless it becomes uncomfortable. You may prick the blister with a sterile needle or pin to remove the fluid. Leave the skin intact. 7. All treated areas usually heal within 3 to 4 weeks. documented in this encounter [facility] 11-13-2022 History of Present illness Narrative Chief Complaint Patient presents with: Follow Up HPI Mckinley Mcgee is a 41 year old male who presents here today for cryotherapy of skin tags. Patient with skin tags around his neck and left axilla he would like removed today by cryotherapy. States that he stopped his Celebrex due to upset stomach. Last dose about a week ago. Nausea gradually improving. Noted he started higher dose RYbelsus about 2 weeks ago as well. Stood up after dinner yesterday and had some LLQ abdominal pain which continues today. . Described as colin horse type pain. Worse with walking. Not treating with anything OTC. Improved today with very mild pain. Denies diarrhea, hematochezia, melena,urinary symptoms, injury. Past medical history, appointments, medications, allergies reviewed. Previous Medical History PAST MEDICAL HISTORY Diagnosis Date ANXIETY STATE NOS 10/07/2008 Condyloma acuminatum 05/10/2011 DDD (degenerative disc disease), cervical Depression Diabetes mellitus (HCC) ELEV BL PRES W/O HYPERTN 12/17/2005 Erectile dysfunction Esophageal reflux 12/17/2005 HYPERGLYCEMIA 01/17/2006 Hypertension Knee MCL sprain Right knee Morbid obesity (HCC) OVERWEIGHT 12/17/2005 Perianal abscess 04/22/2012 PTSD (post-traumatic stress disorder) Snoring Tobacco use disorder 12/17/2005 Vitamin D deficiency Previous Surgical History PAST SURGICAL HISTORY Procedure Laterality Date DEBRIDEMENT OPEN WOUND 20 SQ CM/< 04/22/2012 Debridement perianal abscess PAST SURGICAL HISTORY OF 06/02/1990 Right upper arm laceration PAST SURGICAL HISTORY OF 04/10/2012 neuroma right foot TONSILLECTOMY PRIMARY/SECONDARY <AGE 12 Tonsillectomy VASECTOMY Family History FAMILY HISTORY Problem Relation Age of Onset Heart Father Hypertension Mother Cancer Mother Patient Allergies ALLERGIES Allergen Reactions Latex Rash Lisinopril Cough Penicillins Unknown childhood- unknown reaction -Has taken amoxil Prozac [Fluoxetine] Mental Status Change Wellbutrin [Bupropi* GI Upset Current Medications Current Outpatient Medications on File Prior to Visit Medication Sig DULoxetine (CYMBALTA) 30 mg capsule Take 1 capsule every other day for 3 weeks then every 3rd day for 3 weeks, then stop semaglutide (RYBELSUS) 7 mg tablet Take 1 tablet (7 mg) by mouth daily before breakfast. amLODIPine (NORVASC) 10 mg tablet Take 1 tablet by mouth once daily. atorvastatin (LIPITOR) 20 mg tablet Take 1 tablet by mouth daily at bedtime. For cholesterol. metFORMIN ER (GLUCOPHAGE XR) 500 mg 24 hr tablet Take 2 tablets by mouth daily with dinner. pantoprazole DR (PROTONIX) 40 mg tablet Take 1 tablet by mouth daily before breakfast. Take on empty stomach, 1/2 hr before meal. escitalopram oxalate (LEXAPRO) 20 mg tablet Take 1 tablet by mouth once daily. glimepiride (AMARYL) 1 mg tablet Take 3 tablets by mouth daily with breakfast. Blood Pressure Kit-Extra Large kit 1 Each once daily. blood sugar diagnostic (BLOOD GLUCOSE TEST) test strip Test blood sugar(s) 1 times daily. Dx: Type 2 DM - Uncontrolled E11.65 Insulin: No Lancets lancets Test blood sugar(s) 1 times daily. Dx: Type 2 DM - Uncontrolled E11.65 Insulin: No celecoxib (CELEBREX) 200 mg capsule Take 1 capsule by mouth once daily. gabapentin (NEURONTIN) 300 mg capsule Take 1 capsule by mouth three times daily for 30 days. losartan (COZAAR) 25 mg tablet Take 1 tablet by mouth once daily. No current facility-administered medications on file prior to visit. Social History Social History Tobacco Use Smoking status: Every Day Packs/day: 0.50 Years: 6.00 Pack years: 3.00 Types: Cigarettes Smokeless tobacco: Former Tobacco comments: currently trying to quit - 4 or 5 cigarettes/day Substance Use Topics Alcohol use: Yes Alcohol/week: 15.0 standard drinks Types: 6 Cans of Beer (12oz) per week Comment: occasionally (weekends) Drug use: Yes Types: Marijuana Comment: socially - special occasions Review of Symptoms REVIEW OF SYSTEMS See HPI EXAM: BP 140/76 Pulse 80 Resp 16 Ht 188 cm (6' 2) Wt (!) 139.3 kg (307 lb) BMI 39.42 kg/m General Appearance: Well appearing, alert, in no acute distress, well-hydrated, well nourished.. Skin: skin tags on left side of neck and right axilla without cellulitis. Lungs: Lungs clear to auscultation. No wheezing, rhonchi, rales.. Heart: RRR without murmur, gallop, or rubs. No ectopy. Abdomen: Abdomen soft. Bowel sounds normal. No masses, organomegaly, Negative CVA tenderness, Positive findings: tenderness mild LLQ without guarding or rebound. Health Maintenance List BP CONTROLLED (<130/80) due on 12/18/2018 COVID-19 VACCINE(2 - Booster for Yolanda series) due on 03/30/2021 URINE ALBUMIN:CREATININE RATIO due on 09/25/2021 HEPATITIS B(1 of 3 - 3-dose series) due on 10/17/2023 INFLUENZA(Season Ended) due on 01/31/2023 HBA1C due on 02/06/2023 LDL CHOLESTEROL due on 08/07/2023 DILATED RETINAL EXAM due on 09/13/2023 DIABETIC FOOT EXAM due on 10/17/2023 ANNUAL PCP TEAM CHRONIC DISEASE VISIT due on 10/17/2023 DTAP,TDAP,TD(2 - Td or Tdap) due on 08/09/2029 HEPATITIS C SCREENING Completed PNEUMOCOCCAL Completed HIV SCREENING Discontinued Data reviewed Component Latest Ref Rng & Units 11/13/2022 GLUCOSE UA (POCT) Negative mg/dL 250 (A) BILIRUBIN UA (POCT) Negative Negative KETONE UA (POCT) Negative mg/dL Negative SPECIFIC GRAVITY UA (POCT) 1.005 - 1.030 >=1.030 HEMOGLOBIN/BLOOD UA (POCT) Negative Negative PH UA (POCT) 4.5 - 8.0 6.0 PROTEIN UA (POCT) Negative mg/dL Negative UROBILINOGEN UA (POCT) Normal E.U./dL 0.2 NITRITE UA (POCT) Negative Negative LEUKOCYTES UA (POCT) Negative Negative COLOR UA (POCT) Yellow CLARITY UA (POCT) Clear ASSESSMENT/PLAN: 1. Skin tags, multiple acquired - ICD9: 701.9, ICD10: L91.8 (primary diagnosis) See procedure note. Red flags for re-assessment reviewed with patient in detail. 2. S/P cryotherapy of skin lesion - ICD9: V45.89, ICD10: Z98.890 3. Nausea - ICD9: 787.02, ICD10: R11.0 May be 2/2 NSAID vs Rybelsus. Stop Celebrex. Continue current dose of Rybelsus and call in 1-2 weeks if not improving. 4. LLQ pain - ICD9: 789.04, ICD10: R10.32 Mild TTP on exam today. May be pulled muscle vs diverticulitis. UA negative for infection or signs of bleeding. Doubt kidney stone. Will obtain labs to rule out infection/inflammation. If abnormal, will obtain CT. Discussed OTC analgesics PRN for pain. Red flags for re-assessment reviewed with patient in detail. - CBC + DIFF - SED RATE WESTERGREN - C-REACTIVE PROTEIN (CRP) - UA DIP, URINE (POC) Derek Stoddard MD documented in this encounter [facility] 10-31-2022 Miscellaneous Notes This was doned out of basket so not documented but patient was notified on 10/02 PA denied and [facility] Joanna Granados Ma Pt wrote in via [employer] about PA needed for medication. Update pt once notification has been received. Jaylyn Grossman Ma Prior Authorization has been completed online at [employer] for lidocaine-hydrocortisone, will await response. [id number] Please keep encounter open until final decision has been received and documented from insurance company. Joanna Granados MA documented in this encounter [facility] 10-02-2022 Miscellaneous Notes Medication not covered since can be bought over the counter. Patient notified and made aware Joanna Granados Ma Pt notified PA has been started, will update TE regarding pt message. Jaylyn Grossman Ma documented in this encounter [facility] 09-24-2022 History of Present illness Narrative 09/24/2022 Patient presents with: Rectal Problem: Bleeding x1.5 weeks SUBJECTIVE: This is a 41 year old that is here today for Above Complaints.. For close to two weeks has had blood when he wipes. Has rectal burning and itching. Has used OTC hemorrhoid cream and wipes with no relief. Reports he did have a cyst in area in the past he needed to have lanced. Denies fevers, chills, constipation, diarrhea, melana, or straining for bowel movement PAST MEDICAL HISTORY Diagnosis Date ANXIETY STATE NOS 10/07/2008 Condyloma acuminatum 05/10/2011 Depression Diabetes mellitus (HCC) ELEV BL PRES W/O HYPERTN 12/17/2005 Erectile dysfunction Esophageal reflux 12/17/2005 HYPERGLYCEMIA 01/17/2006 Hypertension Knee MCL sprain 1990s Right knee Morbid obesity (HCC) OVERWEIGHT 12/17/2005 Perianal abscess 04/22/2012 PTSD (post-traumatic stress disorder) Snoring Tobacco use disorder 12/17/2005 Vitamin D deficiency ALLERGIES Latex, Lisinopril, Penicillins, Prozac [Fluoxetine], and Wellbutrin [Bupropion] MEDICATIONS Current Outpatient Medications Medication Sig semaglutide (RYBELSUS) 3 mg tablet Take 1 tablet by mouth daily before breakfast. pantoprazole DR (PROTONIX) 40 mg tablet Take 1 tablet by mouth daily before breakfast. Take on empty stomach, 1/2 hr before meal. escitalopram oxalate (LEXAPRO) 20 mg tablet Take 1 tablet by mouth once daily. gabapentin (NEURONTIN) 300 mg capsule Take 1 capsule by mouth three times daily for 30 days. glimepiride (AMARYL) 1 mg tablet Take 3 tablets by mouth daily with breakfast. amLODIPine (NORVASC) 10 mg tablet Take 1 tablet by mouth once daily. atorvastatin (LIPITOR) 20 mg tablet Take 1 tablet by mouth daily at bedtime. For cholesterol. celecoxib (CELEBREX) 200 mg capsule Take 1 capsule by mouth once daily. metFORMIN ER (GLUCOPHAGE XR) 500 mg 24 hr tablet Take 2 tablets by mouth daily with dinner. losartan (COZAAR) 25 mg tablet Take 1 tablet by mouth once daily. Blood Pressure Kit-Extra Large kit 1 Each once daily. cholecalciferol, Vitamin D3, (VITAMIN D3) 1,250 mcg (50,000 unit) cap capsule Take 1 capsule by mouth one time a week. blood sugar diagnostic (BLOOD GLUCOSE TEST) test strip Test blood sugar(s) 1 times daily. Dx: Type 2 DM - Uncontrolled E11.65 Insulin: No Lancets lancets Test blood sugar(s) 1 times daily. Dx: Type 2 DM - Uncontrolled E11.65 Insulin: No No current facility-administered medications for this visit. Medications and allergies reviewed by this provider. SOCIAL HISTORY Social History Tobacco Use Smoking status: Every Day Packs/day: 0.50 Years: 6.00 Pack years: 3.00 Types: Cigarettes Smokeless tobacco: Former Tobacco comments: currently trying to quit - 4 or 5 cigarettes/day Substance Use Topics Alcohol use: Yes Alcohol/week: 15.0 standard drinks Types: 6 Cans of Beer (12oz) per week Comment: occasionally (weekends) Drug use: Yes Types: Marijuana Comment: socially - special occasions REVIEW OF SYSTEMS All other reviewed and negative other than HPI. OBJECTIVE: BP 132/86 Pulse 88 Resp 18 Wt (!) 139.9 kg (308 lb 6.4 oz) SpO2 98% BMI 39.60 kg/m . Vital signs reviewed by this provider. APPEARANCE Well appearing, alert, in no acute distress, well-hydrated, well nourished. RECTAL Small skin tag to pantera area. No active rectal bleeding. Internal exam with hemorrhoid at the 6 o'clock position area is TTP. No external hemorrhoids observed HEPATITIS B(1 of 3 - 3-dose series) Never done BP CONTROLLED (<130/80) due on 12/18/2018 COVID-19 VACCINE(2 - Booster for Yolanda series) due on 03/30/2021 URINE ALBUMIN:CREATININE RATIO due on 09/25/2021 DIABETIC FOOT EXAM due on 10/30/2022 INFLUENZA(Season Ended) due on 01/31/2023 HBA1C due on 02/06/2023 LDL CHOLESTEROL due on 08/07/2023 DILATED RETINAL EXAM due on 09/13/2023 ANNUAL PCP TEAM CHRONIC DISEASE VISIT due on 09/25/2023 DTAP,TDAP,TD(2 - Td or Tdap) due on 08/09/2029 HEPATITIS C SCREENING Completed PNEUMOCOCCAL Completed HIV SCREENING Discontinued ASSESSMENT/PLAN: 1. Internal hemorrhoids - ICD9: 455.0, ICD10: K64.8 (primary diagnosis) - no red flag symptoms or exam findings - red flag symptoms discussed - LIDOCAINE 2 %-HYDROCORTISONE 2 % (7 GRAM) RECTAL KIT CREAM AND WIPES- do not use longer than 7 days - increase fiber in diet - handout on hemorrhoid care given to patient - follow-up if symptoms fail to improve, to ER with red flag symptoms 2. Rectal bleeding - ICD9: 569.3, ICD10: K62.5 - plan as above Candida Britton APRN.CNP Prescription instructions reviewed with patient as applicable. Patient advised if symptoms do not improve or if symptoms worsen sooner, to contact their primary care physician. Potential red flag symptoms discussed with the patient. Reviewed appropriate action plan to take if red flag symptoms occur. Patient agreeable to treatment plan. I spent a total of 25 minutes on the date of the service which included preparing to see the patient, [id number] patient care, completing clinical documentation, obtaining and/or reviewing separately obtained history, performing a medically appropriate examination, counseling and educating the patient/family/caregiver, and ordering medications, tests, or procedures. documented in this encounter [facility] 09-24-2022 Miscellaneous Notes Reviewed. Candida Britton APRN.CNP Triage Protocol Recommended: See provider within 4 hours. Appt made with Candida Britton CNP for today. Please call pt if provider has other advise. Thank you. Reason for Disposition MODERATE rectal bleeding (small blood clots, passing blood without stool, or toilet water turns red) Answer Assessment - Initial Assessment Questions Patient calling with main complaint of bleeding hemorrhoid for one and a half weeks. 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 1. APPEARANCE of BLOOD: red, constant bleeding of hemorrhoid-denies any blood clots, no blood in stool, no pain. able to visualize pt's hemorrhoid. 2. AMOUNT: mild to moderate 3. FREQUENCY: has not passed any blood in stools 4. ONSET: about a week and a half ago 5. DIARRHEA: no 6. CONSTIPATION: no 7. RECURRENT SYMPTOMS: Has had problem with hemorrhoids in past but not this bad 8. BLOOD THINNERS: denies, on BP meds 9. OTHER SYMPTOMS: NO abdomen pain, NO vomiting, NO dizziness, NO fever 10. : n/a Protocols used: Rectal Ysexzexx-MAARN-MS Patient has used Prep H cream and wipes and has not helped. documented in this encounter [facility] 09-05-2022 Miscellaneous Notes Rx sent for 90 days. Cymbalta removed from his list. Will discuss this at his next appointment. Keep f/u as scheduled. Needs to contact us, not pharmacy, for refills as a reminder. Spoke to patient since Lexapro has not been filled since 07/24. Advised last refill request in [facility] he asked for Cymbalta to be filled which it was. Patient said at last appointment discussed if cymbalta was causing stomach issues (cramping) than to stop an restart lexapro. Patient had old rx left so restarted Joanna Granados Ma documented in this encounter [facility] 09-05-2022 Miscellaneous Notes Patient phones requesting refills as follows: Requested Prescriptions Pending Prescriptions Disp Refills pantoprazole DR (PROTONIX) 40 mg tablet 90 tablet 1 Sig: Take 1 tablet by mouth daily before breakfast. Take on empty stomach, 1/2 hr before meal. EULALIA-08/06/22 Labs-08/06/22 NOV-10/03/22 med filled 04/17/22 Please review and advise. Marguerite Ricks LPN documented in this encounter [facility] 09-02-2022 Miscellaneous Notes Duplicate refill encounter. Cat Hill MA documented in this encounter [facility] 09-02-2022 Miscellaneous Notes Patient has been identified by name and date of : Yes Requested Prescriptions Pending Prescriptions Disp Refills semaglutide (RYBELSUS) 3 mg tablet 30 tablet 0 Sig: Take 1 tablet by mouth daily before breakfast. gabapentin (NEURONTIN) 300 mg capsule 90 capsule 0 Sig: Take 1 capsule by mouth three times daily for 30 days. RX INSTRUCTIONS: Patient aware RX will be sent to pharmacy. No need to notify patient. Patient last office visit: 08/06/22 Patient next office visit: 10/03/22 Cat Hill MA documented in this encounter [facility] 08-12-2022 Miscellaneous Notes Unable to reach patient by phone- [employer] message sent Tarik Velasquez Cma Left message for patient to call office back Joanna Granados Ma Please let patient know his hemoglobin a1c remains elevated. We will recheck this in 3 months to evaluate changes made to his medications during his appointment. documented in this encounter [facility] 08-09-2022 Miscellaneous Notes DANNIELLE approved 08/07/22-08/06/23 Patient left message on vm and faxed approval to steve Granados Ma Prior Authorization has been completed online at [employer] for Rybelsus, will await response. [id number] Please keep encounter open until final decision has been received and documented from insurance company. Joanna Granados MA documented in this encounter [facility] 08-06-2022 Instructions Dagoberto Quiles APRN.CNP - 08/06/2022 3:05 PM EST Continue current medications Start Semaglutide Complete PVR's Complete labs Follow up in 4 weeks documented in this encounter [facility] 08-06-2022 History of Present illness Narrative Chief Complaint Patient presents with: Follow Up HPI Mckinley Mcgee is a 41 year old male who presents here today for Above Complaints.. Patient presents for diabetes check up. Patient states that he has been having increased numbness/tingling and pain in his feet. Past medical history, appointments, medications, allergies reviewed. Previous Medical History PAST MEDICAL HISTORY Diagnosis Date ANXIETY STATE NOS 10/07/2008 Condyloma acuminatum 05/10/2011 Depression Diabetes mellitus (HCC) ELEV BL PRES W/O HYPERTN 12/17/2005 Erectile dysfunction Esophageal reflux 12/17/2005 HYPERGLYCEMIA 01/17/2006 Hypertension Knee MCL sprain Right knee Morbid obesity (HCC) OVERWEIGHT 12/17/2005 Perianal abscess 04/22/2012 PTSD (post-traumatic stress disorder) Snoring Tobacco use disorder 12/17/2005 Vitamin D deficiency Previous Surgical History PAST SURGICAL HISTORY Procedure Laterality Date DEBRIDEMENT OPEN WOUND 20 SQ CM/< 04/22/12 Debridement perianal abscess PAST SURGICAL HISTORY OF 1990 Right upper arm laceration PAST SURGICAL HISTORY OF 04-10-12 neuroma right foot TONSILLECTOMY PRIMARY/SECONDARY <AGE 12 Tonsillectomy Family History FAMILY HISTORY Problem Relation Age of Onset Heart Father Hypertension Mother Cancer Mother Patient Allergies ALLERGIES Allergen Reactions Latex Rash Lisinopril Cough Penicillins Unknown childhood- unknown reaction -Has taken amoxil Prozac [Fluoxetine] Mental Status Change Wellbutrin [Bupropi* GI Upset Current Medications Current Outpatient Medications on File Prior to Visit Medication Sig pantoprazole DR (PROTONIX) 40 mg tablet Take 1 tablet by mouth daily before breakfast. Take on empty stomach, 1/2 hr before meal. amLODIPine (NORVASC) 10 mg tablet Take 1 tablet by mouth once daily. atorvastatin (LIPITOR) 20 mg tablet Take 1 tablet by mouth daily at bedtime. For cholesterol. celecoxib (CELEBREX) 200 mg capsule Take 1 capsule by mouth once daily. metFORMIN ER (GLUCOPHAGE XR) 500 mg 24 hr tablet Take 2 tablets by mouth daily with dinner. losartan (COZAAR) 25 mg tablet Take 1 tablet by mouth once daily. DULoxetine (CYMBALTA) 30 mg capsule Take 1 capsule by mouth once daily. gabapentin (NEURONTIN) 300 mg capsule Take 1 capsule by mouth three times daily for 30 days. Blood Pressure Kit-Extra Large kit 1 Each once daily. glimepiride (AMARYL) 1 mg tablet Take 3 tablets by mouth daily with breakfast. SITagliptin (JANUVIA) 100 mg tablet Take 1 tablet by mouth once daily. cholecalciferol, Vitamin D3, (VITAMIN D3) 1,250 mcg (50,000 unit) cap capsule Take 1 capsule by mouth one time a week. blood sugar diagnostic (BLOOD GLUCOSE TEST) test strip Test blood sugar(s) 1 times daily. Dx: Type 2 DM - Uncontrolled E11.65 Insulin: No Lancets lancets Test blood sugar(s) 1 times daily. Dx: Type 2 DM - Uncontrolled E11.65 Insulin: No No current facility-administered medications on file prior to visit. Social History Social History Tobacco Use Smoking status: Every Day Packs/day: 0.50 Years: 6.00 Pack years: 3.00 Types: Cigarettes Smokeless tobacco: Former Tobacco comments: currently trying to quit - 4 or 5 cigarettes/day Substance Use Topics Alcohol use: Yes Alcohol/week: 15.0 standard drinks Types: 6 Cans of Beer (12oz) per week Comment: occasionally (weekends) Drug use: Yes Types: Marijuana Comment: socially - special occasions Review of Symptoms REVIEW OF SYSTEMS See HPI EXAM: BP 140/82 Pulse 103 Resp 18 Wt (!) 143.8 kg (317 lb) BMI 40.70 kg/m General Appearance: Well appearing, alert, in no acute distress, well-hydrated, well nourished.. Peripheral Pulses: Normal. Neurologic: Gait normal. Reflexes normal and symmetric. Sensation grossly intact.. Health Maintenance List HEPATITIS B(1 of 3 - 3-dose series) Never done DILATED RETINAL EXAM Never done BP CONTROLLED (<130/80) due on 12/18/2018 COVID-19 VACCINE(2 - Booster for Yolanda series) due on 03/30/2021 URINE ALBUMIN:CREATININE RATIO due on 09/25/2021 LDL CHOLESTEROL due on 01/29/2022 HBA1C due on 01/30/2022 INFLUENZA(1) due on 01/31/2022 DIABETIC FOOT EXAM due on 10/30/2022 ANNUAL PCP TEAM CHRONIC DISEASE VISIT due on 02/20/2023 DTAP,TDAP,TD(2 - Td or Tdap) due on 08/09/2029 HEPATITIS C SCREENING Completed PNEUMOCOCCAL Completed HIV SCREENING Discontinued ASSESSMENT/PLAN: 1. Hyperlipidemia, mixed - ICD9: 272.2, ICD10: E78.2 (primary diagnosis) - to be determined upon return of lab results - Continue current medication. - Encouraged following a low fat, low cholesterol diet. - Discussed the benefits of regular aerobic exercise and weight loss. - Check fasting lipid panel and ALT. - LIPID PANEL, NONFASTING 2. Type 2 diabetes mellitus without complication, without long-term current use of insulin (HCC) - ICD9: 250.00, ICD10: E11.9 - Uncontrolled - Stop sitagliptin (Januvia) - HGB A1C - SEMAGLUTIDE 3 MG TABLET - GLIMEPIRIDE 1 MG TABLET 3. Medication management - ICD9: V58.69, ICD10: Z79.899 - CBC + DIFF - COMP METABOLIC PANEL 4. Numbness and tingling of both feet - ICD9: 782.0, ICD10: R20.0, R20.2 - GABAPENTIN 300 MG CAPSULE Dagoberto Quiles APRN.VENEER TAPING MACHINE OPERATOR documented in this encounter [facility] 04-17-2022 Miscellaneous Notes Patient has been identified by name and date of : Yes Patient phones for refill(s): Requested Prescriptions Pending Prescriptions Disp Refills pantoprazole DR (PROTONIX) 40 mg tablet 90 tablet 1 Sig: Take 1 tablet by mouth daily before breakfast. Take on empty stomach, 1/2 hr before meal. amLODIPine (NORVASC) 10 mg tablet 90 tablet 1 Sig: Take 1 tablet by mouth once daily. atorvastatin (LIPITOR) 20 mg tablet 90 tablet 1 Sig: Take 1 tablet by mouth daily at bedtime. For cholesterol. celecoxib (CELEBREX) 200 mg capsule 30 capsule 2 Sig: Take 1 capsule by mouth once daily. metFORMIN ER (GLUCOPHAGE XR) 500 mg 24 hr tablet 180 tablet 1 Sig: Take 2 tablets by mouth daily with dinner. losartan (COZAAR) 25 mg tablet 90 tablet 1 Sig: Take 1 tablet by mouth once daily. DULoxetine (CYMBALTA) 30 mg capsule 90 capsule 1 Sig: Take 1 capsule by mouth once daily. Date of last office visit in primary care: 01/29/22 Please advise. Thank you. Sabrina Anders LPN documented in this encounter [facility] 04-01-2022 Miscellaneous Notes Patient scheduled on 04/[address] Brooks. 1st attempt left message to return call to schedule podi appointment documented in this encounter [facility] 03-26-2022 Miscellaneous Notes Notified via [employer] [facility] that they need appt for refill. Maryana Luevano Ma Patient needs follow-up on gabapentin. Please assist in scheduling. Candida Britton APRN.CNP Patient has been identified by name and date of : Yes Requested Prescriptions Pending Prescriptions Disp Refills gabapentin (NEURONTIN) 300 mg capsule [Pharmacy Med Name: GABAPENTIN 300 MG CAPSULE] 90 capsule 0 Sig: take 1 capsule by mouth three times a day RX INSTRUCTIONS: Patient aware RX will be sent to pharmacy. No need to notify patient. Melvi Martin MA Eul[place]: 12/2021 No appointment scheduled Last refill: 01/2022 documented in this encounter [facility] 02-20-2022 Instructions Sharla Valdez APRN.CNP - 02/20/2022 5:19 PM EDT Schedule your PVR testing-blood flow in your legs. Check your BP once daily. Record the BP and heart rate. Send me the results via [employer] in 2 weeks. Start the gabapentin. 3 times daily. documented in this encounter [facility] 02-20-2022 History of Present illness Narrative Chief Complaint Patient presents with: Diabetes Neuropathy HPI Mckinley Mcgee is a 41 year old male who presents here today for Above Complaints. Today: Feet-feels like he is walking on needles with both feet. Right-mostly the ball of his foot. Left-terrible pain-has missed 3 days of work. Has been going on for a while-about a year-but worsening over the last few months. Past medical history, appointments, medications, allergies reviewed. Previous Medical History PAST MEDICAL HISTORY Diagnosis Date ANXIETY STATE NOS 10/07/2008 Condyloma acuminatum 05/10/2011 Depression Diabetes mellitus (HCC) ELEV BL PRES W/O HYPERTN 12/17/2005 Erectile dysfunction Esophageal reflux 12/17/2005 HYPERGLYCEMIA 01/17/2006 Hypertension Knee MCL sprain 1990s Right knee Morbid obesity (HCC) OVERWEIGHT 12/17/2005 Perianal abscess 04/22/2012 PTSD (post-traumatic stress disorder) Snoring Tobacco use disorder 12/17/2005 Vitamin D deficiency Previous Surgical History PAST SURGICAL HISTORY Procedure Laterality Date DEBRIDEMENT OPEN WOUND 20 SQ CM/< 04/22/12 Debridement perianal abscess PAST SURGICAL HISTORY OF 1990 Right upper arm laceration PAST SURGICAL HISTORY OF 04-10-12 neuroma right foot TONSILLECTOMY PRIMARY/SECONDARY <AGE 12 Tonsillectomy Family History FAMILY HISTORY Problem Relation Age of Onset Heart Father Hypertension Mother Cancer Mother Patient Allergies ALLERGIES Allergen Reactions Latex Rash Lisinopril Cough Penicillins Unknown childhood- unknown reaction -Has taken amoxil Prozac [Fluoxetine] Mental Status Change Wellbutrin [Bupropi* GI Upset Current Medications Current Outpatient Medications on File Prior to Visit Medication Sig glimepiride (AMARYL) 1 mg tablet Take 3 tablets by mouth daily with breakfast. metFORMIN ER (GLUCOPHAGE XR) 500 mg 24 hr tablet Take 2 tablets by mouth daily with dinner. losartan (COZAAR) 25 mg tablet Take 1 tablet by mouth once daily. DULoxetine (CYMBALTA) 30 mg capsule Take 1 capsule by mouth once daily. SITagliptin (JANUVIA) 100 mg tablet Take 1 tablet by mouth once daily. celecoxib (CELEBREX) 200 mg capsule Take 1 capsule by mouth once daily. atorvastatin (LIPITOR) 20 mg tablet Take 1 tablet by mouth daily at bedtime. For cholesterol. pantoprazole DR (PROTONIX) 40 mg tablet Take 1 tablet by mouth daily before breakfast. Take on empty stomach, 1/2 hr before meal. amLODIPine (NORVASC) 10 mg tablet Take 1 tablet by mouth once daily. blood sugar diagnostic (BLOOD GLUCOSE TEST) test strip Test blood sugar(s) 1 times daily. Dx: Type 2 DM - Uncontrolled E11.65 Insulin: No Lancets lancets Test blood sugar(s) 1 times daily. Dx: Type 2 DM - Uncontrolled E11.65 Insulin: No cholecalciferol, Vitamin D3, (VITAMIN D3) 1,250 mcg (50,000 unit) cap capsule Take 1 capsule by mouth one time a week. No current facility-administered medications on file prior to visit. Social History Social History Tobacco Use Smoking status: Every Day Packs/day: 0.50 Years: 6.00 Pack years: 3.00 Types: Cigarettes Smokeless tobacco: Former Tobacco comments: currently trying to quit - 4 or 5 cigarettes/day Substance Use Topics Alcohol use: Yes Alcohol/week: 15.0 standard drinks Types: 6 Cans of Beer (12oz) per week Comment: occasionally (weekends) Drug use: Yes Types: Marijuana Comment: socially - special occasions Review of Symptoms REVIEW OF SYSTEMS See HPI, otherwise negative EXAM: BP 168/96 (BP Site: Left Arm, BP Position: Sitting, BP Cuff Size: Regular Adult) Pulse 89 Resp 16 Wt (!) 146.4 kg (322 lb 12.8 oz) SpO2 98% BMI 41.45 kg/m General Appearance: Well appearing, alert, in no acute distress, well-hydrated, well nourished. and Morbidly obese. Lungs: Lungs clear to auscultation. No wheezing, rhonchi, rales.. Heart: RRR without murmur, gallop, or rubs. No ectopy. Extremities: Hemosiderin staining to BLE and feet, feet and ankles cold Peripheral Pulses: Normal. Health Maintenance List HEPATITIS B(1 of 3 - 3-dose series) Never done DILATED RETINAL EXAM Never done BP CONTROLLED (<130/80) due on 12/18/2018 COVID-19 VACCINE(2 - Booster for Yolanda series) due on 03/30/2021 URINE ALBUMIN:CREATININE RATIO due on 09/25/2021 HBA1C due on 01/30/2022 LDL CHOLESTEROL due on 01/29/2022 INFLUENZA(1) due on 01/31/2022 DIABETIC FOOT EXAM due on 10/30/2022 ANNUAL PCP TEAM CHRONIC DISEASE VISIT due on 01/29/2023 DTAP,TDAP,TD(2 - Td or Tdap) due on 08/09/2029 HEPATITIS C SCREENING Completed PNEUMOCOCCAL Completed HIV SCREENING Discontinued Data reviewed Previous records, office notes, [place]ARRS report PDMP website checked and validated. All prescriptions have been APPROPRIATELY filled. No suspicious activity was identified. 02/20/2022 by Sharla Valdez CNP. ASSESSMENT/PLAN: 1. Numbness and tingling of both feet - ICD9: 782.0, ICD10: R20.0, R20.2 (primary diagnosis) PVRs. Recommend compression stockings. Home BP checks, report in 2 weeks. Begin gabapentin. F/u in office in 4 weeks. - PVR [facility] 2. Chronic pain of both feet - ICD9: 729.5, 338.29, ICD10: M79.671, G89.29, M79.672 PVRs. Recommend compression stockings. Home BP checks, report in 2 weeks. Begin gabapentin. F/u in office in 4 weeks. - PVR [facility] 3. Type 2 diabetes mellitus with peripheral neuropathy (HCC) - ICD9: 250.60, 357.2, ICD10: E11.42 PVRs. Recommend compression stockings. Home BP checks, report in 2 weeks. Begin gabapentin. F/u in office in 4 weeks. - PVR [facility] 4. Cold feet - ICD9: 782.9, ICD10: R20.9 PVRs. Recommend compression stockings. Home BP checks, report in 2 weeks. Begin gabapentin. F/u in office in 4 weeks. - PVR [facility] 5. Essential hypertension - ICD9: 401.9, ICD10: I10 PVRs. Recommend compression stockings. Home BP checks, report in 2 weeks. Begin gabapentin. F/u in office in 4 weeks. Sharla Valdez APRN.VENEER TAPING MACHINE OPERATOR documented in this encounter [facility] 01-29-2022 History of Present illness Narrative Chief Complaint Patient presents with: Diabetes: Follow up HPI Mckinley Mcgee is a 41 year old male who presents here today for Above Complaints. DIABETES MELLITUS: Mr. Mcgee was last seen 3 months ago. Since our last visit he denies excessive thirst or increased frequency of urination, numbness, tingling or pain in extremities, and new or unusual visual symptoms. Admits to possible hypoglycemia symptoms at work maybe 2-3 times per week. Feels jittery and will eat something that contains sugar and symptoms resolve. Does not have time to check sugars at work. Follows a diabetic diet most of the time. He is compliant with medication(s) and is tolerating med(s) without any side effects. He reports checking his glucose on a infrequent to not at all basis. Patient's last HgA1C was Hemoglobin A1C (%) Date Value 07/04/2021 7.7 01/29/2021 7.7 Hemoglobin A1C (POCT) (%) Date Value 10/30/2021 8.0 ) Last Ophthalmology exam was more than 12 months ago. Last Podiatry exam was within the past 12 months BP elevated on initial check. Attributes this to hurrying to get her on time for his appointment. Compliant with regimen. Denies HTN symptoms. Requesting Prevnar 20 vaccine today. Past medical history, appointments, medications, allergies reviewed. Previous Medical History PAST MEDICAL HISTORY Diagnosis Date ANXIETY STATE NOS 10/07/2008 Condyloma acuminatum 05/10/2011 Depression Diabetes mellitus (HCC) ELEV BL PRES W/O HYPERTN 12/17/2005 Erectile dysfunction Esophageal reflux 12/17/2005 HYPERGLYCEMIA 01/17/2006 Hypertension Knee MCL sprain 1990s Right knee Morbid obesity (HCC) OVERWEIGHT 12/17/2005 Perianal abscess 04/22/2012 PTSD (post-traumatic stress disorder) Snoring Tobacco use disorder 12/17/2005 Vitamin D deficiency Previous Surgical History PAST SURGICAL HISTORY Procedure Laterality Date DEBRIDEMENT OPEN WOUND 20 SQ CM/< 04/22/12 Debridement perianal abscess PAST SURGICAL HISTORY OF 1990 Right upper arm laceration PAST SURGICAL HISTORY OF 04-10-12 neuroma right foot TONSILLECTOMY PRIMARY/SECONDARY <AGE 12 Tonsillectomy Family History FAMILY HISTORY Problem Relation Age of Onset Heart Father Hypertension Mother Cancer Mother Patient Allergies ALLERGIES Allergen Reactions Latex Rash Lisinopril Cough Penicillins Unknown childhood- unknown reaction -Has taken amoxil Prozac [Fluoxetine] Mental Status Change Wellbutrin [Bupropi* GI Upset Current Medications Current Outpatient Medications on File Prior to Visit Medication Sig DULoxetine (CYMBALTA) 30 mg capsule Take 1 capsule by mouth once daily. celecoxib (CELEBREX) 200 mg capsule Take 1 capsule by mouth once daily. losartan (COZAAR) 25 mg tablet Take 1 tablet by mouth once daily. glimepiride (AMARYL) 4 mg tablet Take 1 tablet by mouth daily with breakfast. atorvastatin (LIPITOR) 20 mg tablet Take 1 tablet by mouth daily at bedtime. For cholesterol. pantoprazole DR (PROTONIX) 40 mg tablet Take 1 tablet by mouth daily before breakfast. Take on empty stomach, 1/2 hr before meal. amLODIPine (NORVASC) 10 mg tablet Take 1 tablet by mouth once daily. cholecalciferol, Vitamin D3, (VITAMIN D3) 1,250 mcg (50,000 unit) cap capsule Take 1 capsule by mouth one time a week. SITagliptin (JANUVIA) 100 mg tablet Take 1 tablet by mouth once daily. metFORMIN ER (GLUCOPHAGE XR) 500 mg 24 hr tablet Take 2 tablets by mouth twice daily. (Patient taking differently: Take 1,000 mg by mouth daily with dinner. ) blood sugar diagnostic (BLOOD GLUCOSE TEST) test strip Test blood sugar(s) 1 times daily. Dx: Type 2 DM - Uncontrolled E11.65 Insulin: No Lancets lancets Test blood sugar(s) 1 times daily. Dx: Type 2 DM - Uncontrolled E11.65 Insulin: No No current facility-administered medications on file prior to visit. Social History Social History Tobacco Use Smoking status: Every Day Packs/day: 0.50 Years: 6.00 Pack years: 3.00 Types: Cigarettes Smokeless tobacco: Former Tobacco comments: currently trying to quit - 4 or 5 cigarettes/day Substance Use Topics Alcohol use: Yes Alcohol/week: 15.0 standard drinks Types: 6 Cans of Beer (12oz) per week Comment: occasionally (weekends) Drug use: Yes Types: Marijuana Comment: socially - special occasions Review of Symptoms REVIEW OF SYSTEMS GENERAL: No weight loss, malaise or fevers RESPIRATORY: Negative for cough, hemoptysis, wheezing, COPD, dyspnea or shortness of breath CARDIOVASCULAR: Negative for chest pain, leg swelling, hypertension, CHF or palpitations GI: No nausea, vomiting, or diarrhea SKIN: Negative for lesions, rash, and itching EXAM: BP 152/82 Pulse 104 Resp 18 Wt (!) 146.9 kg (323 lb 12.8 oz) SpO2 96% BMI 41.57 kg/m General Appearance: Well appearing, alert, in no acute distress, well-hydrated, well nourished. Skin: Skin color, texture, turgor normal, no suspicious rashes or lesions. Lungs: Lungs clear to auscultation. No wheezing, rhonchi, rales.. Heart: RRR without murmur, gallop, or rubs. No ectopy. Abdomen: Normal abdominal exam, Abdomen soft, non-tender. Bowel sounds normal. No masses, organomegaly. Extremities: No deformities, edema, skin discoloration, clubbing or cyanosis. Good capillary refill. Health Maintenance List HEPATITIS B(1 of 3 - 3-dose series) Never done DILATED RETINAL EXAM Never done BP CONTROLLED (<130/80) due on 12/18/2018 PNEUMOCOCCAL(2 - PCV) due on 08/09/2020 COVID-19 VACCINE(2 - Booster for Yolanda series) due on 03/30/2021 URINE ALBUMIN:CREATININE RATIO due on 09/25/2021 LDL CHOLESTEROL due on 01/29/2022 HBA1C due on 01/30/2022 INFLUENZA(1) due on 01/31/2022 DIABETIC FOOT EXAM due on 10/30/2022 ANNUAL PCP TEAM CHRONIC DISEASE VISIT due on 10/30/2022 DTAP,TDAP,TD(2 - Td or Tdap) due on 08/09/2029 HEPATITIS C SCREENING Completed HIV SCREENING Discontinued Data reviewed Component Latest Ref Rng & Units 07/04/2021 10/30/2021 Protein, Total 6.3 - 8.0 g/dL 7.4 Albumin 3.9 - 4.9 g/dL 4.7 Calcium 8.5 - 10.2 mg/dL 9.5 Bilirubin, Total 0.2 - 1.3 mg/dL 0.3 Alkaline Phosphatase 38 - 113 U/L 101 AST 14 - 40 U/L 21 Glucose 74 - 99 mg/dL 141 (H) BUN 9 - 24 mg/dL 11 Creatinine 0.73 - 1.22 mg/dL 0.76 Sodium 136 - 144 mmol/L 135 (L) Potassium 3.7 - 5.1 mmol/L 4.1 Chloride 97 - 105 mmol/L 98 CO2 22 - 30 mmol/L 25 Anion Gap 9 - 18 mmol/L 12 ALT 10 - 54 U/L 35 eGFR- >60 eGFR-All Other Races . >60 Hemoglobin A1C 4.3 - 5.6 % 7.7 (H) Estimated Average Glucose mg/dL 174 Vitamin D 25 Hydroxy 31.0 - 80.0 ng/mL 10.0 (L) Hemoglobin A1C (POCT) 4.2 - 5.6 % 8.0 (A) ASSESSMENT/PLAN: 1. Type 2 diabetes mellitus without complication, without long-term current use of insulin (HCC) - ICD9: 250.00, ICD10: E11.9 (primary diagnosis) - Decrease glimepiride (Amaryl) due to hypoglycemia. Discussed SGLT 2 vs GLP 1 for DM control, but is refusing today due to cost. - Blood glucose monitoring on a once a day schedule - Encouraged regular aerobic exercise and weight loss - Follow up in 3 month, sooner should any other issues arise. - Discussed diabetic education issues of buttermaker diabetic complications, hypoglycemic symptoms, hyperglycemic symptoms, diet, medications- side effects and need for compliance, importance of exercise, and importance of annual examinations with Opthalmology with patient. - CBC - COMP METABOLIC PANEL - HGB A1C - ALBUMIN/CREAT RATIO RND UR - LIPID PANEL, NONFASTING - GLIMEPIRIDE 1 MG TABLET - METFORMIN ER 500 MG TABLET,EXTENDED RELEASE 24 HR - SITAGLIPTIN 100 MG TABLET 2. Essential hypertension - ICD9: 401.9, ICD10: I10 - suboptimal control - Continue current medication(s) - Encouraged dietary sodium restriction/DASH diet - Recommended regular aerobic exercise. - Follow up in 2 weeks for BP recheck. - Reviewed risks of HTN and principles of treatment - Goal of BP <140/90 - LOSARTAN 25 MG TABLET 3. Depression with anxiety - ICD9: 300.4, ICD10: F41.8 Requesting 90 day refill. - DULOXETINE 30 MG CAPSULE,DELAYED RELEASE 4. Need for pneumococcal vaccine - ICD9: V03.82, ICD10: Z23 - PNEUMOCOCCAL VACCINE (PREVNAR 20) Derek Stoddard MD documented in this encounter [facility] 10-30-2021 History of Present illness Narrative Chief Complaint Patient presents with: Diabetes: check up Depression: meds may need increased HPI Mckinley Mcgee is a 40 year old male who presents here today for Above Complaints. Patient states that he has been dealing with increased stress related to a brother who is on a bad path. Is seeing counseling 2 times per month at [facility]. Not helping as much as he would like. Taking his Lexapro as prescribed, but is not helping much with his depression symptoms. Would like to swtich to alternative. Has failed 3 SSRIs and would like to escalate to SNRI. Denies SI/HI. DIABETES MELLITUS: Mr. Mcgee was last seen 4 months ago. Since our last visit he denies excessive thirst or increased frequency of urination, new or unusual visual symptoms and low sugar/hypoglycemic reactions. Admits to polyphagia. Patient does have some numbness of feet. He checks feet regularly. Reiteration of importance of diabetic foot care give Follows a diabetic diet most of the time. He is compliant with medication(s) and is tolerating med(s) without any side effects. He reports checking his glucose on a every other day schedule with sugars in the 140-170 range. Patient's last HgA1C was Hemoglobin A1C (%) Date Value 07/04/2021 7.7 01/29/2021 7.7 Hemoglobin A1C (POCT) (%) Date Value 10/30/2021 8.0 ) Last Ophthalmology exam was within the past 12 months Last Podiatry exam was within the past 12 months BP well controlled on current regimen. Requesting alternative to his meloxicam for chronic neck pain without new injury. Completed his 50,000 unit vitamin D supplement and is due for repeat level. Has not been taking any vitamin D OTC. Past medical history, appointments, medications, allergies reviewed. Previous Medical History PAST MEDICAL HISTORY Diagnosis Date ANXIETY STATE NOS 10/07/2008 Condyloma acuminatum 05/10/2011 Depression Diabetes mellitus (HCC) ELEV BL PRES W/O HYPERTN 12/17/2005 Erectile dysfunction Esophageal reflux 12/17/2005 HYPERGLYCEMIA 01/17/2006 Hypertension Knee MCL sprain Right knee Morbid obesity (HCC) OVERWEIGHT 12/17/2005 Perianal abscess 04/22/2012 PTSD (post-traumatic stress disorder) Snoring Tobacco use disorder 12/17/2005 Vitamin D deficiency Previous Surgical History PAST SURGICAL HISTORY Procedure Laterality Date DEBRIDEMENT OPEN WOUND 20 SQ CM/< 04/22/12 Debridement perianal abscess PAST SURGICAL HISTORY OF 1990 Right upper arm laceration PAST SURGICAL HISTORY OF 04-10-12 neuroma right foot TONSILLECTOMY PRIMARY/SECONDARY <AGE 12 Tonsillectomy Family History FAMILY HISTORY Problem Relation Age of Onset Heart Father Hypertension Mother Cancer Mother Patient Allergies ALLERGIES Allergen Reactions Latex Rash Lisinopril Cough Penicillins Unknown childhood- unknown reaction -Has taken amoxil Prozac [Fluoxetine] Mental Status Change Wellbutrin [Bupropi* GI Upset Current Medications Current Outpatient Medications on File Prior to Visit Medication Sig pantoprazole DR (PROTONIX) 40 mg tablet Take 1 tablet by mouth daily before breakfast. Take on empty stomach, 1/2 hr before meal. amLODIPine (NORVASC) 10 mg tablet Take 1 tablet by mouth once daily. cholecalciferol, Vitamin D3, (VITAMIN D3) 1,250 mcg (50,000 unit) cap capsule Take 1 capsule by mouth one time a week. SITagliptin (JANUVIA) 100 mg tablet Take 1 tablet by mouth once daily. glimepiride (AMARYL) 4 mg tablet Take 0.5 tablets by mouth daily with breakfast. metFORMIN ER (GLUCOPHAGE XR) 500 mg 24 hr tablet Take 2 tablets by mouth twice daily. escitalopram oxalate (LEXAPRO) 20 mg tablet Take 1 tablet by mouth once daily. atorvastatin (LIPITOR) 20 mg tablet Take 1 tablet by mouth daily at bedtime. For cholesterol. losartan (COZAAR) 25 mg tablet Take 1 tablet by mouth once daily. (Patient not taking: Reported on 07/04/2021 ) blood sugar diagnostic (BLOOD GLUCOSE TEST) test strip Test blood sugar(s) 1 times daily. Dx: Type 2 DM - Uncontrolled E11.65 Insulin: No Lancets lancets Test blood sugar(s) 1 times daily. Dx: Type 2 DM - Uncontrolled E11.65 Insulin: No No current facility-administered medications on file prior to visit. Social History Social History Tobacco Use Smoking status: Current Every Day Smoker Packs/day: 0.50 Years: 6.00 Pack years: 3.00 Types: Cigarettes Smokeless tobacco: Former User Tobacco comment: currently trying to quit - 4 or 5 cigarettes/day Substance Use Topics Alcohol use: Yes Alcohol/week: 15.0 standard drinks Types: 6 Cans of Beer (12oz) per week Comment: occasionally (weekends) Drug use: Yes Types: Marijuana Comment: socially - special occasions Review of Symptoms REVIEW OF SYSTEMS See HPI EXAM: BP 136/76 Pulse 86 Resp 18 Wt (!) 147.8 kg (325 lb 12.8 oz) SpO2 96% BMI 41.83 kg/m General Appearance: Well appearing, alert, in no acute distress, well-hydrated, well nourished. Skin: Skin color, texture, turgor normal, no suspicious rashes or lesions. Lungs: Lungs clear to auscultation. No wheezing, rhonchi, rales.. Heart: RRR without murmur, gallop, or rubs. No ectopy. Abdomen: Normal abdominal exam, Abdomen soft, non-tender. Bowel sounds normal. No masses, organomegaly. Extremities: No deformities, edema, skin discoloration, clubbing or cyanosis. Good capillary refill. Feet: Shoes and socks removed, No deformities, ulcers, calluses, normal distal pulses, sensitive to 10 gm monofilament and nails notable for Crumbly, Deformed, Hypertrophic or Yellowish Health Maintenance List DILATED RETINAL EXAM Never done HEPATITIS B(1 of 3 - Risk 3-dose series) Never done BP CONTROLLED (<130/80) due on 12/18/2018 PNEUMOCOCCAL(2 - PCV) due on 08/09/2020 COVID-19 VACCINE(2 - Booster for Yolanda series) due on 03/30/2021 URINE ALBUMIN:CREATININE RATIO due on 09/25/2021 HBA1C due on 01/01/2022 LDL CHOLESTEROL due on 01/29/2022 DIABETIC FOOT EXAM due on 07/04/2022 ANNUAL PCP TEAM CHRONIC DISEASE VISIT due on 07/04/2022 DTAP,TDAP,TD(2 - Td or Tdap) due on 08/09/2029 INFLUENZA Completed HEPATITIS C SCREENING Completed HIV SCREENING Discontinued Data reviewed Component Latest Ref Rng & Units 07/04/2021 Protein, Total 6.3 - 8.0 g/dL 7.4 Albumin 3.9 - 4.9 g/dL 4.7 Calcium 8.5 - 10.2 mg/dL 9.5 Bilirubin, Total 0.2 - 1.3 mg/dL 0.3 Alkaline Phosphatase 38 - 113 U/L 101 AST 14 - 40 U/L 21 Glucose 74 - 99 mg/dL 141 (H) BUN 9 - 24 mg/dL 11 Creatinine 0.73 - 1.22 mg/dL 0.76 Sodium 136 - 144 mmol/L 135 (L) Potassium 3.7 - 5.1 mmol/L 4.1 Chloride 97 - 105 mmol/L 98 CO2 22 - 30 mmol/L 25 Anion Gap 9 - 18 mmol/L 12 ALT 10 - 54 U/L 35 eGFR- >60 eGFR-All Other Races . >60 Hemoglobin A1C 4.3 - 5.6 % 7.7 (H) Estimated Average Glucose mg/dL 174 Vitamin D 25 Hydroxy 31.0 - 80.0 ng/mL 10.0 (L) ASSESSMENT/PLAN: 1. Type 2 diabetes mellitus without complication, without long-term current use of insulin (HCC) - ICD9: 250.00, ICD10: E11.9 (primary diagnosis) poorly controlled - Increase glimepiride (Amaryl) - Blood glucose monitoring on a twice a day schedule - Encouraged regular aerobic exercise and weight loss - Daily Asprin therapy recommended - Follow up in 3 months, sooner should any other issues arise. - Discussed diabetic education issues of buttermaker diabetic complications, hypoglycemic symptoms, hyperglycemic symptoms, diet, medications- side effects and need for compliance, importance of exercise and importance of annual examinations with Opthalmology with patient. - HB A1C B/O - ALBUMIN/CREAT RATIO RND UR - GLIMEPIRIDE 4 MG TABLET 2. Depression with anxiety - ICD9: 300.4, ICD10: F41.8 Uncontrolled. Stop SSRI and will start Cymbalta daily. recheck in 4 weeks at [facility]. Discussed may help some with neck pain as well. Red flags for re-assessment reviewed with patient in detail. 3. PTSD (post-traumatic stress disorder) - ICD9: 309.81, ICD10: F43.10 Uncontrolled. Start SSRI. F/u in 4 weeks. 4. Essential hypertension - ICD9: 401.9, ICD10: I10 - good control - Continue current medication(s) - Encouraged dietary sodium restriction/DASH diet - Recommended regular aerobic exercise. - Reviewed risks of HTN and principles of treatment - Goal of BP <140/90 - LOSARTAN 25 MG TABLET 5. Chronic neck pain - ICD9: 723.1, 338.29, ICD10: M54.2, G89.29 Stop Mobic and will start Celebrex and Cymbalta. F/u in 4 weeks. 6. Vitamin D deficiency - ICD9: 268.9, ICD10: E55.9 Recheck level. Discussed taking 2,000 units daily OTC until we get results back. - VITAMIN D 25 HYDROXY Derek Stoddard MD documented in this encounter [facility] 08-03-2021 Miscellaneous Notes Patient returns call to let provider know that the sleep study at [facility] hasn't been scheduled yet. Patient is going to call [facility] to see about scheduling appointment. Kay Armendariz RN Orders forwarded to [facility] for PSG and contacted patient and updated him of this. HSAT cancelled. PSG ordered as requested. Patient calling [facility] called him and will not cover a home sleep study. Will cover in lab sleep study at [facility]. He is asking for sleep study order to be changed and faxed to [facility]. Complete Sleep study paper order form for [facility]. . Please advise documented in this encounter [facility] 01-29-2021 History of Present illness Narrative Radiology Service Progress Note PATIENT NAME: Mckinley Mcgee DATE OF SERVICE: January 29, 2021 TIME: 4:52 PM PATIENT IDENTITY VERIFICATION COMPLETED USING TWO (2) IDENTIFIERS: Name and Date of confirmed by patient verbally. FALL SCREENING: Has the patient had 2 falls in the last year or 1 fall with injury or currently using an Ambulatory Assistive Device (Walker, Cane, Wheelchair, Crutches, etc.)? No PATIENT GENDER DATA: Male PATIENT RELEVANT IMPLANT DATA REVIEWED: Yes RADIOLOGY DEPARTMENT: General X-ray: Exam(s) Completed: Chest X-Ray PERIPHERAL IV DATA: Not applicable SIGNED BY: RT Erich(R) January 29, 2021 4:52 PM documented in this encounter [facility] 09-19-2012 History of Past i llness Narrative Problem Noted Date Resolved Date Hand eczema 09/19/2012 09/23/2014 Eczematous dermatitis 09/19/2012 02/01/2014 Irritant contact dermatitis 09/19/201207/2013 Keratoderma of foot, acquired 09/19/2012 Perianal abscess 04/22/2012 07/16/2012 Porokeratosis 03/31/2012 09/23/2014 Lesion of plantar nerve 11/21/2011 07/16/19 13 Condyloma acuminatum 05/10/2011 07/16/2012 Anxiety state, unspecified 10/07/200805/10 HYPERGLYCEMIA 01/17/2006 09/23/2014 Elevated blood pressure read ing without diagnosis of hypertension 12/17/2005 07/16/2012 documented as of this encounter (statuses as of 08/28/2021) [facility] History of Past illness Narrative* Problem Noted Date Resolved Date Hand eczema 09/19/2012 09/23/2014 Eczematous dermatitis 09/19/2012 02/01/2014 Irritant contact dermatitis 09/19/2012 090 07/2013 Keratoderma of foot, acquired 09/19/2012 Perianal abscess 04/22/2012 07/16/2012 Porokeratosis 03/31/2012 09/23/2014 Lesion of plantar nerve 11/21/2011 07/16/19 13 Condyloma acuminatum 05/10/2011 07/16/2012 Anxiety state, unspecified 10/07/200805/10 HYPERGLYCEMIA 01/17/2006 09/23/2014 Elevated blood pressure read ing without diagnosis of hypertension 12/17/2005 07/16/2012 documented as of this encounter (statuses as of 10/31/2021) [facility] History of Past illness Narrative* Problem Noted Date Resolved Date Hand eczema 09/19/2012 09/23/2014 Eczematous dermatitis 09/19/2012 02/01/2014 Irritant contact dermatitis 09/19/20120 07/2013 Keratoderma of foot, acquired 09/19/2012 Perianal abscess 04/22/2012 07/16/2012 Porokeratosis 03/31/2012 09/23/2014 Lesion of plantar nerve 11/21/2011 07/16/19 13 Condyloma acuminatum 05/10/2011 07/16/2012 Anxiety state, unspecified 10/07/200805/10 HYPERGLYCEMIA 01/17/2006 09/23/2014 Elevated blood pressure read ing without diagnosis of hypertension 12/17/2005 07/16/2012 documented as of this encounter (statuses as of 11/01/2021) [facility] History of Past illness Narrative* Problem Noted Date Resolved Date Hand eczema 09/19/2012 09/23/2014 Eczematous dermatitis 09/19/2012 02/01/2014 Irritant contact dermatitis 09/19/20120 07/2013 Keratoderma of foot, acquired 09/19/2012 Perianal abscess 04/22/2012 07/16/2012 Porokeratosis 03/31/2012 09/23/2014 Lesion of plantar nerve 11/21/2011 07/16/19 13 Condyloma acuminatum 05/10/2011 07/16/2012 Anxiety state, unspecified 10/07/200805/10 HYPERGLYCEMIA 01/17/2006 09/23/2014 Elevated blood pressure read ing without diagnosis of hypertension 12/17/2005 07/16/2012 documented as of this encounter (statuses as of 01/30/2022) [facility] History of Past illness Narrative* Problem Noted Date Resolved Date Hand eczema 09/19/2012 09/23/2014 Eczematous dermatitis 09/19/2012 02/01/2014 Irritant contact dermatitis 09/19/20120 07/2013 Keratoderma of foot, acquired 09/19/2012 Perianal abscess 04/22/2012 07/16/2012 Porokeratosis 03/31/2012 09/23/2014 Lesion of plantar nerve 11/21/2011 07/16/19 13 Condyloma acuminatum 05/10/2011 07/16/2012 Anxiety state, unspecified 10/07/200805/10 HYPERGLYCEMIA 01/17/2006 09/23/2014 Elevated blood pressure read ing without diagnosis of hypertension 12/17/2005 07/16/2012 documented as of this encounter (statuses as of 02/20/2022) [facility] History of Past illness Narrative* Problem Noted Date Resolved Date Hand eczema 09/19/2012 09/23/2014 Eczematous dermatitis 09/19/2012 02/01/2014 Irritant contact dermatitis 09/19/20120 07/2013 Keratoderma of foot, acquired 09/19/2012 Perianal abscess 04/22/2012 07/16/2012 Porokeratosis 03/31/2012 09/23/2014 Lesion of plantar nerve 11/21/2011 07/16/19 13 Condyloma acuminatum 05/10/2011 07/16/2012 Anxiety state, unspecified 10/07/200805/10 HYPERGLYCEMIA 01/17/2006 09/23/2014 Elevated blood pressure read ing without diagnosis of hypertension 12/17/2005 07/16/2012 documented as of this encounter (statuses as of 03/26/2022) [facility] History of Past illness Narrative* Problem Noted Date Resolved Date Hand eczema 09/19/2012 09/23/2014 Eczematous dermatitis 09/19/2012 02/01/2014 Irritant contact dermatitis 09/19/20120 07/2013 Keratoderma of foot, acquired 09/19/2012 Perianal abscess 04/22/2012 07/16/2012 Porokeratosis 03/31/2012 09/23/2014 Lesion of plantar nerve 11/21/2011 07/16/19 13 Condyloma acuminatum 05/10/2011 07/16/2012 Anxiety state, unspecified 10/07/200805/10 HYPERGLYCEMIA 01/17/2006 09/23/2014 Elevated blood pressure read ing without diagnosis of hypertension 12/17/2005 07/16/2012 documented as of this encounter (statuses as of 04/01/2022) [facility] History of Past illness Narrative* Problem Noted Date Resolved Date Hand eczema 09/19/2012 09/23/2014 Eczematous dermatitis 09/19/2012 02/01/2014 Irritant contact dermatitis 09/19/20120 07/2013 Keratoderma of foot, acquired 09/19/2012 Perianal abscess 04/22/2012 07/16/2012 Porokeratosis 03/31/2012 09/23/2014 Lesion of plantar nerve 11/21/2011 07/16/19 13 Condyloma acuminatum 05/10/2011 07/16/2012 Anxiety state, unspecified 10/07/200805/10 HYPERGLYCEMIA 01/17/2006 09/23/2014 Elevated blood pressure read ing without diagnosis of hypertension 12/17/2005 07/16/2012 documented as of this encounter (statuses as of 04/17/2022) [facility] History of Past illness Narrative* Problem Noted Date Resolved Date Hand eczema 09/19/2012 09/23/2014 Eczematous dermatitis 09/19/2012 02/01/2014 Irritant contact dermatitis 09/19/20120 07/2013 Keratoderma of foot, acquired 09/19/2012 Perianal abscess 04/22/2012 07/16/2012 Porokeratosis 03/31/2012 09/23/2014 Lesion of plantar nerve 11/21/2011 07/16/19 13 Condyloma acuminatum 05/10/2011 07/16/2012 Anxiety state, unspecified 10/07/200805/10 HYPERGLYCEMIA 01/17/2006 09/23/2014 Elevated blood pressure read ing without diagnosis of hypertension 12/17/2005 07/16/2012 documented as of this encounter (statuses as of 08/07/2022) [facility] History of Past illness Narrative* Problem Noted Date Resolved Date Hand eczema 09/19/2012 09/23/2014 Eczematous dermatitis 09/19/2012 02/01/2014 Irritant contact dermatitis 09/19/20120 07/2013 Keratoderma of foot, acquired 09/19/2012 Perianal abscess 04/22/2012 07/16/2012 Porokeratosis 03/31/2012 09/23/2014 Lesion of plantar nerve 11/21/2011 07/16/19 13 Condyloma acuminatum 05/10/2011 07/16/2012 Anxiety state, unspecified 10/07/200805/10 HYPERGLYCEMIA 01/17/2006 09/23/2014 Elevated blood pressure read ing without diagnosis of hypertension 12/17/2005 07/16/2012 documented as of this encounter (statuses as of 08/09/2022) [facility] History of Past illness Narrative* Problem Noted Date Resolved Date Hand eczema 09/19/2012 09/23/2014 Eczematous dermatitis 09/19/2012 02/01/2014 Irritant contact dermatitis 09/19/20120 07/2013 Keratoderma of foot, acquired 09/19/2012 Perianal abscess 04/22/2012 07/16/2012 Porokeratosis 03/31/2012 09/23/2014 Lesion of plantar nerve 11/21/2011 07/16/19 13 Condyloma acuminatum 05/10/2011 07/16/2012 Anxiety state, unspecified 10/07/200805/10 HYPERGLYCEMIA 01/17/2006 09/23/2014 Elevated blood pressure read ing without diagnosis of hypertension 12/17/2005 07/16/2012 documented as of this encounter (statuses as of 08/12/2022) [facility] History of Past illness Narrative* Problem Noted Date Resolved Date Hand eczema 09/19/2012 09/23/2014 Eczematous dermatitis 09/19/2012 02/01/2014 Irritant contact dermatitis 09/19/20120 07/2013 Keratoderma of foot, acquired 09/19/2012 Perianal abscess 04/22/2012 07/16/2012 Porokeratosis 03/31/2012 09/23/2014 Lesion of plantar nerve 11/21/2011 07/16/19 13 Condyloma acuminatum 05/10/2011 07/16/2012 Anxiety state, unspecified 10/07/200805/10 HYPERGLYCEMIA 01/17/2006 09/23/2014 Elevated blood pressure read ing without diagnosis of hypertension 12/17/2005 07/16/2012 documented as of this encounter (statuses as of 09/02/2022) [facility] History of Past illness Narrative* Problem Noted Date Resolved Date Hand eczema 09/19/2012 09/23/2014 Eczematous dermatitis 09/19/2012 02/01/2014 Irritant contact dermatitis 09/19/201207/2013 Keratoderma of foot, acquired 09/19/2012 Perianal abscess 04/22/2012 07/16/2012 Porokeratosis 03/31/2012 09/23/2014 Lesion of plantar nerve 11/21/2011 07/16/19 13 Condyloma acuminatum 05/10/2011 07/16/2012 Anxiety state, unspecified 10/07/200805/10 HYPERGLYCEMIA 01/17/2006 09/23/2014 Elevated blood pressure read ing without diagnosis of hypertension 12/17/2005 07/16/2012 documented as of this encounter (statuses as of 09/02/2022) [facility] History of Past illness Narrative* Problem Noted Date Resolved Date Hand eczema 09/19/2012 09/23/2014 Eczematous dermatitis 09/19/2012 02/01/2014 Irritant contact dermatitis 09/19/20120 07/2013 Keratoderma of foot, acquired 09/19/2012 Perianal abscess 04/22/2012 07/16/2012 Porokeratosis 03/31/2012 09/23/2014 Lesion of plantar nerve 11/21/2011 07/16/19 13 Condyloma acuminatum 05/10/2011 07/16/2012 Anxiety state, unspecified 10/07/200805/10 HYPERGLYCEMIA 01/17/2006 09/23/2014 Elevated blood pressure read ing without diagnosis of hypertension 12/17/2005 07/16/2012 documented as of this encounter (statuses as of 09/04/2022) [facility] History of Past illness Narrative* Problem Noted Date Resolved Date Hand eczema 09/19/2012 09/23/2014 Eczematous dermatitis 09/19/2012 02/01/2014 Irritant contact dermatitis 09/19/2012/0 07/2013 Keratoderma of foot, acquired 09/19/2012 Perianal abscess 04/22/2012 07/16/2012 Porokeratosis 03/31/2012 09/23/2014 Lesion of plantar nerve 11/21/2011 07/16/19 13 Condyloma acuminatum 05/10/2011 07/16/2012 Anxiety state, unspecified 10/07/200805/10 HYPERGLYCEMIA 01/17/2006 09/23/2014 Elevated blood pressure read ing without diagnosis of hypertension 12/17/2005 07/16/2012 documented as of this encounter (statuses as of 09/05/2022) [facility] History of Past illness Narrative* Problem Noted Date Resolved Date Hand eczema 09/19/2012 09/23/2014 Eczematous dermatitis 09/19/2012 02/01/2014 Irritant contact dermatitis 09/19/20120 07/2013 Keratoderma of foot, acquired 09/19/2012 Perianal abscess 04/22/2012 07/16/2012 Porokeratosis 03/31/2012 09/23/2014 Lesion of plantar nerve 11/21/2011 07/16/19 13 Condyloma acuminatum 05/10/2011 07/16/2012 Anxiety state, unspecified 10/07/200805/10 HYPERGLYCEMIA 01/17/2006 09/23/2014 Elevated blood pressure read ing without diagnosis of hypertension 12/17/2005 07/16/2012 documented as of this encounter (statuses as of 09/05/2022) [facility] History of Past illness Narrative* Problem Noted Date Resolved Date Hand eczema 09/19/2012 09/23/2014 Eczematous dermatitis 09/19/2012 02/01/2014 Irritant contact dermatitis 09/19/20120 07/2013 Keratoderma of foot, acquired 09/19/2012 Perianal abscess 04/22/2012 07/16/2012 Porokeratosis 03/31/2012 09/23/2014 Lesion of plantar nerve 11/21/2011 07/16/19 13 Condyloma acuminatum 05/10/2011 07/16/2012 Anxiety state, unspecified 10/07/200805/10 HYPERGLYCEMIA 01/17/2006 09/23/2014 Elevated blood pressure read ing without diagnosis of hypertension 12/17/2005 07/16/2012 documented as of this encounter (statuses as of 09/25/2022) [facility] History of Past illness Narrative* Problem Noted Date Resolved Date Hand eczema 09/19/2012 09/23/2014 Eczematous dermatitis 09/19/2012 02/01/2014 Irritant contact dermatitis 09/19/201207/2013 Keratoderma of foot, acquired 09/19/2012 Perianal abscess 04/22/2012 07/16/2012 Porokeratosis 03/31/2012 09/23/2014 Lesion of plantar nerve 11/21/2011 07/16/19 13 Condyloma acuminatum 05/10/2011 07/16/2012 Anxiety state, unspecified 10/07/200805/10 HYPERGLYCEMIA 01/17/2006 09/23/2014 Elevated blood pressure read ing without diagnosis of hypertension 12/17/2005 07/16/2012 documented as of this encounter (statuses as of 09/25/2022) [facility] History of Past illness Narrative* Problem Noted Date Resolved Date Hand eczema 09/19/2012 09/23/2014 Eczematous dermatitis 09/19/2012 02/01/2014 Irritant contact dermatitis 09/19/20120 07/2013 Keratoderma of foot, acquired 09/19/2012 Perianal abscess 04/22/2012 07/16/2012 Porokeratosis 03/31/2012 09/23/2014 Lesion of plantar nerve 11/21/2011 07/16/19 13 Condyloma acuminatum 05/10/2011 07/16/2012 Anxiety state, unspecified 10/07/200805/10 HYPERGLYCEMIA 01/17/2006 09/23/2014 Elevated blood pressure read ing without diagnosis of hypertension 12/17/2005 07/16/2012 documented as of this encounter (statuses as of 10/03/2022) [facility] History of Past illness Narrative* Problem Noted Date Resolved Date Hand eczema 09/19/2012 09/23/2014 Eczematous dermatitis 09/19/2012 02/01/2014 Irritant contact dermatitis 09/19/20120 07/2013 Keratoderma of foot, acquired 09/19/2012 Perianal abscess 04/22/2012 07/16/2012 Porokeratosis 03/31/2012 09/23/2014 Lesion of plantar nerve 11/21/2011 07/16/19 13 Condyloma acuminatum 05/10/2011 07/16/2012 Anxiety state, unspecified 10/07/200805/10 HYPERGLYCEMIA 01/17/2006 09/23/2014 Elevated blood pressure read ing without diagnosis of hypertension 12/17/2005 07/16/2012 documented as of this encounter (statuses as of 10/15/2022) [facility] History of Past illness Narrative* Problem Noted Date Resolved Date Hand eczema 09/19/2012 09/23/2014 Eczematous dermatitis 09/19/2012 02/01/2014 Irritant contact dermatitis 09/19/20120 07/2013 Keratoderma of foot, acquired 09/19/2012 Perianal abscess 04/22/2012 07/16/2012 Porokeratosis 03/31/2012 09/23/2014 Lesion of plantar nerve 11/21/2011 07/16/19 13 Condyloma acuminatum 05/10/2011 07/16/2012 Anxiety state, unspecified 10/07/200805/10 HYPERGLYCEMIA 01/17/2006 09/23/2014 Elevated blood pressure read ing without diagnosis of hypertension 12/17/2005 07/16/2012 documented as of this encounter (statuses as of 10/31/2022) [facility] History of Past illness Narrative* Problem Noted Date Resolved Date Hand eczema 09/19/2012 09/23/2014 Eczematous dermatitis 09/19/2012 02/01/2014 Irritant contact dermatitis 09/19/20120 07/2013 Keratoderma of foot, acquired 09/19/2012 Perianal abscess 04/22/2012 07/16/2012 Porokeratosis 03/31/2012 09/23/2014 Lesion of plantar nerve 11/21/2011 07/16/19 13 Condyloma acuminatum 05/10/2011 07/16/2012 Anxiety state, unspecified 10/07/200805/10 HYPERGLYCEMIA 01/17/2006 09/23/2014 Elevated blood pressure read ing without diagnosis of hypertension 12/17/2005 07/16/2012 documented as of this encounter (statuses as of 11/14/2022) [facility] History of Past illness Narrative* Problem Noted Date Resolved Date Hand eczema 09/19/2012 09/23/2014 Eczematous dermatitis 09/19/2012 02/01/2014 Irritant contact dermatitis 09/19/20120 07/2013 Keratoderma of foot, acquired 09/19/2012 Perianal abscess 04/22/2012 07/16/2012 Porokeratosis 03/31/2012 09/23/2014 Lesion of plantar nerve 11/21/2011 07/16/19 13 Condyloma acuminatum 05/10/2011 07/16/2012 Anxiety state, unspecified 10/07/200805/10 HYPERGLYCEMIA 01/17/2006 09/23/2014 Elevated blood pressure read ing without diagnosis of hypertension 12/17/2005 07/16/2012 documented as of this encounter (statuses as of 11/18/2022) [facility] History of Past illness Narrative* Problem Noted Date Resolved Date Hand eczema 09/19/2012 09/23/2014 Eczematous dermatitis 09/19/2012 02/01/2014 Irritant contact dermatitis 09/19/20120 07/2013 Keratoderma of foot, acquired 09/19/2012 Perianal abscess 04/22/2012 07/16/2012 Porokeratosis 03/31/2012 09/23/2014 Lesion of plantar nerve 11/21/2011 07/16/19 13 Condyloma acuminatum 05/10/2011 07/16/2012 Anxiety state, unspecified 10/07/200805/10 HYPERGLYCEMIA 01/17/2006 09/23/2014 Elevated blood pressure read ing without diagnosis of hypertension 12/17/2005 07/16/2012 documented as of this encounter (statuses as of 11/18/2022) [facility] History of Past illness Narrative* Problem Noted Date Diagnosed Date Resolved Date Hand eczema 09/19/2012 09/23/2014 Eczematous dermatitis 09/19/20122013 Irritant contact dermatitis 09/19/2012 02/01/2014 Keratoderma of foot, acquired 09/19/2012 09/23/2014 Perianal abscess 04/22/2012 07/16/2012 Porokeratosis 03/31/2012 09/23/2014 Lesion of plantar nerve 11/21/201107/03 Condyloma acuminatum 05/10/2011 013 Anxiety state, unspecified 10/07/2008 1 07/11/2010 HYPERGLYCEMIA 01/17/2006 09/23/2014 Elevated blood pressure read ing without diagnosis of hypertension 12/17/2005 07/16/2012 documented as of this encounter (statuses as of 01/02/2023) [place] [address]20-2013 History of Past illness Narrative* Problem Noted Date Diagnosed Date Resolved Date Hand eczema 09/19/2012 09/23/2014 Eczematous dermatitis 09/19/20122013 Irritant contact dermatitis 09/19/2012 02/01/2014 Keratoderma of foot, acquired 09/19/2012 09/23/2014 Perianal abscess 04/22/2012 07/16/2012 Porokeratosis 03/31/2012 09/23/2014 Lesion of plantar nerve 11/21/201107/03 Condyloma acuminatum 05/10/2011 013 Anxiety state, unspecified 10/07/2008 1 07/11/2010 HYPERGLYCEMIA 01/17/2006 09/23/2014 Elevated blood pressure read ing without diagnosis of hypertension 12/17/2005 07/16/2012 documented as of this encounter (statuses as of 01/22/2023) [address]20-2013 History of Past illness Narrative* Problem Noted Date Diagnosed Date Resolved Date Hand eczema 09/19/2012 09/23/2014 Eczematous dermatitis 09/19/20122013 Irritant contact dermatitis 09/19/2012 02/01/2014 Keratoderma of foot, acquired 09/19/2012 09/23/2014 Perianal abscess 04/22/2012 07/16/2012 Porokeratosis 03/31/2012 09/23/2014 Lesion of plantar nerve 11/21/201107/03 Condyloma acuminatum 05/10/2011 013 Anxiety state, unspecified 10/07/2008 1 07/11/2010 HYPERGLYCEMIA 01/17/2006 09/23/2014 Elevated blood pressure read ing without diagnosis of hypertension 12/17/2005 07/16/2012 documented as of this encounter (statuses as of 02/04/2023) [facility] History of Past illness Narrative* Problem Noted Date Diagnosed Date Resolved Date Hand eczema 09/19/2012 09/23/2014 Eczematous dermatitis 09/19/20122013 Irritant contact dermatitis 09/19/2012 02/01/2014 Keratoderma of foot, acquired 09/19/2012 09/23/2014 Perianal abscess 04/22/2012 07/16/2012 Porokeratosis 03/31/2012 09/23/2014 Lesion of plantar nerve 11/21/201107/03 Condyloma acuminatum 05/10/2011 013 Anxiety state, unspecified 10/07/2008 1 07/11/2010 HYPERGLYCEMIA 01/17/2006 09/23/2014 Elevated blood pressure read ing without diagnosis of hypertension 12/17/2005 07/16/2012 documented as of this encounter (statuses as of 02/05/2023) [facility]-20[facility]2013 History of Past illness Narrative* Problem Noted Date Diagnosed Date Resolved Date Hand eczema 09/19/2012 09/23/2014 Eczematous dermatitis 09/19/20122013 Irritant contact dermatitis 09/19/2012 02/01/2014 Keratoderma of foot, acquired 09/19/2012 09/23/2014 Perianal abscess 04/22/2012 07/16/2012 Porokeratosis 03/31/2012 09/23/2014 Lesion of plantar nerve 11/21/201107/03 Condyloma acuminatum 05/10/2011 013 Anxiety state, unspecified 10/07/2008 1 07/11/2010 HYPERGLYCEMIA 01/17/2006 09/23/2014 Elevated blood pressure read ing without diagnosis of hypertension 12/17/2005 07/16/2012 documented as of this encounter (statuses as of 03/13/2023) [facility] History of Past illness Narrative* Problem Noted Date Diagnosed Date Resolved Date Hand eczema 09/19/2012 09/23/2014 Eczematous dermatitis 09/19/20122013 Irritant contact dermatitis 09/19/2012 02/01/2014 Keratoderma of foot, acquired 09/19/2012 09/23/2014 Perianal abscess 04/22/2012 07/16/2012 Porokeratosis 03/31/2012 09/23/2014 Lesion of plantar nerve 11/21/201107/03 Condyloma acuminatum 05/10/2011 013 Anxiety state, unspecified 10/07/2008 1 07/11/2010 HYPERGLYCEMIA 01/17/2006 09/23/2014 Elevated blood pressure read ing without diagnosis of hypertension 12/17/2005 07/16/2012 documented as of this encounter (statuses as of 03/20/2023) [place] [address]-20-2013 History of Past illness Narrative* Problem Noted Date Diagnosed Date Resolved Date Hand eczema 09/19/2012 09/23/2014 Eczematous dermatitis 09/19/20122013 Irritant contact dermatitis 09/19/2012 02/01/2014 Keratoderma of foot, acquired 09/19/2012 09/23/2014 Perianal abscess 04/22/2012 07/16/2012 Porokeratosis 03/31/2012 09/23/2014 Lesion of plantar nerve 11/21/201107/03 Condyloma acuminatum 05/10/2011 013 Anxiety state, unspecified 10/07/2008 1 07/11/2010 HYPERGLYCEMIA 01/17/2006 09/23/2014 Elevated blood pressure read ing without diagnosis of hypertension 12/17/2005 07/16/2012 documented as of this encounter (statuses as of 03/20/2023) [address]20-2013 History of Past illness Narrative* Problem Noted Date Diagnosed Date Resolved Date Hand eczema 09/19/2012 09/23/2014 Eczematous dermatitis 09/19/20122013 Irritant contact dermatitis 09/19/2012 02/01/2014 Keratoderma of foot, acquired 09/19/2012 09/23/2014 Perianal abscess 04/22/2012 07/16/2012 Porokeratosis 03/31/2012 09/23/2014 Lesion of plantar nerve 11/21/201107/03 Condyloma acuminatum 05/10/2011 013 Anxiety state, unspecified 10/07/2008 1 07/11/2010 HYPERGLYCEMIA 01/17/2006 09/23/2014 Elevated blood pressure read ing without diagnosis of hypertension 12/17/2005 07/16/2012 documented as of this encounter (statuses as of 09/01/2023) [facility] Kerwin Strauss [facility] Note Date/Time December 04, 2024 4:05a [facility] Medical Records Department [address] [place] [address] Emergency Department Summary 12/04/24 MR#: [id number] Acct: [id number] Name: MCKINLEY MCGEE Rep #:[id number] 07 : 1980 43 From: Kerwin Strauss MD PCP: FLO Vuong Status:REG ER Location: ED HPI History of Present Illness Chief Complaint: General Illness Detail of Chief Complaint: Shortness of breath, diaphoresis, flushed Informant: patient and spouse/S.O. Onset/Context/Timing Onset: Today Context: Sudden Onset Timing: Intermittent Quality: Flushed, bearhug sensation and diaphoresis Current Severity: Mild Maximum Severity: Severe Worsened by: Nothing Relieved by: nothing Associated Symptoms Associated Symptoms: No other symptoms Narrative Narrative: Patient is a 43-year-old male with type 2 diabetes, hypertension, diabetic neuropathy last A1c was 7. He presents because he became diaphoretic and felt atight bearhug like sensation with discomfort near the left posterior lower ribs. He had 2 episodes of diaphoresis per . He may have been slightly short of breath. He has had a couple other episodes the past week. He denies history of PE or DVT. He has no risk factors for either. He denies leg pain, swelling or discoloration. He denies abdominal pain, nausea, vomiting or diarrhea. He states he feels fulland does not eat much and he states that he feels the food is not moving through. He denies history of gastroparesis. He denies any change in the color, consistency or caliber of his stool. He denies urologic symptoms. He has no history of renal or ureteral calculus. Patient's blood pressure is elevated. He states he normally takes his evening blood pressure meds at 1:00 in the morning. His evening medicine is amlodipine. He takes losartan in the day. He has been compliant with his medication. Prior similar symptoms: No Recent Illness/[facility]: [facility] Medical History Neuropathy Hypertension Diabetes Home Medications ?Medication ?Instructions ?Recorded ?Last Taken ?Type Pantoprazole Sodium 40 mg PO DAILY 11/18/18 Unkn own History amlodipine 10 mg tablet 10 mg PO DAILY 11/18/18 Unkn own History escitalopram oxalate 20 mg tablet 20 mg PO DAILY 07/09 Unknown History glimepiride 2 mg tablet 2 mg PO DAILY 07/09/20 Unkno wn History losartan 25 mg tablet 25 mg PO DAILY 07/09/20 Unkn own History metformin 1,000 mg tablet 1,000 mg PO DAILY 07/09/20 U nknown History ondansetron 4 mg disintegrating 4 mg PO Q8H PRN PRN Na usea #20 tabs 07/09/20 Unknown Rx tablet trazodone 50 mg tablet 50 mg PO QHS 07/09/20 Unknow n History Allergy/AdvReac Type Severity Reaction Status Date / Time latex Allergy rash Verified 12/03/24 23:48 Social History (Updated 12/04/24 @ 02:[address] Kerwin Strauss MD) household members: spouse Smoking Status: Current every day smoker tobacco type: cigarettes ROS ROS ED Constitutional Constitutional ED: Reports sweats; Denies chills, fever(s), subjective or weightloss Eyes Eyes: Denies blurry vision, change in vision or diplopia ENT ENT ED: Denies ear pain, rhinorrhea or sore throat Cardiovascular Cardiovascular: Denies chest pain, orthopnea, palpitations, paroxysmal nocturnaldyspnea or racing heartbeat Respiratory/Chest Respiratory/Chest: Reports dyspnea; Denies cough, dyspnea on exertion, orthopneaor paroxysmal nocturnal dyspnea Gastrointestinal Gastrointestinal: Denies abdominal pain, constipation, diarrhea, melena, nausea or vomiting Genitourinary Genitourinary ED: Denies dysuria or hematuria Musculoskeletal Musculoskeletal: Reports back pain; Denies arthralgias, myalgias or neck pain Integumentary Denies rash Neurologic Neurologic: Denies headache(s) or paresthesias Endocrine Endocrinology: Denies cold intolerance or heat intolerance Hematologic/Lymphatic Hematologic/Lymphatic: Reports systems reviewed and no addt'l complaints, exceptas documented EXAM Physical Exam Const Vital Signs: 12/03/24 23:49 12/03/24 23:51 12/04/24 00:07 Temperature 99.3 F H Temperature Source Oral Pulse Rate 113 H 106 H Respiratory Rate 18 14 Respiratory Effort Normal Respiratory Pattern Normal Blood Pressure 197/119 H 190/104 H Blood Pressure Mean 145 132 Pulse Ox 97 96 Oxygen Delivery Method Room Air Room Air 12/04/24 02:00 Temperature Temperature Source Pulse Rate 86 Respiratory Rate 16 Respiratory Effort Respiratory Pattern Blood Pressure 178/97 H Blood Pressure Mean 124 Pulse Ox 97 Oxygen Delivery Method Room Air Positive well nourished and well developed Constitutional Narrative: BMI is 40.6. Blood pressure is elevated. Patient was ordered his evening dose of amlodipine. General Appearance ED: well developed and NAD; Negative for cyanotic, diaphoretic or pallor HEENT Reports moist mucous membranes HEENT Narrative: Head is atraumatic and normocephalic. Ears are normal. Nares patent Eyes PERRL and EOMs intact bilaterally General Eye ED: Negative for pale conjunctiva or scleral icterus Neck no lymphadenopathy, supple and no JVD Chest Wall inspection of chest normal and palpation of chest normal Resp normal respiratory effort and clear to auscultation bilaterally Cardio regular rate, regular rhythm, S1 normal heart sound, S2 normal heart sound and no murmurs GI normal to inspection, nondistended, normoactive bowel sounds, non-tender, non-distended and no masses; Negative for hepatosplenomegaly Palpation: soft Back/Spine no CVA tenderness Extremity normal to inspection Extremity Narrative: There is no asymmetry, swelling, discoloration, leg vein distention, palpable cords or tenderness along the distribution of the deep venous system. Neuro oriented x3 and CN's II-XII intact bilaterally Sensorium / Orientation: alert Psych mental status grossly normal Skin no rashes or lesions noted, no wounds and skin turgor normal General Skin Exam: elasticity normal; Negative for jaundice or pallor MDM MDM MDM Narrative Medical decision making narrative: There is could be due to his blood pressure and with him becoming flushed need to consider possibility of carcinoid syndrome. This also could be due to a pheochromocytoma need to rule out atypical cardiac. His symptoms are not consistent with spontaneous pneumothorax. His history physical is not consistent with pneumonia either. With symmetric pulses doubt aortic dissection. After reviewing patient's history and physical laboratory tests and where he haspain will need CTA to rule out aortic dissection. History & Record Review Discussion w/independent historian: Patient and Significant other Lab Data Attestation: I reviewed the patient's lab results. Lab results narrative: CBC reveals slight elevation of hemoglobin 17.2 otherwise unremarkable. Basic metabolic panel is remarkable for glucose of 203 with a normal CO2 anion gap. First troponin is less than 6. Labs: Laboratory Results - last 24 hr 12/03/24 12/03/24 12/04/24 00:06 23:58 00:01 WBC 9.2 RBC 5.47 Hgb 17.2 H Hct 47.7 MCV 87.2 MCH 31.4 MCHC 36.1 H RDW Std Deviation 37.9 RDW Coeff of Britany 11.8 Plt Count 244 MPV 9.0 Immature Gran % (Auto) 0.300 Neut % (Auto) 60.0 Lymph % (Auto) 31.8 [place] % (Auto) 5.0 Eos % (Auto) 2.4 Baso % (Auto) 0.5 Absolute Neuts (auto) 5.5 Absolute Lymphs (auto) 2.92 Nucleated RBC % 0 Sodium 137 Potassium 4.0 Chloride 99 Carbon Dioxide 23.6 Anion Gap 14 BUN 10 Creatinine 0.85 Estim Creat Clear Calc 164.44 Est GFR (MDRD) Non-Af 110 BUN/Creatinine Ratio 11.7 Glucose 203 H Calcium 9.6 Troponin T High Sens < 6 Troponin T Hi Sens 2 Hr 7 POC Glucose 205 H Radiography Diagnostic Testing: Clinical Impression(s) from Imaging Studies Chest CTA 12/04/24 02:59 IMPRESSION: Bilateral bronchiolitis. No embolism, dissection, or pneumonia. Reading Location: [place] [address] Chart report was reviewed reviewed. Agree there is no evidence of aortic dissection, pulmonary embolus or infiltrate. Will discharge patient home. EKG Initial EKG: Attestation: I personally reviewed and interpreted this EKG as follows: Interpretation: Sinus Tachycardia (Rate is 103. There are some nonseptic changes noted. RI interval is 142 ms. QRS duration 86 ms. QT durations are 34ms. [place] is normal.) Treatment and Re-Evaluation :: Since there is no evidence of endorgan dysfunction and patient has known hypertension we will have him follow-up with his doctor to have blood pressure checked in a week. Discharge Plan Triage Chief Complaint: General Illness ED Provider: Kerwin Strauss Dx/Rx/DC Orders Clinical Impression: Accelerated essential hypertension, History of gastroesophageal reflux (GERD), Diaphoresis, Feeling of chest tightness, Type 2 diabetes mellitus with hyperglycemia Instructions: ED High Blood Pressure Hypertension Prescriptions: No Action amlodipine 10 MG tablet 10 mg PO DAILY Pantoprazole Sodium 40 MG tablet 40 mg PO DAILY trazodone 50 MG tablet 50 mg PO QHS glimepiride 2 MG tablet 2 mg PO DAILY metformin 1,000 MG tablet 1,000 mg PO DAILY losartan 25 MG tablet 25 mg PO DAILY escitalopram oxalate 20 MG tablet 20 mg PO DAILY ondansetron 4 MG tablet 4 mg PO Q8H PRN PRN (Reason: Nausea) Qty: 20 0RF Primary Care Provider: Dagoberto Quiles Referrals: Dagoberto Quiles NP-C [Primary Care Provider] - 1 Week Activity Restrictions/Additional Instructions: 1. You need to contact your doctor for follow-up visit within a week. He will need your blood pressure rechecked. 2. With you having elevated blood pressure compared to your norm and being flushed with erythema further testing needs to be done and is done as an outpatient 3. If you develop a severe headache, change in your vision, numbness, weakness or loss of function on 1 side your body return to the emergency department immediately 4. It is in your best interest to stop smoking Print Language: Maori Disposition Disposition: Home, Self Care What to do if you have Problems For any increased pain, shortness of breath, bleeding, nausea or vomiting, chestpain, or any unexpected problems, contact your Primary Care Provider. Call [facility] ([phone]) or report to the closest Emergency Room. Call 911 if necessary. 12/04/24 0405 <Electronically signed by Kerwin Strauss MD> Cosigner Signature (if applicable): CC: FLO Quiles ~ Signed [facility] Work Phone: Evaluation note* Diagnosis Daytime somnolence- Primary Hypersomnia, unspecified [facility] Diagnosis Type 2 diabetes mellitus without complication, without long-term current use of insulin (HCC)- Primary Depression with anxiety Dysthymic disorder PTSD (post-traumatic stress disorder) Posttraumatic stress disorder Essential hypertension Unspecified essential hypertension Chronic neck pain Cervicalgia Vitamin D deficiency Unspecified vitamin D deficiency [facility] Diagnosis Type 2 diabetes mellitus without complication, without long-term current use of insulin (HCC)- Primary Essential hypertension Unspecified essential hypertension Depression with anxiety Dysthymic disorder Need for pneumococcal vaccine Need for prophylactic vaccination against streptococcus pneumoniae (pneumococcus) [facility] Diagnosis Numbness and tingling of both feet- Primary Chronic pain of both feet Type 2 diabetes mellitus with peripheral neuropathy (HCC) Cold feet Other symptoms involving skin and integumentary tissues Essential hypertension Unspecified essential hypertension [facility] Diagnosis Essential hypertension Unspecified essential hypertension Type 2 diabetes mellitus without complication, without long-term current use of insulin (HCC) Depression with anxiety Dysthymic disorder [facility] Diagnosis Hyperlipidemia, mixed- Primary Mixed hyperlipidemia Type 2 diabetes mellitus without complication, without long-term current use of insulin (HCC) Medication management Encounter for long-term (current) use of other medications Numbness and tingling of both feet [facility] Diagnosis Type 2 diabetes mellitus without complication, without long-term current use of insulin (HCC) Numbness and tingling of both feet [facility] Diagnosis Essential hypertension Unspecified essential hypertension Depression with anxiety Dysthymic disorder Type 2 diabetes mellitus without complication, without long-term current use of insulin (HCC) Numbness and tingling of both feet [facility] Diagnosis Internal hemorrhoids- Primary Internal hemorrhoids without mention of complication Rectal bleeding Hemorrhage of rectum and anus [facility] Diagnosis Type 2 diabetes mellitus without complication, without long-term current use of insulin (HCC) [facility] Diagnosis Skin tags, multiple acquired- Primary S/P cryotherapy of skin lesion Nausea Nausea alone LLQ pain Abdominal pain, left lower quadrant [facility] Diagnosis Type 2 diabetes mellitus without complication, without long-term current use of insulin (HCC) [facility] Diagnosis Numbness and tingling of both feet Type 2 diabetes mellitus without complication, without long-term current use of insulin (HCC) [facility] Diagnosis Type 2 diabetes mellitus without complication, without long-term current use of insulin (HCC) [facility] Diagnosis Type 2 diabetes mellitus without complication, without long-term current use of insulin (HCC) [facility] Diagnosis Numbness and tingling of both feet [facility] Diagnosis Fatigue, unspecified type- Primary Malaise Other malaise and fatigue Sore throat Acute pharyngitis Type 2 diabetes mellitus with peripheral neuropathy (HCC) [facility]* Diagnosis Essential hypertension Unspecified essential hypertension documented in this encounter [facility] note* Diagnosis Essential hypertension Unspecified essential hypertension Type 2 diabetes mellitus without complication, without long-term current use of insulin (HCC) [facility] Diagnosis Type 2 diabetes mellitus without complication, without long-term current use of insulin (HCC) [facility] Diagnosis Left ear pain- Primary Otalgia, unspecified [facility]* Diagnosis Depression with anxiety- Primary Dysthymic disorder Essential hypertension Unspecified essential hypertension Numbness and tingling of both feet Type 2 diabetes mellitus without complication, without long-term current use of insulin (HCC) Gastroesophageal reflux disease, unspecified whether esophagitis present Hyperlipidemia, mixed Mixed hyperlipidemia Hidradenitis suppurativa Hidradenitis Nausea Nausea alone [facility]* Diagnosis Hyperlipidemia, mixed- Primary Mixed hyperlipidemia [facility] Diagnosis Chest pain, unspecified type [facility]* Diagnosis Essential hypertension Unspecified essential hypertension Depression with anxiety Dysthymic disorder Type 2 diabetes mellitus without complication, without long-term current use of insulin (HCC) Gastroesophageal reflux disease, unspecified whether esophagitis present [facility] Diagnosis Numbness and tingling of both feet Type 2 diabetes mellitus without complication, without long-term current use of insulin (HCC) Essential hypertension Unspecified essential hypertension Depression with anxiety Dysthymic disorder Gastroesophageal reflux disease, unspecified whether esophagitis present [facility] Essential hypertension- Primary Unspecified essential hypertension Type 2 diabetes mellitus with peripheral neuropathy (HCC) Hyperlipidemia, mixed Mixed hyperlipidemia Gastroesophageal reflux disease, unspecified whether esophagitis present Type 2 diabetes mellitus without complication, without long-term current use of insulin (HCC) Numbness and tingling of both feet Ingrown toenail Ingrowing nail Obesity, Class II, BMI 35-39.9 Obesity, unspecified [facility] Diagnosis Type 2 diabetes mellitus with peripheral neuropathy (HCC) [facility] Diagnosis Numbness and tingling of both feet Type 2 diabetes mellitus with peripheral neuropathy (HCC) [facility] Diagnosis Type 2 diabetes mellitus with peripheral neuropathy (HCC) [facility] Diagnosis Type 2 diabetes mellitus with peripheral neuropathy (HCC)- Primary Essential hypertension Unspecified essential hypertension [facility] Diagnosis Type 2 diabetes mellitus without complication, without long-term current use of insulin (HCC) [facility] Diagnosis Type 2 diabetes mellitus with peripheral neuropathy (HCC) [facility] Diagnosis Fatigue, unspecified type- Primary Snoring Other dyspnea and respiratory abnormality [facility] Diagnosis JOLANTA (obstructive sleep apnea)- Primary Obstructive sleep apnea (adult) (pediatric) [facility] Diagnosis JOLANTA (obstructive sleep apnea)- Primary Obstructive sleep apnea (adult) (pediatric) Fatigue, unspecified type Snoring Other dyspnea and respiratory abnormality Obesity, Class II, BMI 35-39.9 Obesity, unspecified [facility]* Diagnosis Numbness and tingling of both feet Type 2 diabetes mellitus without complication, without long-term current use of insulin (HCC) Type 2 diabetes mellitus with peripheral neuropathy (HCC) [facility] Diagnosis Essential hypertension Unspecified essential hypertension [facility] Diagnosis Gastroesophageal reflux disease, unspecified whether esophagitis present Depression with anxiety Dysthymic disorder Numbness and tingling of both feet Hyperlipidemia, mixed Mixed hyperlipidemia Essential hypertension Unspecified essential hypertension documented in this encounter [facility] noteNo assessment information availableWSelect [facility] Work Phone: Evaluation note* Diagnosis Type 2 diabetes mellitus with peripheral neuropathy (HCC)- Primary Essential hypertension Unspecified essential hypertension Hyperlipidemia, mixed Mixed hyperlipidemia Gastroesophageal reflux disease, unspecified whether esophagitis present Obesity, Class II, BMI 35-39.9 Obesity, unspecified CARMEN (generalized anxiety disorder) Generalized anxiety disorder Family history of Parkinson's disease Family history of other neurological diseases [facility]* Diagnosis Nausea- Primary Nausea alone Type 2 diabetes mellitus without complication, without long-term current use of insulin (HCC) documented in this encounter [facility] note* Diagnosis Nausea- Primary Nausea alone documented in this encounter [facility] note* Diagnosis Nausea Nausea alone [facility] instructions[facility] Instructions 1. You need to contact your doctor for follow-up visit within a week. He will need your blood pressure rechecked. 2. With you having elevated blood pressure compared to your norm and being flushed with erythema further testing needs to be done and is done as an outpatient 3. If you develop a severe headache, change in your vision, numbness, weakness or loss of function on 1 side your body return to the emergency department immediately 4. It is in your best interest to stop smokingWSelect [facility] Work Phone: Reason for referral (narrative)* Outpatient Procedure (Routine) - Authorized Specialty Diagnoses / Procedures Referred By Contac t Referred To Contact [facility] Diagnoses Numbness and tingling of both feet Chronic pain of both feet Type 2 diabetes mellitus with peripheral neuropathy (HCC) Cold feet Procedures [facility] NON-INVASIVE PHYSIOLOGIC STUDY EXTREMITY 3 Sharla Galeas, AGUSTÍN.VENEER TAPING MACHINE OPERATOR [address] [place] [address] [facility] [address] [place] [address] Referral ID Status Reason Start Date Expiration Date Visits Requested Visits Authorized [id number] Authorized Auto-Generat ed Referral 02/20/2022 02/20/2023 1 1 [facility] for referral (narrative)* Outpatient Procedure (Routine) - Pending Review Specialty Diagnoses / Procedures Referred By Contac t Referred To Contact [facility] [place] Diagnoses Type 2 diabetes mellitus without complication, without long-term current use of insulin ([facility]) Procedures [facility] NON-INVASIVE PHYSIOLOGIC STUDY EXTREMITY 3 LEVLS Dagoberto Quiles APRN.CNP [address] [place] [address] [facility] [address] [address] Referral ID Status Reason Start Date Expiration Date Visits Requested Visits Authorized [id number] Pending Review Auto-Generat ed Referral 08/06/2022 08/06/2023 1 1 * Medication Prior Authorization - Pending Review Specialty Diagnoses / Procedures Referred By Contac t Referred To Contact Diagnoses Type 2 diabetes mellitus without complication, without long-term current use of insulin (HCC) Dagoberto Quiles APRN.CNP [address] [place] [address] Referral ID Status Reason Start Date Expiration Date V isits Requested Visits Authorized [id number] Pending Review 1 1 [facility] for referral (narrative)* Outpatient Procedure (Routine) - Pending Review Specialty Diagnoses / Procedures Referred By Contac t Referred To Contact [facility] Diagnoses Type 2 diabetes mellitus with peripheral neuropathy (HCC) Procedures EMG(NEURO/NI) NERVE CONDUCTION STUDIES 9-10 STUDIES Dagoberto Quiles APRN.CNP [address] [place] [address] [address] Referral ID Status Reason Start Date Expiration Date Visits Requested Visits Authorized [id number] Pending Review Auto-Generat ed Referral 01/21/2023 01/22/2024 1 1 [facility]No reason for referral information availableWSelect Medical [facility] Work Phone: Reason for visit Narrative* MRI/CT (Urgent) - Closed Specialty Diagnoses / Procedures Referred By Contac t Referred To Contact CT IMAGING Diagnoses Nausea Procedures CT ABD/PEL W IVCON CT ABD & PELVIS W/CONTRAST Dagoberto Quiles APRN.CNP [address] [place] [address] Phone: tel: fax: [place] [phone] Referral ID Status Reason Start Date Expiration Date V isits Requested Visits Authorized [id number] Closed Auto-Generate d Referral 01/06/2025 02/20/2025 1 1 [facility] Summary Purpose Family History No Family History Records FoundNo Family History Records FoundNo Family History Records FoundNo Family History Records Found Advance Directives No Advanced Directives Records FoundDocuments on File Type Date Recorded 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 No December 03, 2024 11:52pm Advance Directive Response Recorded Date/ Time Do you have a Healthcare Power of Ovens Supervisor? No December 03, 2024 11:52pm Do you have a Healthcare Power of Ovens Supervisor? No December 27, 2024 2:58pm Procedure Findings Note HNO ID: [id number] Author: Yuly Castro Jr. Service: ? Author Type: Physician Type: Procedures Filed: 08/20/2018 3:54 PM Note Text: VASECTOMY PROCEDURE NOTE: Mckinley Mcgee is a 37 year old male who presents with sterilization for vasectomy Pt ID verified with patient: Yes Fire risk assessment done Procedure verified with patient: Yes Procedure confirmed with physician and end user support specialist: Yes Sign In History and Physical Exam reviewed and is unchanged. . Informed Consent Discussed: Yes. Risks, benefits, alternatives and personnel discussed with patient who consents to proceed. Sign in Communication: Completed Time Out: Team Confirms the Correct Patient, Correct Procedure; Vasectomy, Correct Site and Site Marking, Correct Position (if applicable). Fire Safety Check List Reviewed: Yes Affirmation of Time Out: Yes Sign Out: Sign Out Discussion: Completed Physician: Namrata Castro Jr, MD Pre procedure dx: sterilization Post procedure dx: sterilization The benefits, risks, alternative (more content not included)... Reason for Referral Specialty Diagnoses / Procedures Referred By Contac t Referred To Contact Diagnoses Type 2 diabetes mellitus without complication, without long-term current use of insulin ([facility]) Derek Stoddard MD [address] [place], [place] [id number] Referral ID Status Reason Start Date Expiration Date V isits Requested Visits Authorized [id number] Pending Review 1 1 Referral ID Status Reason Start Date Expiration Date Visits Re quested Visits Authorized [id number] Closed 1 1 Specialty Diagnoses / Procedures Referred By Contac t Referred To Contact General Surgery Diagnoses Gastroesophageal reflux disease, unspecified whether esophagitis present Nausea Procedures CONSULT TO GENERAL SURGERY OFFICE/OUTPATIENT [facility] 60 MINUTES Dagoberto Quiles APRN.VENEER TAPING MACHINE OPERATOR [address] [place], [place] [id number] Referral ID Status Reason Start Date Expiration Date Visits Requested Visits Authorized [id number] Authorized PCP Requested Referral 11/07/2023 11/06/2024 1 1 Specialty Diagnoses / Procedures Referred By Contac t Referred To Contact Dermatology Diagnoses Hidradenitis suppurativa Procedures CONSULT TO DERMATOLOGY Dagoberto Quiles APRN.VENEER TAPING MACHINE OPERATOR [address] [place] [phone] Referral ID Status Reason Start Date Expiration Date Visits Requested Visits Authorized [id number] Ref Not Required PCP Requested Referral 11/07/2023 11/06/2024 1 1 Specialty Diagnoses / Procedures Referred By Contac t Referred To Contact Podiatry Diagnoses Ingrown toenail Procedures CONSULT TO PODIATRY OFFICE/OUTPATIENT [facility] 60 MINUTES Dagoberto Quiles APRN.VENEER TAPING MACHINE OPERATOR [address] [place] [phone] [address] [place] [phone] Referral ID Status Reason Start Date Expiration Date Visits Requested Visits Authorized [id number] Authorized PCP Requested Referral 06/04/2024 06/04/2025 1 1 Chief Complaint and Reason for Visit Chief Complaint Admit Date nausea, flushed, vomiting December 03, 2024 11:47pm Chief Complaint Admit Date nausea, flushed, vomiting December 03, 2024 11:47pm hypertension December 27, 2024 2:49 pm Additional Source Comments (unrecognized sect ion and content) No Status Records FoundNo Status Records FoundNo Status Records FoundNo Status Records Found INFORMATION SOURCE (unrecogn ized section and content) DATE CREATED AUTHOR 12/14/2018 [facility] DATE CREATED AUTHOR AUTHOR'S ORGANIZ ATION 12/14/2018 [facility] DATE CREATED AUTHOR AUTHOR'S ORGANIZ ATION 01/05/2025 [facility] DATE CREATED AUTHOR AUTHOR'S ORGANIZ ATION 04/14/2025 [facility] Source Comments (unrecognize d section and content) In the event this informatio n is protected by the Federal Confidentiality of Alcohol and Drug Abuse Patient Records regulations: The Federal rules restrict any use of the information to criminally investigate or prosecute any alcohol or drug abuse patient.[facility] Hospital[facility] the event this information is protected by the Federal Confidentiality of Alcohol and Drug Abuse Patient Records regulations: The Federal rules restrict any use of the information to criminally investigate or prosecute any alcohol or drug abuse patient.[facility] HospitalIn the event this information is protected by the Federal Confidentiality of Alcohol and Drug Abuse Patient Records regulations: The Federal rules restrict any use of the information to criminally investigate or prosecute any alcohol or drug abuse patient.[facility] HospitalIn the event this information is protected by the Federal Confidentiality of Alcohol and Drug Abuse Patient Records regulations: The Federal rules restrict any use of the information to criminally investigate or prosecute any alcohol or drug abuse patient.[facility] HospitalIn the event this information is protected by the Federal Confidentiality of Alcohol and Drug Abuse Patient Records regulations: The Federal rules restrict any use of the information to criminally investigate or prosecute any alcohol or drug abuse patient.[facility] HospitalIn the event this information is protected by the Federal Confidentiality of Alcohol and Drug Abuse Patient Records regulations: The Federal rules restrict any use of the information to criminally investigate or prosecute any alcohol or drug abuse patient.[facility] HospitalIn the event this information is protected by the Federal Confidentiality of Alcohol and Drug Abuse Patient Records regulations: The Federal rules restrict any use of the information to criminally investigate or prosecute any alcohol or drug abuse patient.[facility] HospitalIn the event this information is protected by the Federal Confidentiality of Alcohol and Drug Abuse Patient Records regulations: The Federal rules restrict any use of the information to criminally investigate or prosecute any alcohol or drug abuse patient.[facility] HospitalIn the event this information is protected by the Federal Confidentiality of Alcohol and Drug Abuse Patient Records regulations: The Federal rules restrict any use of the information to criminally investigate or prosecute any alcohol or drug abuse patient.[facility] HospitalIn the event this information is protected by the Federal Confidentiality of Alcohol and Drug Abuse Patient Records regulations: The Federal rules restrict any use of the information to criminally investigate or prosecute any alcohol or drug abuse patient.[facility] HospitalIn the event this information is protected by the Federal Confidentiality of Alcohol and Drug Abuse Patient Records regulations: The Federal rules restrict any use of the information to criminally investigate or prosecute any alcohol or drug abuse patient.[facility] HospitalIn the event this information is protected by the Federal Confidentiality of Alcohol and Drug Abuse Patient Records regulations: The Federal rules restrict any use of the information to criminally investigate or prosecute any alcohol or drug abuse patient.[facility] HospitalIn the event this information is protected by the Federal Confidentiality of Alcohol and Drug Abuse Patient Records regulations: The Federal rules restrict any use of the information to criminally investigate or prosecute any alcohol or drug abuse patient.[facility] HospitalIn the event this information is protected by the Federal Confidentiality of Alcohol and Drug Abuse Patient Records regulations: The Federal rules restrict any use of the information to criminally investigate or prosecute any alcohol or drug abuse patient.[facility] HospitalIn the event this information is protected by the Federal Confidentiality of Alcohol and Drug Abuse Patient Records regulations: The Federal rules restrict any use of the information to criminally investigate or prosecute any alcohol or drug abuse patient.[facility] HospitalIn the event this information is protected by the Federal Confidentiality of Alcohol and Drug Abuse Patient Records regulations: The Federal rules restrict any use of the information to criminally investigate or prosecute any alcohol or drug abuse patient.[facility] HospitalIn the event this information is protected by the Federal Confidentiality of Alcohol and Drug Abuse Patient Records regulations: The Federal rules restrict any use of the information to criminally investigate or prosecute any alcohol or drug abuse patient.[facility] HospitalIn the event this information is protected by the Federal Confidentiality of Alcohol and Drug Abuse Patient Records regulations: The Federal rules restrict any use of the information to criminally investigate or prosecute any alcohol or drug abuse patient.[facility] HospitalIn the event this information is protected by the Federal Confidentiality of Alcohol and Drug Abuse Patient Records regulations: The Federal rules restrict any use of the information to criminally investigate or prosecute any alcohol or drug abuse patient.[facility] HospitalIn the event this information is protected by the Federal Confidentiality of Alcohol and Drug Abuse Patient Records regulations: The Federal rules restrict any use of the information to criminally investigate or prosecute any alcohol or drug abuse patient.[facility] HospitalIn the event this information is protected by the Federal Confidentiality of Alcohol and Drug Abuse Patient Records regulations: The Federal rules restrict any use of the information to criminally investigate or prosecute any alcohol or drug abuse patient.[facility] HospitalIn the event this information is protected by the Federal Confidentiality of Alcohol and Drug Abuse Patient Records regulations: The Federal rules restrict any use of the information to criminally investigate or prosecute any alcohol or drug abuse patient.[facility] HospitalIn the event this information is protected by the Federal Confidentiality of Alcohol and Drug Abuse Patient Records regulations: The Federal rules restrict any use of the information to criminally investigate or prosecute any alcohol or drug abuse patient.[facility] HospitalIn the event this information is protected by the Federal Confidentiality of Alcohol and Drug Abuse Patient Records regulations: The Federal rules restrict any use of the information to criminally investigate or prosecute any alcohol or drug abuse patient.[facility] HospitalIn the event this information is protected by the Federal Confidentiality of Alcohol and Drug Abuse Patient Records regulations: The Federal rules restrict any use of the information to criminally investigate or prosecute any alcohol or drug abuse patient.[facility] HospitalIn the event this information is protected by the Federal Confidentiality of Alcohol and Drug Abuse Patient Records regulations: The Federal rules restrict any use of the information to criminally investigate or prosecute any alcohol or drug abuse patient.[facility] HospitalIn the event this information is protected by the Federal Confidentiality of Alcohol and Drug Abuse Patient Records regulations: The Federal rules restrict any use of the information to criminally investigate or prosecute any alcohol or drug abuse patient.[facility] HospitalIn the event this information is protected by the Federal Confidentiality of Alcohol and Drug Abuse Patient Records regulations: The Federal rules restrict any use of the information to criminally investigate or prosecute any alcohol or drug abuse patient.[facility] HospitalIn the event this information is protected by the Federal Confidentiality of Alcohol and Drug Abuse Patient Records regulations: The Federal rules restrict any use of the information to criminally investigate or prosecute any alcohol or drug abuse patient.[facility] HospitalIn the event this information is protected by the Federal Confidentiality of Alcohol and Drug Abuse Patient Records regulations: The Federal rules restrict any use of the information to criminally investigate or prosecute any alcohol or drug abuse patient.[facility] HospitalIn the event this information is protected by the Federal Confidentiality of Alcohol and Drug Abuse Patient Records regulations: The Federal rules restrict any use of the information to criminally investigate or prosecute any alcohol or drug abuse patient.[facility] HospitalIn the event this information is protected by the Federal Confidentiality of Alcohol and Drug Abuse Patient Records regulations: The Federal rules restrict any use of the information to criminally investigate or prosecute any alcohol or drug abuse patient.[facility] HospitalIn the event this information is protected by the Federal Confidentiality of Alcohol and Drug Abuse Patient Records regulations: The Federal rules restrict any use of the information to criminally investigate or prosecute any alcohol or drug abuse patient.[facility] HospitalIn the event this information is protected by the Federal Confidentiality of Alcohol and Drug Abuse Patient Records regulations: The Federal rules restrict any use of the information to criminally investigate or prosecute any alcohol or drug abuse patient.[facility] HospitalIn the event this information is protected by the Federal Confidentiality of Alcohol and Drug Abuse Patient Records regulations: The Federal rules restrict any use of the information to criminally investigate or prosecute any alcohol or drug abuse patient.[facility] HospitalIn the event this information is protected by the Federal Confidentiality of Alcohol and Drug Abuse Patient Records regulations: The Federal rules restrict any use of the information to criminally investigate or prosecute any alcohol or drug abuse patient.[facility] HospitalIn the event this information is protected by the Federal Confidentiality of Alcohol and Drug Abuse Patient Records regulations: The Federal rules restrict any use of the information to criminally investigate or prosecute any alcohol or drug abuse patient.[facility] HospitalIn the event this information is protected by the Federal Confidentiality of Alcohol and Drug Abuse Patient Records regulations: The Federal rules restrict any use of the information to criminally investigate or prosecute any alcohol or drug abuse patient.[facility] HospitalIn the event this information is protected by the Federal Confidentiality of Alcohol and Drug Abuse Patient Records regulations: The Federal rules restrict any use of the information to criminally investigate or prosecute any alcohol or drug abuse patient.[facility] HospitalIn the event this information is protected by the Federal Confidentiality of Alcohol and Drug Abuse Patient Records regulations: The Federal rules restrict any use of the information to criminally investigate or prosecute any alcohol or drug abuse patient.[facility] HospitalIn the event this information is protected by the Federal Confidentiality of Alcohol and Drug Abuse Patient Records regulations: The Federal rules restrict any use of the information to criminally investigate or prosecute any alcohol or drug abuse patient.[facility] HospitalIn the event this information is protected by the Federal Confidentiality of Alcohol and Drug Abuse Patient Records regulations: The Federal rules restrict any use of the information to criminally investigate or prosecute any alcohol or drug abuse patient.[facility] HospitalIn the event this information is protected by the Federal Confidentiality of Alcohol and Drug Abuse Patient Records regulations: The Federal rules restrict any use of the information to criminally investigate or prosecute any alcohol or drug abuse patient.[facility] HospitalIn the event this information is protected by the Federal Confidentiality of Alcohol and Drug Abuse Patient Records regulations: The Federal rules restrict any use of the information to criminally investigate or prosecute any alcohol or drug abuse patient.[facility] HospitalIn the event this information is protected by the Federal Confidentiality of Alcohol and Drug Abuse Patient Records regulations: The Federal rules restrict any use of the information to criminally investigate or prosecute any alcohol or drug abuse patient.[facility] HospitalIn the event this information is protected by the Federal Confidentiality of Alcohol and Drug Abuse Patient Records regulations: The Federal rules restrict any use of the information to criminally investigate or prosecute any alcohol or drug abuse patient.[facility] HospitalIn the event this information is protected by the Federal Confidentiality of Alcohol and Drug Abuse Patient Records regulations: The Federal rules restrict any use of the information to criminally investigate or prosecute any alcohol or drug abuse patient.[facility] HospitalIn the event this information is protected by the Federal Confidentiality of Alcohol and Drug Abuse Patient Records regulations: The Federal rules restrict any use of the information to criminally investigate or prosecute any alcohol or drug abuse patient.[facility] HospitalIn the event this information is protected by the Federal Confidentiality of Alcohol and Drug Abuse Patient Records regulations: The Federal rules restrict any use of the information to criminally investigate or prosecute any alcohol or drug abuse patient.[facility] HospitalIn the event this information is protected by the Federal Confidentiality of Alcohol and Drug Abuse Patient Records regulations: The Federal rules restrict any use of the information to criminally investigate or prosecute any alcohol or drug abuse patient.[facility] HospitalIn the event this information is protected by the Federal Confidentiality of Alcohol and Drug Abuse Patient Records regulations: The Federal rules restrict any use of the information to criminally investigate or prosecute any alcohol or drug abuse patient.[facility] HospitalIn the event this information is protected by the Federal Confidentiality of Alcohol and Drug Abuse Patient Records regulations: The Federal rules restrict any use of the information to criminally investigate or prosecute any alcohol or drug abuse patient.[facility] HospitalIn the event this information is protected by the Federal Confidentiality of Alcohol and Drug Abuse Patient Records regulations: The Federal rules restrict any use of the information to criminally investigate or prosecute any alcohol or drug abuse patient.[facility] HospitalIn the event this information is protected by the Federal Confidentiality of Alcohol and Drug Abuse Patient Records regulations: The Federal rules restrict any use of the information to criminally investigate or prosecute any alcohol or drug abuse patient.[facility] HospitalIn the event this information is protected by the Federal Confidentiality of Alcohol and Drug Abuse Patient Records regulations: The Federal rules restrict any use of the information to criminally investigate or prosecute any alcohol or drug abuse patient.[facility] HospitalIn the event this information is protected by the Federal Confidentiality of Alcohol and Drug Abuse Patient Records regulations: The Federal rules restrict any use of the information to criminally investigate or prosecute any alcohol or drug abuse patient.[facility] HospitalIn the event this information is protected by the Federal Confidentiality of Alcohol and Drug Abuse Patient Records regulations: The Federal rules restrict any use of the information to criminally investigate or prosecute any alcohol or drug abuse patient.[facility] HospitalIn the event this information is protected by the Federal Confidentiality of Alcohol and Drug Abuse Patient Records regulations: The Federal rules restrict any use of the information to criminally investigate or prosecute any alcohol or drug abuse patient.[facility] HospitalIn the event this information is protected by the Federal Confidentiality of Alcohol and Drug Abuse Patient Records regulations: The Federal rules restrict any use of the information to criminally investigate or prosecute any alcohol or drug abuse patient.[facility] HospitalIn the event this information is protected by the Federal Confidentiality of Alcohol and Drug Abuse Patient Records regulations: The Federal rules restrict any use of the information to criminally investigate or prosecute any alcohol or drug abuse patient.[facility] HospitalIn the event this information is protected by the Federal Confidentiality of Alcohol and Drug Abuse Patient Records regulations: The Federal rules restrict any use of the information to criminally investigate or prosecute any alcohol or drug abuse patient.[facility] HospitalIn the event this information is protected by the Federal Confidentiality of Alcohol and Drug Abuse Patient Records regulations: The Federal rules restrict any use of the information to criminally investigate or prosecute any alcohol or drug abuse patient.[facility] HospitalIn the event this information is protected by the Federal Confidentiality of Alcohol and Drug Abuse Patient Records regulations: The Federal rules restrict any use of the information to criminally investigate or prosecute any alcohol or drug abuse patient.[facility] HospitalIn the event this information is protected by the Federal Confidentiality of Alcohol and Drug Abuse Patient Records regulations: The Federal rules restrict any use of the information to criminally investigate or prosecute any alcohol or drug abuse patient.[facility] HospitalIn the event this information is protected by the Federal Confidentiality of Alcohol and Drug Abuse Patient Records regulations: The Federal rules restrict any use of the information to criminally investigate or prosecute any alcohol or drug abuse patient.[facility] HospitalIn the event this information is protected by the Federal Confidentiality of Alcohol and Drug Abuse Patient Records regulations: The Federal rules restrict any use of the information to criminally investigate or prosecute any alcohol or drug abuse patient.[facility] HospitalIn the event this information is protected by the Federal Confidentiality of Alcohol and Drug Abuse Patient Records regulations: The Federal rules restrict any use of the information to criminally investigate or prosecute any alcohol or drug abuse patient.[facility] HospitalIn the event this information is protected by the Federal Confidentiality of Alcohol and Drug Abuse Patient Records regulations: The Federal rules restrict any use of the information to criminally investigate or prosecute any alcohol or drug abuse patient.[facility] HospitalIn the event this information is protected by the Federal Confidentiality of Alcohol and Drug Abuse Patient Records regulations: The Federal rules restrict any use of the information to criminally investigate or prosecute any alcohol or drug abuse patient.[facility] HospitalIn the event this information is protected by the Federal Confidentiality of Alcohol and Drug Abuse Patient Records regulations: The Federal rules restrict any use of the information to criminally investigate or prosecute any alcohol or drug abuse patient.[facility] HospitalIn the event this information is protected by the Federal Confidentiality of Alcohol and Drug Abuse Patient Records regulations: The Federal rules restrict any use of the information to criminally investigate or prosecute any alcohol or drug abuse patient.[facility] HospitalIn the event this information is protected by the Federal Confidentiality of Alcohol and Drug Abuse Patient Records regulations: The Federal rules restrict any use of the information to criminally investigate or prosecute any alcohol or drug abuse patient.[facility] Reason for Visit (unrecogniz ed section and content) Reason Comments sleep study order needs changed Reason Comments Diabetes check up Depression meds may need increa sed Reason Comments Diabetes Follow up Reason Comments Diabetes Neuropathy Reason Comments Refill Request Reason Onset Date Comments Refill Request 04/16/2022 Reason Comments Follow Up Reason Comments Insurance Authorization Teresa Reason Comments Results Reason Onset Date Comments Refill Request 09/01/2022 Reason Onset Date Comments Refill Request 09/04/2022 Reason Comments Rectal Problem Reason Comments Rectal Problem Bleeding x1.5 weeks Reason Onset Date Comments Refill Request 10/14/2022 Reason Comments Insurance Authorization Lidocaine-hydroc ortisone Reason Comments Follow Up Reason Onset Date Comments Refill Request 11/17/2022 Reason Onset Date Comments Refill Request 01/01/2023 Reason Comments Neck Pain feet swelling Reason Onset Date Comments Refill Request 02/04/2023 Reason Comments Insurance Authorization Roxys Reason Onset Date Comments Refill Request 03/19/2023 Reason Onset Date Comments Refill Request 08/30/2023 Reason Comments Ear Problem Left ear pain x1 wee k, was stung couple days ago which made this worse. Ear has discharge in the AM. Reason Onset Date Comments Refill Request 03/30/2024 Reason Onset Date Comments Refill Request 04/30/2024 Reason Comments Follow Up Reason Comments Medication Problem Reason Comments Insurance Authorization Reason Onset Date Comments Refill Request 06/17/2024 Reason Comments HSAT Check In (Adult) Reason Comments Referral Request Reason Comments Teresa SPICER Reason Comments Office visit notes for [facility] sleep lab Reason Onset Date Comments Refill Request 10/05/2024 Reason Onset Date Comments Refill Request 11/02/2024 Reason Onset Date Comments Refill Request 11/30/2024 Reason Onset Date Comments Refill Request 12/01/2024 Reason Comments Physical Specialty Diagnoses / Procedures Referred By Contac t Referred To Contact Family Medicine / FAMILY MEDICINE Diagnoses Annual physical exam physical Procedures OFFICE/OUTPATIENT ESTABLISHED MOD [facility] 30 MIN PC EST WELL Derek Stoddard MD [address] [place] [id number] Phone: tel: fax: Dagoberto Quiles, COOK LARDER.VENEER TAPING MACHINE OPERATOR [address] [place] [phone] Phone: tel: fax: Referral ID Status Reason Start Date Expiration Date Visits Re quested Visits Authorized [id number] Closed 12/09/2024 06/01/2025 1 1 Reason Comments Abdominal Pain Reason Comments Orders Patient Update Reason Comments Radiology CT Specialty Diagnoses / Procedures Referred By Contac t Referred To Contact CT IMAGING Diagnoses Nausea Procedures CT ABD/PEL W IVCON CT ABD & PELVIS W/CONTRAST Dagoberto Quiles, COOK LARDER.VENEER TAPING MACHINE OPERATOR [address] [place] [phone] Phone: tel: fax: CT IMAGING [id number] Referral ID Status Reason Start Date Expiration Date V isits Requested Visits Authorized [id number] Closed Auto-Generate d Referral 01/06/2025 02/20/2025 1 1 Reason Onset Date Comments Results 01/17/2025 Care Teams (unrecognized sec tion and content) Organizational Psychologist Relationship Specialty Start Date End Date Derek Stoddard MD [address] [place] [place] [address] [id number] PCP - General Family Practice 08/20/18 Organizational Psychologist Relationship Specialty Start Date End Date Derek Stoddard MD [address] [place] [place] [phone] PCP - General Family Practice 08/20/18 Organizational Psychologist Relationship Specialty Start Date End Date Derek Stoddard MD [address] [place] [place] [id number] PCP - General Family Practice 08/20/18 Organizational Psychologist Relationship Specialty Start Date End Date Derek Stoddard MD [address] [facility] [place] [address] PCP - General Family Practice 08/20/18 Organizational Psychologist Relationship Specialty Start Date End Date Derek Stoddard MD [address] [facility] [place] [address] PCP - General Family Medicine 08/20/18 Organizational Psychologist Relationship Specialty Start Date End Date Derek Stoddard MD [facility] [place] [address] PCP - General Family Medicine 08/20/18 Organizational Psychologist Relationship Specialty Start Date End Date Derek Stoddard MD [address] [place] [address], [place] [address] PCP - General Family Medicine 08/20/18 Organizational Psychologist Relationship Specialty Start Date End Date Derek Stoddard MD [address] [place] [address], [place] [address] PCP - General Family Medicine 08/20/18 Organizational Psychologist Relationship Specialty Start Date End Date Derek Stoddard MD [facility] [place] [address] PCP - General Family Medicine 08/20/18 Organizational Psychologist Relationship Specialty Start Date End Date Derek Stoddard MD [facility] [place] [address] PCP - General Family Medicine 08/20/18 Organizational Psychologist Relationship Specialty Start Date End Date Derek Stoddard MD [facility] [place] [address] PCP - General Family Medicine 08/20/18 Organizational Psychologist Relationship Specialty Start Date End Date Derek Stoddard MD [facility] [place] [address] PCP - General Family Medicine 08/20/18 Organizational Psychologist Relationship Specialty Start Date End Date Derek Stoddard MD [address] [facility] [place] [address] PCP - General Family Medicine 08/20/18 Organizational Psychologist Relationship Specialty Start Date End Date Derek Stoddard MD [address] [facility] [place] [address] PCP - General Family Medicine 08/20/18 Organizational Psychologist Relationship Specialty Start Date End Date Derek Stoddard MD [address] [facility] [place] [address] PCP - General Family Medicine 08/20/18 Organizational Psychologist Relationship Specialty Start Date End Date Derek Stoddard MD [address] [facility] [place] [address] PCP - General Family Medicine 08/20/18 Organizational Psychologist Relationship Specialty Start Date End Date Derek Stoddard MD [address] [facility] [place] [address] PCP - General Family Medicine 08/20/18 Organizational Psychologist Relationship Specialty Start Date End Date Derek Stoddard MD [address] [facility] [place] [address] PCP - General Family Medicine 08/20/18 Organizational Psychologist Relationship Specialty Start Date End Date Derek Stoddard MD [address] [facility] [place] [address] PCP - General Family Medicine 08/20/18 Organizational Psychologist Relationship Specialty Start Date End Date Derek Stoddard MD [address] [facility] [place] [address] PCP - General Family Medicine 08/20/18 Organizational Psychologist Relationship Specialty Start Date End Date Derek Stoddard MD [address] [facility] [place] [address] PCP - General Family Medicine 08/20/18 Organizational Psychologist Relationship Specialty Start Date End Date Derek Stoddard MD [address] [facility] [place] [address] PCP - General Family Medicine 08/20/18 Organizational Psychologist Relationship Specialty Start Date End Date Derek Stoddard MD [address] [place] [place] [address] PCP - General Family Medicine 08/20/18 Organizational Psychologist Relationship Specialty Start Date End Date Derek Stoddard MD [address] [facility] [place] [address] PCP - General Family Medicine 08/20/18 Organizational Psychologist Relationship Specialty Start Date End Date Derek Stoddard MD [address] [facility] [place] [address] PCP - General Family Medicine 08/20/18 Organizational Psychologist Relationship Specialty Start Date End Date Derek Stoddard MD [address] [facility] [place] [address] PCP - General Family Medicine 08/20/18 Organizational Psychologist Relationship Specialty Start Date End Date Derek Stoddard MD [address] [place] [place] [address] PCP - General Family Medicine 08/20/18 Organizational Psychologist Relationship Specialty Start Date End Date Derek Stoddard MD [address] [facility] [place] [address] PCP - General Family Medicine 08/20/18 Organizational Psychologist Relationship Specialty Start Date End Date Derek Stoddard MD [address] [facility] [place] [address] PCP - General Family Medicine 08/20/18 Organizational Psychologist Relationship Specialty Start Date End Date Derek Stoddard MD [address] [facility] [place] [address] PCP - General Family Medicine 08/20/18 Organizational Psychologist Relationship Specialty Start Date End Date Derek Stoddard MD [address] [facility] [place] [address] PCP - General Family Medicine 08/20/18 Organizational Psychologist Relationship Specialty Start Date End Date Derek Stoddard MD [address] [facility] [place] [address] PCP - General Family Medicine 08/20/18 Organizational Psychologist Relationship Specialty Start Date End Date Derek Stoddard MD [address] [facility] [place] [address] PCP - General Family Medicine 08/20/18 PodlogarCandida APRN.VENEER TAPING MACHINE OPERATOR [address] [facility] [place] [address] Clinical Technician Family Medicine 05/08/24 Organizational Psychologist Relationship Specialty Start Date End Date Derek Stoddard MD [address] [facility] [place] [address] PCP - General Family Medicine 08/20/18 Podlogar, Candida, COOK LARDER.VENEER TAPING MACHINE OPERATOR [address] [facility] [place] [address] [facility] Organizational Psychologist Relationship Specialty Start Date End Date Derek Stoddard MD [address] [facility] [place] [address] PCP - General Family Medicine 08/20/18 Podlogar, IRAIDA TiradoN.VENEER TAPING MACHINE OPERATOR [address] [place] [address] [facility] 05/08/24 Organizational Psychologist Relationship Specialty Start Date End Date Derek Stoddard MD [address] [place] [address] PCP - General Family Medicine 08/20/18 Podlogar, AGUSTÍN Tirado.VENEER TAPING MACHINE OPERATOR [address] [place] [address] [facility] 05/08/24 Organizational Psychologist Relationship Specialty Start Date End Date Derek Stoddard MD [address] [facility] [place] [address] PCP - General Family Medicine 08/20/18 Podlogar, Candida COOK LARDER.VENEER TAPING MACHINE OPERATOR [address] [place] [address] [facility] 05/08/24 Organizational Psychologist Relationship Specialty Start Date End Date Derek Stoddard MD [address] [place] [address] PCP - General Family Medicine 08/20/18 Podlogar, Candida, COOK LARDER.VENEER TAPING MACHINE OPERATOR [address] [place] [address] [facility] 05/08/24 Organizational Psychologist Relationship Specialty Start Date End Date Derek Stoddard MD [address] [place] [address] PCP - General Family Medicine 08/20/18 Podlogar, Candida, COOK LARDER.VENEER TAPING MACHINE OPERATOR [address] [place] [address] [facility] 05/08/24 Organizational Psychologist Relationship Specialty Start Date End Date Derek Stoddard MD [address] [place] [address] PCP - General Family Medicine 08/20/18 Podlogar, Candida, COOK LARDER.VENEER TAPING MACHINE OPERATOR [address] [place] [address] [facility] 05/08/24 Organizational Psychologist Relationship Specialty Start Date End Date Derek Stoddard MD [address] [place] [address] PCP - General Family Medicine 08/20/18 Podlogar, Candida, COOK LARDER.VENEER TAPING MACHINE OPERATOR [address] [place] [address] [facility] 05/08/24 Organizational Psychologist Relationship Specialty Start Date End Date Derek Stoddard MD [address] [place] [address] PCP - General Family Medicine 08/20/18 Podlogar, Candida, COOK LARDER.VENEER TAPING MACHINE OPERATOR [address] [place] [address] [facility] 05/08/24 Organizational Psychologist Relationship Specialty Start Date End Date Derek Stoddard MD [address] [facility] [place] [address] PCP - General Family Medicine 08/20/18 Podlogar, Candida, COOK LARDER.VENEER TAPING MACHINE OPERATOR [address] [facility] [place] [address] [facility] 05/08/24 Dagoberto Quiles COOK LARDER.VENEER TAPING MACHINE OPERATOR [address] [place] [address] [facility] 08/13/24 Organizational Psychologist Relationship Specialty Start Date End Date Derek Stoddard MD [address] [facility] [place] [address] PCP - General Family Medicine 08/20/18 Podlogar, Candida, COOK LARDER.VENEER TAPING MACHINE OPERATOR [address] [facility] [place] [address] [facility] 05/08/24 Dagoberto Quiles COOK LARDER.VENEER TAPING MACHINE OPERATOR [address] [place] [address] [facility] 08/23/24 Organizational Psychologist Relationship Specialty Start Date End Date Derek Stoddard MD [address] [facility] [place] [address] PCP - General Family Medicine 08/20/18 Podlogar, Candida, COOK LARDER.VENEER TAPING MACHINE OPERATOR [address] [facility] [place] [address] Clinical Technician Family Medicine 05/08/24 Dagoberto Quiles APRN.VENEER TAPING MACHINE OPERATOR [address] [facility] [place] [address] Clinical Technician Family Medicine 08/23/24 Organizational Psychologist Relationship Specialty Start Date End Date Derek Stoddard MD [address] [facility] [place] [address] PCP - General Family Medicine 08/20/18 PodlogarCandida, COOK LARDER.VENEER TAPING MACHINE OPERATOR [address] [facility] [place] [address] Clinical Technician Family Medicine 05/08/24 Dagoberto Quiles, COOK LARDER.VENEER TAPING MACHINE OPERATOR [address] [place] [address] Clinical Technician Family Medicine 08/23/24 Organizational Psychologist Relationship Specialty Start Date End Date Derek Stoddard MD [address] [facility] [place] [address] PCP - General Family Medicine 08/20/18 Podlogar, Candida, COOK LARDER.VENEER TAPING MACHINE OPERATOR [address] [facility] [place] [address] Clinical Technician Family Medicine 05/08/24 Dagoberto Quiles, COOK LARDER.VENEER TAPING MACHINE OPERATOR [address] [facility] [place] [address] Clinical Technician Family Medicine 08/23/24 Organizational Psychologist Relationship Specialty Start Date End Date Derek Stoddard MD [address] [facility] [place] [address] PCP - General Family Medicine 08/20/18 Podlogar, Candida, COOK LARDER.VENEER TAPING MACHINE OPERATOR [address] [place] [address] Clinical Technician Family Medicine 05/08/24 Dagoberto Quiles APRN.VENEER TAPING MACHINE OPERATOR [address] [place] [address] Clinical Technician Family Medicine 08/23/24 Organizational Psychologist Relationship Specialty Start Date End Date Derek Stoddard MD [address] [place] [address] PCP - General Family Medicine 08/20/18 PodlogarCandida APRN.VENEER TAPING MACHINE OPERATOR [address] [place] [address] Clinical Technician Family Medicine 05/08/24 Dagoberto Qiules APRN.VENEER TAPING MACHINE OPERATOR [address] [place] [address] Clinical Technician Family Medicine 08/23/24 Organizational Psychologist Relationship Specialty Start Date End Date Derek Stoddard MD [address] [place] [address] PCP - General Family Medicine 08/20/18 PodlogarCandida APRN.VENEER TAPING MACHINE OPERATOR [address] [place] [address] Clinical Technician Family Medicine 05/08/24 Dagoberto Quiles APRN.VENEER TAPING MACHINE OPERATOR [address] [place] [address] Clinical Technician Family Medicine 11/11/24 Organizational Psychologist Relationship Specialty Start Date End Date Derek Stoddard MD [address] [place] [address] PCP - General Family Medicine 08/20/18 PodlogarCandida APRN.VENEER TAPING MACHINE OPERATOR [address] [facility] [place] [address] Clinical Technician Family Medicine 05/08/24 Dagoberto Quiles APRN.VENEER TAPING MACHINE OPERATOR [address] [place] [address] [facility] 11/11/24 Team Status: Active Member Role/Relationship Status Dates FLO Vuong Primary Care Provider Active Team Status: Inactive Member Role/Relationship Status Dates Dr. Kerwin Strauss MD Emergency Provider Active Sta rt: December 03, 2024 End: December 04, 2024 FLO Vuong Primary Care Provider Active Start: December 03, 2024 End: December 04, 2024 Organizational Psychologist Relationship Specialty Start Date End Date Derek Stoddard MD [address] [place] [address] PCP - General Family Medicine 08/20/18 PodlogarCandida APRN.VENEER TAPING MACHINE OPERATOR [address] [place] [address] Clinical Technician Family Medicine 05/08/24 Dagoberto Quiles APRN.VENEER TAPING MACHINE OPERATOR [address] [facility], [place] [address] [phone] [facility] Medicine 11/11/24 Organizational Psychologist Relationship Specialty Start Date End Date Derek Stoddard MD [address] [facility] [place] [address] PCP - General Family Medicine 08/20/18 PodlogarCandida APRN.VENEER TAPING MACHINE OPERATOR [address] [facility] [place] [address] Clinical Technician Family Medicine 05/08/24 Dagoberto Quiles APRN.VENEER TAPING MACHINE OPERATOR [address] [place], [place] [address] [facility] 11/11/24 Team Status: Inactive Member Role/Relationship Status Dates Dr. Kerwin Strauss MD Attending Provider Active Sta rt: December 03, 2024 End: December 04, 2024 Dr. Kerwin Strauss MD Emergency Provider Active Sta rt: December 03, 2024 End: December 04, 2024 FLO Vuong Primary Care Provider Active Start: December 03, 2024 End: December 04, 2024 Team Status: Inactive Member Role/Relationship Status Dates FLO Vuong Primary Care Provider Active Start: December 27, 2024 End: December 27, 2024 Dr. Fredy Nolen DO Emergency Provider Active Start : December 27, 2024 End: December 27, 2024 Organizational Psychologist Relationship Specialty Start Date End Date Derek Stoddard MD [address] [place] [address] PCP - General Family Medicine 08/20/18 PodlogarCandida APRN.VENEER TAPING MACHINE OPERATOR [address] [place], [place] [address] [facility] Medicine 05/08/24 Dagoberto Quiles APRN.VENEER TAPING MACHINE OPERATOR [address] [place], [place] [address] [facility] 11/11/24 Organizational Psychologist Relationship Specialty Start Date End Date Derek Stoddard MD [address] [facility] [place], [place] [address] PCP - General Family Medicine 08/20/18 PodlogarCandida APRN.VENEER TAPING MACHINE OPERATOR [address] [place] [address] Clinical Technician Family Medicine 05/08/24 Dagoberto Quiles APRN.VENEER TAPING MACHINE OPERATOR [address] [place] [address] Clinical Technician Family Medicine 11/11/24 Organizational Psychologist Relationship Specialty Start Date End Date Derek Stoddard MD [address] [facility] [place] [address] PCP - General Family Medicine 08/20/18 PodlogarCandida APRN.VENEER TAPING MACHINE OPERATOR [address] [place] [address] Clinical Technician Family Medicine 05/08/24 Dagoberto Quiles APRN.VENEER TAPING MACHINE OPERATOR [address] [place] [address] Clinical Technician Family Medicine 11/11/24 Organizational Psychologist Relationship Specialty Start Date End Date Derek Stoddard MD [address] [place] [address] PCP - General Family Medicine 08/20/18 PodlogarCandida APRN.VENEER TAPING MACHINE OPERATOR [address] [facility] [place] [address] Clinical Technician Family Medicine 05/08/24 Dagoberto Quiles APRN.VENEER TAPING MACHINE OPERATOR [address] [place] [address] Clinical Technician Family Medicine 11/11/24 Organizational Psychologist Relationship Specialty Start Date End Date Derek Stoddard MD [address] [place] [address] PCP - General Family Medicine 08/20/18 Candida Britton APRN.VENEER TAPING MACHINE OPERATOR [address] [place], [place] [address] [facility] 05/08/24 Dagoberto Quiles APRN.VENEER TAPING MACHINE OPERATOR [address] [place], [place] [id number] [facility] 11/11/24 Goals (unrecognized section and content) Goals may be documented in a n alternate sectionGoals may be documented in an alternate section FOR RECORDS PERTAINING TO PATIENTS WHO ARE OR HAVE BEEN ENROLLED IN A CHEMICAL DEPENDENCY/SUBSTANCEABUSE PROGRAM, SOME INFORMATION MAY BE OMITTED. This clinical summary was aggregated from multiple sources. Caution should be exercised in using it in the provision of clinical care. This summary normalizes information from multiple sources, and as a consequence, information in this document may materially change the coding, format and clinical context of patient data. In addition, data may be omitted in some cases. CLINICAL DECISIONS SHOULD BE BASED ON THE PRIMARY CLINICAL RECORDS. [employer] [facility]. provides no warranty or guarantee of the accuracy or completeness of information in this document.
[2025-06-01 18:07] LABS: Hematocrit 47.0 % (40-54); Hemoglobin 16.4 g/dL (13.0-16.5); Immature Granulocytes Count 0.030 X10^3/uL (0.0-0.0); Mean Corp Hgb Conc 34.9 g/dL (32-36); Mean Corpuscular Volume 87.0 fL (80-94); Mean Platelet Vol. 9.4 fl (6.2-12.0); NRBC Flagged by Analyzer 0 % (0-5); Platelet Count 247 K/mm3 (150-450); RBC Distribution Width CV 12.1 % (11.6-14.6); RBC Distribution Width SD 38.2 fl (35.1-43.9); Red Blood Count 5.40 M/mm3 (4.6-6.2); White Blood Count 10.4 K/mm3 (4.4-11.0)
[2025-06-01 18:19] LABS: Anion Gap 10 (7-18); BUN 8 mg/dL (4-19); BUN/Creat Ratio 11.3 RATIO (10-20); Calcium,Total 9.6 mg/dL (7.6-11.0); Carbon Dioxide 27.7 mmol/L (20.0-29.0); Chloride 103 mmol/L (96-106); Glucose 151 mg/dL (70-99); Potassium 4.3 mmol/L (3.5-5.1)
[2025-06-01 18:46] VITALS: BP 132/88; PULSE 81; RESP 17; TEMP 36.7; O2SAT 98
== END 2025-06-01 18:46 | disposition home or self-care (01) ==
PROVIDERS: Emergency Provider Emergency Medicine; PCP Family Medicine; Visit Provider Emergency Medicine
DX: L03.113 Cellulitis of right upper limb (principal); E11.40 Type 2 diabetes mellitus with diabetic neuropathy, unspecified; I10 Essential (primary) hypertension; F17.200 Nicotine dependence, unspecified, uncomplicated; L03.123 Acute lymphangitis of right upper limb
CPT/HCPCS: 80048; 83605; 85025; 96365; 99284; A4216